=== PATIENT | female | born 1960 | race Caucasian/White ===

== ENCOUNTER 2020-03-18 06:50 | Day surgery (SDC) | payer OTHER, MEDICAID, SELFPAY ==
[2020-03-18] VITALS (30 sets, daily range): BP systolic 101–158; BP diastolic 64–90; PULSE 75–124; RESP 11–22; TEMP 36.1–36.7; O2SAT 91–97
--- NOTE | 2020-03-18 07:00 | DI.CT_ITS ---
EXAM: CT ABDOMEN PELVIS W CLINICAL HISTORY: mid and right lower abdominal pain. TECHNIQUE: Imaging Protocol: Axial computed tomography images with coronal and sagittal reformatted images were created and reviewed CONTRAST MATERIAL: Intravenous: Omnipaque 350 Contrast volume:structured data in ml Oral: yes / no COMPARISON: No exams were available for comparison FINDINGS: ABDOMEN: Lung Bases: Normal where visualized. Liver: Mildly enlarged. Fatty infiltration.. No measurable mass. Gallbladder and biliary tract: No radiodense calculus or dilation. Pancreas: Normal density, no abnormal calcifications or inflammatory process. Spleen: Normal. Kidneys: Normal size, contour and axis. No radiodense stones or obstructive uropathy. No masses seen. Adrenal glands: No masses seen. Abdominal Aorta: Abdominal portion non-dilated. Soft tissues: There is a periumbilical hernia containing a loop small bowel. There is some fluid wit hin the hernia sac. The hernia measures approximately 5.5 cm in diameter. The proximal loops of bow el are mildly dilated consistent with an element of obstruction. There is no pneumatosis. PELVIS: Bladder: Symmetric distention, no gross wall thickening. Bowel: Stomach and colon are unremarkable. The appendix is normal. Peritoneal cavity: No ascites, collection or mesenteric inflammatory response. No free air. Bones: Degenerative changes greatest of the thoracic spine. Reproductive organs: Within normal limits. Lymph nodes: Unremarkable. Impression: Umbilical hernia containing a loop of small bowel causing partial obstruction. RADIATION DOSE DELIVERED: 1,420.95mGy.cm Total DLP DATA REPOSITORY: All CT scans at this facility are submitted to the National Radiology Data Registry (NRDR) Dose Index Registry (DIR) with the [employer] (A[employer]). RADIATION OPTIMIZATION: All CT scans at this facility use at least one of these dose optimization te chniques: automated exposure control; mA and/or kV adjustment per patient size (includes targeted exa ms where dose is matched to clinical indication); or iterative reconstruction.
--- NOTE | 2020-03-18 07:08 | W.ED.GENAD ---
Discharge Plan Disposition Patient Disposition: [facility] INPATIENT Condition: Stable Discharge Details Clinical Impression: Abdominal pain, Incarcerated hernia, Intestinal obstruction Primary Care Provider: Carina,Local ED Provider: Joselo Ortiz Home Meds and New Rx's Prescriptions: No Action metformin 1,000 mg Tablet 1,000 mg PO BID RF: 0 glipizide 10 mg Tablet Extended Release 24hr 10 mg PO DAILY RF: 0 levothyroxine 25 mcg Tablet 25 mcg PO DAILY RF: 0 amlodipine 10 mg Tablet 10 mg PO DAILY RF: 0 irbesartan 75 mg Tablet 75 mg PO DAILY RF: 0 montelukast 10 mg Tablet 10 mg PO QHS RF: 0 hydrochlorothiazide 25 mg Tablet 25 mg PO DAILY RF: 0 rosuvastatin 10 mg Tablet 10 mg PO HS RF: 0 Medical Decision Making <Michael Vargas MD - Last Filed: 03/18/20 07:12> 60 yo female with hx of dm and htn who moved here from [place] in september comes in with chief complaint of abdominal pain since last night. She states she had a ventral abdominal hernia repair done in [place] 2 years ago and started to have umbilical pain radiating to the rlq pain last night as well as intermittent n/v. She denies chest pain, dyspnea, fevers. She arrives hemodynamically stable speaking in full sentences and appears in pain. Has pain in the mid abdomen as well as lower right guarding, no rebound tenderness. She does have what feels to be a hernia in the umbilicus as well. Given her worsening pain and n/v will obtain lab work and ct to evaluate for incarcerated/strangulated hernia, appendicits, and sbo among other pathology Patient to be signed out to oncoming provider pending lab work and imaging results and final dispo Differential Diagnosis Differential Diagnosis: hernia, appendicitis, sbo <Joselo Ortiz DO - Last Filed: 03/18/20 12:29> 60-year-old female was signed out to me by my colleague Dr. Michael Vargas. Please refer to his HPI, physical exam assessment and plan. At time of signout we are pending CT scan. Patient has a history of umbilical hernia, she had umbilical hernia repair with mesh in [place] in the past, for the last week she has had increased bulge in her umbilical region and then last night noted pain. She has had some vomiting but denies any diarrhea. Patient was given Dilaudid pain resolved for the most part. CT scan shows evidence of hernia with obstruction. Reassessment by myself demonstrates a nonreducible hernia on initial assessment. Mild tenderness. We did place the patient in Trendelenburg for half an hour, placed ice on her umbilicus, and on reassessment I was unable to reduce the hernia still. Labs show mild white count, left shift, concern for an incarcerated hernia, lactate normal so will lower likelihood of strangulation at this stage. I did contact the surgeon Dr. Jones and discussed the findings. She will come to evaluate the patient. Currently she is in the OR. 12:28 PM Patient has been seen and assessed by Dr. Jones, she agrees with the assessment and plan. We are still unable to reduce the hernia. She will be brought to the OR for surgical management. I have extensively reviewed the treatment plan with the patient. I have addressed all patient concerns at this time. I have also discussed the plan with the admitting physician and they agree with the current assessment and plan and have agreed to assume responsibility for the patient. All parties demonstrate verbal understanding and agreement with our assessment and plan at this time. HPI <Michael Vargas MD - Last Filed: 03/18/20 07:12> General Mode of arrival: ambulatory. Date/Time Provider Initiated Documentation: 03/18/20 06:52. Limitations to Documentation: no limitations. Information obtained by: patient. History of Present Illness 60 year old F presents to the emergency department with the chief complaint of abdominal pain, described as moderate, Patient started experiencing this day(s) (1) and it has been constant. No relieving factors improve symptom(s), No exacerbating factors reported . Patient notes nausea/vomiting. Patient did receive the following treatments prior to arrival, none Related Data Home Medications Medication Instructions Recorded Confirmed amlodipine 10 mg PO DAILY 03/18/20 03/18/20 glipizide 10 mg PO DAILY 03/18/20 03/18/20 hydrochlorothiazide 25 mg PO DAILY 03/18/20 03/18/20 irbesartan 75 mg PO DAILY 03/18/20 03/18/20 levothyroxine 25 mcg PO DAILY 03/18/20 03/18/20 metformin 1,000 mg PO BID 03/18/20 03/18/20 montelukast 10 mg PO QHS 03/18/20 03/18/20 rosuvastatin 10 mg PO HS 03/18/20 03/18/20 Allergies Allergy/AdvReac Type Severity Reaction Status Date / Time No Known Allergies Allergy Unverified 03/18/20 07:02 General Stated Complaint: Abd Prob CON: 3 Review of Systems <Michael Vargas MD - Last Filed: 03/18/20 07:12> All systems reviewed & are unremarkable except as noted in HPI and below Constitutional Constitutional: Denies chills, Denies fever(s) and Denies weakness Cardiovascular Cardiovascular: Denies chest pain and Denies dyspnea Respiratory Respiratory: Denies cough and Denies dyspnea Genitourinary Genitourinary: Denies dysuria Integumentary/Breasts Skin/Breast: Denies rash Neurologic Neurologic: Denies weakness PFSH <Michael Vargas MD - Last Filed: 03/18/20 07:12> Social History Smoking/Tobacco Use Status: Never Smoking risk assessment performed?: Yes Alcohol Intake: current Alcohol Intake frequency: holidays/special occasions only Drug use: Never Do you feel safe at home: Yes Do you feel safe in your relationship?: Yes Exam <Michael Vargas MD - Last Filed: 03/18/20 07:12> Const General: no acute distress Orientation: alert [facility] Head: normal to inspection Ears: external ears normal General nose exam: external nose normal Mouth: moist mucous membranes Eyes General: appearance normal, both eyes and all related structures Neck Neck: normal visual inspection Resp Effort & Inspection: normal respiratory effort and able to speak in complete sentences Cardio Rate: tachycardic GI Palpation: tender Skin General skin exam: no rashes or lesions noted Neuro General: patient alert and patient oriented x3 Extrem General: normal to inspection Psych Mental Status: mental status grossly normal Course <Michael Vargas MD - Last Filed: 03/18/20 07:12> Vital Signs Vital signs: Vital Signs Temperature 36.5 C 03/18/20 06:56 Pulse 124 H 03/18/20 06:56 Respiratory Rate 18 03/18/20 06:56 Blood Pressure 158/90 H 03/18/20 06:56 Pulse Oximetry 97 03/18/20 06:56 Temperature 36.5 C 03/18/20 06:56 Temperature Source Temporal Artery Scan 03/18/20 06:56 Pulse 124 H 03/18/20 06:56 Respiratory Rate 18 03/18/20 06:56 Respiratory Effort Non-Labored 03/18/20 07:00 Blood Pressure 158/90 H 03/18/20 06:56 Blood Pressure Position Sitting 03/18/20 06:56 Pulse Oximetry 97 03/18/20 06:56 Oxygen Delivery Method Room Air 03/18/20 06:56 Oxygen Flow Rate 0 03/18/20 06:56 Pain Level 8 03/18/20 06:56 Sign Out <Michael Vargas MD - Last Filed: 03/18/20 07:12> Sign Out Data: Sign Out Comment: prior hernia surgery 2 years ago, 1 day of mid/right lower abdomen pain and n/v. Pending labs, imaging and dispo Last updated by Michael Vargas MD at 03/18/20 07:13
[2020-03-18 07:29] LABS: Bilirubin Negative (Negative); Blood Trace-intact (Negative); Clarity Clear (Clear); Glucose Negative (Negative); Ketones Negative (Negative); Leukocyte Esterase Negative (Negative); Nitrite Negative (Negative); Specific Gravity >= 1.030 (1.005-1.025); Urobilinogen 0.2 EU/dL (Up TO 0.2)
[2020-03-18 07:31] LABS: Lactate 1.7 mmol/L (0.6-1.4)
[2020-03-18 07:33] LABS: Abs Immature Grans 0.06 10^3/uL (0.0-0.06); Absolute Basophil Count 0.03 10^3/uL (0.0-0.2); Absolute Neutrophil Count 13.55 10^3/uL (1.2-6.7); Basophils % 0.2; Eosinophils % 0.3; HCT 43.8 % (36.0-46.0); HGB 15.6 g/dL (11.2-15.7); Immature Grans % 0.4; Lymphocytes % 8.8; MCH 34.1 pg (27.0-33.0); MCHC 35.6 % (32.0-36.0); MCV 95.8 fL (80-95); MPV 10.1 fL (8.0-11.0); Monocytes % 2.8; Neutrophils % 87.5; Nucleated RBC 0 %; Platelet Count 298 10^3/uL (130-400); RBC 4.57 10^6/uL (3.93-5.22); RDW 11.7 % (11.7-14.6); RDW-SD 40.7 fL; WBC 15.49 10^3/uL (4.4-10.8)
[2020-03-18 07:34] LABS: Absolute Eosinophil Count 0.05 10^3/uL (0.0-0.7); Absolute Lymphocyte Count 1.36 10^3/uL (1.2-3.4); Absolute Monocyte Count 0.43 10^3/uL (0.1-0.8)
[2020-03-18] MEDS: Ondansetron 4 MG/2 ML VIAL IVP (07:37)
[2020-03-18] MEDS: Normal Saline 1,000 ML 1000 ML IV (07:37)
[2020-03-18] MEDS: HYDROmorphone 2 MG/ML VIAL 1 MG IVP (07:39)
[2020-03-18 07:42] LABS: WBC 0-2 HPF (0-5)
[2020-03-18 07:43] LABS: Bacteria Few HPF (Negative); C & S Indicated? No/Sq. Contamination; Casts Negative LPF (Negative); Crystals Negative HPF (Negative); Epithelial Cells Many HPF (Negative); Mucus Negative (Negative); Other Cells Negative (Negative)
[2020-03-18 07:47] LABS: ALT 40 U/L (14-59); AST 27 U/L (15-37); Alkaline Phosphatase 90 U/L (46-116); Anion Gap 8.5 mmol/L (3-11); BUN 24 mg/dL (7-18); Bilirubin, Direct 0.12 mg/dL (0.00-0.20); Bilirubin, Total 0.6 mg/dL (0.2-1.0); CO2 32.5 mmol/L (21.0-32.0); CREATININE 0.98 mg/dL (0.55-1.02); Calcium 9.8 mg/dL (8.5-10.1); Chloride 96 mmol/L (98-107); Estimated GFR 57.89 (mL/min/1.73m2); Glucose 204 mg/dL (74-106); Lipase 109 U/L (73-393); Magnesium 1.5 mg/dL (1.8-2.4); Potassium 3.6 mmol/L (3.5-5.1); Sodium 137 mmol/L (136-145); Total Protein 8.5 g/dL (6.4-8.2)
[2020-03-18 07:49] LABS: INR 1.1 (0.9-1.1); PTT Activated 27.6 sec (21.0-27.5); Prothrombin Time 10.7 sec (9.3-11.0)
[2020-03-18] MEDS: Omnipaque 350 MG/ML 100 ML BTL IJ (08:25)
[2020-03-18] MEDS: Normal Saline Flush 10 ML SYR IVP (08:42)
[2020-03-18] MEDS: MAGNESIUM SULFATE 2 GM/50 ML BAG IVPB (08:44)
[2020-03-18 10:07] LABS: Source Nasopharynx
--- NOTE | 2020-03-18 10:28 | HPE_ITS ---
Documented by User: JACLYN Watson 03/18/20 10:45 Date of service: 03/18/20 Time of Service: 10:28 Assessment and Plan Assessment and plan (1) Incarcerated ventral hernia: Status: Acute Assessment and plan: Pleasant 60 y/o female with incarcerated ventral hernia. Both the ER physician and this provider attempted to reduce the hernia without success. CT scan showed Umbilical hernia containing a loop of small bowel causing partial obstruction Discussed proceeding with reduction and repair of her recurrent ventral hernia with possible mesh. History of Present Illness History of Present Illness Chief Complaint: Abdominal Pain; Incarcerated Ventral Hernia Narrative: 60 y/o female with a history of GRAHAM, HTN, Type 2 DM, Asthma and hyperlipidemia presented to the ER with 12+ hours of abdominal pain. She reports she noted a firm, lump in her abdomen which was painful to touch. She reports that she has previously experienced this ~2 years ago, at which time she had a ventral hernia repaired and she believes mesh was implanted. She reports her last BM was yesterday. She denies any nausea or vomiting. She recently moved to [place] from [place], she states that during that time she has not located a PCP and her glucometer has been broken so she has not been monitoring her blood sugar. She reports occasional palpitations which she associated with stress and anxiety. She denies any chest pain, dyspnea or dyspnea with exertion. She Denies any history of requiring intubation secondary to her asthma. She denies any history for VT, Stroke, seizures, bleeding or clotting disorders. She denies having any metal implanted in her body. [facility] Social History Smoking/Tobacco Use Status: Never Smoking risk assessment performed?: Yes Alcohol Intake: current Alcohol Intake frequency: holidays/special occasions only Drug use: Never Do you feel safe at home: Yes Do you feel safe in your relationship?: Yes Meds Home Medications and Allergies Home Medications Medication Instructions Recorded Confirmed Type amlodipine 10 mg PO DAILY 03/18/20 03/18/20 History glipizide 10 mg PO DAILY 03/18/20 03/18/20 History hydrochlorothiazide 25 mg PO DAILY 03/18/20 03/18/20 History irbesartan 75 mg PO DAILY 03/18/20 03/18/20 History levothyroxine 25 mcg PO DAILY 03/18/20 03/18/20 History metformin 1,000 mg PO BID 03/18/20 03/18/20 History montelukast 10 mg PO QHS 03/18/20 03/18/20 History rosuvastatin 10 mg PO HS 03/18/20 03/18/20 History Allergies Allergy/AdvReac Type Severity Reaction Status Date / Time No Known Allergies Allergy Unverified 03/18/20 07:02 Exam Const General: comfortable Orientation: alert and oriented x3 Resp Effort & Inspection: normal respiratory effort, no audible wheezes and no cough Auscultation: clear to auscultation bilaterally Cardio Rate: regular rate Rhythm: regular rhythm Heart Sounds: S1 normal, S2 normal, no gallops and no murmurs GI Inspection: visible herniation (ventral near umbilicus) Palpation: soft and tender (Overlying hernia. ) Auscultation: normal bowel sounds Psych Appearance: grossly normal Mental Status: mental status grossly normal Speech and Movement: speech and movement normal Mood: congruent mood Affect: normal affect Attitude: cooperative Results Labs Result diagrams: 03/18/20 07:25 03/18/20 07:25 Labs: Laboratory Results - last 24 hr 03/18/20 03/18/20 03/18/20 07:10 07:25 07:25 WBC RBC Hgb Hct MCV MCH MCHC RDW Plt Count MPV Immature Gran % Neutrophils % Lymphocytes % Monocytes % Eosinophils % Basophils % Nucleated RBC % Absolute Neutrophils Absolute Lymphocytes Absolute Monocytes Absolute Eosinophils Absolute Basophils PT INR APTT VBG Lactate 1.7 H Sodium 137 Potassium 3.6 Chloride 96 L Carbon Dioxide 32.5 H Anion Gap 8.5 BUN 24 H Creatinine 0.98 Estimated GFR/1.73 m2 57.89 Glucose 204 H Calcium 9.8 Magnesium 1.5 L Total Bilirubin 0.6 Conjugated Bilirubin 0.12 AST 27 ALT 40 Alkaline Phosphatase 90 Total Protein 8.5 H Albumin 4.0 Lipase 109 Urine Color Yellow Urine Clarity Clear Urine pH 7.0 Ur Specific [place] >= 1.030 H Urine Protein >=300 H Urine Ketones Negative Urine Blood Trace-intact H Urine Nitrite Negative Urine Bilirubin Negative Urine Urobilinogen 0.2 Ur Leukocyte Esterase Negative Urine RBC 3-5 H Urine WBC 0-2 Ur Epithelial Cells Many Urine Crystals Negative Urine Bacteria Few Urine Casts Negative Urine Mucus Negative Urine Other Negative Ur Culture Indicated? No/sq. contamination Urine Glucose Negative 03/18/20 03/18/20 07:25 07:25 WBC 15.49 H RBC 4.57 Hgb 15.6 Hct 43.8 MCV 95.8 H MCH 34.1 H MCHC 35.6 RDW 11.7 Plt Count 298 MPV 10.1 Immature Gran % 0.4 Neutrophils % 87.5 Lymphocytes % 8.8 Monocytes % 2.8 Eosinophils % 0.3 Basophils % 0.2 Nucleated RBC % 0 Absolute Neutrophils 13.55 H Absolute Lymphocytes 1.36 Absolute Monocytes 0.43 Absolute Eosinophils 0.05 Absolute Basophils 0.03 PT 10.7 INR 1.1 APTT 27.6 H VBG Lactate Sodium Potassium Chloride Carbon Dioxide Anion Gap BUN Creatinine Estimated GFR/1.73 m2 Glucose Calcium Magnesium Total Bilirubin Conjugated Bilirubin AST ALT Alkaline Phosphatase Total Protein Albumin Lipase Urine Color Urine Clarity Urine pH Ur Specific [place] Urine Protein Urine Ketones Urine Blood Urine Nitrite Urine Bilirubin Urine Urobilinogen Ur Leukocyte Esterase Urine RBC Urine WBC Ur Epithelial Cells Urine Crystals Urine Bacteria Urine Casts Urine Mucus Urine Other Ur Culture Indicated? Urine Glucose Last Vital Signs Temp 36.7 C 03/18/20 08:38 Pulse 86 03/18/20 10:16 Resp 19 03/18/20 10:20 BP 145/75 H 03/18/20 10:16 Pulse Ox 95 03/18/20 10:20 Documented by User: Gracia Jones MD 03/18/20 12:17 PFS Social History Smoking/Tobacco Use Status: Never Smoking risk assessment performed?: Yes Alcohol Intake: current Alcohol Intake frequency: holidays/special occasions only Drug use: Never Do you feel safe at home: Yes Do you feel safe in your relationship?: Yes Meds Home Medications and Allergies Home Medications Medication Instructions Recorded Confirmed Type amlodipine 10 mg PO DAILY 03/18/20 03/18/20 History glipizide 10 mg PO DAILY 03/18/20 03/18/20 History hydrochlorothiazide 25 mg PO DAILY 03/18/20 03/18/20 History irbesartan 75 mg PO DAILY 03/18/20 03/18/20 History levothyroxine 25 mcg PO DAILY 03/18/20 03/18/20 History metformin 1,000 mg PO BID 03/18/20 03/18/20 History montelukast 10 mg PO QHS 03/18/20 03/18/20 History rosuvastatin 10 mg PO HS 03/18/20 03/18/20 History Allergies Allergy/AdvReac Type Severity Reaction Status Date / Time No Known Allergies Allergy Unverified 03/18/20 07:02 Results Labs Result diagrams: 03/18/20 07:25 03/18/20 07:25
[2020-03-18 10:47] LABS: COVID-19 PCR Negative (Negative); Influenza A PCR Negative (Negative); Influenza B PCR Negative (Negative); RSV PCR Negative (Negative)
[2020-03-18] MEDS: Lactated Ringers 1,000 ML 80 ML IV (12:30)
[2020-03-18] MEDS: AMPICILLIN/SULBACTAM 3 GM in Normal Saline 100 ML IVPB (12:51)
[2020-03-18] MEDS: Lidocaine 2% Multi-Dose 50 ML VIAL (12:57)
--- NOTE | 2020-03-18 13:41 | ROE_ITS ---
Date of service: 03/18/20 Operative Note Operative Note DATE OF PROCEDURE: 03/18/20 PRE-OP DIAGNOSIS: Incarcerated recurrent umbilical hernia POST-OP DIAGNOSIS: other (Incarcerated umbilical hernia) PROCEDURE: Incarcerated umbilical hernia repair with mesh SURGEON: Gracia Jones [employer] WORKER: Makenna Jacques ANESTHESIA: GETA (ASA 2, Aureliano Patel CRNA) and regional (Bilateral rectus block) ESTIMATED BLOOD LOSS: 25 PATHOLOGY: none sent COMPLICATIONS: None Patient was transported to: PACU Patient's condition: stable Implants: Ventrio ST Hernia Patch (8 x 12 cm oval mesh)- REF: [id number] LOT: [id number] Indications: 60 year old with history of previous umbilical hernia repair with mesh. She came to the ER for abdominal pain. Examination revealed a non- reducible umbilical hernia. CT scan showed a partial obstruction with a loop of small bowel in the hernia sac and fluid around the bowel. ER physician attempted to reduce but was unable to. Plan: Exploration and reduction of incarcerated bowel with possible resection. Possible mesh repair of recurrent umbilical hernia. Risks, benefits and complications reviewed with the patient. Complications include but are not limited to bleeding, infection, wound dehisence, hernia recurrence. anastamostic leak, injury to bowel. Questions were entertained and answered to her satisfaction and she wished to proceed. No guarantees were given or implied. Findings: 2 cm hernia just below her old mesh. Procedure Description: After informed consent was obtained the patient was taken to the operating room and placed in a supine position. Monitors and SCDs were applied and a timeout was done. The patient's name, date of , procedure type, procedure site, allergies to medications, preoperative antibiotic, and DVT prophylaxis were all reviewed. Fire risk was assessed. The abdomen was prepped and draped in a sterile surgical fashion. 2% Lidocaine was injected into the dermis along her old incision and continued around the umbilicus to 1 inch below the umbilicus. An incision was made along her old incision and continued around the umbilicus to 1 inch below the umbilicus. Dissection was done with cautery through the subcutaneous tissues down to the fascia on the distal end of the incarcerated hernia. I was then able to dissect carefully between the umbilical stalk and the hernia sac. At this point I felt the bowel release. The hernia sac was opened. There was some omentum that was scarred to the hernia sac and this was resected. The hernia sac was then resected at the edge of the fascia. The fascia was grasped with c ockers. The peritoneum was swept for adhesions and no adhesions were palpated. The hernia defect measured 2.5 cm. A 8 x 12 cm oval mesh was then placed under the peritoneum and secured along the left and right edge of the mesh with 2-0 Proline. Dissolvable tackers were used to secure the mesh circumferentialy. Once the mesh was secured the tissues were irrigated with some normal saline. No bleeding was identified. The fascia was closed over the mesh with 0 vicryl running suture. 2-0 Vicryl was used to secure the umbilicus down to the fascia. The subcutaneous tissue was re-approximated with 3-0 vicryl. The dermis was re- approximated with a running 4-0 Vicryl subcuticular stitch. The skin was cleaned and dried and skin affix was applied. The patient was woken up and taken back to recovery in stable condition. There were no immediate complications. Sponge, instrument and needle counts were correct at the end of the case x2.
--- NOTE | 2020-03-18 13:42 | PDOC.DSDIS_ITS ---
Discharge Plan Disposition Patient Disposition: HOME Condition: Stable Discharge Details Reason For Visit: HERNIA REPAIR Attending Provider: Gracia Jones Primary Care Provider: No,Local Home Meds and New Rx's Prescriptions: New ibuprofen 600 mg tablet 600 mg PO Q6H PRN (Reason: pain) Qty: 60 RF: 0 acetaminophen 325 mg tablet 650 mg PO Q6H PRN (Reason: pain) Qty: 30 RF: 0 oxycodone 5 mg tablet 5 mg PO Q6H PRN (Reason: pain) Qty: 14 RF: 0 Continued metformin 1,000 mg Tablet 1,000 mg PO BID RF: 0 glipizide 10 mg Tablet Extended Release 24hr 10 mg PO DAILY RF: 0 levothyroxine 25 mcg Tablet 25 mcg PO DAILY RF: 0 amlodipine 10 mg Tablet 10 mg PO DAILY RF: 0 irbesartan 75 mg Tablet 75 mg PO DAILY RF: 0 montelukast 10 mg Tablet 10 mg PO QHS RF: 0 hydrochlorothiazide 25 mg Tablet 25 mg PO DAILY RF: 0 rosuvastatin 10 mg Tablet 10 mg PO HS RF: 0 Discharge Instructions Instructions: Open Herniorrhaphy (DC) Additional Instructions: Activity at Home after surgery: 1. Make sure you walk outside at least 4 times per day 2. You should be able to climb a flight of stairs 3. No driving while in pain or taking pain medications 4. No strenuous activity or heavy lifting for 4 weeks (open surgery) Diet, Nutrition, & wound healin. Avoid alcohol until after you are recovered from your surgery 2. Make sure to eat plenty of lean protein (meat, fish, eggs, cottage cheese, beans) 3. Eat a variety of fruits and vegetables. Eat plenty of high fiber foods to avoid constipation. 4. Drink plenty of liquids to stay hydrated and avoid constipation Pain Medications: 1. Tylenol 650 mg every 6 hours as needed and Ibuprofen 600 mg every 6 hours as needed. may alternate between the 2 medications every 3 hours 2. If a narcotic has been prescribed take as directed only for breakthrough pain For Constipation: 1. Take Milk of Magnesia or MiraLax as needed for constipation Other: 1. You may shower daily. Do not scrub the incisions 2. Do not soak the incisions for 1 week 3. You may alternate ice and heat as needed for pain and swelling Wound Care: 1. Keep the incisions clean and dry Please call our office if you develop: 1. Fevers >101.5 2. Nausea or Vomiting 3. Worsening pain 4. Redness and thick discharge from the wounds If after hours please call the Hospital at and ask to speak to the on-call surgeon Referrals: Gracia Jones MD [ [facility] STAFF PHYSICIAN] - (2 weeks) Activity:: no lifting >20 lb Remove Dressings/Wound Care:: Do Not Remove Shower/Bathe:: 24 hours Diet:: As Tolerated DS: Diagnosis Discharge Diagnosis (1) Incarcerated ventral hernia: Status: Acute
[2020-03-18] MEDS: Bupivacaine 0.25% Pres-Free 10 ML VIAL (13:55)
[2020-03-18] MEDS: Bupivacaine 0.25% Pres-Free 30 ML VIAL (13:55)
== END 2020-03-18 16:55 | disposition home or self-care (01) ==
LOC: ER 12:29 → SUR 12:31
PROVIDERS: Emergency Medicine; Emergency Provider Student in an Organized Health Care Education/Training Program; Visit Provider Surgery
PROC: (CPT 49587; principal; 2020-03-18 12:30)
DX: K42.0 Umbilical hernia with obstruction, without gangrene (principal); G47.33 Obstructive sleep apnea (adult) (pediatric); J45.909 Unspecified asthma, uncomplicated
CPT/HCPCS: 49587; 36415; 76942; 80053; 83690; 96361; 96365; 96375; 99222; 99285; 74177; 81003; 81015; 82248; 83036; 83605; 83735; 85025; 85610; 85730; C1781; J0295; J1100; J2250; J2405; J2704; J3490

== ENCOUNTER 2020-05-28 13:35 | Outpatient (CLI) | payer MEDICAID, SELFPAY ==
--- NOTE | 2020-05-28 13:00 | DI.RAD_ITS ---
EXAM: XR KNEE LT 3V AP,LAT,JASON CLINICAL HISTORY: LEFT KNEE PAIN. TECHNIQUE: 2D digital imaging was performed. COMPARISON: No exams were available for comparison FINDINGS: BONES: No acute fracture is present. No bony destructive lesion is seen. JOINTS: There is moderate to severe narrowing of the medial femoral tibial joint space. There is mil d to moderate periarticular spurring. There is compensatory widening of the lateral femoral tibial j oint space which shows mild spurring. There is moderate spurring at the patellofemoral joint. No monica int effusion is seen. Degenerative changes are also seen at the proximal tibial fibular joint. SOFT TISSUE: Normal. IMPRESSION: Moderate to severe degenerative changes of the medial femoral tibial joint. [id number] degener ative changes of the patellofemoral joint. DATA REPOSITORY: RADIATION DOSE DELIVERED:
--- NOTE | 2020-05-28 13:37 | DI.RAD_ITS ---
EXAM: XR KNEE RT 3V AP,LAT,JASON CLINICAL HISTORY: RIGHT KNEE PAIN. TECHNIQUE: 2D digital imaging was performed. COMPARISON: CR XR KNEE LT 3V AP,LAT,JASON from 05/28/2020 FINDINGS: BONES: No acute fracture is present. No bony destructive lesion is seen. JOINTS: There is severe narrowing of the medial femoral tibial joint causing varus angulation. There is some flattening of the medial femoral condyle. There is periarticular spurring and coronal and s clerosis. There is compensatory widening of the lateral femoral tibial joint space. Spurring is not ed at the tibial spines and femoral intercondylar notch. There is also moderate spurring at the irizarry llofemoral joint. Spurring is also noted at the proximal tibial fibular joint. No joint effusion is seen. SOFT TISSUE: Normal. IMPRESSION: Severe degenerative changes of the medial femoral tibial joint. DATA REPOSITORY: RADIATION DOSE DELIVERED:
== END 2020-05-28 13:36 | disposition home or self-care (01) ==
LOC: DIORS 13:35
PROVIDERS: Visit Provider Student in an Organized Health Care Education/Training Program
DX: M25.561 Pain in right knee (principal); M25.562 Pain in left knee; M17.0 Bilateral primary osteoarthritis of knee
CPT/HCPCS: 73562

== ENCOUNTER 2020-06-10 08:43 | Outpatient (REF) | payer MEDICAID, SELFPAY ==
[2020-06-10 16:25] LABS: Anion Gap 9.9 mmol/L (3-11); BUN 24 mg/dL (7-18); CO2 28.1 mmol/L (21.0-32.0); CREATININE 0.9 mg/dL (0.55-1.02); Calcium 9.3 mg/dL (8.5-10.1); Calculated LDL 37 mg/dL (<100); Chloride 104 mmol/L (98-107); Cholesterol 119 mg/dL (<200); Glucose 100 mg/dL (74-106); HDL Cholesterol 48 mg/dL (40-60); Sodium 142 mmol/L (136-145); TSH (W/Ref FT4) 2.98 uIU/mL (0.36-3.74); Triglyceride 173 mg/dL (<150)
== END 2020-06-10 08:44 | disposition home or self-care (01) ==
LOC: NCHCN 08:43
PROVIDERS: Visit Provider Nurse Practitioner Family
DX: E03.9 Hypothyroidism, unspecified (principal); E78.5 Hyperlipidemia, unspecified; I10 Essential (primary) hypertension
CPT/HCPCS: 80048; 80061; 84443

== ENCOUNTER 2020-06-10 13:26 | Outpatient (CLI) | payer MEDICAID, SELFPAY ==
--- NOTE | 2020-06-10 13:15 | DI.RAD_ITS ---
EXAM: XR KNEE RT 1V CLINICAL HISTORY: PRE OP R TKA. TECHNIQUE: 2D digital imaging was performed. COMPARISON: CR XR KNEE RT 3V AP,LAT,JASON from 05/28/2020 FINDINGS: Single lateral weight-bearing view of the right knee compared to 05/28/2020. Significant osteoarthritic degenerative changes are again noted in both patellofemoral compartment an d medial compartment. Appearance of the lateral view is unchanged from 05/28/2020. There is also so me calcification noted approximately 3 cm above the superior pole the patella which is either in the quadriceps tendon or suprapatellar bursa. There does appear to be a joint effusion. IMPRESSION: DATA REPOSITORY: RADIATION DOSE DELIVERED:
--- NOTE | 2020-06-10 13:15 | DI.RAD_ITS ---
EXAM: XR STANDING ALIGNMENT CLINICAL HISTORY: pre op R TKA. TECHNIQUE: 2D digital imaging was performed. COMPARISON: CR XR KNEE RT 3V AP,LAT,JASON from 05/28/2020 FINDINGS: There is significant degenerative changes in both knees. There is advanced narrowing of the medial c ompartments of both knees, slightly more prominent on the right side and there also marginal osteophy barney of both medial compartments. There is preserved height of both lateral compartments. Both hips appear unremarkable as do the ankles. No osseous lesions. IMPRESSION: Advanced degenerative narrowing of the medial compartments of both hips, slightly more prominent on t he right side. DATA REPOSITORY: RADIATION DOSE DELIVERED:
== END 2020-06-10 13:27 | disposition home or self-care (01) ==
LOC: DIORS 13:26
PROVIDERS: Visit Provider Physician Assistant
DX: M25.561 Pain in right knee (principal); M17.11 Unilateral primary osteoarthritis, right knee; M25.461 Effusion, right knee
CPT/HCPCS: 73560; 77073

== ENCOUNTER 2020-06-15 04:20 | Outpatient (CLI) | payer MEDICAID, SELFPAY ==
[2020-06-15 10:43] LABS: HCT 38.8 % (36.0-46.0); HGB 13.5 g/dL (11.2-15.7); MCH 34.5 pg (27.0-33.0); MCHC 34.8 % (32.0-36.0); MCV 99.2 fL (80-95); MPV 9.5 fL (8.0-11.0); Platelet Count 241 10^3/uL (130-400); RBC 3.91 10^6/uL (3.93-5.22); RDW 12.5 % (11.7-14.6); RDW-SD 45.2 fL; WBC 6.69 10^3/uL (4.4-10.8)
[2020-06-15 11:08] LABS: Hemoglobin A1C 5.7 % (<5.7)
[2020-06-15 11:30] LABS: Anion Gap 9.2 mmol/L (3-11); BUN 26 mg/dL (7-18); CO2 30.8 mmol/L (21.0-32.0); Calcium 9.3 mg/dL (8.5-10.1); Chloride 99 mmol/L (98-107); Estimated GFR 56.56 (mL/min/1.73m2); Glucose 255 mg/dL (74-106); Potassium 3.7 mmol/L (3.5-5.1); Sodium 139 mmol/L (136-145)
[2020-06-15 11:36] LABS: Source Nasal/Nares
[2020-06-15 18:17] LABS: COVID-19 PCR Negative (Negative)
== END 2020-06-15 04:21 | disposition home or self-care (01) ==
LOC: LBO 04:20
PROVIDERS: PCP Nurse Practitioner Family; Visit Provider Student in an Organized Health Care Education/Training Program
DX: M25.561 Pain in right knee (principal); M17.11 Unilateral primary osteoarthritis, right knee; E11.9 Type 2 diabetes mellitus without complications; I10 Essential (primary) hypertension; Z20.822 Contact with and (suspected) exposure to COVID-19; Z01.818 Encounter for other preprocedural examination; Z01.812 Encounter for preprocedural laboratory examination
CPT/HCPCS: 36415; 80048; 85027; 87635; 83036

== ENCOUNTER 2020-06-16 10:08 | Outpatient (REF) | payer MEDICAID, SELFPAY ==
--- NOTE | 2020-06-16 08:15 | PAPFT_PTH ---
PATIENT: Yolis Romero LOC: [facility] U#:[id number] AGE/SX: 60/F ROOM: RE06/16/[address]: Chelsy Aden : 1960 BED: DIS: 06/16/2020 SPEC #: [id number] RECD: 06/16/20 18:04 STATUS: RADHAIsabelle RESharif #: [id number] FRANCOIS: 06/16/20 08:[address]: Chelsy Aden DEPT: [facility] Cytology RECD BY: Khloe Kidd Tissues: 1 - CX/ENDOCX FOR PAP SMEARS Procedures: PAP THIN PREP/UVM Screening HPV DNA PROBE Comments: [id number]
== END 2020-06-16 10:09 | disposition home or self-care (01) ==
LOC: NCHCN 10:08
PROVIDERS: PCP Nurse Practitioner Family; Visit Provider Nurse Practitioner Family
DX: Z12.4 Encounter for screening for malignant neoplasm of cervix (principal); Z11.51 Encounter for screening for human papillomavirus (HPV); Z00.00 Encounter for general adult medical examination without abnormal findings
CPT/HCPCS: 88142; 87624

== ENCOUNTER 2020-06-17 06:02 | Day surgery (SDC) | payer MEDICAID, SELFPAY ==
[2020-06-17] VITALS (9 sets, daily range): BP systolic 81–135; BP diastolic 51–85; PULSE 78–93; RESP 13–19; TEMP 36.5–36.6; O2SAT 92–98; BMI 40.6
--- NOTE | 2020-06-17 06:41 | W.ANESPRE ---
General Info Date of Service Date Performed: 06/17/20 Height: 5 ft 4 in Weight: 107.3 kg Body Mass Index (BMI): 40.6 Surgical Procedure: Operation Date: 06/17/20 07:40 Proposed Procedures Side Surgeon p Knee Total Arthroplasty Right Myke Snow MD s Injection knee Left Myke Snow MD Meds Allergies and Home Medications Allergies Allergy/AdvReac Type Severity Reaction Status Date / Time No Known Allergies Allergy Verified 06/17/20 06:11 Home Medication Medication Instructions Recorded amlodipine 10 mg PO DAILY 03/18/20 glipizide 10 mg PO DAILY 03/18/20 hydrochlorothiazide 25 mg PO DAILY 03/18/20 irbesartan 75 mg PO DAILY 03/18/20 levothyroxine 25 mcg PO DAILY 03/18/20 metformin 1,000 mg PO BID 03/18/20 montelukast 10 mg PO QHS 03/18/20 rosuvastatin 10 mg PO HS 03/18/20 biotin 5 mg capsule 5 mg PO DAILY 06/10/20 cholecalciferol (vitamin D3) 50 50 mcg PO DAILY 06/10/20 mcg (2,000 unit) capsule mecobalamin (vitamin B12) 1,000 1,000 mcg PO DAILY 06/10/20 mcg chewable tablet [id number]-bmliycit-ylzbzpg-folic 1 tab PO DAILY 06/10/20 acid 400 mcg-vit K1 20 mcg tablet omega-3 fatty acids 1,000 mg 1,000 mg PO DAILY 06/10/20 capsule aspirin [Aspir-81] 81 mg PO QHS 06/17/20 Current Visit Medications: Current Medications Generic Name Dose Route Start Last Admin Trade Name Kya PRN Reason Stop Dose Admin Acetaminophen 1,000 mg 06/17/20 06:00 Acetaminophen 500 Mg Tab PO 06/17/20 16:00 PREOP [place] Celecoxib 400 mg 06/17/20 06:00 Celecoxib 200 Mg Cap PO 06/17/20 16:00 PREOP [place] Ephedrine Sulfate 0 mg 06/17/20 06:40 Ephedrine 50 Mg/Ml Vial IVP DIRECTED PRN Fentanyl 0 mcg 06/17/20 06:40 Fentanyl 100 Mcg/2 Ml Vial IVP DIRECTED PRN Gabapentin 300 mg 06/17/20 06:00 Gabapentin 300 Mg Cap PO 06/17/20 16:00 PREOP [place] Tranexamic Acid 1,000 mg/ 60 mls @ 360 mls/hr 06/17/20 06:00 Sodium Chloride IVPB 06/17/20 16:00 PREOP [place] Tranexamic Acid 1,000 mg/ 60 mls @ 360 mls/hr 06/17/20 06:00 Sodium Chloride IVPB 06/17/20 16:00 DIRECTED [place] Ringer's Solution 1,000 mls @ 80 mls/hr 06/17/20 06:00 IV 07/16/20 23:59 INFUSION [place] Cefazolin Sodium/Dextrose 2 gm in 50 mls @ 100 mls/hr 06/17/20 06:00 Ancef Duplex IVPB 07/16/20 23:59 PREOP [place] Promethazine HCl 6.25 mg/ 50.25 mls @ 200 mls/hr 06/17/20 06:40 Sodium Chloride IVPB DIRECTED PRN Nausea IV Miscellaneous Supplies 1 each 06/17/20 06:00 Iv Access IV 07/16/20 23:59 DIRECTED [place] Naloxone HCl 0 mg 06/17/20 06:40 Naloxone 0.4 Mg/Ml Vial IVP PRN PRN Sodium Chloride 0 ml 06/17/20 06:00 Normal Saline Flush 10 Ml Syr IV 07/16/20 23:59 PRN PRN Sodium Chloride 0 ml 06/17/20 06:00 Normal Saline 10 Ml Vial IJ 07/16/20 23:59 DIRECTED PRN Sterile Water 0 ml 06/17/20 06:00 Water,Injection,Sterile 10 Ml Vial IJ 07/16/20 23:59 DIRECTED PRN PFSH Active Problems Active Problems: Problem Status Onset Code Left knee DJD M17.12 Degenerative joint disease of right knee M17.11 Medical History Medical History Asthma Degenerative joint disease of right knee Diabetes Hyperlipidemia Hypertension Hypothyroidism Incarcerated ventral hernia Left knee DJD Sleep apnea uses device. Surgical History Surgical History S/P hernia repair (~03/18/20) incarcerated ventral hernia Tobacco Smoking/Tobacco Use Status: Never Alcohol Alcohol Intake: current Alcohol intake frequency: holidays/special occasions only Substance Use Substance use: Never Substance use type: does not use Vital Signs and Lab Results Vital Signs Most Recent Vital Signs in EMR: Most Recent Vital Signs Temp Pulse Resp BP Pulse Ox 36.5 C 86 16 118/65 95 06/17/20 06:18 06/17/20 06:18 06/17/20 06:18 06/17/20 06:18 06/17/20 06:18 Lab Results Blood Type / Crossmatch: No Data to Display Complete Blood Count: White Blood Count 6.69 10^3/uL (4.4-10.8) 06/15/20 10:35 06/15/20 Red Blood Count 3.91 10^6/uL (3.93-5.22) L 06/15/20 10:35 06/15/20 Hemoglobin 13.5 g/dL (11.2-15.7) 06/15/20 10:35 06/15/20 Hematocrit 38.8 % (36.0-46.0) 06/15/20 10:35 06/15/20 Platelet Count 241 10^3/uL (130-400) 06/15/20 10:35 06/15/20 Complete Metabolic Panel: Sodium Level 139 mmol/L (136-145) 06/15/20 10:35 06/15/20 Potassium Level 3.7 mmol/L (3.5-5.1) 06/15/20 10:35 06/15/20 Chloride Level 99 mmol/L (98-107) 06/15/20 10:35 06/15/20 Carbon Dioxide Level 30.8 mmol/L (21.0-32.0) 06/15/20 10:35 06/15/20 Blood Urea Nitrogen 26 mg/dL (7-18) H 06/15/20 10:35 06/15/20 Creatinine 1.0 mg/dL (0.55-1.02) 06/15/20 10:35 06/15/20 Magnesium Level 1.5 mg/dL (1.8-2.4) L 03/18/20 07:25 03/18/20 Calcium Level 9.3 mg/dL (8.5-10.1) 06/15/20 10:35 06/15/20 Albumin 4.0 g/dL (3.4-5.0) 03/18/20 07:25 03/18/20 Glucose Level 255 mg/dL (74-106) H 06/15/20 10:35 06/15/20 Hemoglobin A1c 5.7 % (<5.7) 06/15/20 10:35 06/15/20 Liver Function Panel: Alanine Aminotransferase (ALT/SGPT) 40 U/L (14-59) 03/18/20 07:25 03/18/20 Aspartate Amino Transf (AST/SGOT) 27 U/L (15-37) 03/18/20 07:25 03/18/20 Coagulation Panel: INR International Normalized Ratio 1.1 (0.9-1.1) 03/18/20 07:25 03/18/20 Prothrombin Time 10.7 sec (9.3-11.0) 03/18/20 07:25 03/18/20 Activated Partial Thromboplast Time 27.6 sec (21.0-27.5) H 03/18/20 07:25 03/18/20 Cardiac Panel: No Data to Display Arterial Blood Gas: No Data to Display Venous Blood Gas: Venous Blood Lactate 1.7 mmol/L (0.6-1.4) H 03/18/20 07:25 03/18/20 Pancreas Panel: Lipase 109 U/L (73-393) 03/18/20 07:25 03/18/20 Thyroid Panel: Thyroid Stimulating Hormone (TSH) 2.98 uIU/mL (0.36-3.74) 06/10/20 07:39 06/10/20 Infectious Disease: Coronavirus (COVID-19)(PCR) Negative (Negative) 06/15/20 10:49 06/15/20 Coronavirus 2019 Source Nasal/nares 06/15/20 10:49 06/15/20 Influenza Virus Type A (PCR) Negative (Negative) 03/18/20 10:04 03/18/20 Influenza Virus Type B (PCR) Negative (Negative) 03/18/20 10:04 03/18/20 Respiratory Syncytial Virus (PCR) Negative (Negative) 03/18/20 10:04 03/18/20 Blood Cultures: No Data to Display Toxicology Panel: No Data to Display Panel: No Data to Display Anesthesia Assessment and Plan Anesthesia History Personal History: No History of Anesthesia Complications Family History: No Family History of Anesthesia Complications Exercise Tolerance Exercise Tolerance: Metabolic Equivalents>4 Pertinent Negatives Pertinent Negatives: No Symptoms of GERD, No Major Cardiovascular Symptoms or Complaints and No Major Pulmonary Symptoms or Complaints Cardiac & Pulmonary Exam Cardiac Exam: Normal S1/S2 Heart Sounds Pulmonary Exam: Clear Bilateral Breath Sounds Airway Exam Known Difficult Airway: No Mallampati Class: 3 Mouth Opening: Narrow (< 3cm) Thyromental Distance: Greater than 3 cm Neck Range of Motion: Full ROM Neck Circumference: Thick Teeth Condition: Normal Dentition Airway Comment:: left lower broken tooth ASA Classification ASA Score: ASA 3 ASA Emergency: No NPO Status NPO Status: NPO Clears >2 hours, Solids >8 hours Anesthesia Plan Anesthesia Technique: Spinal Anesthesia Airway Planned: Natural Airway Pain Management: Surgeon and patient request nerve block Monitors Used: Standard Monitors
--- NOTE | 2020-06-17 07:11 | PDOC.DSDIS_ITS ---
Discharge Plan Disposition Patient Disposition: HOME Condition: Good Discharge Details Reason For Visit: Right Knee Replacement Attending Provider: Myke Snow Primary Care Provider: Chelsy Aden Home Meds and New Rx's Prescriptions: New aspirin 81 mg tablet,delayed release (DR/EC) 81 mg PO BID Qty: 60 RF: 0 acetaminophen 500 mg tablet 1,000 mg PO Q8H PRN (Reason: pain) Qty: 90 RF: 3 pantoprazole 40 mg tablet,delayed release (DR/EC) 40 mg PO DAILY Qty: 30 RF: 0 docusate sodium [Colace] 100 mg capsule 100 mg PO BID PRNQty: 10 RF: 0 gabapentin 300 mg capsule 300 mg PO QHS Qty: 7 RF: 0 oxycodone 5 mg tablet 5 mg PO Q4H Qty: 18 RF: 0 naproxen 500 mg tablet 500 mg PO BID PRNQty: 60 RF: 0 Continued mecobalamin (vitamin B12) 1,000 mcg tablet,chewable 1,000 mcg PO DAILY RF: 0 omega-3 fatty acids 1,000 mg capsule 1,000 mg PO DAILY RF: 0 cholecalciferol (vitamin D3) 50 mcg (2,000 unit) capsule 50 mcg PO DAILY RF: 0 biotin 5 mg capsule 5 mg PO DAILY RF: 0 One-A-Day Women's 50 Plus 400-20 mcg tablet 1 tab PO DAILY RF: 0 metformin 1,000 mg Tablet 1,000 mg PO BID RF: 0 glipizide 10 mg Tablet Extended Release 24hr 10 mg PO DAILY RF: 0 levothyroxine 25 mcg Tablet 25 mcg PO DAILY RF: 0 amlodipine 10 mg Tablet 10 mg PO DAILY RF: 0 irbesartan 75 mg Tablet 75 mg PO DAILY RF: 0 montelukast 10 mg Tablet 10 mg PO QHS RF: 0 hydrochlorothiazide 25 mg Tablet 25 mg PO DAILY RF: 0 rosuvastatin 10 mg Tablet 10 mg PO HS RF: 0 Discontinued aspirin [Aspir-81] 81 mg Tablet,Delayed Release (Dr/Ec) 81 mg PO QHS RF: 0 Discharge Instructions Additional Instructions: Total Knee Discharge Instructions Activity: The most important activity is to walk. You should try to take short walks a few times a day. It is important that when resting you work on keeping the knee straight. Avoid putting a pillow behind the knee as this will encourage flexion. Work on range of motion exercises as provided by [facility]. - Start outpatient physical therapy within 2 weeks. - You should wear the JACKIE hose on both legs for 2 weeks. You may remove these at night. You may also use any compression sock in place of the JACKIE hose. Dressing: You may remove the Jigar wrap on your leg 2 days after your surgery and put on the JACKIE stocking given to you from the hospital. Keep the surgical dr essing (underneath the JIGAR wrap) in place for at least one week. After the first week it may be removed and replaced with light gauze and tape or nothing. The wound and dressing may get wet after 3 days but avoid soaking the dressing or otherwise it will need to be changed. Many people prefer covering the dressing with cling wrap (saran wrap) to minimize it from getting soaked. If it gets wet, just pat dry. If it starts to peel off then it will need to be changed. Medications: - You should take Tylenol and anti-inflammatory, Naproxen, as your primary pain control medications. If the Celebrex is too expensive or not covered, please call the office for another alternative (Advil/Ibuprofen or Naproxen/Aleve) - You have been prescribed a stronger pain medication Oxycodone for breakthrough pain, take as needed as prescribed. - You have also been prescribed a stomach acid reduction agent Pantoprozole to help reduce stomach acid and reflux. - You have been prescribed Gabapentin to take at night for restlessness and nerve pain. - You will be taking Aspirin 81mg twice a day for DVT prevention unless instructed otherwise. - If you have constipation you should take Colace or Miralax (both [id number]). It takes most people 3-4 days to have a bowel movement. Follow-up: 2 weeks If you have any acute concerns or questions, please do not hesitate to contact the office at [phone]. You may contact Dr. Snow with any questions after hours through the hospital at [phone] or on his cell phone at [phone]. Equipment/Supplies: Walker Activity:: Activity as Tolerated Shower/Bathe:: 72 hours Diet:: As Tolerated Discharge Orders Discharge Orders: Discharge Order (Routine); Ordered 06/17/20 Ordered By: Myke Snow DS: Diagnosis Discharge Diagnosis (1) Degenerative joint disease of right knee: Status: Chronic (2) Left knee DJD: Status: Chronic
[2020-06-17] MEDS: Lactated Ringers 1,000 ML 80 ML IV (07:26)
[2020-06-17] MEDS: Acetaminophen 500 MG TAB 1000 MG PO (07:26)
[2020-06-17] MEDS: Gabapentin 300 MG CAP PO (07:27)
[2020-06-17] MEDS: Celecoxib 200 MG CAP 400 MG PO (07:27)
[2020-06-17] MEDS: ceFAZolin 2 GM/50 ML BAG IVPB (07:31)
--- NOTE | 2020-06-17 08:15 | W.ANESNERVE ---
Nerve Block Single Injection Procedure Date and Time Date Performed: 06/17/20 Procedure Start: 07:17 Location Where Procedure Performed Procedure Location: PACU Reason Performed: Postoperative Analgesia Requesting Provider: Myke Snow Timeout Performed Timeout Performed: Yes Monitoring Used ECG, Blood Pressure, SpO2 and See EMR for corresponding vital signs Sterility Sterility: Hand Hygiene, Surgical Cap, Surgical Mask, Sterile Gloves and Chlorhexidine Sedation Given During Procedure Sedation Given (Indicate Dose Given): Versed IV (2 mg) and Precedex IV (8 mcg) Patient Mental Status Patient Mental Status: Sedate with meaningful communication Nerve Block 1st Nerve Block: Laterality: Right Block Type: Adductor Canal Needle / Catheter Used: 120mm SonoPlex II Local Anesthetic Bolus (Indicate Dose Given): Lidocaine used for local infiltration of skin, Injected in 3-5ml increments after negative blood aspiration and Bupivacaine 0.25% (15 ml) Additives (Indicate Dose Given): None Ultrasound: Sterile probe cover and gel used Ultrasound Image Saved?: Yes Nerve Stimulator: Not Used Paresthesia: None Procedure Tolerated: No Complications Procedure Outcome: Successful Performed By: Brittany Osman
[2020-06-17] MEDS: Bupivacaine 0.25% Pres-Free 30 ML VIAL (08:44)
[2020-06-17] MEDS: Normal Saline 20 ML VIAL (08:44)
[2020-06-17] MEDS: Ketorolac 30 MG/ML VIAL (08:44)
[2020-06-17] MEDS: methylPREDNISolone ACETATE 80 MG/ML VIAL (08:46)
[2020-06-17] MEDS: Bupivacaine 0.5% Pres-Free 30 ML VIAL (08:47)
--- NOTE | 2020-06-17 09:28 | ROE_ITS ---
Date of service: 06/17/20 Time of Service: 09:28 Operative Note Operative Note DATE OF PROCEDURE: 06/17/20 PRE-OP DIAGNOSIS: Right and Left Knee Osteoarthritis POST-OP DIAGNOSIS: same PROCEDURE: Right Total Knee Replacement and Left Knee Injection SURGEON: Myke Snow SENIOR INSTRUMENTATION ENGINEER: Rianna Bruce ANESTHESIA TYPE: Spinal Refer to Anesthesia Record ESTIMATED BLOOD LOSS: 200 PATHOLOGY: none sent TOURNIQUET TIME: 0 COMPLICATIONS: None Patient was transported to: PACU Patient's condition: stable Implants: 1. Depuy Attune Cementless Cruciate Retaining Femoral Component, Size 5 2. Depuy Attune Cementless Rotating Platform Tibial Component, Size 3 3. Depuy Attune 5x6mm CR/RP Poly 4. Depuy Attune Patellar Component, Size 35mm Indications: I have seen Yolis in clinic for symptoms of knee arthritis, confirmed with radiographic findings. She has exhausted nonoperative methods and was having significant limitations in daily function and desired better function and less pain. I discussed the technical details of a knee replacement. I explained the risks of the procedure to include, but not limited to, bleeding, infection, pain, stiffness, fracture, damage to nerves and vessels, damage to muscles and tendons, loosening, need for repeat procedure, blood clot and cardiopulmonary demise. Despite these risks, she elected to proceed. Findings: There was significant signs of arthritis throughout the knee. Procedure Description: Yolis was greeted in the preoperative holding area where the correct side was identified and marked. The consent was reviewed with the patient and signed. The history and physical was updated. All questions were answered. Preoperative medications were administered: Acetaminophen 1000mg, Celebrex 400mg, and Gabapentin 300mg. An adductor canal block was then administered by the anesthesia team in the PACU. Yolis was taken back to the operating room. A spinal anesthestic was then administered. The patient was placed into the supine position on the operating room table. A nonsterile tourniquet was placed high onto the leg but only used for cementing. Posts were placed for positioning during the p rocedure. All bony prominences were well padded. Prophylactic antibiotics in the form of Cefazolin were administered. 1g of Tranxemic Acid was given intravenously within 30 minutes of incision. Injection of the left knee was performed first. The superolateral border of the patella was identified and marked. The skin was prepped with alcohol. The knee joint was entered without difficulty and the injection, consisting of 8cc of 0.5% Bupivicaine and 80mg of DepoMedrol, was injected without resistance. A Band-Aid was applied. The right leg was then prepped with Chloraprep and draped in a standard fashion with impervious stockinette. A second prep with Chloraprep was performed prior to application of Iodine impregnated skin protection. A timeout to confirm correct identity, side and site, procedure, allergies, anesthesia, and medical concerns was performed. With the knee in some flexion, a midline incision was made overlying the knee. Full thickness skin flaps were raised once the extensor mechanism was encountered. These were raised medially and laterally. Any bleeding was controlled with electrocautery. Once the extensor mechanism was fully exposed, a medial parapatellar arthrotomy was performed in a flexed position. All bleeding from the arthrotomy and the geniculate arteries was coagulated. A medial subperiosteal peel was performed with electrocautery to the midcoronal plane. Due to the significant varus deformity the entire medial tibial plateau was exposed. The fat pad was removed while keeping the patellar tendon protected. The anterior distal femur synovium was removed for later visualization. The ACL and PCL were resected and the anterior horn of the lateral meniscus was transected. The knee was then flexed with the patella everted. Large osteophytes from the tibia were removed. Large osteophytes from the femur were removed. Using a step drill, and based on preoperative templating, the femoral canal was entered. This was done with a step drill without any difficulty. The intramedullary distal femoral cut guide was inserted, set to a 5 degree valgus cut and 10mm cut thickness. The distal femoral cut guide was then held in po sition and pinned. With the soft tissues protected, the distal cut was performed. This was passed over a few times to ensure a planar cut. I then turned attention to the tibia. The extramedullary guide was placed onto the leg. The distal aspect was slid medial to adjust for position of center of ankle and stay in line with shaft of the tibia. Approximately 3-5 degrees of posterior slope was kept in the proximal cutting guide. The center of the guide was aligned with the PCL. The stylus was used to assess cut thickness. The medial side, most involved side, was set for a 4mm cut which corresponded to a 9mm lateral cut. This was then held in position and pinned into place with 2 additional pins and a cross pin for stability. The medial and lateral collateral ligaments were protected and the cut was performed. With this completed, it was assessed and noted to be of appropriate dimensions. The guide was removed. A spacer block was inserted and the knee was brought into extension. The 6mm spacer block provided full extension, without hyperextension and with stability of both the medial and lateral collateral ligaments was assessed. The pins from the femur and the tibia were then removed. The distal femur was then sized. The anterior stylus was placed onto the lateral ridge of the anterior femur. This indicated a size 5 femur. The external rotation of the guide was adjusted to 3 degrees to match the epicondylar axis, perpendicular to Beverley?s line. The 4-in-1 cutting guide was the placed. The posterior medial femur cut was evaluated and appeared of good thickness. The spacer block was inserted underneath the cutting guide and stability was confirmed in 90 degrees of flexion. An kolby wing was used to confirm appropriate position of the anterior cut to avoid notching. This cutting guide was ensured to be flush on the cut surface and then pinned into place with headed pins. While protecting the soft tissues, quad tendon, and collateral ligaments, the anterior and posterior cuts were performed with a saw. The central two pins were removed and the posterior and anterior chamfers were cut next. The notch-cutting guide was placed. This was pinned to lateralize the femoral component as much as possible while keeping it flush on the cut surface. This was then pinned into position. A reciprocating saw was used to make the notch cut. A rasp smoothed the cut surfaces. The medial and lateral menisci were removed. A trial femoral component was then inserted, impacted down to the cut surfaces, and the lug holes were drilled. A provisional trial tibial component was placed and the knee was brought through range of motion. There was noted to be excellent extension and flexion. There was no significant instability. The polyethylene was trialed until there was good flexion and extension with excellent stability to the medial and lateral collaterals. The patella was tracking without thumbs. A size 6mm polyethylene component provided the best range of motion and stability with less than 2mm gapping with medial and lateral stress and full extension without significant hyperextension. The tibial cut surface was fully exposed. The tibia was then sized as a 3. The tibia had been previously marked during trialing to correspond to the center of the tibial component to help with rotation. The trial was aligned to this rianna, approximately rotated to the medial 1/3rd of the tibial tubercle. The trial was pinned into place. The tibia was prepared with a reamer and a keel punch and lug holes. The knee was then brought into extension and the patella was measured as 24mm. Using the patellar clamp and cut guide, this was resected to a flat surface with at least 13mm of thickness remaining. The size 35 patella fit the best. This was oriented and then clamped into position. The lugs were drilled. The trial components were removed. The final components were opened on the back table. The periosteal and capsular tissues, especially posteriorly, around the knee were then systematically injected with a periarticular cocktail consisting of 50cc 0.25% Marcaine, 30mg Ketorolac, 20cc of Exparal and 50cc of injectable saline. The knee was thoroughly irrigated with a pulse lavage and dried. Irrisept was also used to irrigate the tissues. On the back table, with the implants opened, the cement was mixed. One batch of high viscosity cement was prepared with vacuum assistance. After the cement was ready a small amount was placed on the cut surface of the patella and the patellar button was clamped into position and held. While the cement was hardening, the cementless knee components were placed. Starting with the tibial component, the tibia was subluxed anteriorly and the lug holes of the component were lined up. The tibia was then impacted with an impactor and mallet until the tibial component was in contact with the tibia. The final polyethylene component was inserted. Then, the femoral component was inserted. The lug holes were aligned and the component was impacted into position. The knee was irrigated with Irrisept chlorhexadine solution. This was allowed to sit in the knee for 3 minutes. After the cement had finally cured, approximately 15min, the clamp was removed from the patella and the knee was taken through range of motion. The patella was tracking with a no-thumbs technique. The capsule was then reapproximated with a No. 1 Vicryl at multiple locations. The capsule was finally closed with a No. 2 Stratafix, barbed suture. The second dosing of 1g TXA was started. Deep tissues were then reapproximated with 0 Vicryl and 2-0 Vicryl. The skin was closed with a running 3-0 Monocryl in a subcuticular fashion. This was reinforced with skin glue. A Mepilex silver dressing was applied along with a [id number] AGATHA wrap. A CryoCuff was applied. Yolis was transferred to the hospital bed without difficulty and suffering no apparent complication. Yolis has a good prognosis. Physical therapy will start today and without restrictions, weight-bearing as tolerated. Aspirin 81mg BID will be used for DVT prophylaxis.
[2020-06-17] MEDS: oxyCODONE 5 MG TAB PO (10:27)
--- NOTE | 2020-06-17 11:24 | PT.INIE ---
Date of service: 06/17/20 Time of Service: 11:24 PT Notes Visit Reasons: Right Knee Replacement Physical Therapy Day Surgery Initial Evaluation Date: 06/17/2020 Referring Doctor: Myke Snow MD PT Orders: PT CONSULT: Status post Ortho surgery. Status post R TKA. Precautions: WBAT on right LE with AD. Patient Profile/Admitting Diagnosis: Yolis is a 60-year-old female with degenerative joint disease of bilateral knees and is status post right total knee arthroplasty and left intra-articular glucocorticoid injection on postoperative day 0. PMHX: Medical History (Updated 05/28/20 @ 14:06 by Camelia Doherty) Degenerative joint disease of right knee Diabetes Hyperlipidemia Hypertension Hypothyroidism Incarcerated ventral hernia Left knee DJD Surgical History (Updated 04/03/20 @ 10:06 by Gracia Jones MD) S/P hernia repair (~03/18/20) incarcerated ventral hernia Social History/Home Situation: Lives with [id number] and sister who will provide support for her as she recovers. Independent with prior level of function without an assistive device. Has 3 steps to enter with 1 rail. Equipment Owned/DME: None Subjective: Reports discomfort and tingling on the left palmar aspect of her hand which subsided with pain pill intake. Denies headache, chest pain, and dizziness throughout session. Did report 2-3/10 pain in the right knee and some mild discomfort on the back of the left knee during ambulation activity. Objective: General Observation: AGATHA wraps around right LE. Cryocuff on right knee. Mental Status: Alert and oriented x 4 Pain: 3/10 pain in the right knee at rest 4/10 with weight bearing ROM: Right Lower Extremity: Hip flexion WFL. Hip abduction WFL. Knee flexion 10 degrees to 90 degrees. Knee extension -10 degrees, able to complete straight leg raises x 10 to 70 degrees with -10 extensor lag at 30. Ankle dorsiflexion WFL. Ankle plantarflexion WFL. Left Lower Extremity: Hip flexion WFL. Hip abduction WFL. Knee flexion WFL. Ankle dorsiflexion WFL. Ankle plantarflexion WFL. Strength: Right Lower Extremity: Hip flexors 5/5. Hip abductors 5/5. Knee flexors 3-/5. Knee extensors 3-/5. Ankle dorsiflexors 5/5. Ankle plantarflexors 5/5. Left Lower Extremity:Hip flexors 5/5. Hip abductors 5/5. Knee flexors 5/5. Knee extensors 5/5. Ankle dorsiflexors 5/5. Ankle plantarflexors 5/5. Sensation: Tingling and discomfort reported in the left distal forearm and hand, otherwise intact as to pain and light touch in bilateral lower extremities. Bed Mobility/Transfers: Supine to sit independent Sit to stand standby assist Stand to sit standby assist Bed to chair standby assist Gait: Guided patient through level surface ambulation of 150 feet using the front wheeled walker with step through gait pattern requiring only standby assist. Minimal cueing provided increased knee flexion and the right side and for overall safety. Reported some tightness and minimal discomfort in the left knee after stair negotiation. Stairs: Tolerated up-and-down 3 x 4 inch steps and two 6 inch steps while holding onto 1 rail with step to gait pattern requiring contact-guard assist. Balance: Static Sitting: Normal Dynamic Sitting: Normal Static Standing: Fair Dynamic Standing: Fair Special Tests: Mobility Limitations Standardized Measure [facility] 6 clicks Basic Mobility Inpatient Short Form: Raw Score: 22 CMS Score: 21% deficit Informed Consent/Education: Patient instructed in purpose of PT consult. Packet containing TKA exercise protocol has been given to patient. Education and training on initial set of exercises that can be done at home have been completed with patient. Assessment: Yolis requires the use of a front wheel walker for all mobility ADL performance to maximize independence and reduce fall risk at home. She will have the assistance of her sister and her [id number] as she recovers at home. She will require the use of front wheeled walker for discharge to home. She will benefit from outpatient PT services in order to achieve highest functional independence. Patient presents with clinical signs and symptoms consistent with current/admitting diagnoses that have resulted to mobility limitations, gait instability, generalized weakness, and impairment of motor control as demonstrated by the following impairment level findings: 1. Decreased strength to right knee knee major muscle groups 2. Impaired standing balance 3. Limitation of joint range of motion in left knee Impairments are contributing to the following functional limitations: 1. Inability to safely ambulate without assistive device 2. Increase completion time for mobility ADL performance 3. Increased fall risk Patient is assessed as a 73191 moderate complexity based on the following: History: 60-year-old female with impairment level findings, functional limitations, and past medical history as indicated above Examination: Demonstrable impairment in strength, balance, and mobility level with underlying impairments and functional limitations as documented above Presentation: Evolving Decision Makin moderate complexity Goals: N/A. PT evaluation and 1-2 treatment sessions only for functional mobility training using recommended AD and for HEP instruction. Plan of Care/Treatment Plan: N/A. PT evaluation and 1-2 treatment session only for functional mobility training using recommended AD and for HEP instruction. DISCHARGE RECOMMENDATIONS: Home when medically cleared by orthopedic surgeon. Will benefit from outpatient physical therapy services in order to achieve highest functional independence. Needs front wheeled walker for discharge to home. TREATMENT CODE/TIME: 9716 2 x 20 minutes, 71422 x 40 minutes beginning at 11:24 AM. Thank you for the opportunity to participate in the care of this patient. Maia Lynn PT, DPT, CLT [facility] [place], [place]
--- NOTE | 2020-06-17 13:21 | W.ANESPOSTOP ---
Postoperative Evaluation Date, Time and Location Date Performed: 06/17/20 Time Performed: 13:22 Patient Location: Day Surgery Unit Vital Signs Most Recent Imported Vital Signs: Most Recent Vital Signs Temp Pulse Resp BP Pulse Ox 36.6 C 82 16 113/62 97 06/17/20 10:28 06/17/20 12:00 06/17/20 12:00 06/17/20 12:00 06/17/20 12:00 Pain Score Most Recent Pain Score: Most Recent Pain Score Pain Level [Left Lateral Hand] 2 06/17/20 10:48 Pain Level 8 06/17/20 10:28 Assessment Mental Status: Awake (Alert & Oriented to Patient Baseline) Airway and Respiratory Function: Patent airway with normal (patient baseline) respiratory exam Cardiovascular Function: Hemodynamically Stable Hydration Status: Adequately Hydrated Nausea & Vomiting: No Nausea or Vomiting Pain: Pt. Denies Any Pain Peripheral Nerve Block: Regional nerve block not resolved at time of post operative discharge Teaching Patient Teaching: Discussed Safe Use of Pain Medication Given Recent Anesthesia
== END 2020-06-17 13:38 | disposition home or self-care (01) ==
PROVIDERS: PCP Nurse Practitioner Family; Visit Provider Student in an Organized Health Care Education/Training Program
PROC: (CPT 27447; principal; 2020-06-17 07:30)
PROC: (CPT 27447; 2020-06-17 07:30)
DX: M17.0 Bilateral primary osteoarthritis of knee (principal)
CPT/HCPCS: 27447; 20610; 76942; 97162; 97530; J0690; J1040; J1885; J2001; J2250; J2405

== ENCOUNTER 2020-07-01 15:41 | Outpatient (CLI) | payer MEDICAID, SELFPAY ==
--- NOTE | 2020-07-01 10:30 | DI.RAD_ITS ---
Exam(s) XR STANDING ALIGNMENT EXAM: XR STANDING ALIGNMENT CLINICAL HISTORY: 1ST POST OP R TKA. TECHNIQUE: 2D digital imaging was performed. COMPARISON: CR XR STANDING ALIGNMENT from 06/10/2020 FINDINGS: There has been interval placement of a right knee prosthesis which appears to be in satisfactory posi tion. Moderate-advanced narrowing of the medial compartment of the opposite-left knee is again noted as well as marginal osteophytes off the medial compartment of the left knee. Lateral compartment ex hibits normal height. Hips appear unremarkable as do the ankles. Sacroiliac joints unremarkable. IMPRESSION: DATA REPOSITORY: RADIATION DOSE DELIVERED:
--- NOTE | 2020-07-01 11:07 | DI.RAD_ITS ---
Exam(s) XR KNEE RT 1V EXAM: XR KNEE RT 1V CLINICAL HISTORY: 1ST POST OP R TKA. TECHNIQUE: 2D digital imaging was performed. COMPARISON: CR XR KNEE RT 1V from 06/10/2020 FINDINGS: Satisfactory position components of the prosthesis. No fracture or loosening evident on this single view. IMPRESSION: DATA REPOSITORY: RADIATION DOSE DELIVERED:
== END 2020-07-01 15:42 | disposition home or self-care (01) ==
LOC: DIORS 15:41
PROVIDERS: PCP Nurse Practitioner Family; Visit Provider Physician Assistant Surgical
DX: Z96.651 Presence of right artificial knee joint (principal); Z47.1 Aftercare following joint replacement surgery; M17.12 Unilateral primary osteoarthritis, left knee
CPT/HCPCS: 73560; 77073

== ENCOUNTER 2020-09-03 02:48 | Outpatient (CLI) | payer MEDICAID, SELFPAY ==
--- NOTE | 2020-09-03 | DI.MAMMO_ITS ---
Exam(s) MAMMO SCREENING EXAM: MAMMO SCREENING CLINICAL HISTORY: SCREENING, Z12.39 TECHNIQUE: Bilateral full field digital CC and MLO mammographic images were obtained with 3D tomosyn thesis and utilizing computer aided detection (CAD). COMPARISON: None. FINDINGS: Masses/Architectural Distortion: None seen. Microcalcifications: No suspicious pleomorphic-type are seen. Skin Thickening/Nipple Retraction: None. IMPRESSION: 1. No significant interval change with no specific features of malignancy noted. 2. Unless there is more urgent need, screening mammography is recommended, as per [employer] guidelines. BI-RADS Category 1 - Negative Breast Density - Category B - Scattered areas of fibroglandular density Breast density category C or D implies that the patient has dense breast tissue. Dense breast tissue is very common and is not abnormal but dense breast tissue can make it harder to find cancer on a ma mmogram. Also, dense breast tissue may increase their breast cancer risk. This information about the result of the mammogram report was provided to the patient to raise their awareness. Use this report when you speak with the patient about their risks for breast cancer, which includes their family hist ory. At that time, you may recommend for more screening tests (Ultrasound or MRI) as they might be us eful based on their risk. A negative radiographic report should not delay biopsy if a dominant or clinically suspicious mass is present. Up to ten percent of cancers are not identified on mammography. A negative report may reinforce clinical impression. Adenosis and dense breasts may obscure an underlying neoplasm. False positive reports average 6 to 10%. Patient will receive a letter notifying them of these results.
== END 2020-09-03 03:08 ==
PROVIDERS: PCP Nurse Practitioner Family; Visit Provider Nurse Practitioner Family
DX: Z12.31 Encounter for screening mammogram for malignant neoplasm of breast (principal)
CPT/HCPCS: 77063; 77067

== ENCOUNTER 2020-10-05 02:45 | Outpatient (CLI) | payer MEDICAID, SELFPAY ==
[2020-10-05 13:03] LABS: Source Nasal/Nares
[2020-10-05 18:38] LABS: COVID-19 PCR Negative (Negative)
== END 2020-10-05 02:46 | disposition home or self-care (01) ==
LOC: LBO 02:45
PROVIDERS: PCP Nurse Practitioner Family; Visit Provider Student in an Organized Health Care Education/Training Program
DX: Z20.822 Contact with and (suspected) exposure to COVID-19 (principal); Z01.818 Encounter for other preprocedural examination
CPT/HCPCS: 87635

== ENCOUNTER 2020-10-05 03:04 | Outpatient (CLI) | payer MEDICAID, SELFPAY ==
[2020-10-05 09:31] LABS: HCT 39.4 % (36.0-46.0); HGB 13.5 g/dL (11.2-15.7); MCH 34.1 pg (27.0-33.0); MCHC 34.3 % (32.0-36.0); MCV 99.5 fL (80-95); MPV 10.7 fL (8.0-11.0); Platelet Count 229 10^3/uL (130-400); RBC 3.96 10^6/uL (3.93-5.22); RDW 11.9 % (11.7-14.6); RDW-SD 43.6 fL; WBC 8.89 10^3/uL (4.4-10.8)
[2020-10-05 10:41] LABS: Anion Gap 10.6 mmol/L (3-11); BUN 17 mg/dL (7-18); CO2 30.4 mmol/L (21.0-32.0); CREATININE 0.8 mg/dL (0.55-1.02); Calcium 9.4 mg/dL (8.5-10.1); Chloride 101 mmol/L (98-107); Glucose 108 mg/dL (74-106); Potassium 4.3 mmol/L (3.5-5.1); Sodium 142 mmol/L (136-145)
[2020-10-05 10:43] LABS: Hemoglobin A1C 6.1 % (<5.7)
== END 2020-10-05 03:05 | disposition home or self-care (01) ==
LOC: LBO 03:05
PROVIDERS: Physician Assistant; PCP Nurse Practitioner Family; Visit Provider Student in an Organized Health Care Education/Training Program
DX: M25.562 Pain in left knee (principal); M17.12 Unilateral primary osteoarthritis, left knee; E11.9 Type 2 diabetes mellitus without complications; Z01.818 Encounter for other preprocedural examination; Z01.812 Encounter for preprocedural laboratory examination
CPT/HCPCS: 36415; 80048; 85027; 83036

== ENCOUNTER 2020-10-07 09:29 | Day surgery (SDC) | payer MEDICAID, SELFPAY ==
[2020-10-07] VITALS (7 sets, daily range): BP systolic 106–134; BP diastolic 50–71; PULSE 67–87; RESP 13–20; TEMP 36.1–36.6; O2SAT 95–98; BMI 41.7
--- NOTE | 2020-10-07 10:26 | PDOC.DSDIS_ITS ---
Documented by User: JACLYN Kirkland 10/07/20 10:30 Discharge Plan Disposition Patient Disposition: HOME Condition: Good Discharge Details Reason For Visit: Vielka WHITE Attending Provider: Myke Snow Primary Care Provider: Chelsy Aden Home Meds and New Rx's Prescriptions: New celecoxib 200 mg capsule 200 mg PO BID Qty: 60 RF: 0 aspirin 81 mg tablet,delayed release (DR/EC) 81 mg PO BID Qty: 60 RF: 0 pantoprazole 40 mg tablet,delayed release (DR/EC) 40 mg PO DAILY Qty: 30 RF: 0 acetaminophen 500 mg capsule 1,000 mg PO Q8H PRN PRNQty: 90 RF: 0 oxycodone 5 mg tablet 5 mg PO Q4H PRN MDD 30mg PRN (Reason: pain) Qty: 20 RF: 0 Continued omega-3 fatty acids 1,000 mg capsule 1,000 mg PO DAILY RF: 0 cholecalciferol (vitamin D3) 50 mcg (2,000 unit) capsule 50 mcg PO DAILY RF: 0 gabapentin 300 mg capsule 300 mg PO TID RF: 0 fluticasone propionate [Flonase Allergy Relief] 50 mcg/actuation s pray,suspension 2 spray intranasal DAILY Qty: 16 RF: 12 Flovent Diskus 100 mcg/actuation blister with device 1 inh inhalation BID RF: 0 loratadine [Claritin Liqui-Gel] 10 mg capsule 10 mg PO DAILY RF: 0 fluticasone propionate [Children's Flonase Allergy Rlf] 50 mcg/actuation spray,suspension 1 spray intranasal BID RF: 0 albuterol sulfate 2.5 mg /3 mL (0.083 %) solution for nebulization 2.5 mg inhalation Q4H PRNRF: 0 albuterol sulfate [ProAir HFA] 90 mcg/actuation HFA aerosol inhaler 2 puff inhalation Q6H PRNRF: 0 metformin 1,000 mg Tablet 1,000 mg PO BID RF: 0 glipizide 10 mg Tablet Extended Release 24hr 10 mg PO DAILY RF: 0 levothyroxine 25 mcg Tablet 25 mcg PO DAILY RF: 0 amlodipine 10 mg Tablet 10 mg PO DAILY RF: 0 irbesartan 75 mg Tablet 75 mg PO DAILY RF: 0 montelukast 10 mg Tablet 10 mg PO QHS RF: 0 hydrochlorothiazide 25 mg Tablet 25 mg PO DAILY RF: 0 rosuvastatin 10 mg Tablet 10 mg PO HS RF: 0 Discontinued aspirin 81 mg tablet,delayed release (DR/EC) 81 mg PO DAILY RF: 0 acetaminophen 500 mg tablet 1,000 mg PO Q8H PRN (Reason: pain) Qty: 90 RF: 3 Discharge Instructions Additional Instructions: Total Knee Discharge Instructions Activity: The most important activity is to walk. You should try to take short walks a few times a day. It is important that when resting you work on keeping the knee straight. Avoid putting a pillow behind the knee as this will encourage flexion. Work on range of motion exercises as provided by Physical T herapy. - Start outpatient physical therapy within 2 weeks. - You should wear the JACKIE hose on both legs for 2 weeks. You may remove these at night. You may also use any compression sock in place of the JACKIE hose. Dressing: You may remove the Jigar wrap on your leg 2 days after your surgery and put on the JACKIE stocking given to you from the hospital. Keep the surgical d ressing (underneath the IJGAR wrap) in place for at least one week. After the first week it may be removed and replaced with light gauze and tape or nothing. The wound and dressing may get wet after 3 days but avoid soaking the dressing or otherwise it will need to be changed. Many people prefer covering the dressing with cling wrap (saran wrap) to minimize it from getting soaked. If it gets wet, just pat dry. If it starts to peel off then it will need to be changed. Medications: - You should take Tylenol and anti-inflammatory Celebrex as your primary pain control medications. If the Celebrex is too expensive or not covered, please call the office for another alternative (Advil/Ibuprofen or Naproxen/Aleve) - You have been prescribed a stronger pain medication Oxycodone for breakthrough pain, take as needed as prescribed. - You have also been prescribed a stomach acid reduction agent Pantoprozole to help reduce stomach acid and reflux. - You will be taking Aspirin 81mg twice a day for DVT prevention unless instructed otherwise. - If you have constipation you should take Colace or Miralax (both [id number]). It takes most people 3-4 days to have a bowel movement. Follow-up: 2 weeks If you have any acute concerns or questions, please do not hesitate to contact the office at [phone]. You may contact Dr. Snow with any questions after hours through the hospital at [phone] or on his cell phone at [phone]. Stand Alone Forms: Anesthesia Discharge Inst. Referrals: Myke Snow MD [ [facility] ST[facility]FF PHYSICIAN] - 10/19/20 10:00 am Equipment/Supplies: Walker Activity:: Activity as Tolerated Shower/Bathe:: 72 hours Diet:: As Tolerated Discharge Orders Discharge Orders: Discharge Order (Routine); Ordered 10/07/20 Ordered By: Myke Snow DS: Diagnosis Discharge Diagnosis (1) Left knee DJD: Status: Chronic (2) History of total left knee replacement (TKR): Status: Acute Documented by User: Myke Snow MD 10/07/20 15:28 Discharge Plan Disposition Patient Disposition: HOME Condition: Good Discharge Details Reason For Visit: L TKA Attending Provider: Myke Snow Primary Care Provider: Chelsy Aden Home Meds and New Rx's Prescriptions: New celecoxib 200 mg capsule 200 mg PO BID Qty: 60 RF: 0 aspirin 81 mg tablet,delayed release (DR/EC) 81 mg PO BID Qty: 60 RF: 0 pantoprazole 40 mg tablet,delayed release (DR/EC) 40 mg PO DAILY Qty: 30 RF: 0 acetaminophen 500 mg capsule 1,000 mg PO Q8H PRN PRNQty: 90 RF: 0 oxycodone 5 mg tablet 5 mg PO Q4H PRN MDD 30mg PRN (Reason: pain) Qty: 20 RF: 0 Continued omega-3 fatty acids 1,000 mg capsule 1,000 mg PO DAILY RF: 0 cholecalciferol (vitamin D3) 50 mcg (2,000 unit) capsule 50 mcg PO DAILY RF: 0 gabapentin 300 mg capsule 300 mg PO TID RF: 0 fluticasone propionate [Flonase Allergy Relief] 50 mcg/actuation spray,suspension 2 spray intranasal DAILY Qty: 16 RF: 12 Flovent Diskus 100 mcg/actuation blister with device 1 inh inhalation BID RF: 0 loratadine [Claritin Liqui-Gel] 10 mg capsule 10 mg PO DAILY RF: 0 fluticasone propionate [Children's Flonase Allergy Rlf] 50 mcg/actuation spray,suspension 1 spray intranasal BID RF: 0 albuterol sulfate 2.5 mg /3 mL (0.083 %) solution for nebulization 2.5 mg inhalation Q4H PRNRF: 0 albuterol sulfate [ProAir HFA] 90 mcg/actuation HFA aerosol inhaler 2 puff inhalation Q6H PRNRF: 0 metformin 1,000 mg Tablet 1,000 mg PO BID RF: 0 glipizide 10 mg Tablet Extended Release 24hr 10 mg PO DAILY RF: 0 levothyroxine 25 mcg Tablet 25 mcg PO DAILY RF: 0 amlodipine 10 mg Tablet 10 mg PO DAILY RF: 0 irbesartan 75 mg Tablet 75 mg PO DAILY RF: 0 montelukast 10 mg Tablet 10 mg PO QHS RF: 0 hydrochlorothiazide 25 mg Tablet 25 mg PO DAILY RF: 0 rosuvastatin 10 mg Tablet 10 mg PO HS RF: 0 Discontinued aspirin 81 mg tablet,delayed release (DR/EC) 81 mg PO DAILY RF: 0 acetaminophen 500 mg tablet 1,000 mg PO Q8H PRN (Reason: pain) Qty: 90 RF: 3 Discharge Instructions Additional Instructions: Total Knee Discharge Instructions Activity: The most important activity is to walk. You should try to take short walks a few times a day. It is important that when resting you work on keeping the knee straight. Avoid putting a pillow behind the knee as this will encourage flexion. Work on range of motion exercises as provided by Physical Therapy. - Start outpatient physical therapy within 2 weeks. - You should wear the JACKIE hose on both legs for 2 weeks. You may remove these at night. You may also use any compression sock in place of the JACKIE hose. Dressing: You may remove the Jigar wrap on your leg 2 days after your surgery and put on the JACKIE stocking given to you from the hospital. Keep the surgical dressing (underneath the JIGAR wrap) in place for at least one week. After the first week it may be removed and replaced with light gauze and tape or nothing. The wound and dressing may get wet after 3 days but avoid soaking the dressing or otherwise it will need to be changed. Many people prefer covering the dressing with cling wrap (saran wrap) to minimize it from getting soaked. If it gets wet, just pat dry. If it starts to peel off then it will need to be changed. Medications: - You should take Tylenol and anti-inflammatory Celebrex as your primary pain control medications. If the Celebrex is too expensive or not covered, please call the office for another alternative (Advil/Ibuprofen or Naproxen/Aleve) - You have been prescribed a stronger pain medication Oxycodone for breakthrough pain, take as needed as prescribed. - You have also been prescribed a stomach acid reduction agent Pantoprozole to help reduce stomach acid and reflux. - You will be taking Aspirin 81mg twice a day for DVT prevention unless instructed otherwise. - If you have constipation you should take Colace or Miralax (both [id number]). It takes most people 3-4 days to have a bowel movement. Follow-up: 2 weeks If you have any acute concerns or questions, please do not hesitate to contact the office at [phone]. You may contact Dr. Snow with any questions after hours through the hospital at [phone] or on his cell phone at [phone]. Stand Alone Forms: Anesthesia Discharge Inst. Referrals: Myke Snow MD [ [facility] ST[facility]FF [facility]YSICIAN] - 10/19/20 10:00 am Equipment/Supplies: Walker Activity:: Activity as Tolerated Shower/Bathe:: 72 hours Diet:: As Tolerated Discharge Orders Discharge Orders: Discharge Order (Routine); Ordered 10/07/20 Ordered By: Myke Snow
[2020-10-07] MEDS: Lactated Ringers 1,000 ML 80 ML IV (10:34)
--- NOTE | 2020-10-07 11:10 | W.ANESPRE ---
General Info Date of Service Date Performed: 10/07/20 Height: 5 ft 4 in Weight: 110.223 kg Body Mass Index (BMI): 41.7 Surgical Procedure: Operation Date: 10/07/20 13:10 Proposed Procedures Side Surgeon p Knee Total Arthroplasty Left Myke Snow MD Meds Allergies and Home Medications Allergies Allergy/AdvReac Type Severity Reaction Status Date / Time seasonal allergies Allergy Uncoded 10/07/20 09:57 Home Medication Medication Instructions Recorded amlodipine 10 mg PO DAILY 03/18/20 glipizide 10 mg PO DAILY 03/18/20 hydrochlorothiazide 25 mg PO DAILY 03/18/20 irbesartan 75 mg PO DAILY 03/18/20 levothyroxine 25 mcg PO DAILY 03/18/20 metformin 1,000 mg PO BID 03/18/20 montelukast 10 mg PO QHS 03/18/20 rosuvastatin 10 mg PO HS 03/18/20 cholecalciferol (vitamin D3) 50 50 mcg PO DAILY 06/10/20 mcg (2,000 unit) capsule omega-3 fatty acids 1,000 mg 1,000 mg PO DAILY 06/10/20 capsule albuterol sulfate 2.5 mg INHALATION Q4H PRN 06/19/20 albuterol sulfate 90 mcg/actuation 2 puff INHALATION Q6H PRN 06/19/20 aerosol inhaler fluticasone propionate 100 1 inh INHALATION BID 06/19/20 mcg/actuation blister powder for inhalation fluticasone propionate 50 1 spray INTRANASAL BID 06/19/20 mcg/actuation nasal spray,suspension loratadine 10 mg capsule 10 mg PO DAILY 06/19/20 gabapentin 300 mg capsule 300 mg PO TID 09/17/20 fluticasone propionate 50 2 spray INTRANASAL DAILY #16 g 10/06/20 mcg/actuation nasal spray,suspension acetaminophen 1,000 mg PO Q8H PRN PRN #90 cap 10/07/20 aspirin 81 mg PO BID #60 tab 10/07/20 celecoxib 200 mg PO BID #60 cap 10/07/20 oxycodone 5 mg PO Q4H PRN PRN #20 tab MDD 10/07/20 30mg pantoprazole 40 mg PO DAILY #30 tab 10/07/20 Current Visit Medications: Current Medications Generic Name Dose Route Start Last Admin Trade Name Freq PRN Reason Stop Dose Admin Acetaminophen 1,000 mg 10/07/20 06:00 Acetaminophen 500 Mg Tab PO 10/07/20 16:00 PREOP [place] Acetaminophen 1,000 mg 10/07/20 14:00 Acetaminophen 500 Mg Tab PO TID [place] Aspirin 81 mg 10/07/20 20:00 Aspirin E.C. 81 Mg Tabec PO BID [facility] Celecoxib 400 mg 10/07/20 06:00 Celecoxib 200 Mg Cap PO 10/07/20 16:00 PREOP [facility] Celecoxib 200 mg 10/07/20 20:00 Celecoxib 200 Mg Cap PO BID [facility] Docusate Sodium 100 mg 10/07/20 10:23 Docusate Sodium 100 Mg Cap PO BID PRN PRN Constipation Gabapentin 300 mg 10/07/20 06:00 Gabapentin 300 Mg Cap PO 10/07/20 16:00 PREOP [facility] Gabapentin 300 mg 10/07/20 22:00 Gabapentin 300 Mg Cap PO HS [facility] Tranexamic Acid 1,000 mg/ 60 mls @ 360 mls/hr 10/07/20 06:00 Sodium Chloride IVPB 10/07/20 16:00 PREOP [facility] Tranexamic Acid 1,000 mg/ 60 mls @ 360 mls/hr 10/07/20 06:00 Sodium Chloride IVPB 10/07/20 16:00 DIRECTED [facility] Ringer's Solution 1,000 mls @ 80 mls/hr 10/07/20 06:00 10/07/20 10:34 IV 11/05/20 23:59 80 mls/hr INFUSION [facility] Administration Cefazolin Sodium 2,000 mg/ 100 mls @ 200 mls/hr 10/07/20 06:00 Sodium Chloride IVPB 10/07/20 16:00 PREOP [facility] Cefazolin Sodium/Dextrose 1 gm in 50 mls @ 100 mls/hr 10/07/20 14:00 Ancef Duplex IVPB Q8H [facility] IV Miscellaneous Supplies 1 each 10/07/20 06:00 Iv Access IV 11/05/20 23:59 DIRECTED [facility] Ondansetron HCl 4 mg 10/07/20 10:23 Ondansetron 4 Mg/2 Ml Vial IVP Q6H PRN PRN Nausea Oxycodone HCl 0 mg 10/07/20 10:23 Oxycodone 5 Mg Tab PO Q3H PRN PRN Pain Pantoprazole Sodium 40 mg 10/08/20 08:00 Pantoprazole 40 Mg Tabcr PO DAILY@0730 [place] Polyethylene Glycol 17 gm 10/07/20 10:23 Polyethylene Glycol 3350 17 Gm Packet PO BID PRN PRN Constipation Sodium Chloride 0 ml 10/07/20 06:00 Normal Saline Flush 10 Ml Syr IV 11/05/20 23:59 PRN PRN Sodium Chloride 0 ml 10/07/20 06:00 Normal Saline 10 Ml Vial IJ 11/05/20 23:59 DIRECTED PRN Sterile Water 0 ml 10/07/20 06:00 Water,Injection,Sterile 10 Ml Vial IJ 11/05/20 23:59 DIRECTED PRN PFSH Active Problems Active Problems: Problem Status Onset Code History of total left knee replacement (TKR) 10/07/20 Z96.652 Rhinitis, chronic J31.0 Type 2 diabetes mellitus E11.9 Eye problem H57.9 Knee pain, bilateral M25.561, M25.562 Right carpal tunnel syndrome G56.01 Left carpal tunnel syndrome G56.02 History of total right knee replacement 06/17/20 Z96.651 Anxiety F41.9 Headache R51.9 Umbilical hernia K42.9 Allergic rhinitis J30.9 Peripheral neuropathy G62.9 Screening for colon cancer Z12.11 Left knee DJD M17.12 Medical History Medical History Asthma Degenerative joint disease of right knee Diabetes Eye problem Hyperlipidemia Hypertension Hypothyroidism Incarcerated ventral hernia Knee pain, bilateral Left carpal tunnel syndrome Left knee DJD Right carpal tunnel syndrome Sleep apnea uses device. Type 2 diabetes mellitus Surgical History Surgical History (Updated 10/07/20 @ 10:26 by JACLYN Kirkland) History of total left knee replacement (TKR) (10/07/20) History of total right knee replacement (06/17/20) S/P hernia repair (~03/18/20) incarcerated ventral hernia Tobacco Smoking/Tobacco Use Status: Never Alcohol Alcohol Intake: current Alcohol intake frequency: holidays/special occasions only Substance Use Substance use: Never Substance use type: does not use Vital Signs and Lab Results Vital Signs Most Recent Vital Signs in EMR: Most Recent Vital Signs Temp Pulse Resp BP Pulse Ox 36.6 C 74 16 134/66 97 10/07/20 09:53 10/07/20 09:53 10/07/20 09:53 10/07/20 09:53 10/07/20 09:53 Point of Care Results Point of Care Results: Finger Stick Blood Glucose 124 10/07/20 10:31 Lab Results Blood Type / Crossmatch: No Data to Display Complete Blood Count: White Blood Count 8.89 10^3/uL (4.4-10.8) 10/05/20 09:14 10/05/20 Red Blood Count 3.96 10^6/uL (3.93-5.22) 10/05/20 09:14 10/05/20 Hemoglobin 13.5 g/dL (11.2-15.7) 10/05/20 09:14 10/05/20 Hematocrit 39.4 % (36.0-46.0) 10/05/20 09:14 10/05/20 Platelet Count 229 10^3/uL (130-400) 10/05/20 09:14 10/05/20 Complete Metabolic Panel: Sodium Level 142 mmol/L (136-145) 10/05/20 09:14 10/05/20 Potassium Level 4.3 mmol/L (3.5-5.1) 10/05/20 09:14 10/05/20 Chloride Level 101 mmol/L (98-107) 10/05/20 09:14 10/05/20 Carbon Dioxide Level 30.4 mmol/L (21.0-32.0) 10/05/20 09:14 10/05/20 Blood Urea Nitrogen 17 mg/dL (7-18) 10/05/20 09:14 10/05/20 Creatinine 0.8 mg/dL (0.55-1.02) 10/05/20 09:14 10/05/20 Estimated GFR/1.73 m2 >= 60.00 (mL/min/1.73m2) 10/05/20 09:14 10/05/20 Calcium Level 9.4 mg/dL (8.5-10.1) 10/05/20 09:14 10/05/20 Glucose Level 108 mg/dL (74-106) H 10/05/20 09:14 10/05/20 Hemoglobin A1c 6.1 % (<5.7) H 10/05/20 09:14 10/05/20 Liver Function Panel: No Data to Display Coagulation Panel: No Data to Display Cardiac Panel: No Data to Display Arterial Blood Gas: No Data to Display Venous Blood Gas: No Data to Display Pancreas Panel: No Data to Display Thyroid Panel: No Data to Display Infectious Disease: Coronavirus (COVID-19)(PCR) Negative (Negative) 10/05/20 09:37 10/05/20 Coronavirus 2019 Source Nasal/Nares 10/05/20 09:37 10/05/20 Blood Cultures: No Data to Display Toxicology Panel: No Data to Display Anesthesia Assessment and Plan Anesthesia History Personal History: No History of Anesthesia Complications Family History: No Family History of Anesthesia Complications Exercise Tolerance Exercise Tolerance: Metabolic Equivalents>4 Pertinent Negatives Pertinent Negatives: No Symptoms of GERD and No Major Cardiovascular Symptoms or Complaints Cardiac & Pulmonary Exam Cardiac Exam: Normal S1/S2 Heart Sounds Pulmonary Exam: Clear Bilateral Breath Sounds Airway Exam Known Difficult Airway: No Mallampati Class: 3 Mouth Opening: Narrow (< 3cm) Thyromental Distance: Greater than 3 cm Neck Range of Motion: Full ROM Neck Circumference: Thick Teeth Condition: Normal Dentition ASA Classification ASA Score: ASA 3 Emergency Case?: No NPO Status NPO Status: NPO Clears >2 hours, Solids >8 hours Anesthesia Plan Resuscitation Status: Full Code Anesthesia Technique: Spinal Anesthesia Airway Planned: Natural Airway Pain Management: Surgeon and patient request nerve block Monitors Used: Standard Monitors
[2020-10-07] MEDS: Gabapentin 300 MG CAP PO (11:49)
[2020-10-07] MEDS: Celecoxib 200 MG CAP 400 MG PO (11:49)
[2020-10-07] MEDS: Acetaminophen 500 MG TAB 1000 MG PO (11:52)
--- NOTE | 2020-10-07 12:01 | W.ANESNERVE ---
Nerve Block Single Injection Procedure Date and Time Date Performed: 10/07/20 Procedure Start: 11:40 Location Where Procedure Performed Procedure Location: PACU Reason Performed: Postoperative Analgesia Requesting Provider: Myke Snow Timeout Performed Timeout Performed: Yes Monitoring Used ECG, Blood Pressure and SpO2 Sterility Sterility: Hand Hygiene, Surgical Cap, Surgical Mask, Sterile Gloves and Chlorhexidine Sedation Given During Procedure Sedation Given (Indicate Dose Given): No Sedation given Patient Mental Status Patient Mental Status: Awake Nerve Block 1st Nerve Block: Laterality: Left Block Type: Adductor Canal Needle / Catheter Used: 120mm SonoPlex II Local Anesthetic Bolus (Indicate Dose Given): Lidocaine used for local infiltration of skin, Injected in 3-5ml increments after negative blood aspiration and Bupivacaine 0.25% Dose:: 20ml Additives (Indicate Dose Given): None Ultrasound: Sterile probe cover and gel used Ultrasound Image Saved?: Yes Nerve Stimulator: Not Used Paresthesia: None Procedure Tolerated: No Complications and Patient tolerated well Procedure Outcome: Successful Performed By: Esdras Parks
[2020-10-07] MEDS: ceFAZolin 2,000 MG in Normal Saline 100 ML 200 MG IVPB (12:11)
[2020-10-07] MEDS: Bupivacaine 0.25% Pres-Free 30 ML VIAL (13:25)
[2020-10-07] MEDS: Normal Saline 20 ML VIAL (13:25)
[2020-10-07] MEDS: Ketorolac 30 MG/ML VIAL (13:25)
--- NOTE | 2020-10-07 14:08 | W.PM.OP ---
Date of service: 10/07/20 Time of Service: 14:09 Operative Note Operative Note DATE OF PROCEDURE: 10/07/20 PRE-OP DIAGNOSIS: Left Knee Osteoarthritis POST-OP DIAGNOSIS: same PROCEDURE: Left Total Knee Replacement SURGEON: Myke Snow [employer]LLER PERSON: Makenna Jacques ANESTHESIA TYPE: Spinal Refer to Anesthesia Record ESTIMATED BLOOD LOSS: 200 PATHOLOGY: none sent TOURNIQUET TIME: 0 COMPLICATIONS: None Patient was transported to: PACU Patient's condition: stable Implants: 1. Depuy Attune Cementless Cruciate Retaining Femoral Component, Size 5 2. Depuy Attune Cementless Rotating Platform Tibial Component, Size 4 3. Depuy Attune 5x6mm CR/RP Poly 4. Depuy Attune Patellar Component, Size 35 Indications: I have seen Nancy in clinic for symptoms of knee arthritis, confirmed with radiographic findings. She has exhausted nonoperative methods and was having significant limitations in daily function and desired better function and less pain. I discussed the technical details of a knee replacement. I explained the risks of the procedure to include, but not limited to, bleeding, infection, pain, stiffness, fracture, damage to nerves and vessels, damage to muscles and tendons, loosening, need for repeat procedure, blood clot and cardiopulmonary demise. Despite these risks, Nancy elected to proceed. Findings: There was significant signs of arthritis throughout the knee. Procedure Description: Yolis was greeted in the preoperative holding area where the correct side was identified and marked. The consent was reviewed with the patient and signed. The history and physical was updated. All questions were answered. Preoperative medications were administered: Acetaminophen 1000mg, Celebrex 400mg, and Gabapentin 300mg. An adductor canal block was then administered by the anesthesia team in the PACU. Yolis was taken back to the operating room. A spinal anesthestic was then administered. The patient was placed into the supine position on the operating room table. A nonsterile tourniquet was placed high onto the leg but only used for cementing. Posts were placed for positioning during the procedure. All bony prominences were well padded. Prophylactic antibiotics in the form of Cefazolin were administered. 1g of Tranxemic Acid was given intravenously within 30 minutes of incision. The left leg was then prepped with Chloraprep and draped in a standard fashion with impervious stockinette. A second prep with Chloraprep was performed prior to application of Iodine impregnated skin protection. A timeout to confirm correct identity, side and site, procedure, allergies, anesthesia, and medical concerns was performed. With the knee in some flexion, a midline incision was made overlying the knee. Full thickness skin flaps were raised once the extensor mechanism was encountered. These were raised medially and laterally. Any bleeding was controlled with electrocautery. Once the extensor mechanism was fully exposed, a medial parapatellar arthrotomy was performed in a flexed position. All bleeding from the arthrotomy and the geniculate arteries was coagulated. A medial subperiosteal peel was performed with electrocautery to the midcoronal plane. The fat pad was removed while keeping the patellar tendon protected. The anterior distal femur synovium was removed for later visualization. The ACL and PCL were resected and the anterior horn of the lateral meniscus was transected. The knee was then flexed with the patella everted. Using a step drill, and based on preoperative templating, the femoral canal was entered. This was done with a step drill without any difficulty. The intramedullary distal femoral cut guide was inserted, set to a 5 degree valgus cut and 9mm cut thickness. The distal femoral cut guide was then held in position and pinned. With the soft tissues protected, the distal cut was performed. This was passed over a few times to ensure a planar cut. I then turned attention to the tibia. The extramedullary guide was placed onto the leg. The distal aspect was slid medial to adjust for position of center of ankle and stay in line with shaft of the tibia. Approximately 3-5 degrees of posterior slope was kept in the proximal cutting guide. The center of the guide was aligned with the PCL. The stylus was used to assess cut thickness. The medial side, most involved side, was set for a 3mm cut. This was then held in position and pinned into place with 2 additional pins and a cross pin for stability. The medial and lateral collateral ligaments were protected and the cut was performed. With this completed, it was assessed and noted to be of appropriate dimensions. The guide was removed. A spacer block was inserted and the knee was brought into extension. The 6mm spacer block provided full extension, without hyperextension and with stability of both the medial and lateral collateral ligaments was assessed. The pins from the femur and the tibia were then removed. The distal femur was then sized. The anterior stylus was placed onto the lateral ridge of the anterior femur. This indicated a size 5 femur. The external rotation of the guide was adjusted to 3 degrees to match the epicondylar axis, perpendicular to Beverley?s line. The 4-in-1 cutting guide was the placed. The posterior medial femur cut was evaluated and appeared of good thickness. The spacer block was inserted underneath the cutting guide and stability was confirmed in 90 degrees of flexion. An kolby wing was used to confirm appropriate position of the anterior cut to avoid notching. This cutting guide was ensured to be flush on the cut surface and then pinned into place with headed pins. While protecting the soft tissues, quad tendon, and collateral ligaments, the anterior and posterior cuts were performed with a saw. The central two pins were removed and the posterior and anterior chamfers were cut next. The notch-cutting guide was placed. This was pinned to lateralize the femoral component as much as possible while keeping it flush on the cut surface. This was then pinned into position. A reciprocating saw was used to make the notch cut. A rasp smoothed the cut surfaces. The medial and lateral menisci were removed. A trial femoral component was then inserted, impacted down to the cut surfaces, and the lug holes were drilled. A provisional trial tibial component was placed and the knee was brought through range of motion. There was noted to be excellent extension and flexion. There was no significant instability. The patella was tracking without thumbs. A size 6mm polyethylene component provided the best range of motion and stability with less than 2mm gapping with medial and lateral stress and full extension without significant hyperextension. The tibial cut surface was fully exposed. The tibia was then sized as a 4. The tibia had been previously marked during trialing to correspond to the center of the tibial component to help with rotation. The trial was aligned to this rianna, approximately rotated to the medial 1/3rd of the tibial tubercle. The trial was pinned into place. The tibia was prepared with a reamer and a keel punch and lug holes. The knee was then brought into extension and the patella was measured as 22mm. Using the patellar clamp and cut guide, this was resected to a flat surface with at least 13mm of thickness remaining. The size 35 patella fit the best. This was oriented and then clamped into position. The lugs were drilled. The trial components were removed. The final components were opened on the back table. The periosteal and capsular tissues, especially posteriorly, around the knee were then systematically injected with a periarticular cocktail consisting of 50cc 0.25% Marcaine, 30mg Ketorolac, 20cc of Exparal and 50cc of injectable saline. The knee was thoroughly irrigated with a pulse lavage and dried. Irrisept was also used to irrigate the tissues. On the back table, with the implants opened, the cement was mixed. One batch of high viscosity cement was prepared with vacuum assistance. After the cement was ready a small amount was placed on the cut surface of the patella and the patellar button was clamped into position and held. While the cement was hardening, the cementless knee components were placed. Starting with the tibial component, the tibia was subluxed anteriorly and the lug holes of the component were lined up. The tibia was then impacted with an impactor and mallet until the tibial component was in contact with the tibia. The final polyethylene component was inserted. Then, the femoral component was inserted. The lug holes were aligned and the component was impacted into position. The knee was irrigated with Irrisept chlorhexadine solution. This was allowed to sit in the knee for 3 minutes. After the cement had finally cured, approximately 15min, the clamp was removed from the patella and the knee was taken through range of motion. The patella was tracking with a no-thumbs technique. The capsule was then reapproximated with a No. 1 Vicryl at multiple locations. The capsule was finally closed with a No. 2 Stratafix, barbed suture. The second dosing of 1g TXA was started. Deep tissues were then reapproximated with 0 Vicryl and 2-0 Vicryl. The skin was closed with a running 3-0 Monocryl in a subcuticular fashion. This was reinforced with skin glue. A Mepilex silver dressing was applied along with a [id number] AGATHA wrap. A CryoCuff was applied. Yolis was transferred to the hospital bed without difficulty an suffering no apparent complication. Yolis has a good prognosis. Physical therapy will start today and without restrictions, weight-bearing as tolerated. Aspirin 81mg BID will be used for DVT prophylaxis.
--- NOTE | 2020-10-07 14:46 | W.ANESPOSTOP ---
Postoperative Evaluation Date, Time and Location Date Performed: 10/07/20 Time Performed: 02:30 Patient Location: PACU Vital Signs Most Recent Imported Vital Signs: Most Recent Vital Signs Temp Pulse Resp BP Pulse Ox 36.2 C L 71 20 116/68 95 10/07/20 14:26 10/07/20 14:26 10/07/20 14:26 10/07/20 14:26 10/07/20 14:26 Pain Score Most Recent Pain Score: Most Recent Pain Score Pain Level 0 10/07/20 14:26 Assessment Mental Status: Awake (Alert & Oriented to Patient Baseline) Airway and Respiratory Function: Patent airway with normal (patient baseline) respiratory exam Cardiovascular Function: Hemodynamically Stable Hydration Status: Adequately Hydrated Nausea & Vomiting: No Nausea or Vomiting Pain: Pain is tolerable per patient Peripheral Nerve Block: Regional nerve block not resolved at time of post operative discharge
[2020-10-07] MEDS: oxyCODONE 5 MG TAB PO (14:49)
--- NOTE | 2020-10-07 15:31 | IN_ITS ---
Date of service: 10/07/20 Time of Service: 03:31 PT Notes Visit Reasons: L TKA Physical Therapy Day Surgery Initial Evaluation Date: 10/07/2020 Referring Doctor: JACLYN Kirkland PT Orders: PT CONSULT: S/P Ortho surgery. Precautions: WBAT on L LE with AD. Patient Profile/Admitting Diagnosis: Yolis is a 60-year-old female with degenerative joint disease of the L knee and is status post lefr total knee arthroplasty on postoperative day 0. Also S/P TKA on 06/17/2020. PMHX: Medical History (Updated 09/17/20 @ 09:36 by Camelia Hansen RN) Asthma Degenerative joint disease of right knee Diabetes Eye problem Hyperlipidemia Hypertension Hypothyroidism Incarcerated ventral hernia Knee pain, bilateral Left carpal tunnel syndrome Left knee DJD Right carpal tunnel syndrome Sleep apnea uses device. Type 2 diabetes mellitus Surgical History History of total right knee replacement (06/17/20) S/P hernia repair (~03/18/20) incarcerated ventral hernia Social History/Home Situation: Lives with [id number] and sister who will provide support for her as she recovers. Independent with prior level of function without an assistive device. Has 3 steps to enter with B rails. Equipment Owned/DME: [facility] Subjective: Agreeable to PT consult. No pain with x 10 left SLRs and with ambulation activity. Denies dizziness. States that she has no numbness in B LE but has it on her B hands due to pre-existing CTS. Objective: General Observation: AGATHA wraps around L LE. Cryocuff on L knee. Mental Status: Alert and oriented x 4 Pain: 0/10 pain in the left knee ROM: Left Lower Extremity: Hip flexion WFL. Hip abduction WFL. Knee flexion 10 degrees to 100 degrees. Knee extension -10 degrees. Ankle dorsiflexion WFL. Ankle plantarflexion WFL. Strength: Left Lower Extremity:Hip flexors 4/5. Hip abductors 4/5. Knee flexors 3-/5. Knee extensors 3-/5. Ankle dorsiflexors 5/5. Ankle plantarflexors 5/5. Sensation: Tingling and discomfort reported in the left distal forearm and hand, otherwise intact as to pain and light touch in bilateral lower extremities. Bed Mobility/Transfers: Supine to sit independent Sit to stand standby assist Stand to sit standby assist Bed to chair standby assist Gait: Guided patient through level surface ambulation of 150 feet using the front wheeled walker with step through gait pattern requiring only standby assist. Minimal cueing provided for safe gait pattern. Denies headache, chest pain, and dizziness throughout. Stairs: Tolerated up-and-down 6 x 4-inch steps and 4 x 6 -inch steps while holding onto B rails with step to gait pattern requiring stand by assist. Balance: Static Sitting: Normal Dynamic Sitting: Normal Static Standing: Fair Dynamic Standing: Fair Special Tests: Mobility Limitations Standardized Measure [facility] AM-PAC 6 clicks Basic Mobility Inpatient Short Form: Raw Score: 22 CMS Score: 21% deficit Informed Consent/Education: Patient instructed in purpose of PT consult. Packet containing TKA exercise protocol has been given to patient. Education and training on initial set of exercises that can be done at home have been completed with patient. Assessment: Yolis requires the use of a front wheel walker for all mobility ADL performance to maximize independence and reduce fall risk at home. She will have the assistance of her sister and her [id number] as she recovers at home. She will require the use of front wheeled walker for discharge to home. She will benefit from outpatient PT services in order to achieve highest functional independence. Patient presents with clinical signs and symptoms consistent with current/admitting diagnoses that have resulted to mobility limitations, gait instability, generalized weakness, and impairment of motor control as demonstrated by the following impairment level findings: 1. Decreased strength to left knee knee major muscle groups 2. Impaired standing balance 3. Limitation of joint range of motion in left knee Impairments are contributing to the following functional limitations: 1. Inability to safely ambulate without assistive device 2. Increase completion time for mobility ADL performance 3. Increased fall risk Patient is assessed as a 93568 moderate complexity based on the following: History: 60-year-old female with impairment level findings, functional limitations, and past medical history as indicated above Examination: Demonstrable impairment in strength, balance, and mobility level with underlying impairments and functional limitations as documented above Presentation: Evolving Decision Makin moderate complexity Goals: N/A. PT evaluation and 1-2 treatment sessions only for functional mobility training using recommended AD and for HEP instruction. Plan of Care/Treatment Plan: N/A. PT evaluation and 1-2 treatment session only for functional mobility training using recommended AD and for HEP instruction. DISCHARGE RECOMMENDATIONS: Home when medically cleared by orthopedic surgeon. Will benefit from outpatient physical therapy services in order to achieve highest functional independence. Has front- wheeled walker at home. TREATMENT CODE/TIME: 09618 x 20 minutes, 32544 x 16 minutes beginning at 3:31 PM. Thank you for the opportunity to participate in the care of this patient. Maia Lynn PT, DPT, CLT [facility] [place], [place]
== END 2020-10-07 16:55 | disposition home or self-care (01) ==
PROVIDERS: PCP Nurse Practitioner Family; Visit Provider Student in an Organized Health Care Education/Training Program
PROC: (CPT 27447; principal; 2020-10-07 13:00)
DX: M17.12 Unilateral primary osteoarthritis, left knee (principal); E11.42 Type 2 diabetes mellitus with diabetic polyneuropathy; Z96.652 Presence of left artificial knee joint
CPT/HCPCS: 27447; 97162; 97530; J0690; J1885; J2250; J2405

== ENCOUNTER 2020-10-19 11:07 | Outpatient (CLI) | payer MEDICAID, SELFPAY ==
--- NOTE | 2020-10-19 10:00 | DI.RAD_ITS ---
Exam(s) XR KNEE LT 1V XR STANDING ALIGNMENT EXAM: XR STANDING ALIGNMENT and XR knee LT 1 V CLINICAL HISTORY: 1ST POST OP L TK A. TECHNIQUE: 2D digital imaging was performed. COMPARISON: CR XR STANDING ALIGNMENT from 07/01/2020 CR XR KNEE LT 1V from 10/19/2020 CR XR KNEE LT 1V from 10/19/2020 FINDINGS: The hips are well maintained. The patient has bilateral total knee replacements. The orthopedic [place] appears in good position. The ankles are well maintained. The right lower extremity measures 87 cm. The left lower extremity measures 87.8 cm. The soft tissues are unremarkable. IMPRESSION: Bilateral total knee replacements. DATA REPOSITORY: RADIATION DOSE DELIVERED:
== END 2020-10-19 11:08 | disposition home or self-care (01) ==
LOC: DIORS 11:07
PROVIDERS: PCP Nurse Practitioner Family; Referring Provider Nurse Practitioner Family; Visit Provider Physician Assistant
DX: Z98.890 Other specified postprocedural states (principal)
CPT/HCPCS: 73560; 77073

== ENCOUNTER 2021-01-11 02:59 | Outpatient (CLI) | payer MEDICAID, SELFPAY ==
[2021-01-11 10:36] LABS: Source Nasal/Nares
[2021-01-11 17:39] LABS: COVID-19 PCR Negative (Negative)
== END 2021-01-11 03:00 | disposition home or self-care (01) ==
LOC: LBO 02:59
PROVIDERS: PCP Nurse Practitioner Family; Visit Provider Student in an Organized Health Care Education/Training Program
DX: Z20.822 Contact with and (suspected) exposure to COVID-19 (principal)
CPT/HCPCS: 87635

== ENCOUNTER 2021-01-13 06:04 | Day surgery (SDC) | payer MEDICAID, SELFPAY ==
[2021-01-13 06:27] VITALS: BP 120/80; PULSE 94; RESP 16; TEMP 36.3; O2SAT 98
--- NOTE | 2021-01-13 06:59 | W.ANESPRE ---
General Info Date of Service Date Performed: 01/13/21 Height: 5 ft 4 in Weight: 109.1 kg Body Mass Index (BMI): 41.3 Surgical Procedure: Operation Date: 01/13/21 07:40 Proposed Procedures Side Surgeon p Wrist ECTR Left Myke Snow MD Meds Allergies and Home Medications Allergies Allergy/AdvReac Type Severity Reaction Status Date / Time seasonal allergies Allergy Uncoded 01/13/21 06:35 Home Medication Medication Instructions Recorded amlodipine 10 mg PO DAILY 03/18/20 glipizide 10 mg PO DAILY 03/18/20 hydrochlorothiazide 25 mg PO DAILY 03/18/20 irbesartan 75 mg PO DAILY 03/18/20 levothyroxine 25 mcg PO DAILY 03/18/20 metformin 1,000 mg PO BID 03/18/20 montelukast 10 mg PO QHS 03/18/20 rosuvastatin 10 mg PO HS 03/18/20 cholecalciferol (vitamin D3) 50 50 mcg PO DAILY 06/10/20 mcg (2,000 unit) capsule omega-3 fatty acids 1,000 mg 1,000 mg PO DAILY 06/10/20 capsule albuterol sulfate 2.5 mg INHALATION Q4H PRN 06/19/20 albuterol sulfate 90 mcg/actuation 2 puff INHALATION Q6H PRN 06/19/20 aerosol inhaler fluticasone propionate 100 1 inh INHALATION BID 06/19/20 mcg/actuation blister powder for inhalation fluticasone propionate 50 1 spray INTRANASAL BID 06/19/20 mcg/actuation nasal spray,suspension loratadine 10 mg capsule 10 mg PO DAILY 06/19/20 gabapentin 300 mg capsule 300 mg PO TID 09/17/20 acetaminophen 500 mg capsule 1,000 mg PO Q8H PRN PRN #90 cap 11/12/20 biotin 5,000 mcg PO DAILY 01/12/21 multivitamin 1 tab PO DAILY 01/12/21 aspirin 81 mg PO DAILY 01/13/21 cyanocobalamin (vitamin B-12) 500 mcg PO DAILY 01/13/21 [Vitamin B-12] Current Visit Medications: Current Medications Generic Name Dose Route Start Last Admin Trade Name Freq PRN Reason Stop Dose Admin Ringer's Solution 1,000 mls @ 80 mls/hr 01/13/21 06:00 IV 02/11/21 23:59 INFUSION [place] Cefazolin Sodium/Dextrose 2 gm in 50 mls @ 100 mls/hr 01/13/21 06:00 Ancef Duplex IVPB 02/11/21 23:59 PREOP [place] IV Miscellaneous Supplies 1 each 01/13/21 06:00 Iv Access IV 02/11/21 23:59 DIRECTED [place] Sodium Chloride 0 ml 01/13/21 06:00 Normal Saline Flush 10 Ml Syr IV 02/11/21 23:59 PRN PRN Sodium Chloride 0 ml 01/13/21 06:00 Normal Saline 10 Ml Vial IJ 02/11/21 23:59 DIRECTED PRN Sterile Water 0 ml 01/13/21 06:00 Water,Injection,Sterile 10 Ml Vial IJ 02/11/21 23:59 DIRECTED PRN PFSH Active Problems Active Problems: Problem Status Onset Code History of total left knee replacement (TKR) 10/07/20 Z96.652 Rhinitis, chronic J31.0 Type 2 diabetes mellitus E11.9 Eye problem H57.9 Right carpal tunnel syndrome G56.01 Left carpal tunnel syndrome G56.02 History of total right knee replacement 06/17/20 Z96.651 Anxiety F41.9 Headache R51.9 Umbilical hernia K42.9 Allergic rhinitis J30.9 Peripheral neuropathy G62.9 Screening for colon cancer Z12.11 Medical History Active Problem List History of total left knee replacement (TKR) (Acute 10/07/20) Rhinitis, chronic (Acute) Type 2 diabetes mellitus (Acute) Eye problem (Acute) Right carpal tunnel syndrome (Acute) Left carpal tunnel syndrome (Acute) History of total right knee replacement (Acute 06/17/20) Anxiety (Chronic) Headache (Acute) Umbilical hernia (Acute) Allergic rhinitis (Acute) Peripheral neuropathy (Acute) Screening for colon cancer (Acute) Medical History Asthma Degenerative joint disease of right knee Diabetes Hyperlipidemia Hypertension Hypothyroidism Incarcerated ventral hernia Knee pain, bilateral Left knee DJD Sleep apnea uses device. Surgical History Surgical History S/P hernia repair (~01/27/21) incarcerated ventral hernia Tobacco Smoking/Tobacco Use Status: Never Alcohol Alcohol Intake: current Alcohol intake frequency: holidays/special occasions only Substance Use Substance use: Never Substance use type: does not use Vital Signs and Lab Results Vital Signs Most Recent Vital Signs in EMR: Most Recent Vital Signs Temp Pulse Resp BP Pulse Ox 36.3 C L 94 H 16 120/80 98 01/13/21 06:27 01/13/21 06:27 01/13/21 06:27 01/13/21 06:27 01/13/21 06:27 Point of Care Results Point of Care Results: Finger Stick Blood Glucose 176 01/13/21 06:40 Lab Results Blood Type / Crossmatch: No Data to Display Complete Blood Count: No Data to Display Complete Metabolic Panel: No Data to Display Liver Function Panel: No Data to Display Coagulation Panel: No Data to Display Cardiac Panel: No Data to Display Arterial Blood Gas: No Data to Display Venous Blood Gas: No Data to Display Pancreas Panel: No Data to Display Thyroid Panel: No Data to Display Infectious Disease: Coronavirus (COVID-19)(PCR) Negative (Negative) 01/11/21 08:52 01/11/21 Coronavirus 2019 Source Nasal/Nares 01/11/21 08:52 01/11/21 Blood Cultures: No Data to Display Toxicology Panel: No Data to Display Anesthesia Assessment and Plan Anesthesia History Personal History: No History of Anesthesia Complications Family History: No Family History of Anesthesia Complications Exercise Tolerance Exercise Tolerance: Metabolic Equivalents>4 Pertinent Negatives Pertinent Negatives: No Symptoms of GERD, No Major Cardiovascular Symptoms or Complaints, No Major Pulmonary Symptoms or Complaints and No History of CVA/TIA Cardiac & Pulmonary Exam Cardiac Exam: Normal S1/S2 Heart Sounds Pulmonary Exam: Clear Bilateral Breath Sounds Implantable Cardiac Device Does patient have a Pacemaker or an ICD?: No Airway Exam Known Difficult Airway: No Mallampati Class: 3 Mouth Opening: Narrow (< 3cm) Thyromental Distance: Greater than 3 cm Neck Range of Motion: Full ROM Neck Circumference: Thick Teeth Condition: Normal Dentition ASA Classification ASA Score: ASA 3 Emergency Case?: No NPO Status NPO Status: NPO Clears >2 hours, Solids >8 hours Anesthesia Plan Resuscitation Status: Full Code Anesthesia Technique: General Anesthesia Airway Planned: Natural Airway Monitors Used: Standard Monitors
[2021-01-13 07:05] VITALS: BMI 41.3
--- NOTE | 2021-01-13 07:16 | W.PREOPHP ---
Date of service: 01/13/21 Time of Service: 07:16 Assessment and Plan Assessment and plan (1) Left carpal tunnel syndrome: Status: Acute Assessment and plan: Yolis is a 60-year-old who is status post bilateral knee replacements. She also has carpal tunnel syndrome of both hands, worse on the left. Given the failure of nonoperative treatments I offered endoscopic carpal tunnel release on the left side. I discussed the technical details of carpal tunnel release and that I perform an endoscopic release, but would make a larger, open, incision if necessary for visualization. I discussed the risks of the procedure to include, but not limited to, bleeding, infection, palmar pain, stiffness, damage to nerves, damage to vessels, damage to tendons, weakness, recurrence, and incomplete release. Given these risks, Yolis desires to proceed. History of Present Illness History of Present Illness Chief Complaint: Left Carpal Tunnel Syndrome Narrative: Yolis is a 60-year-old who I know from bilateral knee replacements. Over the last year she is had worsening numbness and tingling of both hands, worse on the left. She has tried to manage this with conservative treatment such as bracing and positional modifications. However, despite this she continues have numbness and tingling about the thumb, index, and middle finger. Please see the previous office note for any additional details. She has elected to proceed with carpal tunnel release on the left side. She has had no sick contacts. She is COVID-19 negative. Review of Systems All systems reviewed & are unremarkable except as noted in HPI and below PFS Active Problem List History of total left knee replacement (TKR) (Acute 10/07/20) Rhinitis, chronic (Acute) Type 2 diabetes mellitus (Acute) Eye problem (Acute) Right carpal tunnel syndrome (Acute) Left carpal tunnel syndrome (Acute) History of total right knee replacement (Acute 06/17/20) Anxiety (Chronic) Headache (Acute) Umbilical hernia (Acute) Allergic rhinitis (Acute) Peripheral neuropathy (Acute) Screening for colon cancer (Acute) Medical History Asthma Degenerative joint disease of right knee Diabetes Hyperlipidemia Hypertension Hypothyroidism Incarcerated ventral hernia Knee pain, bilateral Left knee DJD Sleep apnea uses device. Surgical History S/P hernia repair (~03/18/20) incarcerated ventral hernia Family History Mother Cancer pancreatic Deviated septum Father Stroke Dementia Social History Smoking/Tobacco Use Status: Never Smoking risk assessment performed?: Yes Alcohol Intake: current Alcohol Intake frequency: holidays/special occasions only Drug use: Never Substance use type: does not use Household members: family Pets and animals: Yes Pets and animals: cat(s) Current gender identity: female Do you feel safe at home: Yes Do you feel safe in your relationship?: Yes Meds Allergies and Home Medications Allergies Allergy/AdvReac Type Severity Reaction Status Date / Time seasonal allergies Allergy Uncoded 01/13/21 06:35 Home Medications Medication Instructions Recorded Confirmed Type amlodipine 10 mg PO DAILY 03/18/20 01/13/21 History glipizide 10 mg PO DAILY 03/18/20 01/13/21 History hydrochlorothiazide 25 mg PO DAILY 03/18/20 01/13/21 History irbesartan 75 mg PO DAILY 03/18/20 01/13/21 History levothyroxine 25 mcg PO DAILY 03/18/20 01/13/21 History metformin 1,000 mg PO BID 03/18/20 01/13/21 History montelukast 10 mg PO QHS 03/18/20 01/13/21 History rosuvastatin 10 mg PO HS 03/18/20 01/13/21 History cholecalciferol (vitamin D3) 50 50 mcg PO DAILY 06/10/20 01/13/21 History mcg (2,000 unit) capsule omega-3 fatty acids 1,000 mg 1,000 mg PO DAILY 06/10/20 01/13/21 History capsule albuterol sulfate 2.5 mg INHALATION Q4H PRN 06/19/20 01/13/21 History albuterol sulfate 90 mcg/actuation 2 puff INHALATION Q6H PRN 06/19/20 01/13/21 History aerosol inhaler fluticasone propionate 100 1 inh INHALATION BID 06/19/20 01/13/21 History mcg/actuation blister powder for inhalation fluticasone propionate 50 1 spray INTRANASAL BID 06/19/20 01/13/21 History mcg/actuation nasal spray,suspension loratadine 10 mg capsule 10 mg PO DAILY 06/19/20 01/13/21 History gabapentin 300 mg capsule 300 mg PO TID 09/17/20 01/13/21 History acetaminophen 500 mg capsule 1,000 mg PO Q8H PRN PRN #90 cap 11/12/20 01/13/21 Rx biotin 5,000 mcg PO DAILY 01/12/21 01/13/21 History multivitamin 1 tab PO DAILY 01/12/21 01/13/21 History aspirin 81 mg PO DAILY 01/13/21 01/13/21 History cyanocobalamin (vitamin B-12) 500 mcg PO DAILY 01/13/21 01/13/21 History [Vitamin B-12] Exam Resp Effort & Inspection: normal respiratory effort Auscultation: clear to auscultation bilaterally Cardio Rate: regular rate Rhythm: regular rhythm Results Last Vital Signs Temp 36.3 C L 01/13/21 06:27 Pulse 94 H 01/13/21 06:27 Resp 16 01/13/21 06:27 BP 120/80 01/13/21 06:27 Pulse Ox 98 01/13/21 06:27
[2021-01-13] MEDS: Lactated Ringers 1,000 ML 80 ML IV (07:17)
--- NOTE | 2021-01-13 07:19 | PDOC.DSDIS_ITS ---
Discharge Plan Disposition Patient Disposition: HOME Condition: Good Discharge Details Reason For Visit: Left Carpal Tunnel Syndrome Attending Provider: Myke Snow Primary Care Provider: Chelsy Aden Home Meds and New Rx's Prescriptions: New ibuprofen 600 mg tablet 600 mg PO TID PRN (Reason: pain) Qty: 30 RF: 3 Continued omega-3 fatty acids 1,000 mg capsule 1,000 mg PO DAILY RF: 0 cholecalciferol (vitamin D3) 50 mcg (2,000 unit) capsule 50 mcg PO DAILY RF: 0 gabapentin 300 mg capsule 300 mg PO TID RF: 0 Flovent Diskus 100 mcg/actuation blister with device 1 inh inhalation BID RF: 0 loratadine [Claritin Liqui-Gel] 10 mg capsule 10 mg PO DAILY RF: 0 fluticasone propionate [Children's Flonase Allergy Rlf] 50 mcg/actuation spray,suspension 1 spray intranasal BID RF: 0 albuterol sulfate 2.5 mg /3 mL (0.083 %) solution for nebulization 2.5 mg inhalation Q4H PRNRF: 0 albuterol sulfate [ProAir HFA] 90 mcg/actuation HFA aerosol inhaler 2 puff inhalation Q6H PRNRF: 0 acetaminophen 500 mg capsule 1,000 mg PO Q8H PRN PRN (Reason: pain) Qty: 90 RF: 0 metformin 1,000 mg Tablet 1,000 mg PO BID RF: 0 glipizide 10 mg Tablet Extended Release 24hr 10 mg PO DAILY RF: 0 levothyroxine 25 mcg Tablet 25 mcg PO DAILY RF: 0 amlodipine 10 mg Tablet 10 mg PO DAILY RF: 0 irbesartan 75 mg Tablet 75 mg PO DAILY RF: 0 montelukast 10 mg Tablet 10 mg PO QHS RF: 0 hydrochlorothiazide 25 mg Tablet 25 mg PO DAILY RF: 0 rosuvastatin 10 mg Tablet 10 mg PO HS RF: 0 multivitamin Tablet 1 tab PO DAILY RF: 0 biotin 5,000 mcg Tablet,Disintegrating 5,000 mcg PO DAILY RF: 0 cyanocobalamin (vitamin B-12) [Vitamin B-12] 500 mcg Tablet 500 mcg PO DAILY RF: 0 aspirin 81 mg Tablet 81 mg PO DAILY RF: 0 Discharge Instructions Additional Instructions: Take Acetaminophen 1000mg every 8 hours and Ibuprofen 600mg every 8 hours as needed for baseline pain control. You still have a few Oxycodone remaining from you recent knee surgery you can use if you need anything stronger. You may split those tablets if desired. Stand Alone Forms: Edy Mahmood Tunnel Release Referrals: Myke Snow MD [ [facility] STAFF PHYSICIAN] - Activity:: Elevate Remove Dressings/Wound Care:: 48 hours Shower/Bathe:: 48 hours Diet:: As Tolerated Discharge Orders Discharge Orders: Discharge Order (Routine); Ordered 01/13/21 Ordered By: Myke Snow DS: Diagnosis Discharge Diagnosis (1) Left carpal tunnel syndrome: Status: Acute
[2021-01-13] MEDS: ceFAZolin 2 GM/50 ML BAG IVPB (07:24)
[2021-01-13] MEDS: Sodium Bicarbonate 50 MEQ/50 ML VIAL (07:35)
--- NOTE | 2021-01-13 07:47 | W.PM.OP ---
Date of service: 01/13/21 Time of Service: 07:47 Operative Note Operative Note DATE OF PROCEDURE: 01/13/21 PRE-OP DIAGNOSIS: Left Carpal Tunnel Syndrome POST-OP DIAGNOSIS: same PROCEDURE: Left Endoscopic Carpal Tunnel Release SURGEON: Myke Snow ANESTHESIA TYPE: General:No Airway Refer to Anesthesia Record ESTIMATED BLOOD LOSS: 0 PATHOLOGY: none sent TOURNIQUET TIME: 5 COMPLICATIONS: None Patient was transported to: same day Patient's condition: stable Indications: I have seen Yolis in clinic for symptoms of carpal tunnel syndrome. The numbness, tingling, and pain limited function. Clinical exam findings confirmed the diagnosis of carpal tunnel syndrome. Nonoperative measures such as bracing, time, activity modifications had been tried but disability and pain persisted. I discussed carpal tunnel release with the patient. I reviewed the risks of the procedure to include, but not limited to, bleeding, infection, pain, stiffness, incomplete release, damage to nerves or vessels, persistent numbness, recurrence. Despite these risks, the patient elected to proceed. Findings: There was tightened carpal tunnel. This was dilated and released successfully with the endoscopic with increased space within the tunnel. The antebrachial fascia was released proximally freeing the median nerve at the wrist. Procedure Description: Yolis was greeted in the preoperative holding area where the correct side was identified and marked. The consent was reviewed with the patient and signed. The history and physical was updated. All questions were answered. She was taken back to the operating room. The patient was placed into the supine position on the operating room table with the left arm on an arm board. A nonsterile tourniquet was placed high onto the arm. All bony prominences were well padded. Prophylactic antibiotics in the form of Cefazolin were administered. The left arm was then prepped with Chloraprep and draped in a standard fashion with stockinette and extremity drape. A timeout to confirm correct identity, side and site, procedure, allergies, anesthesia, and medical concerns was performed. The surgical site was marked in the volar wrist creases in line with the radial border of the fourth ray. This area was anesthetized with approximately 6cc of 1% Lidocaine. The limb was then exsanguinated with an Esmarch. The skin was incised with a 15 blade, approximately 1cm. The skin only was cut and the deeper tissue was dissected bluntly with a tenotomy scissor, avoiding passing nerve and venous structures. The fascia was penetrated and opened bluntly. A two-prong skin hook was placed under this proximal fascial edge. A series of hamate finders were used to identify and dilate the carpal tunnel. Synovial elevator was used to free synovial attachments to the underside of the transverse carpal ligament. My thumb was kept in the palm to rianna the distal extent of the carpal tunnel and correctly position the hand. The Microaire endoscope was inserted without difficulty and without resistance. Excellent visualization showed horizontally running fibers of the transverse carpal ligament (TCL). The distal extent of the TCL was visualized and the end of the scope palpated with the thumb. The blade was elevated and withdrawn from distal to proximal. The TCL was split into two flaps. The endoscope was reinserted to confirm complete release and any remnant ligament was incised. The scope was withdrawn and the proximal aspect of the carpal tunnel was grossly inspected and appeared release with the median nerve visible. The antebrachial fascia at the level of the wrist was then freed from the overlying skin and then the underlying median nerve with blunt dissection. This was transected longitudinally for about 3cm proximal to the wrist incision. The wound was then irrigated with easy flow of irrigant distally and proximally. The incision was closed with a single 4-0 Nylon suture. The wound was dressed with Xeroform, Gauze, Kerlix and Jigar. The tourniquet was deflated with the initial dressing and held with some pressure. Blood flow returned easily to all digits with capillary refill less than 2 seconds. The patient tolerated the procedure well and was returned to the Same Day Surgery area in a stable condition suffering no known complication.
[2021-01-13 07:49] VITALS: BP 85/54; PULSE 81; RESP 18; TEMP 36.4; O2SAT 94
[2021-01-13 08:18] VITALS: BP 97/56; PULSE 78; RESP 16; TEMP 36.6; O2SAT 96
--- NOTE | 2021-01-13 08:29 | W.ANESPOSTOP ---
Postoperative Evaluation Date, Time and Location Date Performed: 01/13/21 Time Performed: 08:29 Patient Location: Day Surgery Unit Vital Signs Most Recent Imported Vital Signs: Most Recent Vital Signs Temp Pulse Resp BP Pulse Ox 36.6 C 78 16 97/56 L 96 01/13/21 08:18 01/13/21 08:18 01/13/21 08:18 01/13/21 08:18 01/13/21 08:18 Pain Score Most Recent Pain Score: Most Recent Pain Score Pain Level 0 01/13/21 08:18 Assessment Mental Status: Awake (Alert & Oriented to Patient Baseline) Airway and Respiratory Function: Patent airway with normal (patient baseline) respiratory exam Cardiovascular Function: Hemodynamically Stable Hydration Status: Adequately Hydrated Nausea & Vomiting: No Nausea or Vomiting Pain: Pt. Denies Any Pain Peripheral Nerve Block: Patient did not receive a nerve block
== END 2021-01-13 08:42 | disposition home or self-care (01) ==
PROVIDERS: PCP Nurse Practitioner Family; Visit Provider Student in an Organized Health Care Education/Training Program
PROC: 01N54ZZ Release Median Nerve, Percutaneous Endoscopic Approach (ICD-10-PCS; CPT 29848; principal; 2021-01-13 07:30)
DX: G56.02 Carpal tunnel syndrome, left upper limb (principal); E11.42 Type 2 diabetes mellitus with diabetic polyneuropathy
CPT/HCPCS: 29848; J0690; J2405; J3010

== ENCOUNTER 2021-03-26 17:24 | Outpatient (REF) | payer MEDICAID, SELFPAY ==
--- OUTSIDE RECORDS SUMMARY | 2021-03-26 17:26 | XMS_ITS ---
:1960 Author Care Team Providers Name Role Phone SHERRIE NOVAK APRN Referring Provider [phone] [facility] OTHER [phone] [facility] OTHER [phone] Allergies Code Code System Name Reaction Severity Status Onset Seasonale (91) ? ? Active ? Medications Name Status Start Date Stop Date ? ? albuterol sulfate 2.5 mg/3 mL (0.083 %) solution for nebulizatio n Active ? Not available Inhale 3 mL 3 times a day by nebulization route. amlodipine 10 mg tablet Active ? Not avai lable Take 1 tablet every day by oral route. Aspirin Low Dose 81 mg tablet,delayed release Active ? Not available Take 1 tablet every day by oral route. Claritin 10 mg tablet Active ? Not availa ble Take 1 tablet every day by oral route as directed. Fish Oil Active ? Not available Flonase Allergy Relief 50 mcg/actuation nasal spray,suspension A ctive ? Not available [place] 1 spray every day by intranasal route. Flovent Diskus 100 mcg/actuation powder for inhalation Active ? Not available Inhale 1 puff twice a day by inhalation route. gabapentin 300 mg capsule Active ? Not av ailable Take 1 capsule 3 times a day by oral route. glipizide 10 mg tablet Active ? Not avail able Take 1 tablet every day by oral route. hydrochlorothiazide 25 mg tablet Active ? Not available Take 1 tablet every day by oral route. irbesartan 75 mg tablet Active ? Not avai lable Take 1 tablet every day by oral route. levothyroxine 25 mcg tablet Active ? Not available Take 1 tablet every day by oral route. metformin 1,000 mg tablet Active ? Not av ailable Take 1 tablet twice a day by oral route as directed. montelukast 10 mg tablet Active ? Not geovanny ilable Take 1 tablet every day by oral route. Proair Digihaler 90 mcg/actuation aerosol powder breath act, sen sor Active ? Not available Inhale 2 puffs every 4 hours by inhalation route. Vitamin D Active ? Not available Problems Name Status Onset Date Source ? Hypothyroidism Active 06/29/2020 ? Diabetes Mellitus Active 06/29/2020 ? Hyperlipidemia Active 06/29/2020 ? Anxiety Active 06/29/2020 ? Disorder of Eye Active 06/29/2020 ? Hypertensive Disorder Active 06/29/2020 ? Allergic Rhinitis Active 06/29/2020 ? Asthma Active 06/29/2020 ? Umbilical Hernia Active 06/29/2020 ? Headache Active 06/29/2020 ? Screening Colonoscopy Active 06/29/2020 ? Knee Pain Active 06/29/2020 ? Obstructive Sleep Apnea Syndrome Active ? ? Procedures None recorded. Results Lab Results None recorded. Past Encounters 12/24/2020 Obstructive Sleep Apnea Syndrome Lynn Blake SOFTLINES SUPERVISOR: [address] [place] [phone], Ph. 07/08/2020 Obstructive Sleep Apnea Syndrome Lynn Blake SOFTLINES SUPERVISOR: [address] [place] [phone], Ph. Social History Tobacco Smoking Status Never Smoker Vaccine List None recorded. Plan of Care Reminders Provider Appointments None ? ? recorded. Lab None ? ? recorded. Referral None ? ? recorded. Procedures None ? ? recorded. Surgeries None ? ? recorded. Imaging None ? ? recorded. Vitals 12/24/2020 02:15PM Office 30 Height Weight BMI Blood Pressure 161.29 cm 108.41 kg 41.7 kg/m2 128/80 mm[Hg] 07/08/2020 08:30AM New Patient 45 Height Weight BMI Blood Pressure 161.29 cm 110.22 kg 42.4 kg/m2 126/69 mm[Hg]
--- OUTSIDE RECORDS SUMMARY | 2021-03-26 17:26 | XMS_ITS | Encounter Summary ---
:1960 Author Care Team Providers Name Role Phone Chelsy Aden YIFAN Referring Provider [phone] [facility] Medical Records OTHER [phone] [facility] OTHER [phone] Reason for Visit None recorded. Assessment and Plan 1. Obstructive sleep apnea syndr ome GRAHAM diagnosed at an outside fa cility in 2011 with an AHI of 46.4/hr. She had been using CPAP 16 cm and had good compliance based on her download but her CPAP was so old it did not have AHI hamilton a. Last visit I ordered CPAP 14-18 cm. S he has excellent compliance and reduction in AHI. Her download shows a very high air leak but luckily she is not aware of this most of the time. She is advised to change her cushion monthly as she has n ot been doing this. I am asking for a new mask fit when eligible given it is a very high leak. She tends to sleep much better and continues to feel better rested with CPAP, continued use is recommended. She is encouraged to keep up with the ro utine maintenance of the machine and to clean and replace parts as indicated. I will see her back in one year. She is asked to call the clinic for any sleep related questions or concerns. I provided greater than 30 minutes in e care of this patient, more than half the time was spent in [id number] counseling. ? CPAP supplies Discussion Note: None recorded.Patient educational handouts: No information available. Plan of Care Reminders Provider Appointments Office 30 12/23/2021 Jose Daniel Blake, 8:00AM DENTISTRY PROFESSOR Lab None ? ? recorded. Referral None ? ? recorded. Procedures None ? ? recorded. Surgeries None ? ? recorded. Imaging None ? ? recorded. Medications Name Start Date ? ? albuterol sulfate 2.5 mg/3 mL (0.083 %) solution for n ebulization ? Inhale 3 mL 3 times a day by nebulization route. amlodipine 10 mg tablet ? Take 1 tablet every day by oral route. Aspirin Low Dose 81 mg tablet,delayed release ? Take 1 tablet every day by oral route. Claritin 10 mg tablet ? Take 1 tablet every day by oral route as directed. Fish Oil ? Flonase Allergy Relief 50 mcg/actuation nasal spray,garcia spension ? [place] 1 spray every day by intranasal route. Flovent Diskus 100 mcg/actuation powder for inhalation ? Inhale 1 puff twice a day by inhalation route. gabapentin 300 mg capsule ? Take 1 capsule 3 times a day by oral route. glipizide 10 mg tablet ? Take 1 tablet every day by oral route. hydrochlorothiazide 25 mg tablet ? Take 1 tablet every day by oral route. irbesartan 75 mg tablet ? Take 1 tablet every day by oral route. levothyroxine 25 mcg tablet ? Take 1 tablet every day by oral route. metformin 1,000 mg tablet ? Take 1 tablet twice a day by oral route as directed. montelukast 10 mg tablet ? Take 1 tablet every day by oral route. Proair Digihaler 90 mcg/actuation aerosol powder breat h act, sensor ? Inhale 2 puffs every 4 hours by inhalation route. Vitamin D ? Medications Administered None recorded. Vitals Height Weight BMI Blood Pressure 5 ft 3.5 in 239 lbs 41.7 kg/m2 128/80 mm[Hg] Results Lab Results None recorded. Allergies Code Code System Name Reaction Severity Onset Seasonale (91) ? ? ? Problems Name Status Onset Date Source ? [...] Syndrome Active ? ? Procedures None recorded. Vaccine List None recorded. Social History Tobacco Smoking Status Never Smoker Hard of hearing or deaf in one or N both ears? What is your level of alcohol None consumption? Live alone or with others? with others Are you currently employed? N What is your level of caffeine Occasional Notes: 3c coffee through out consumption? the day Are you blind or do you have Y Notes: w ear glasses difficulty seeing? Functional Status Are you blind or do you Yes have difficulty seeing?? Past Encounters 12/24/2020 Obstructive Sleep Apnea Syndrome Lynn Blake, DENTISTRY PROFESSOR: [address] [place] [phone], Ph. History of Present Illness Note: <p>Yolis Romero has a visit for GRAHAM follow-up.</p><div>
</div><p>Nancy was seen by me on 06/28/20. She has a medical history to include anxiety, allergic rhinitis, asthma, DM, HTN, HLD, hypothyroidism, and GRAHAM. She was diagnosed with GRAHAM at an outside facility and those studies were not available for review. Last visit she was using CPAP at a fixed pressure of 16 cm, The CPAP did not give AHI data. I ordered CPAP 14-18 cm.</p><div>
</ div><div>Nancy tells me she is using her CPAP every night. She says overall things are going pretty good but she has been having some trouble with keeping her mask on and air leaking. She has tried both a small and medium cushion with her new Vitera and is not sure if one is better than the other. The air leaking does wake her at times and she is able to correct it most of the time. </div><div>She gets to bed around 10-11 pm, she falls asleep in about 30 minutes because her brain "doesn't stop", she wakes up about 1/night to urinate and she generally gets back to sleep in 5- 10 minutes. She gets up at 6-8 am to start her day. She is not typically taking naps. The CPAP air pressure feels "ok". She continues to sleep much better when she uses CPAP because on the rare occasions she falls asleep without CPAP she is not feeling as rested. </div><div>
</div><p>ESS today 07/13</p><div>
</div><p>COMPLIANCE DATA REVIEWED WITH PATIENT: </p><div>{{DATES 11/23/20-12/22/20#}}, Used {{25 30 28#}}/30 days, average use {{5 6 7#}} hours {{number 19#}} minutes a night, median pressure {{8 9 14.6#}}cm, 95 th percentile pressure {{9 10 16.3#}}cm, 95 th percentile air leak {{5 10 67.7#}} lpm, AHI {{1 2 1.8#}}/hour.</div>Review of Systems: ROS as noted in the HPI Review of Systems None recorded. Physical Exam ? Notes: <div>General: A&O, well groo med {{over weight obese* morbidly obese normal weight thin}}.

HEAD: normocephalic & atraumatic.

EYES: non icteric.

LUNGS: CTA a ll mckeon. Good air movement.

CARDIO: RRR without murmur, gallop or th rill.

NEURO: A&O. Normal gait.

PSYCH: Normal m ood and affect.

CUTANEOUS: no overt lesions or rashes</div>
[2021-03-26 18:25] LABS: Microalb ug/mg Crea 24.7 ug/mg Cr
== END 2021-03-26 17:25 | disposition home or self-care (01) ==
LOC: NCHCN 17:24
PROVIDERS: PCP Nurse Practitioner Family; Visit Provider Nurse Practitioner Family
DX: E11.9 Type 2 diabetes mellitus without complications (principal)
CPT/HCPCS: 82043; 82570

== ENCOUNTER 2021-04-08 19:35 | Outpatient (REF) | payer MEDICAID, SELFPAY ==
[2021-04-10 13:01] LABS: COVID-19 RT-PCR UVMMC Result Negative (Negative)
== END 2021-04-08 19:36 | disposition home or self-care (01) ==
LOC: LBN 19:35
PROVIDERS: PCP Nurse Practitioner Family; Visit Provider Nurse Practitioner Family
DX: Z20.822 Contact with and (suspected) exposure to COVID-19 (principal); J06.9 Acute upper respiratory infection, unspecified
CPT/HCPCS: U0003

== ENCOUNTER 2021-05-27 09:40 | Outpatient (REF) | payer MEDICAID, SELFPAY ==
[2021-05-27 15:22] LABS: HCT 38.9 % (36.0-46.0); HGB 13.4 g/dL (11.2-15.7); MCH 34.3 pg (27.0-33.0); MCHC 34.4 % (32.0-36.0); MCV 99.5 fL (80-95); MPV 10.6 fL (8.0-11.0); Platelet Count 230 10^3/uL (130-400); RBC 3.91 10^6/uL (3.93-5.22); RDW 12.1 % (11.7-14.6); RDW-SD 44.1 fL; WBC 7.21 10^3/uL (4.4-10.8)
[2021-05-27 15:36] LABS: Iron 110 ug/dL (50-170); Total Iron Binding Capacity 226 ug/dL (250-450); Transferrin Sat 49 % (15-50)
[2021-05-27 15:45] LABS: Ferritin 76 ng/mL (8-252); TSH (W/Ref FT4) 2.61 uIU/mL (0.36-3.74)
== END 2021-05-27 09:41 | disposition home or self-care (01) ==
LOC: NCHCN 09:40
PROVIDERS: PCP Nurse Practitioner Family; Visit Provider Nurse Practitioner Family
DX: E03.9 Hypothyroidism, unspecified (principal); E11.42 Type 2 diabetes mellitus with diabetic polyneuropathy; G47.30 Sleep apnea, unspecified; R51.9 Headache, unspecified; R53.83 Other fatigue; R53.81 Other malaise
CPT/HCPCS: 85027; 82728; 83540; 83550; 84443

== ENCOUNTER 2021-06-14 08:08 | Day surgery (SDC) | payer MEDICAID, SELFPAY ==
--- NOTE | 2021-06-14 06:30 | W.COLOREPORT ---
Colonoscopy Report Date of procedure: 06/14/21 Pre-op diagnosis general: Colon Cancer Screening Post-op diagnosis procedure note: other (polyp and diverticulosis) Procedure: Colonoscopy with polypectomy Surgeon: Gracia Jones Anesthesia Type: General:No Airway Estimated blood loss (mL): 3 Pathology: other (descending colon polyp) Complications: None Disposition: same day Indications: The patient is here for Colonoscopy pre-op.?Her last screening is reported to have been 11+ years ago in the [facility]. Results unknown.?She has no family history of colon cancer. She has not had any bowel habit changes. -Discussed colonoscopy bowel prep as well as the procedure. Discussed possible complications of the procedure to include bleeding, pain, perforation, missed small lesion/polyp, sore throat, aspiration and adverse reaction to the medications. Questions were answered to patient?s satisfaction. No guarantees were implied or given. Prep: Miralax/Dulcolax Procedure Start Time: 09:05 Procedure End Time: 09:23 Retraction Time: 11 minutes Findings: One small polyp in the descending colon mild sigmoid diverticulosis Procedure Description: After informed consent was obtained the patient was taken to the procedure room and placed in a left decubitous position. Monitors were applied and a time out was done. The patients name, date of , procedure, allergies to medications and metal in their body was reviewed. The patient was then sedated. Once sedated and comfortable a rectal exam was done. External exam was normal. Internal exam revealed a normal sphincter tone and no palpable masses. The scope was then introduced and retro-flexed. no internal hemorrhoids, polyps or masses were identified on retro-flexion. The scope was then advanced to the cecum without difficulty. The ileocecal vlave and appendiceal orifice were identified. The prep was adequate. The scope was then slowly retracted over 11 minutes back into the rectum. Polyps were removed with cold forceps in the descending colon. There was mild sigmoid diverticulosis noted. The scope was removed and the patient was woken up and taken back to Same day surgery in stable condition. The patient tolerated the procedure well and there were no immediate complications. Follow up: The patient should follow up in 5 years unless they develop changes in bowel habits or other new gastrointestinal complaints.
--- NOTE | 2021-06-14 06:31 | PDOC.DSDIS_ITS ---
Discharge Plan Disposition Patient Disposition: HOME Condition: Good Discharge Details Reason For Visit: Colonoscopy Attending Provider: Gracia Jones Primary Care Provider: Chelsy Aden Home Meds and New Rx's Prescriptions: Continued omega-3 fatty acids 1,000 mg capsule 1,000 mg PO DAILY 0RF cholecalciferol (vitamin D3) 50 mcg (2,000 unit) capsule 50 mcg PO DAILY 0RF vmfvlxa-okwp-tcefa-oreg-capryl 100 mg-150 mg- 50 mg-150 mg capsule PO 0RF gabapentin 300 mg capsule 300 mg PO BID 0RF Flovent Diskus 100 mcg/actuation blister with device 1 inh inhalation BID 0RF loratadine [Claritin Liqui-Gel] 10 mg capsule 10 mg PO DAILY 0RF fluticasone propionate [Children's Flonase Allergy Rlf] 50 mcg/actuation spray,suspension 1 spray intranasal BID 0RF Rx Instructions: administer into each nostril albuterol sulfate 2.5 mg /3 mL (0.083 %) solution for nebulization 2.5 mg inhalation Q4H PRN0RF albuterol sulfate [ProAir HFA] 90 mcg/actuation HFA aerosol inhaler 2 puff inhalation Q6H PRN0RF acetaminophen 500 mg capsule 1,000 mg PO Q8H PRN PRN (Reason: pain) Qty: 90 0RF metformin 1,000 mg Tablet 1,000 mg PO BID 0RF levothyroxine 25 mcg Tablet 25 mcg PO DAILY 0RF amlodipine 10 mg Tablet 10 mg PO DAILY 0RF irbesartan 75 mg Tablet 75 mg PO DAILY 0RF montelukast 10 mg Tablet 10 mg PO QHS 0RF hydrochlorothiazide 25 mg Tablet 25 mg PO DAILY 0RF rosuvastatin 10 mg Tablet 10 mg PO HS 0RF multivitamin Tablet 1 tab PO DAILY 0RF biotin 5,000 mcg Tablet,Disintegrating 5,000 mcg PO DAILY 0RF cyanocobalamin (vitamin B-12) [Vitamin B-12] 500 mcg Tablet 500 mcg PO DAILY 0RF aspirin 81 mg Tablet 81 mg PO DAILY 0RF ibuprofen 600 mg tablet 600 mg PO TID PRN (Reason: pain) Qty: 30 3RF Discontinued bisacodyl [Dulcolax (bisacodyl)] 5 mg tablet,delayed release (DR/EC) 5 mg PO ONCE Qty: 4 0RF Rx Instructions: Take according to provider's instructions for colonoscopy prep. polyethylene glycol 3350 17 gram/dose powder 17 g PO ONCE Qty: 238 0RF Rx Instructions: To be taken as directed by prescriber's office for colonoscopy prep. Discharge Instructions Instructions: Colorectal Polyps (DC), Diverticulosis (DC) Additional Instructions: Findings: one polyp mild diverticulosis Follow up: 5 years Please call if you develop: fevers >101.5 Nausea or Vomiting Abdominal pain that is not transient Rectal bleeding that is more then a tbsp A hard abdomen and inability to pass gas DAY SURGERY UNIT POST ENDOSCOPY INSTRUCTIONS Instructions for everyone who is given Anesthesia: For your safety, please do the following for the next 24 Hours: a. Do not drive or operate dangerous equipment b. Do not drink alcohol beverages or use any recreational drugs for the first 24 hours or while taking pain medications. The medications in your body may have a reaction that can be dangerous. c. Do not make any important decisions or sign any important papers 1. Generally there are no restrictions on your activity after a day or so has gone by, but you may feel a bit fatigued for a few days. 2. After you arrive home you may have a light meal and return to a normal diet as you can tolerate it without feeling sick to your stomach. 3. After surgery, you may feel pain or discomfort. This should be only t ransient, but if it persists please contact your doctor. 4. If there are any questions regarding the findings of your procedure, please feel free to contact your doctor. 6. If you are unable to contact your doctor with a problem, contact the hospital at [phone]. 7. Continue all your regular medications unless directed otherwise. I understand the above instructions and have no questions. Signature of Patient or Responsible Adult Escort Date/Time Name of Responsible Adult Escort Signature of Nurse Date/Time Activity:: Activity as Tolerated Diet:: high fiber diet Discharge Orders Discharge Orders: Discharge Order (Routine); Ordered 06/14/21 Ordered By: Gracia Jones
[2021-06-14 08:20] VITALS: BP 110/66; PULSE 75; RESP 17; TEMP 36; O2SAT 97
--- NOTE | 2021-06-14 08:42 | ANES.PREOP_ITS ---
General Info Date of Service Date Performed: 06/14/21 Height: 5 ft 4.17 in Weight: 108.8 kg Body Mass Index (BMI): 40.9 Surgical Procedure: Operation Date: 06/14/21 09:05 Proposed Procedure Side Surgeon alayna Jones MD Meds Allergies and Home Medications Allergies Allergy/AdvReac Type Severity Reaction Status Date / Time seasonal allergies Allergy Uncoded 06/14/21 08:31 Home Medication Medication Instructions Recorded amlodipine 10 mg tablet 10 mg PO DAILY 03/18/20 hydrochlorothiazide 25 mg tablet 25 mg PO DAILY 03/18/20 irbesartan 75 mg tablet 75 mg PO DAILY 03/18/20 levothyroxine 25 mcg tablet 25 mcg PO DAILY 03/18/20 metformin 1,000 mg tablet 1,000 mg PO BID 03/18/20 montelukast 10 mg tablet 10 mg PO QHS 03/18/20 rosuvastatin 10 mg tablet 10 mg PO HS 03/18/20 cholecalciferol (vitamin D3) 50 50 mcg PO DAILY 06/10/20 mcg (2,000 unit) capsule omega-3 fatty acids 1,000 mg 1,000 mg PO DAILY 06/10/20 capsule albuterol sulfate 2.5 mg INHALATION Q4H PRN 06/19/20 albuterol sulfate 90 mcg/actuation 2 puff INHALATION Q6H PRN 06/19/20 aerosol inhaler (ProAir HFA) fluticasone propionate 100 1 inh INHALATION BID 06/19/20 mcg/actuation blister powder for inhalation (Flovent Diskus) fluticasone propionate 50 1 spray INTRANASAL BID 06/19/20 mcg/actuation nasal spray,suspension (Children's Flonase Allergy Relief) loratadine 10 mg capsule (Claritin 10 mg PO DAILY 06/19/20 Liqui-Gel) acetaminophen 500 mg capsule 1,000 mg PO Q8H PRN PRN #90 cap 11/12/20 biotin 5,000 mcg disintegrating 5,000 mcg PO DAILY 01/12/21 tablet multivitamin 1 tab PO DAILY 01/12/21 aspirin 81 mg tablet 81 mg PO DAILY 01/13/21 cyanocobalamin (vitamin B-12) 500 500 mcg PO DAILY 01/13/21 mcg tablet (Vitamin B-12) ibuprofen 600 mg tablet 600 mg PO TID PRN #30 tab 01/13/21 bisacodyl 5 mg tablet,delayed 5 mg PO ONCE #4 tab 05/27/21 release (Dulcolax (bisacodyl)) gabapentin 300 mg capsule 300 mg PO BID cap 05/27/21 polyethylene glycol 3350 17 17 g PO ONCE #238 g 05/27/21 gram/dose oral powder tumeric 100 mg-mehdi 150 mg-olive cap PO 05/27/21 50 mg-oreg 150 mg-caprylate capsule Current Visit Medications: Current Medications Generic Name Dose Route Start Last Admin Trade Name Freq PRN Reason Stop Dose Admin Hyoscyamine Sulfate 0.125 mg 06/14/21 06:32 Hyoscyamine 0.125 Mg Sl/Oral/Chew SL DIRECTED PRN Ringer's Solution 1,000 mls @ 80 mls/hr 06/14/21 06:00 IV 07/11/21 23:59 [facility] IV Miscellaneous Supplies 1 each 06/14/21 06:00 Iv Access IV 07/11/21 23:59 [facility] Ondansetron HCl 4 mg 06/14/21 06:32 Ondansetron 4 Mg/2 Ml Vial IVP Q4H PRN PRN Nausea / Vomiting Sodium Chloride 0 ml 06/14/21 06:00 Normal Saline Flush 10 Ml Syr IV 07/11/21 23:59 PRN PRN Sodium Chloride 0 ml 06/14/21 06:00 Normal Saline 10 Ml Vial IJ 07/11/21 23:59 DIRECTED PRN Sterile Water 0 ml 06/14/21 06:00 Water,Injection,Sterile 10 Ml Vial IJ 07/11/21 23:59 DIRECTED PRN PFSH Active Problems Active Problems: Problem Status Onset Code Screening for colon cancer Z12.11 Eczematoid otitis externa of both ears H60.543 Imbalance R26.89 Medical History Medical History Allergic rhinitis Anxiety Asthma Conductive hearing loss, external ear Degenerative joint disease of right knee Diabetes Eye problem Headache Hyperlipidemia Hypertension Hypothyroidism Impacted cerumen, left ear Incarcerated ventral hernia Knee pain, bilateral Left knee DJD Peripheral neuropathy Rhinitis, chronic Right carpal tunnel syndrome Sleep apnea uses device. Type 2 diabetes mellitus Umbilical hernia Surgical History Surgical History History of colonoscopy History of knee replacement procedure of left knee History of total left knee replacement (TKR) (10/07/20) History of total right knee replacement (06/17/20) Left carpal tunnel syndrome s/p ECTR DOS: 01/13/2021 S/P hernia repair (~03/18/20) incarcerated ventral hernia Tobacco Smoking/Tobacco Use Status: Never Alcohol Alcohol Intake: current Alcohol intake frequency: holidays/special occasions only Substance Use Substance use: Never Substance use type: does not use Vital Signs and Lab Results Vital Signs Most Recent Vital Signs in EMR: Most Recent Vital Signs Temp Pulse Resp BP Pulse Ox 36.0 C L 75 17 110/66 97 06/14/21 08:20 06/14/21 08:20 06/14/21 08:20 06/14/21 08:20 06/14/21 08:20 Point of Care Results Point of Care Results: Finger Stick Blood Glucose 165 06/14/21 08:24 Lab Results Blood Type / Crossmatch: No Data to Display Complete Blood Count: White Blood Count 7.21 10^3/uL (4.4-10.8) 05/27/21 09:06 05/27/21 Red Blood Count 3.91 10^6/uL (3.93-5.22) L 05/27/21 09:06 05/27/21 Hemoglobin 13.4 g/dL (11.2-15.7) 05/27/21 09:06 05/27/21 Hematocrit 38.9 % (36.0-46.0) 05/27/21 09:06 05/27/21 Platelet Count 230 10^3/uL (130-400) 05/27/21 09:06 05/27/21 Complete Metabolic Panel: No Data to Display Liver Function Panel: No Data to Display Coagulation Panel: No Data to Display Cardiac Panel: No Data to Display Arterial Blood Gas: No Data to Display Venous Blood Gas: No Data to Display Pancreas Panel: No Data to Display Thyroid Panel: Thyroid Stimulating Hormone (TSH) 2.61 uIU/mL (0.36-3.74) 05/27/21 09:06 05/27/21 Infectious Disease: No Data to Display Blood Cultures: No Data to Display Toxicology Panel: No Data to Display Anesthesia Assessment and Plan Anesthesia History Personal History: No History of Anesthesia Complications Family History: No Family History of Anesthesia Complications Exercise Tolerance Exercise Tolerance: Metabolic Equivalents>4 Cardiac & Pulmonary Exam Cardiac Exam: Normal S1/S2 Heart Sounds Pulmonary Exam: Clear Bilateral Breath Sounds Implantable Cardiac Device Does patient have a Pacemaker or an ICD?: No Airway Exam Known Difficult Airway: No Mallampati Class: 3 Mouth Opening: Narrow (< 3cm) Thyromental Distance: Greater than 3 cm Neck Range of Motion: Full ROM Neck Circumference: Thick Teeth Condition: Normal Dentition ASA Classification ASA Score: ASA 3 Emergency Case?: No NPO Status NPO Status: NPO Clears >2 hours, Solids >8 hours Anesthesia Plan Resuscitation Status: Full Code Anesthesia Technique: General Anesthesia Airway Planned: Natural Airway Monitors Used: Standard Monitors
[2021-06-14 08:44] VITALS: BMI 40.9
[2021-06-14] MEDS: Lactated Ringers 1,000 ML 80 ML IV (08:50)
--- NOTE | 2021-06-14 09:18 | BOWEL_PTH ---
PATIENT: Yolis Romero LOC: [facility] U#:[id number] AGE/SX: 61/F ROOM: RE06/14/[address]: Gracia Jones MD : 1960 BED: DIS: 06/14/2021 SPEC #: [id number] RECD: 06/14/21 12:55 STATUS: JANETT REQ #: [id number] FRANCOIS: 06/14/21 09:[address]: Gracia Jones DEPT: Surgical Specimen RECD BY: Khloe Kidd ENTERED: 06/14/21 12:56 SP TYPE: Bowel OTHR DR: Chelsy Aden Tissues: 1 - BIOPSY BOWEL Procedures: GROSS AND MICRO LEVEL 4 Comments: [id number]
[2021-06-14 09:23] VITALS: BP 111/62; PULSE 71; RESP 16; TEMP 36; O2SAT 95
[2021-06-14 09:32] VITALS: BP 111/62; PULSE 71; RESP 16; TEMP 36; O2SAT 95
[2021-06-14 09:46] VITALS: BP 118/64; PULSE 76; RESP 18; TEMP 36.2; O2SAT 97
--- NOTE | 2021-06-14 09:54 | W.ANESPOSTOP ---
Postoperative Evaluation Date, Time and Location Date Performed: 06/14/21 Time Performed: 09:54 Patient Location: Day Surgery Unit Vital Signs Most Recent Imported Vital Signs: Most Recent Vital Signs Temp Pulse Resp BP Pulse Ox 36.2 C L 76 18 118/64 97 06/14/21 09:46 06/14/21 09:46 06/14/21 09:46 06/14/21 09:46 06/14/21 09:46 Pain Score Most Recent Pain Score: Most Recent Pain Score Pain Level 0 06/14/21 09:46 Assessment Mental Status: Awake (Alert & Oriented to Patient Baseline) Airway and Respiratory Function: Patent airway with normal (patient baseline) respiratory exam Cardiovascular Function: Hemodynamically Stable Hydration Status: Adequately Hydrated Nausea & Vomiting: No Nausea or Vomiting Pain: Pt. Denies Any Pain Peripheral Nerve Block: Patient did not receive a nerve block
== END 2021-06-14 10:35 | disposition home or self-care (01) ==
LOC: SUR 08:08
PROVIDERS: PCP Nurse Practitioner Family; Visit Provider Surgery
PROC: 0DJD8ZZ Inspection of Lower Intestinal Tract, Via Natural or Artificial Opening Endoscopic (ICD-10-PCS; CPT 45378; principal; 2021-06-14 09:00)
DX: Z12.11 Encounter for screening for malignant neoplasm of colon (principal); K63.5 Polyp of colon; K57.30 Diverticulosis of large intestine without perforation or abscess without bleeding
CPT/HCPCS: 45380; 88305; J2001

== ENCOUNTER 2021-08-24 14:13 | Outpatient (REF) | payer MEDICAID, SELFPAY ==
--- OUTSIDE RECORDS SUMMARY | 2021-08-24 14:16 | XMS_ITS | Encounter Summary ---
:1960 Author Organization [facility] Address [address] [place] [address] Care Team Providers Name Role Phone Chelsy Aden BIBLICAL STUDIES PROFESSOR Primary Care Provider Encounter Details Date Type Department Care Team Description 06/18/2020 Lab Requisition [facility] Chelsy Aden Enc ounter for general adult medical examination without abnormal findings; Pathology & BIBLICAL STUDIES PROFESSOR Encounter for screening for malignant ne oplasm of cervix; Laboratory Medicine [address] Encounter for screening for human papill omavirus (HPV) - [place], [place] [address] [facility] [address] [place], [place] [phone] (Work) [phone] Social History Tobacco Use Types Packs/Day Years Used Date Never Assessed Sex Assigned at Date Recorded Not on file documented as of this encounter Plan of Treatment Not on filedocumented as of this encounter Procedures Procedure Name Priority Date/Time Associated Diagnosis Comme nts PAP TEST Today 06/16/2020 8:15 Encounter for general Res ults for this EDT adult medical procedure are in examination without the resu lts abnormal finding s section. Encounter for screening for malignant neoplasm of cervix Encounter for screening for human papillomavirus (HPV) HUMAN PAPILLOMAVIRUS Today 06/16/2020 8:15 Encounter for gen eral Results for this (HPV) DETECTION-HIGH EDT adult medical proced ure are in RISK TYPES examination without the resu lts abnormal finding s section. Encounter for screening for malignant neoplasm of cervix Encounter for screening for human papillomavirus (HPV) documented in this encounter Results HUMAN PAPILLOMAVIRUS (HPV) DETECTION-HIGH RISK TYPES (06/16/2020 8:15 EDT) Human Papillomavirus NegativeComment: No Negative [facility] (HPV) Detection-High E6 or E7 mRNA is CENTER LABORATOR Y Types detected from HPV SERVICES types 16,18,31,33,35,39,45 ,51,52,56,58,59,66, and 68 by ball truing machine operator mediated amplification. Specimen Pap Test - Cervix and/or Endocervix Performing Organization Address City/State/ZIP Code Phon e Number [facility] [address] [place] [address] SERVICES PAP TEST (06/16/2020 8:15 EDT) Specimens A. Cervix and/or [facility] Endocervix , ThinPrep CENTER Imaging System with LABORATORY Manual Evaluation SERVICES Specimen Adequacy Satisfactory for [facility] Evaluation - CENTER transformation zone LABORATORY component present SERVICES General Negative for [facility] intraepithelial BEULAH lesion or malignancy LABORATORY SERVICES Attestation . [facility] signed by CATHY Pichardo CT(ASCP ) on SERVICES 06/26/2020 at 150 1 Clinical History See below [facility] SERVICES HPV The result for the Human Pap illomavirus (HPV) Detection-High Risk Types is Negative. No E6 or E7 mRNA is detected from HPV types 16,18,31,33,35,39,45,51,52,56,58,59,66, and 68 by ball truing machine operator mediated [facility] amplification.Testing was pe rformed on specimen [id number] and was resulted on 06/26/2020 1457 EDT by [facility], LAB INSTRUMENT RESULTS IN [facility] SERVICES Performing Lab [facility] SERVICES Scanned Images [facility] SERVICES Specimen Pap Test - Cervix and/or Endocervix Performing Organization Address City/State/ZIP Code Phon e Number [facility] [address] [place] [address] SERVICES documented in this encounter Visit Diagnoses Diagnosis Encounter for general adult medical exam ination without abnormal findings Unspecified general medical examination Encounter for screening for malignant ne oplasm of cervix Screening for malignant neoplasm of the cervix Encounter for screening for human papill omavirus (HPV) Special screening examination for human papillomavirus (HPV) documented in this encounter Care Teams Winder Tender Relationship Specialty Start Date End Date Chelsy Aden FNP PCP - General 05/21/21 [facility] [place] [address] documented as of this encounter
--- OUTSIDE RECORDS SUMMARY | 2021-08-24 14:16 | XMS_ITS | Clinical Summary ---
:1960 Author Organization [facility] Address [address] [place] [address] Care Team Providers Name Role Phone Chelsy Aden VRT MECHANIC Primary Care Provider Encounters Date Type Specialty Care Team Description 06/14/2021 Lab Requisition Clinical Laboratory Lolita Joneser for MD Christian screening f or malignant neopl asm of colon from Last 3 Months Social History Tobacco Use Types Packs/Day Years Used Date Never Assessed Sex Assigned at Date Recorded Not on file Plan of Treatment Health Maintenance Due Date Last Done Comments Hepatitis C Screen 1960 COVID-19 Vaccine (1) 1965 Procedures Procedure Name Priority Date/Time Associated Diagnosis Comme nts SURGICAL PATHOLOGY Today 06/14/2021 9:18 EDT Encounter for R esults for this screening for procedure are in malignant neoplasm the resul ts of colon section. from Last 3 Months Results SURGICAL PATHOLOGY (06/14/2021 9:18 EDT) Note to Patient The following [facility] pathology results CENTER have been interpreted LABORATORY by your pathologist SERVICES and may be available to you before your health provider has had the opportunity to review them. Please allow time for your provider to receive these results and explore management options, if applicable. Final Diagnosis A. COLON, DESCENDING, POLYP, BIOPSY: [facility] - Tubular adenoma. CENTER LABORATORY SERVICES Attestation By the signature [facility] Electronica lly below, the attending CENTER signed by Barrie Moralez, physician certifies LABORATORY Lyndsay Santos MD on that they have 1) SERVICES 06/15/2021 at 1354 personally conducted a gross and/or microscopic examination of the described specimen(s), and/or personally interpreted the results of laboratory testing of the described specimen(s), and 2) personally rendered or confirmed the above diagnosis. Clinical History Color cancer screening; clinical diagnosis code : Z12.11 [facility] SERVICES Gross Description A. [facility] Received in formalin lilian d with proper patient identification (initials R, V) and descending colon polyp is a wright tissue, 0.3 x 0.2 x 0.2 cm. Entirely submitted in A1. CENTER LABORATORY JACLYN EDWARDS(ASCP) 06/15/2021 7:34 SER VICES Performing Lab [facility] SERVICES Scanned Images [facility] SERVICES Specimen Tissue - Descending colon structure (bod y structure) Performing Organization Address City/State/ZIP Code Phon e Number [facility] [address] [place] [address] SERVICES from Last 3 Months Insurance Payer Benefit Plan Subscriber ID Effective Phone Address Typ e / Group Dates MEDICAID ACO MEDICAID ACO [id number] 2021-Pre [phone] [address] Medicaid ACO [place] sent [address] [place] [address] Yolis Romero Personal/Family Self 1960 [address] [place] [address] (Home) [place] [address] Yolis Romero Personal/Family Self 1960 [address] [place] [address] (Home) [place] [address] Care Teams Repair Department Manager Relationship Specialty Start Date End Date Chelsy Aden FNP PCP - General 05/21/21 [address] [facility] [place] [id number]
--- OUTSIDE RECORDS SUMMARY | 2021-08-24 14:16 | XMS_ITS | Clinical Summary ---
:1960 Author Organization [place] [address] Care Team Providers Name Role Phone Unavailable Primary Care Provider Unavailable Encounters Date Type Specialty Care Team Description 06/10/2021 Hospital Encounter Lab from Last 3 Months Social History Tobacco Use Types Packs/Day Years Used Date Never Assessed Sex Assigned at Date Recorded Not on file Plan of Treatment Health Maintenance Due Date Last Done Comments Covid-19 Vaccine (#1) 1965 HIV screen 1978 Hepatitis C Screening 1978 Tdap adult 1979 Tetanus vaccine 1979 HPV test 1990 PAP Smear 1990 Breast Cancer Share Decision Needed 2000 Colonoscopy 2005 Breast Cancer screening 2010 Zoster vaccine (1 of 2) 2010 Advance Directive 2015 Influenza (Flu) vaccine (1 of 1 - Influenza standard 10/21/2020 series) Procedures Procedure Name Priority Date/Time Associated Diagnosis Comme [facility] SURGICAL PATHOLOGY Routine 06/10/2021 9:10 AM Res ults for this REPORT EDT procedure are i n the results section. from Last 3 Months Results Surgical Pathology Report (06/10/2021 9:10 AM EDT) Component Value Ref Test Analysis Performed At [facility] Method Time Signature Surgical [id number] ? Location: [facility] Pathology [place] Report The signing pathologist has (i) examined the relevant preparation(s) for the [facility] specimen(s) and (ii) rendered or confirmed the diagnosis(es) . HOSPITAL LABORATORY . ?Surgic al Pathology DIAGNOSIS Great toe, nail other: - PAS staining negative for fungal elements - Rare coccoid forms present predominantly on nail plate surface, favor bacteria Electronically signed by: ?Silvana MALIN, Scottie Kim Verified: ??06/14/2021 15:10 ??Dermatopathologist Performed at: ??-[facility], [place], [place] SPECIMEN(S) SUBMITTED A - great toe nails Referring Identifier: ??[id number] CLINICAL INFORMATION Thick dystrophic toenails SPECIMEN PROCESSING A - Labeled/Fixative: Patient demographics, fresh. Quantity/Size: Two, 0.6 x 0.4 x 0.2 cm in aggregate. Tissue Description: Thickening, ross to yellow-wright unguis fr agments. Sections/Processing: Submitted en toto ??in 1 cassette labeled A1. ??shb Specimen (Source) Anatomical Collection Method Collection Time Re ceived Time Location / / Volume Laterality 06/10/2021 9:10 AM EDT Resulting Agency Comment Spec In Lab / WKS Xiomy Peralta SLATE SPLITTING SUPERVISOR PATHOLOGY/CYTOLOGY ORDERABLE S Performing Organization Address City/State/ZIP Code Ph[place] [address] from Last 3 Months Insurance Payer Benefit Plan / Subscriber ID Effective Dates Phone Addre ss Type Group [place] [id number] 2021-Prese [phone] [address] [facility] [address] [place], [place] PL[place] [id number]
--- OUTSIDE RECORDS SUMMARY | 2021-08-24 14:16 | XMS_ITS | Encounter Summary ---
:1960 Author Organization [facility] Address [address] [place] [address] Care Team Providers Name Role Phone Chelsy Aden INK PRINTER Primary Care Provider Encounter Details Date Type Department Care Team Description 04/09/2021 Lab Requisition [facility] Outr Resulting Lab, Pathology & Laboratory Provider [facility] [address] [id number] Social History Tobacco Use Types Packs/Day Years Used Date Never Assessed Sex Assigned at Date Recorded Not on file documented as of this encounter Plan of Treatment Not on filedocumented as of this encounter Procedures Procedure Name Priority Date/Time Associated Diagnosis Comme nts COVID-19 TEST [facility] Today 04/08/2021 9:20 EST LAB PCR COVID-19 TESTING Routine 04/08/2021 9:20 EST Resu lts for this procedure are i n the results section. documented in this encounter Results COVID-19 TEST [facility] LAB PCR (04/08/2021 9:20 EST) Specimen Swab Performing Organization Address City/State/ZIP Code Phon e Number [facility] [address] [place] [address] SERVICES COVID-19 TESTING (04/08/2021 9:20 EST) COVID-19 rt-PCR Negative Negative [facility] Result Comment: CENTER LABORATORY This test has not been FDA c leared or approved. This test has been authorized by FDA under an EUA for use by authorized laboratories. This test has been authorized only for detection of nucleic acid fro SERVICES m 2019-nCoV, not for any oth er viruses or pathogens. This test is only authorized for the duration of the declaration that circumstances exist justifying the authorization of emergency use of in vitro d iagnostic tests for detectio n and/or diagnosis of 2019-nCoV under section 564(b)(1) of Act, 21 U.S.C ?? 360bbb-3(b) (1), unless the authorization is terminated or revoked sooner. Negative results do not prec lude 2019-nCoV infection and should not be used as the sole basis for treatment or other patient management decisions. Negative results must be combined with clinical observa tions, patient history, and epidemiological informatio n. Testing was performed using the ulysses SARS-CoV-2 assay ([employer] on the Ulysses 6800 System Performing Lab Ulysses 68[address] [facility] Lab [facility] SERVICES Specimen Swab Performing Organization Address City/State/ZIP Code Phon e Number [facility] [address] [place] [address] SERVICES documented in this encounter Visit Diagnoses Not on filedocumented in this encounter Care Teams Flooring Machine Operator Relationship Specialty Start Date End Date Chelsy Aden FNP PCP - General 05/21/[address] [place], [place] [id number] documented as of this encounter
--- OUTSIDE RECORDS SUMMARY | 2021-08-24 14:16 | XMS_ITS | Encounter Summary ---
:1960 Author Organization [facility] Address [address] [place] [address] Care Team Providers Name Role Phone Chelsy Aden MARBLE POLISHER HAND Primary Care Provider Encounter Details Date Type Department Care Team Description 06/14/2021 Lab Requisition [facility] Brianne Jones for Pathology & MD Christian screening for Laboratory Medicine [address] malignant neoplasm - [place], [place] of colon [address] [facility] [address] [place], [place] [id number] Social History Tobacco Use Types Packs/Day Years [...] neoplasm the resul ts of colon section. documented in this encounter Results SURGICAL PATHOLOGY (06/14/2021 9:18 EDT) Note to Patient The following [facility] pathology results CENTER have been interpreted LABORATORY by your pathologist SERVICES and may be available to you before your health provider has had the opportunity to review them. Please allow time for your provider to receive these results and explore management options, if applicable. Final Diagnosis A. COLON, DESCENDING, POLYP, BIOPSY: [facility] - Tubular adenoma. CENTER LABORATORY SERVICES Attestation By the signature [facility] Electronica lly below, the attending CENTER [...] cancer screening; clinical diagnosis code : Z12.11 [facility] SERVICES Gross Description A. [facility] Received in formalin lilian d with proper patient identification (initials R, V) and descending colon polyp is a wright tissue, 0.3 x 0.2 x 0.2 cm. Entirely submitted in A1. [facility]ENTER LAB[facility]ORY JACLYN EDWARDS(ASCP) 06/15/2021 7:34 SER VICES Performing Lab [facility] LAB [facility] SERVICES Scanned Images [facility] SERVICES Specimen Tissue - Descending colon structure (bod y structure) Performing Organization Address City/State/ZIP Code Phon e Number [facility] [address] [place] [address] SERVICES documented in this encounter Visit Diagnoses Diagnosis Encounter for screening for malignant ne oplasm of colon Special screening for malignant neoplasm s, colon documented in this encounter Care Teams Wash And Greaser Relationship Specialty Start Date End Date Chelsy Aden FNP PCP - General 05/21/[address] [place], [place] [address] documented as of this encounter
--- OUTSIDE RECORDS SUMMARY | 2021-08-24 14:16 | XMS_ITS | Encounter Summary ---
:1960 Author Organization [facility] [place] [address] Care Team Providers Name Role Phone Unavailable Primary Care Provider Unavailable Encounter Details Date Type Department Care Team Description 06/10/2021 Hospital [place] [phone] Social History Tobacco Use Types Packs/Day Years Used Date Never Assessed Sex Assigned at Date Recorded Not on file documented as of this encounter Plan of Treatment Not on filedocumented as of this encounter Procedures Procedure Name Priority Date/Time Associated Diagnosis Comme [facility] SURGICAL PATHOLOGY Routine 06/10/2021 9:10 AM Res ults for this REPORT EDT procedure are i n the results section. documented in this encounter Results Surgical Pathology Report (06/10/2021 9:10 AM EDT) Component Value Ref Test Analysis Performed At [facility] Method Time [facility] Surgical [id number] ? Location: [facility] Pathology [place] Report The signing pathologist has (i) examined [...] Kim Verified: ??06/14/2021 15:10 ??Dermatopathologist Performed at: ??-[facility] Dept. of Pathology, [place], [place] SPECIMEN(S) SUBMITTED A - great toe nails Referring Identifier: ??[id number] CLINICAL INFORMATION Thick dystrophic toenails SPECIMEN PROCESSING [...] Spec In Lab / WKS Xiomy Peralta APRN PATHOLOGY/CYTOLOGY ORDERABLE S Performing Organization Address City/State/[place] [address] documented in this encounter Visit Diagnoses Not on filedocumented in this encounter
[2021-08-24 19:42] LABS: Anion Gap 10.9 mmol/L (3-11); BUN 18 mg/dL (7-18); CO2 27.1 mmol/L (21.0-32.0); CREATININE 0.9 mg/dL (0.55-1.02); Calcium 9.2 mg/dL (8.5-10.1); Chloride 97 mmol/L (98-107); Glucose 184 mg/dL (74-106); Potassium 3.6 mmol/L (3.5-5.1); Sodium 135 mmol/L (136-145)
== END 2021-08-24 14:14 | disposition home or self-care (01) ==
LOC: NCHCN 14:13
PROVIDERS: PCP Nurse Practitioner Family; Visit Provider Nurse Practitioner Family
DX: E11.9 Type 2 diabetes mellitus without complications (principal); I10 Essential (primary) hypertension
CPT/HCPCS: 80048

== ENCOUNTER 2021-08-30 15:33 | Outpatient (CLI) | payer MEDICAID, SELFPAY ==
--- NOTE | 2021-08-30 14:30 | DI.RAD_ITS ---
Exam(s) XR KNEE RT 2V AP,LAT EXAM: XR KNEE RT 2V AP,LAT CLINICAL HISTORY: ANNUAL F/U R TKA. TECHNIQUE: 2D digital imaging was performed. Two images were obtained. AP and lateral views were ob tained. COMPARISON: CR XR KNEE RT 3V AP,LAT,JASON from 05/28/2020 CR XR KNEE RT 1V from 07/01/2020 FINDINGS: BONES: There are stable post operative changes present. No fracture or dislocation. JOINTS: The orthopedic hardware is in good position. SOFT TISSUE: Normal. IMPRESSION: Stable postoperative changes. DATA REPOSITORY: RADIATION DOSE DELIVERED:
--- NOTE | 2021-08-30 14:45 | DI.RAD_ITS ---
Exam(s) XR KNEE LT 2V AP,LAT EXAM: XR KNEE LT 2V AP,LAT CLINICAL HISTORY: annual f/u L TKA. TECHNIQUE: 2D digital imaging was performed. COMPARISON: CR XR KNEE RT 2V AP,LAT from 08/30/2021 FINDINGS: Two views Stable appearance of components of the prosthesis. No fracture or loosening evident IMPRESSION: DATA REPOSITORY: RADIATION DOSE DELIVERED:
== END 2021-08-30 15:34 | disposition home or self-care (01) ==
LOC: DIORS 15:33
PROVIDERS: PCP Nurse Practitioner Family; Referring Provider Nurse Practitioner Family; Visit Provider Student in an Organized Health Care Education/Training Program
DX: Z96.653 Presence of artificial knee joint, bilateral (principal)
CPT/HCPCS: 73560

== ENCOUNTER 2022-05-10 13:49 | Outpatient (REF) | payer MEDICAID, SELFPAY ==
[2022-05-10 17:46] LABS: Anion Gap 8.4 mmol/L (3-11); BUN 21 mg/dL (7-18); CO2 28.6 mmol/L (21.0-32.0); CREATININE 0.9 mg/dL (0.55-1.02); Calcium 9.7 mg/dL (8.5-10.1); Chloride 103 mmol/L (98-107); Estimated GFR 72.28 (mL/min/1.73m2); Glucose 141 mg/dL (74-106); Potassium 3.9 mmol/L (3.5-5.1); Sodium 140 mmol/L (136-145); TSH (W/Ref FT4) 2.73 uIU/mL (0.36-3.74)
== END 2022-05-10 13:50 | disposition home or self-care (01) ==
LOC: NCHCN 13:49
PROVIDERS: PCP Nurse Practitioner Family; Visit Provider Nurse Practitioner Family
DX: I10 Essential (primary) hypertension (principal); E03.9 Hypothyroidism, unspecified
CPT/HCPCS: 80048; 84443

== ENCOUNTER 2022-07-13 02:45 | Outpatient (CLI) | payer MEDICAID, SELFPAY ==
--- NOTE | 2022-07-13 | DI.MAMMO_ITS ---
Exam(s) MAMMO SCREENING EXAM: MAMMO SCREENING CLINICAL HISTORY: SCREENING, Z12.39. TECHNIQUE: Bilateral full field digital CC and MLO mammographic images were obtained with 3D tomosyn thesis and utilizing computer aided detection (CAD). COMPARISON: Prior mammograms were reviewed. FINDINGS: There has been no significant change in the appearance and distribution of the fibroglandular tissue. There are no new spiculated masses nor malignant appearing microcalcification groups. There is no significant architectural distortion nor skin thickening-retraction. IMPRESSION: No radiographic evidence of malignancy. BI-RADS Category 1 - Negative Breast Density - Category B - Scattered areas of fibroglandular density Breast density Category C or D implies that the patient has dense breast tissue. Dense breast tissue can make it harder to find cancer on a mammogram. Dense breast tissue is also associated with an incr eased risk of breast cancer. This information about the result of the mammogram report was provided to the patient to raise their awareness. Use this report when you speak with the patient about their risks for breast cancer, which includes their family history. At that time, you may recommend additional screening tests (Ultrasoun d or MRI) as these tests may add significant information. A negative radiographic report should not delay biopsy if a dominant or clinically suspicious mass is present. Up to ten percent of cancers are not identified on mammography. A negative report may reinforce clinical impression. Adenosis and dense breasts may obscure an underlying neoplasm. False positive reports average 6 to 10%. Patient will receive a letter notifying them of these results.
--- NOTE | 2022-07-13 | DI.US_ITS ---
Exam(s) US PELVIS TRANSVAGINAL EXAM: US PELVIS TRANSVAGINAL CLINICAL HISTORY: POSTMENOPAUSAL VAGINAL BLEEDING, N95.0 TECHNIQUE: Ultrasound of the pelvis was performed both transabdominal and transvaginal. COMPARISON: US US OR ANESTHESIA from 10/07/2020 FINDINGS: UTERUS: Anteverted and nongravid Measures 8 cm length x 4.5 cm AP x 4.3 cm wide. There are no uterine fibroids. Endometrial thickness measures 11 mm. There is no fluid in the endometrial canal. CERVIX: There are multiple small nabothian cysts noted in cervix. RIGHT OVARY: Right ovary is not identified on this study. LEFT OVARY: Measures 1.6 x 1.6 x 1.8 cm No significant cysts nor masses evident in the left ovary. CUL-DE-SAC: No free fluid evident. IMPRESSION: 1. The endometrium is 11 mm thickness; requires appropriate follow-up 2. Left ovary appears unremarkable. Left ovary not visualized 3. No free fluid evident in the adnexal regions and cul-de-sac. DATA REPOSITORY:
== END 2022-07-13 03:05 ==
LOC: DI 02:46
PROVIDERS: PCP Nurse Practitioner Family; Visit Provider Family Medicine
DX: N95.0 Postmenopausal bleeding (principal)
CPT/HCPCS: 77063; 77067; 76830; 76856

== ENCOUNTER 2022-07-25 17:43 | Outpatient (REF) | payer OTHER, SELFPAY ==
--- NOTE | 2022-07-25 13:30 | ENDOMET_PTH ---
PATIENT: Yolis Romero LOC: [facility] U#:[id number] AGE/SX: 62/F ROOM: RE07/25/[address]: Halima Jim MD : 1960 BED: DIS: 07/25/2022 SPEC #: [id number] RECD: 07/25/22 17:46 STATUS: JANETT RESharif #: [id number] FRANCOIS: 07/25/22 13:[address]: Halima Jim DEPT: Surgical Specimen RECD BY: Khloe Kidd ENTERED: 07/25/22 17:46 SP TYPE: Endomet OTHR DR: Chelsy Aden Tissues: 1 - ENDOMETRIUM BX/CHATO Procedures: GROSS AND MICRO LEVEL 4 IMMUNOPEROXIDASE STAIN Comments: [id number]
== END 2022-07-25 17:44 | disposition home or self-care (01) ==
LOC: LBN 17:43
PROVIDERS: PCP Nurse Practitioner Family; Visit Provider Obstetrics & Gynecology
DX: N95.0 Postmenopausal bleeding (principal); C54.1 Malignant neoplasm of endometrium
CPT/HCPCS: 88305; 87624; 88361

== ENCOUNTER 2022-09-07 11:13 | Outpatient (REF) | payer OTHER, SELFPAY ==
[2022-09-07 19:11] LABS: COMMENT (LAB VIEW ONLY) 51.31 mg/dL; Microalb ug/mg Crea 18.5 ug/mg Cr
== END 2022-09-07 11:14 | disposition home or self-care (01) ==
LOC: NCHCN 11:13
PROVIDERS: PCP Family Medicine; Visit Provider Family Medicine
DX: E11.9 Type 2 diabetes mellitus without complications (principal)
CPT/HCPCS: 82043; 82570

== ENCOUNTER 2023-04-26 14:48 | Outpatient (REF) | payer OTHER, SELFPAY ==
[2023-04-26 15:57] LABS: Anion Gap 10.7 mmol/L (3-11); BUN 16 mg/dL (7-18); CO2 27.3 mmol/L (21.0-32.0); Chloride 105 mmol/L (98-107); Glucose 119 mg/dL (74-106); Potassium 4.2 mmol/L (3.5-5.1); Sodium 143 mmol/L (136-145)
[2023-04-26 16:41] LABS: Hemoglobin A1C 5.5 % (<5.7)
[2023-04-27 10:16] LABS: Hepatitis C Ab w Rflx HCV PCR Negative (Negative)
[2023-04-27 10:21] LABS: HIV-1/2 Ag & Ab Screen Negative (Negative)
== END 2023-04-26 14:49 | disposition home or self-care (01) ==
LOC: NCHCN 14:48
PROVIDERS: PCP Family Medicine; Referring Provider Family Medicine; Visit Provider Family Medicine
DX: Z00.00 Encounter for general adult medical examination without abnormal findings (principal); E11.9 Type 2 diabetes mellitus without complications; I10 Essential (primary) hypertension; Z11.4 Encounter for screening for human immunodeficiency virus [HIV]; Z11.59 Encounter for screening for other viral diseases
CPT/HCPCS: 80048; 86803; 87389; 83036

== ENCOUNTER 2023-05-01 13:20 | Outpatient (CLI) | payer OTHER, SELFPAY ==
--- NOTE | 2023-05-01 08:30 | DI.RAD_ITS ---
Exam(s) XR KNEE RT 3V AP,LAT,JASON EXAM: XR KNEE RT 3V AP,LAT,JASON CLINICAL HISTORY: HISTORY OF R TKA. TECHNIQUE: 2D digital imaging was performed. Three images were obtained. Merchant's, AP and lateral views were obtained. COMPARISON: CR XR KNEE RT 3V AP,LAT,JASON from 05/28/2020 CR XR KNEE LT 2V AP,LAT from 08/30/2021 CR XR KNEE RT 2V AP,LAT from 08/30/2021 FINDINGS: BONES: There are stable post operative changes of a right total knee replacement present. No fractur e or dislocation. There is an enthesophyte at the superior patella. JOINTS: The orthopedic hardware is in good position. No evidence of hardware loosening. Stable dens ities within and around the knee. Some of these may be within the joint space. There are unchanged. There is mild medial tilt of the patella on the merchant's view. The soft tissues are grossly unre markable. SOFT TISSUE: Normal. IMPRESSION: 1. Right total knee replacement. No lucencies are seen in or about the orthopedic hardware at this t denice. 2. Mild medial tilt of the patella. No soft tissue swelling is seen. DATA REPOSITORY: RADIATION DOSE DELIVERED:
== END 2023-05-01 13:21 | disposition home or self-care (01) ==
LOC: DIORS 13:21
PROVIDERS: PCP Family Medicine; Visit Provider Student in an Organized Health Care Education/Training Program
DX: Z96.651 Presence of right artificial knee joint (principal); Z47.1 Aftercare following joint replacement surgery
CPT/HCPCS: 73562

== ENCOUNTER 2023-05-05 12:53 | Outpatient (REF) | payer OTHER, SELFPAY ==
[2023-05-05 19:29] LABS: TSH (W/Ref FT4) 2.19 uIU/mL (0.36-3.74)
== END 2023-05-05 12:54 | disposition home or self-care (01) ==
LOC: NCHCN 12:53
PROVIDERS: PCP Family Medicine; Referring Provider Family Medicine; Visit Provider Family Medicine
DX: E03.9 Hypothyroidism, unspecified (principal)
CPT/HCPCS: 84443

== ENCOUNTER 2024-01-09 03:57 | Outpatient (CLI) | payer OTHER, SELFPAY ==
--- NOTE | 2024-01-09 11:44 | TELEFU_ITS ---
Date of service: 01/09/24 Time of Service: 09:00 Nutrition Note NOTE: Yolis referred for nutrition visit for weight mgt. She states weight loss is her main goal but wants to manage diabetes as well. Last A1c was 5.4% - takes 500mg Metformin BID and Victosa (started on Ozempic which worked better but had to go to Victosa due to cost). Takes MVI at home as well as Rosuvastatin. At her appt in August with provider was 96.6kg at 63.7 resulting in BMI of 36.9 States her highest weight was prior to COVID pandemic at 253lbs. Current weight has hung around 209-214lbs and doesn't seem to move much from this lately. Goal weight of <200lbs. Lives with brother and sister in law who do most of the cooking. Works at [employer] 1-9pm and states doesn't get much time to eat between customers coming in. Stays on feet at work and moves a lot there. Drinks black coffee, tea, ~1500mL water per day. Juice is seldom and occasionally milk . She admits she can have sweet tooth and has a hard time when items are in the house. Has high stress currently. Doesn't exercise currently due to hip pain. Reviewed her goals requiring her to be proactive as much as possible and plan ahead for meals with goal of higher protein and fiber intake with total carbs limited to 160g per day. She can also refine her total carb intake to include at least 30g fiber most days and less than 30g added sugar. Reviewed recommendation of 120g protein daily with bulk of it coming earlier in the day. She is on thyroid meds but related she didn't know she is supposed to take on empty stomach and wait about an hour before eating - she will alter how she takes in accordance. Because she might not get a chance to eat lunch or dinner at work she sometimes will eat at 9pm - relates having chop suey last night after 9pm. We discussed trying to eat lunch around noon so she is still at home and can make it a bigger meal to focus on eating so she only has to worry about dinner at work and we trouble-shooted ideas for this meal. Gave her some reasources to try for menu planning and highlighted crafting menus and following them and being less reactive. Highlighted added sugar limit is very important to avoid excess calories and excess carbs. Gave her my contact information should she desire follow up, more resources or has any questions needing answered over phone/email. Time Spent in Nutritional Counseling and Treatment: 60 min
== END 2024-01-09 03:58 | disposition home or self-care (01) ==
LOC: DS 03:57
PROVIDERS: PCP Family Medicine; Visit Provider Dietitian, Registered
DX: E11.9 Type 2 diabetes mellitus without complications (principal)
CPT/HCPCS: 00123; 97802

== ENCOUNTER 2024-01-10 12:00 | Outpatient (REF) | payer OTHER, SELFPAY ==
--- OUTSIDE RECORDS SUMMARY | 2024-01-10 12:02 | XMS_ITS | Clinical Summary ---
Author Organization [facility] Address [address] [place] [address] Care Team Providers Care Scientific Affairs Manager Name Role Phone Chelsy Aden TORI Primary Care Provider [phone] Social History Tobacco Use Types Packs/Day Years Used Date Smoking Tobacco: Never Assessed Interpersonal Safety Answer Date Record ed Physically Hurt Never 06/18/2020 Verbally Threaten Not on file 06/18/2020 Comments Unknown Sex and Gender Information Value Date Recorded Sex Assigned at Not on file Legal Sex Female 12:17 EDT Gender Identity Not on file Sexual Orientation Not on file Plan of Treatment Health Maintenance Due Date Last Done Comments COVID-19 Vaccine (2023- season) 2023 RSV Immunization ( o r 60+ Years) (1 - 1-dose 75+ series) 2035 Hepatitis C Screen Completed 04/26/2023 Procedures Procedure Name Priority Date/Time Associated Diagnosis Comments HEPATITIS C AB W REFLEX TO HCV RNA BY PCR Routine 04/26/2023 9:30 EST from Last 3 Months or Most Recently Relevant to Health Maintenance Results * HEPATITIS C AB W REFLEX TO HCV RNA BY PCR (04/26/2023 9:30 EST) Hep C Antibody Negative Negative 04/27/2023 10:11 EST [facility] Blood VENOUS BLOOD / Unknown 04/26/2023 9:30 EST 04/26/2023 21:20 EST us Provider Outr Resulting Lab CHEMISTRY & BLOOD GA S ORDERABLES Final Result [facility] [address] [place] [id number] from Last 3 Months or Most Recently Relevant to Health Maintenance Care Teams Scientific Affairs Manager Relationship Specialty Start Date End Date Chelsy Aden FNP [address] [place] [address] PCP - General 05/21/21
--- OUTSIDE RECORDS SUMMARY | 2024-01-10 12:02 | XMS_ITS | Encounter Summary ---
Author Organization [facility] Address [address] [place] [address] Care Team Providers Care Slab Miller Operator Name Role Phone Chelsy Aden TORI Primary Care Provider [phone] Encounter Details Date Type Department Care Team (Late st Contact Info) Description 07/26/2022 Lab Requisition [facility] Pathology & Laboratory Medicine - [facility] [address] [place] [address] Halima Jim MD [address] [place] [phone] Encounter for other general examination Social History Tobacco Use Types Packs/Day Years Used Date Smoking Tobacco: Never Assessed Interpersonal Safety Answer Date Record ed Physically Hurt Never 06/18/2020 Verbally Threaten Not on file 06/18/2020 Comments Unknown Sex and Gender Information Value Date Recorded Sex Assigned at Not on file Legal Sex Female 12:17 EDT Gender Identity Not on file Sexual Orientation Not on file documented as of this encounter Plan of Treatment Not on file documented as of this encounter Procedures Procedure Name Priority Date/Time Associated Diagnosis Comments SURGICAL PATHOLOGY Today 07/25/2022 13 :30 EDT Encounter for other general examination documented in this encounter Results * SURGICAL PATHOLOGY (07/25/2022 13:30 EDT) Ancillary Studies Addendum RESULTS OF IMMUNOHISTOCHEMICAL STAINING: Retained expression of MLH1, PMS2, MSH2 and MSH6 TISSUE SUBMITTED: Formalin fixed paraffin embedded tissue block labelled ([id number]), block (A1) TUMOR TYPE: Endometrial adenocarcinoma, endometrioid-type, FIGO grade 1. INTERPRETATION: These results are indicative of normal DNA mismatch repair function within the tumor. This patient most likely does not have Ewing syndrome. However, it is important to note that 3-10% of Ewing syndrome patients may reveal retained expression of mismatch repair proteins due to mutation in other genes. Hence these findings should be interpreted in the context of family and clinical history. If results do not match clinicopathologic findings, molecular testing (specifically microsatellite instability by PCR) can be ordered upon obtaining preauthorization or an advanced beneficiary notice. ANTIBODY (CLONE) (BLOCK): RESULT MLH1 (M1, Labelle) (block A1): Retained expression in tumor PMS2 (A16-4, Labelle) (block A1): Retained expression in tumor MSH2 ([id number], Labelle) (block A1): Retained expression in tumor MSH6 (SP93, Labelle) (block A1A1v): Retained expression in tumor Internal controls: Adequate NOTE: One or more of the reagents used in immunohistochemical testing in this case may not have been cleared or approved by the U.S. Food and Drug Administration (FDA). The FDA has determined that such clearance or approval is not necessary. These tests are used for clinical purposes. They should not be regarded as investigational or for research. These reagents' performance characteristics have been determined by [facility] and/or by the referring laboratory. The positive and negative controls worked appropriately. This laboratory is certified under the Clinical Laboratory Improvement Amendments of 1988 (CLIA-88) as qualified to perform high complexity clinical laboratory testing. 07/28/2022 10:15 [facility] Addendum electronically signed by Sahara Colon MD on 07/28/2022 at 1015 Note to Patient The following pathology results have been interpreted by your pathologist and may be available to you before your health provider has had the opportunity to review them. Please allow time for your provider to receive these results and explore management options, if applicable. 07/28/2022 10:15 [facility] Final Diagnosis A. ENDOMETRIUM, BIOPSY: -Endometrial adenocarcinoma, endometrioid type, FIGO grade 1. See comment. 07/28/2022 10:15 [facility] Diagnosis Comment Solutions Development Analyst slides of this case were reviewed at the intradepartmental consultation conference. Immunohistochemical staining for mismatch repair (MMR) proteins for [place] Ewing Screening has been ordered on block A1. The results of this test will be issued as an addendum to this report. 07/28/2022 10:15 [facility] Attestation By the signature below, the attending physician certifies that they have 1) personally conducted a gross and/or microscopic examination of the described specimen(s), and/or personally interpreted the results of laboratory testing of the described specimen(s), and 2) personally rendered or confirmed the above diagnosis. 07/28/2022 10:15 [facility] at 1446 Clinical History PMB 07/28/2022 10:15 [facility] Gross Description A. Received in formalin labelled with proper patient identification (initials R, V) and endometrium is an aggregate of a moderate amount of wright-brown soft tissues, a minimal amount of admixed blood clot, and a scant amount of admixed translucent mucus (2.5 x 2.7 x 0.2 cm). Entirely submitted in A1-A2. Brittany Lakhani 07/26/2022 14:54 07/28/2022 10:15 [facility] Performing Lab [facility] 07/28/2022 10:15 [facility] Scanned Images 07/28/2022 10:15 [facility] Tissue ENTIRE ENDOMETRIUM / Unknown 07/25/2022 13:30 EDT 07/26/2022 8:52 EDT us Halima Jim MD PATHOLOGY ORDERABLES Edited Result - Final [facility] [address] [place] [address] documented in this encounter Visit Diagnoses Diagnosis Encounter for other general examination documented in this encounter Care Teams Slab Miller Operator Relationship Specialty Start Date End Date Chelsy [place] [address] PCP - General 05/21/21 documented as of this encounter
--- OUTSIDE RECORDS SUMMARY | 2024-01-10 12:02 | XMS_ITS | Encounter Summary ---
Author Organization [facility] Address [address] [place] [address] Care Team Providers Care Welfare Adviser Name Role Phone Chelsy Aden TORI Primary Care Provider [phone] Encounter Details Date Type Department Care Team (Late st Contact Info) Description 06/14/2021 Lab Requisition [facility] Pathology & Laboratory Medicine - [facility] [address] [place] [address] Christian Jones MD [address] [place] [phone] Encounter for screening for malignant neoplasm of colon Social History Tobacco Use Types Packs/Day Years [...] Date/Time Associated Diagnosis Comments SURGICAL PATHOLOGY Today 06/14/2021 9:18 EDT Encounter for screening for malignant neoplasm of colon documented in this encounter Results * SURGICAL PATHOLOGY (06/14/2021 9:18 EDT) Note to Patient The following pathology results have been interpreted by your pathologist and may be available to you before your health provider has had the opportunity to review them. Please allow time for your provider to receive these results and explore management options, if applicable. 06/15/2021 13:54 [facility] Final Diagnosis A. COLON, DESCENDING, POLYP, BIOPSY: - Tubular adenoma. 06/15/2021 13:54 [facility] Attestation By the signature below, the attending physician certifies that they have 1) personally conducted a gross and/or microscopic examination of the described specimen(s), and/or personally interpreted the results of laboratory testing of the described specimen(s), and 2) personally rendered or confirmed the above diagnosis. 06/15/2021 13:54 [facility] at 1354 Clinical History Color cancer screening; clinical diagnosis code: Z12.11 06/15/2021 13:54 [facility] Gross Description A. Received in formalin labelled with proper patient identification (initials R, V) and descending colon polyp is a wright tissue, 0.3 x 0.2 x 0.2 cm. Entirely submitted in A1. JACLYN EDWARDS(ASCP) 06/15/2021 7:34 06/15/2021 13:54 [facility] Performing Lab [facility] 06/15/2021 13:54 [facility] Scanned Images 06/15/2021 13:54 [facility] Tissue DESCENDING COLON STRUCTURE / Unknown 06/14/2021 9:18 EDT 06/14/2021 16:48 EDT us Christian Jones MD PATHOLOGY ORDERABLES Fin al Result [facility] [address] [place] [address] documented in this encounter Visit Diagnoses Diagnosis Encounter for screening for malignant neoplasm of colon Special screening for malignant neoplasms, colon documented in this encounter Care Teams Welfare Adviser Relationship Specialty Start Date End Date Chelsy Aden [place] [address] PCP - General 05/21/21 documented as of this encounter
--- OUTSIDE RECORDS SUMMARY | 2024-01-10 12:02 | XMS_ITS | Encounter Summary ---
Author Organization [facility] Address [address] [place] [address] Care Team Providers Care Filler Feeder Name Role Phone Chelsy Aden TORI Primary Care Provider [phone] Encounter Details Date Type Department Care Team (Late st Contact Info) Description 04/09/2021 Lab Requisition [facility] Pathology & Laboratory Medicine - [facility] [address] [place], [place] [id number] Outr Resulting Lab, Provider Social History Tobacco Use Types Packs/Day Years [...] Procedure Name Priority Date/Time Associated Diagnosis Comments ZZCOVID-19 TEST [facility] PCR Today 04/08/2021 9:20 EST COVID-19 TESTING Routine 04/08/2021 9:20 EST documented in this encounter Results * COVID-19 TEST [facility] PCR (04/08/2021 9:20 EST) Swab 04/08/2021 9:20 EST 04/09/2021 17:13 EST us Provider Outr Resulting Lab MICROBIOLOGY - GENER AL ORDERABLES Final Result [facility] [address] [place] [address] * COVID-19 TESTING (04/08/2021 9:20 EST) COVID-19 rt-PCR Result Negative Negative 04/10/2021 12:56 EST [facility] Comment: This test has not been FDA cleared or approved. This test has been authorized by FDA under an EUA for use by authorized laboratories. This test has been authorized only for detection of nucleic acid from 2019-nCoV, not for any other viruses or pathogens. This test is only authorized for the duration of the declaration that circumstances exist justifying the authorization of emergency use of in vitro diagnostic tests for detection and/or diagnosis of 2019-nCoV under section 564(b)(1) of Act, 21 U.S.C ?? 360bbb-3(b) (1), unless the authorization is terminated or revoked sooner. Negative results do not preclude 2019-nCoV infection and should not be used as the sole basis for treatment or other patient management decisions. Negative results must be combined with clinical observations, patient history, and epidemiological information. Testing was performed using the kleber SARS-CoV-2 assay ([employer] on the Kleber 6800 System Performing Lab Kleber [address] [facility] 04/10/2021 12:56 EST [facility] Swab 04/08/2021 9:20 EST 04/09/2021 17:13 EST us Provider Outr Resulting Lab MICROBIOLOGY - GENER AL ORDERABLES Final Result [facility] [address] [place] [address] documented in this encounter Visit Diagnoses Not on filedocumented in this encounter Care Teams Filler Feeder Relationship Specialty Start Date End Date Chelsy [place] [address] PCP - General 05/21/21 documented as of this encounter
--- OUTSIDE RECORDS SUMMARY | 2024-01-10 12:02 | XMS_ITS | Referral Summary ---
Author Organization [facility] Address [address] [place] [address] Care Team Providers Care Data Management Engineer Name Role Phone Chelsy Aden Primary Care Provider [phone] Social History Tobacco Use Types Packs/Day Years Used Date Smoking Tobacco: Never Assessed Interpersonal Safety Answer Date Record ed Physically Hurt Never 06/18/2020 Verbally Threaten Not on file 06/18/2020 Comments Unknown Sex and Gender Information Value Date Recorded Sex Assigned at Not on file Legal Sex Female 12:17 EDT Gender Identity Not on file Sexual Orientation Not on file Plan of Treatment Not on file Procedures Procedure Name Priority Date/Time Associated Diagnosis Comments HEPATITIS C AB W REFLEX TO HCV RNA BY PCR Routine 04/26/2023 9:30 EST from Last 3 Months or Most Recently Relevant to Health Maintenance Results * HEPATITIS C AB W REFLEX TO HCV RNA BY PCR (04/26/2023 9:30 EST) Hep C Antibody Negative Negative 04/27/2023 10:11 EST [facility] Blood VENOUS BLOOD / Unknown 04/26/2023 9:30 EST 04/26/2023 21:20 EST us Provider Outr Resulting Lab CHEMISTRY & BLOOD GA S ORDERABLES Final Result [facility] [address] [place], [place] [id number] from Last 3 Months or Most Recently Relevant to Health Maintenance Care Teams Data Management Engineer Relationship Specialty Start Date End Date Chelsy Aden FNP Jac[address] [facility] [place] [address] PCP - General 05/21/21
--- OUTSIDE RECORDS SUMMARY | 2024-01-10 12:02 | XMS_ITS | Encounter Summary ---
Author Organization [facility] Address [address] [place] [address] Care Team Providers Care Network Intern Name Role Phone Chelsy Aden TORI Primary Care Provider [phone] Encounter Details Date Type Department Care Team (Late st Contact Info) Description 04/26/2023 Lab Requisition [facility] Pathology & Laboratory Medicine - [facility] [address] [place], [place] [phone] Outr Resulting Lab, Provider Social History Tobacco [...] RNA BY PCR Routine 04/26/2023 9:30 EST documented in this encounter Results * HEPATITIS C AB W REFLEX TO HCV RNA BY PCR (04/26/2023 9:30 EST) Hep C Antibody Negative Negative 04/27/2023 10:11 EST [facility] Blood VENOUS BLOOD / Unknown 04/26/2023 9:30 EST 04/26/2023 21:20 EST us Provider Outr Resulting Lab CHEMISTRY & BLOOD GA S ORDERABLES Final Result [facility] [address] [place] [address] documented in this encounter Visit Diagnoses Not on filedocumented in this encounter Care Teams Network Intern Relationship Specialty Start Date End Date Chelsy [place] [address] PCP - General 05/21/21 documented as of this encounter
--- OUTSIDE RECORDS SUMMARY | 2024-01-10 12:02 | XMS_ITS | Encounter Summary ---
Author Organization [facility] Address [address] [place] [address] Care Team Providers Care Supportability Engineer Name Role Phone Chelsy Aden TORI Primary Care Provider [phone] Encounter Details Date Type Department Care Team (Late st Contact Info) Description 04/26/2023 Lab Requisition [facility] Pathology & Laboratory Medicine - [facility] [address] [place], [place] [phone] Outr Resulting Lab, Provider Social History Tobacco [...] Procedure Name Priority Date/Time Associated Diagnosis Comments HIV 1/2 ANTIGEN AND ANTIBODY, 4TH GENERATION Routine 04/26/2023 9:30 EST documented in this encounter Results * HIV 1/2 ANTIGEN AND ANTIBODY, 4TH GENERATION (04/26/2023 9:30 EST) HIV 1 and 2 Antibody/p24 Antigen, 4th Generation Negative Negative 04/27/2023 10:16 EST [facility] Comment:If acute HIV-1 infec tion is suspected in a high risk patient, submit plasma specimen for HIV-1 RNA quantitation test. Blood VENOUS BLOOD / Unknown 04/26/2023 9:30 EST 04/26/2023 21:20 EST Narrative [facility] - 04/27/2023 10:16 EST Fourth Generation assay performed on the Siemens Centaur XPT. us Provider Outr Resulting Lab IMMUNOLOGY AND SEROL OGY ORDERABLES Final Result [facility] [address] [place] [address] documented in this encounter Visit Diagnoses Not on filedocumented in this encounter Care Teams Supportability Engineer Relationship Specialty Start Date End Date Chelsy Ad[place] [address] PCP - General 05/21/21 documented as of this encounter
--- OUTSIDE RECORDS SUMMARY | 2024-01-10 12:03 | XMS_ITS | Encounter Summary ---
Author Organization [facility] Address [facility] [place] [address] Care Team Providers Care Sld Teacher Name Role Phone Margaret Rondon MD Primary Care Provider [phone] Encounter Details Date Type Department Care Team (Latest Contact Info) Description 10/05/2022 Travel Social History Tobacco Use Types Packs/Day Years Used Date Smoking Tobacco: Never Smokeless Tobacco: Never Alcohol Use Standard Drinks/Week Comments Not Currently 0 (1 standard drink = 0.6 oz pur e alcohol) IPV Inpatient Questions Answer Date Recorded Does Anyone Try to Keep You From Having Contact with Others or Doing Things Outside Your Home? unable to answer (comment required) 09/15/2022 Feels Threatened by Someone unable to an swer (comment required) 09/15/2022 Feels Unsafe at Home or Work/School unab le to answer (comment required) 09/15/2022 Physical Signs of Abuse Present no 09/15/2022 Sex and Gender Information Value Date Recorded Sex Assigned at Female 08/04/2022 10:49 PM EDT Gender Identity Female 08/04/2022 10:49 PM EDT Sexual Orientation Straight 08/04/2022 10 :49 PM EDT documented as of this encounter Plan of Treatment Not on file documented as of this encounter Visit Diagnoses Not on filedocumented in this encounter Care Teams Sld Teacher Relationship Specialty Start Date End Date Margaret Rondon MD [address] [place], [place] [id number] PCP - General Family Medicine 09/13/22 documented as of this encounter
--- OUTSIDE RECORDS SUMMARY | 2024-01-10 12:03 | XMS_ITS | Encounter Summary ---
Author Organization [facility] Address [facility] [place] [address] Care Team Providers Care Anesthesiology Crna Name Role Phone Chelsy Aden YIFAN Primary Care Provider [phone] Reason for Visit * Reason Comments Establish Care Malignant of endomet rium * Consultation (Urgent) - Closed Specialty Diagnoses / Procedures Referred By Manda ashton Referred To Contact Gynecology Oncology Diagnoses Malignant neoplasm of endometrium Macie Guido DO [address] [place] [address] [facility] [employer] [address] [place] [address] Referral ID Status Reason Start Date Expiration Date V isits Requested Visits Authorized [id number] Closed Consult, Test & Treat PCP Updated and/or Approved 07/29/2022 07/29/2023 6 6 Encounter Details Date Type Department Care Team (Late st Contact Info) Description 08/11/2022 9:00 AM EDT Office Visit [place] [phone] Aravind Jackson MD [facility] [place] [address] Type 2 diabetes mellitus without complication, without long-term current use of insulin; Endometrial cancer determined by uterine biopsy; Primary hypertension; Hyperthyroidism Social History Tobacco Use Types Packs/Day Years Used Date Smoking Tobacco: Never Smokeless Tobacco: Never Tobacco Cessation:Counseling Given: Not Answered Alcohol Use Standard Drinks/Week Comments Not Currently 0 (1 standard drink = 0.6 oz pur e alcohol) Sex and Gender Information Value Date Recorded Sex Assigned at Female 08/04/2022 10:49 PM EDT Gender Identity Female 08/04/2022 10:49 PM EDT Sexual Orientation Straight 08/04/2022 10 :49 PM EDT documented as of this encounter Last Filed Vital Signs Vital Sign Reading Time Taken Comments Blood Pressure 135/65 08/11/2022 8:54 AM EDT Pulse 70 08/11/2022 8:54 AM EDT Temperature 36 ??C (96.8 ??F) 08/11/2022 8:54 AM EDT Respiratory Rate 20 08/11/2022 8:54 AM EDT Oxygen Saturation 98% 08/11/2022 8:54 AM EDT Inhaled Oxygen Concentration - - Weight 103.7 kg (228 lb 9.6 oz) 08/11/2022 8:54 AM EDT Height 164.5 cm (5' 4.76) 08/11/2022 8:54 AM ED T Body Mass Index 38.32 08/11/2022 8:54 AM EDT documented in this encounter Progress Notes * Brayden Thomas LNA - 08/11/2022 9:00 AM EDT Examination chaperoned by LNA. Tanisha On 08/11/22 In COKE WORKER/ONC 3k * Aravind Jackson MD - 08/11/2022 9:00 AM EDT Division [place] [address] Gynecologic Oncology Clinic New Patient Visit Reason for visit: New uterine endometrial cancer, referred by: Macie Guido DO [address] [place] [address] [place] [address] Problem List Patient Active Problem List Diagnosis Code Endometrial cancer determined by uterine biopsy C54.1 History of present illness: Yolis Dumont) is a very nice 62 y.o. white female, 2,para 2. She's been menopausal since about age 50. She developed postmenopausal bleeding in May 2022. She immediately sought evaluation. She had an exam, had a pelvic ultrasound (I do not have the reports or images from the ultrasound, but do not need to move forward), then [facility], where an endometrial biopsy was performed. 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 Currently she reports that she has no bleeding. She reports that her appetite is preserved, denies early satiety, nausea, or vomiting. She has no changes in her bowel habits, denies hematochezia or melena. She has mild stress urinary continence symptoms which are stable/chronic, without hematuria or dysuria. She has no abdominal or pelvic pain currently. She has chronic leg edema but this is unchanged. She wears compression stockings because she standson her feet at work all day. Gynecologic history: Menarche was approximately age 12, menopause approximately age 50. Number of pregnancies: 2, Spontaneous vaginal deliveries: 2 c-sections: 0. Oral contraceptive/ control pill use: 2 years. Menopausal hormone therapy use: None. Other contraceptive history: Condoms Her Paps have been regularly obtained. Last Pap was normal by her report. Dysplasia history: None. Denies history of other gynecologic morbidities such as PID, ovarian cyst, endometriosis, dyspareunia, etc. Cancer screening 1. Mammography: 2022. 2. Colonoscopy: 2 years ago, was given a 5-year interval due to polyps. Family history: 1. Her mother had pancreatic cancer, diagnosed in her 60s. There are no other family members with a history of breast, ovarian, uterine/endometrial, colon, thyroid, pancreatic, gastric, renal/ureteral cancers, or melanoma. Past medical history 1. Seasonal allergies, several antihistamine therapies. 2. Peripheral neuropathy in her feet, uses gabapentin with good relief. 3. Chronic hypertension, on therapy for greater than 5 years. 4. Hypothyroidism, on replacement therapy for about 2 years.. 5. Type 2 diabetes, on therapy for 8 years. Reports good control. 6. Hypertriglyceridemia, on statin for 8 years. 7. Obesity, BMI of 38. 8. Obstructive sleep apnea, on CPAP for 4 years. 9. History of depression, in remission. 10. Mild asthma, Flovent, rare use of albuterol rescue inhaler. Past surgical history 1. Right TKA, 2020. 2. Left TKA 2020. 3. Umbilical herniorrhaphies x2, 2019, 2020. Social history: Currently lives in a house with her brother and [id number]. 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 She has no partner significant other. She considers her primary next of kin to be her [id number] Rizwana. She completed an associates degree in history. Tobacco history: Never smoker.. Alcohol history: Rarely drinks alcohol, denies misuse history. Complementary alternative therapies/other drugs: Has a list of various supplements, none of which need to be discontinued prior to surgery. Performance status: Karnofsky Scale -100; ECOG= 0, says she walks about 2 to 3 miles daily. Medications Prior to Admission medications Medication Sig Start Date End Date Taking? Authorizing Provider amLODIPine (Norvasc) 10 mg tablet Take 10 mg by mouth daily. 07/08/22 Yes PROVIDER, HISTORICAL gabapentin (Neurontin) 300 mg capsule Take 300 mg by mouth 2 times daily. 06/15/22 Yes PROVIDER, HISTORICAL hydroCHLOROthiazide (Hydrodiuril) 25 mg tablet Take 25 mg by mouth daily. 07/15/22 Yes PROVIDER, HISTORICAL irbesartan (Avapro) 75 mg tablet Take 75 mg by mouth daily. 07/15/22 Yes PROVIDER, HISTORICAL levothyroxine (Synthroid) 25 mcg tablet Take 25 mcg by mouth daily. 07/08/22 Yes PROVIDER, HISTORICAL metFORMIN (Glucophage) 1,000 mg tablet TAKE 1 TABLET BY MOUTH IN THE MORNING AND IN THE EVENING 07/08/22 Yes PROVIDER, HISTORICAL montelukast (Singulair) 10 mg tablet Take 10 mg by mouth daily. 07/08/22 Yes PROVIDER, HISTORICAL rosuvastatin (Crestor) 10 mg tablet Take 10 mg by mouth nightly. 07/12/22 Yes PROVIDER, HISTORICAL fluticasone propionate (Flonase) 50 mcg/actuation [place], Suspension 1 spray daily. Yes PROVIDER, HISTORICAL loratadine (Claritin) 10 mg Tablet Take 10 mg by mouth daily. Yes PROVIDER, HISTORICAL multivitamin Capsule Take 1 capsule by mouth daily. Yes PROVIDER, HISTORICAL cyanocobalamin, Vitamin B-12, (Vitamin B-12) 1,000 mcg tablet Take 2,500 mcg by mouth daily. Yes PROVIDER, HISTORICAL biotin 300 mcg tablet Take 1,000 mcg by mouth. Yes PROVIDER, HISTORICAL cholecalciferol, Vitamin D3, (Vitamin D3) 50 mcg (2,000 unit) tablet Take by mouth. Yes PROVIDER, HISTORICAL fish oil-omega-3 fatty acids (Fish Oil) 500 mg capsule Take 1,400 mg by mouth. Yes PROVIDER, HISTORICAL turmeric root extract 500 mg capsule Take 1,000 mg by mouth. Yes PROVIDER, HISTORICAL Allergies No Known Allergies Vital signs: BP 135/65 (Patient Position: Sitting) Pulse 70 Temp 36 ??C (96.8 ??F) (Temporal) Resp 20 Ht164.5 cm (5' 4.76) Wt 103.7 kg (228 lb 9.6 oz) SpO2 98% BMI 38.32 kg/m?? Physical examination General: She is alert and oriented, well-groomed and dressed, no obvious distress. She ambulates easily to the examination table. HEENT: Head exam was generally normal. There was no scleral icterus or corneal arcus. Mucus membranes were moist. Neck was supple and without jugular venous distension, thyromegaly, or carotid bruits. Carotids were easily palpable bilaterally. There was no adenopathy. Lungs: Clear to auscultation bilaterally, without adventitious sounds. Heart: Regular rate, normal rhythm, no obvious murmurs detected.. Abdomen: Moderately obese, with a moderate panniculus abdominis, but no intertrigo. The abdomen is soft and nontender. There is no obvious organomegaly, mass, or palpable inguinal lymphadenopathy.. Pelvic examination: Normal external genitalia, no lesions the vulva, perineal body, or perianal area. Speculum exam demonstrates a well supported slightly atrophic vagina, moderate physiologic discharge. The cervix is parous, without obvious lesion. There is some blood-tinged mucus at the os. On bimanual exam, the uterus is top normal size but smooth and freely mobile. Rectovaginal exam: Deferredto surgery. Extremities: No edema. Laboratory/pathology/imaging studies: As discussed above, in the history of present illness. Impression/plan: Yolis Dumont) is a 62 y.o. woman with a biopsy revealing endometrial adenocarcinoma, FIGO grade 1. The pathology was [place] [facility] [place] Based on these findings, a decision was made to proceed with surgery for definitive treatment, specifically: Laparoscopic/robotic hy sterectomy, bilateral salpingo-oophorectomy, with laparoscopic sentinel lymph node mapping, sentinel lymph node biopsy and possible laparoscopic pelvic/para- aortic lymphadenectomy, as indicated, based upon intraoperative findings. Her performance status is adequate for surgery. I reviewed the natural course of endometrial cancer with the patient and the role that surgery plays in determining the stage/grade of the cancer and it's subsequent treatment after surgery, if indicated by the stage/grade and other prognostic factors. I informed her that in many endometrial cancercases, they are diagnosed early and that the intent of therapy is curative. I reviewed the surgical approach, need for general anesthesia, and the expected postoperative recovery. The patient was informed that patient's undergoing this procedure typically are safe to go homeeither the same day, or the day after surgery. Additionally, I discussed the risks of the procedureincluding, but not limited to: infection, bleeding, chronic leg swelling (lymphedema), DVT/PE, , damage to pelvic or abdominal structures such as the bowel, bladder, ureters, blood vessels, nerves, and the possibility of needing to convert to an open surgery. All of her questions were answeredto her satisfaction and she verbalized understanding of the plan of care. Surgical consent was obtained, bowel preparation reviewed and surgery will be scheduled in the near future. She did desire a copy of the consent form. Additional studies/tests/consults ordered before surgery: Labs: Recent Results (from the past 24 hour(s)) Cancer Antigen 125 Result Value Ref Range CA 125 18.9 <=38.1 unit/mL Comprehensive metabolic panel (non-fasting) Result Value Ref Range Glucose Lvl 130 65 - 199 mg/dL BUN 23 (H) 8 - 18 mg/dL Creatinine 0.86 0.70 - 1.20 mg/dL Sodium 137 135 - 145 mmol/L Potassium 4.0 3.5 - 5.0 mmol/L Chloride 98 98 - 107 mmol/L CO2 29 22 - 31 mmol/L Anion Gap 10 5 - 15 mmol/L Calcium 9.8 8.5 - 10.5 mg/dL Total Protein 7.8 6.1 - 8.0 g/dL Albumin 4.4 3.2 - 5.2 g/dL AST 25 0 - 30 unit/L ALT 27 0 - 30 unit/L Alk Phos 97 35 - 105 unit/L Total Bilirubin 0.7 0.2 - 1.3 mg/dL Estimated GFR 76 >=60 mL/min/1.73 m?? Hemogram Result Value Ref Range WBC 7.4 4.0 - 9.5 x10(3)/mcL RBC 4.05 4.00 - 5.21 x10(6)/mcL Hemoglobin 14.2 11.7 - 15.5 g/dL Hematocrit 39.5 35.7 - 45.8 % MCV 97.5 (H) 82.6 - 94.4 fL MCH 35.1 (H) 27.1 - 32.0 pg MCHC 35.9 (H) 31.7 - 35.0 g/dL Platelets 237 145 - 357 x10(3)/mcL RDWSD 43.6 37.0 - 46.0 fL RDWCV 12.1 11.5 - 14.1 % MPV 10.2 7.6 - 12.9 fL nRBC % Auto 0.0 % nRBC Abs Auto 0.000 0.000 - 0.000 x10(3)/mcL Differential, Automated Result Value Ref Range Neutrophils % 62.4 % Neutr Abs (ANC) 4.59 1.70 - 6.10 x10(3)/mcL Lymphocytes % 28.2 % Lymphocytes Abs 2.1 0.9 - 3.2 x10(3)/mcL Monocytes % 6.0 % Monocyte Abs 0.4 0.3 - 0.9 x10(3)/mcL Eosinophils % 2.9 % Eosinophils Abs 0.2 0.0 - 0.4 x10(3)/mcL Basophils % 0.4 % Basophils Abs 0.0 0.0 - 0.1 x10(3)/mcL Immature Gran % 0.10 % Eloisa Gran Abs 0.01 0.00 - 0.04 x10(3)/mcL Imaging: None Other: CHG soap and cleansing instructions provided. Patient given diet instructions and ClearFast drink. Surgery date: 09/15/2022 Incision planned/discussed: Laparoscopic/robotic Expected discharge disposition: Same-day discharge Appropriate for consideration of epidural neuraxial analgesia?: No Karen-op Prophylaxis: Cefazolin, 2 gm; metronidazole 500 mg; SCD's/heparin 5000 U SQ Rx's given today: None Thank you for sending Elen to see me today. I will keep you informed of our progress in her care. documented in this encounter Plan of Treatment Not on file documented as of this encounter Visit Diagnoses Diagnosis Type 2 diabetes mellitus without complication, without long-term current use of insulin Endometrial cancer determined by uterine biopsy Primary hypertension Unspecified essential hypertension Hyperthyroidism Thyrotoxicosis without mention of goiter or other cause, without mention of thyrotoxic crisis or storm documented in this encounter Care Teams Anesthesiology Crna Relationship Specialty Start Date End Date Chelsy Aden, M[employer]IP[employer] W[employer]ER [address] [facility] [place] [address] PCP - General Family Medicine 07/29/22 09/12/22 documented as of this encounter
--- OUTSIDE RECORDS SUMMARY | 2024-01-10 12:03 | XMS_ITS | Clinical Summary ---
Author Organization [facility] Address [facility] [place] [address] Care Team Providers Care Vice President Of Instruction Name Role Phone Margaret Rondon MD Primary Care Provider [phone] Allergies Active Allergy Reactions Criticality Noted Date Comments Pollen Extracts 07/25/2022 Medications Medication Sig Dispensed Refills Start Date End Date Status hydroCHLOROthiazide (Hydrodiuril) 25 mg tablet Take 25 mg by mouth daily. 07/15/2022 Active irbesartan (Avapro) 75 mg tablet Take 75 mg by mouth daily. 07/15/2022 Active levothyroxine (Synthroid) 25 mcg tablet Take 25 mcg by mouth daily. 07/08/2022 Active montelukast (Singulair) 10 mg tablet Take 10 mg by mouth daily. 07/08/2022 Active rosuvastatin (Crestor) 10 mg tablet Take 10 mg by mouth nightly. 07/12/2022 Active fluticasone propionate (Flonase) 50 mcg/actuation [place], Suspension 1 spray daily. Act bea loratadine (Claritin) 10 mg Tablet Take 10 mg by mouth daily. Active multivitamin Capsule Take 1 capsule by mouth daily. Active cyanocobalamin, Vitamin B-12, (Vitamin B-12) 1,000 mcg tablet Take 2,500 mcg by mouth daily. Active biotin 300 mcg tablet Take 1,000 mcg by mouth. Active cholecalciferol, Vitamin D3, (Vitamin D3) 50 mcg (2,000 unit) tablet Take by mouth. A ctive ibuprofen (Advil) 600 mg tablet Take 1 tablet by mouth every 6 hours as needed for Pain. 30 tablet 12 09/15/2022 Active Additional Information Patient not taking.Reported on 10/05/2022 Victoza 3-Jose 0.6 mg/0.1 mL (18 mg/3 mL) Pen Injector ADMINISTER 1.8 MG UNDER THE SKIN EVERY DAY 08/11/2023 Active amLODIPine (Norvasc) 5 mg tablet Take 5 mg by mouth daily. 06/30/2023 Active metFORMIN (Glucophage) 500 mg tablet Take 500 mg by mouth 2 times daily. 06/30/2023 Active Active Problems Problem Noted Date Diagnosed Date Endometrial cancer determined by uterine biopsy 08/11/2022 Type 2 diabetes mellitus wit hout complication, without long-term current use of insulin 08/11/2022 High blood pressure 08/11/2022 Hyperthyroidism 08/11/2022 Overview (08/11/2022): Not sure but take something thyroid CPAP (continuous positive airway pressure) depen dence 08/11/2022 Obstructive sleep apnea 08/11/2022 Peripheral polyneuropathy 08/11/2022 Elevated cholesterol with elevated triglycerides 08/11/2022 Family History Medical History Relation Comments Substance Use Disorder Mother When she was in twenties Relation Status Comments Mother Social History Tobacco Use Types Packs/Day Years Used Date Smoking Tobacco: Never Smokeless Tobacco: Never Alcohol Use Standard Drinks/Week Comments Not Currently 0 (1 standard drink = 0.6 oz pur e alcohol) DH IPV Inpatient Questions Answer Date Recorded Does [...] Orientation Straight 08/04/2022 10 :49 PM EDT Last Filed Vital Signs Vital Sign Reading Time Taken Comments Blood Pressure 125/63 09/25/2023 8:41 AM EDT Pulse 63 09/25/2023 8:41 AM EDT Temperature 36.2 ??C (97.1 ??F) 09/25/2023 8:41 AM ED T Respiratory Rate 12 09/25/2023 8:41 AM EDT Oxygen Saturation 100% 09/25/2023 8:41 AM EDT Inhaled Oxygen Concentration - - Weight 96.2 kg (212 lb) 09/25/2023 8:41 AM EDT Height 163.8 cm (5' 4.49) 09/25/2023 8:41 AM ED T Body Mass Index 35.84 09/25/2023 8:41 AM EDT Plan of Treatment Health Maintenance Due Date Last Done Comments CT Colonography 1960 Colonoscopy 1960 Colorectal Cancer Screening 1960 FIT DNA 1960 FIT 1960 Sigmoidoscopy (10 year) with FIT yearly 1960 Sigmoidoscopy 1960 Pneumococcal Vaccine: At-Risk 5-64yrs (1 of 2 - PCV) 0 1966 DM Hemoglobin A1c 1970 DM Opthalmology Exam 1970 DM Urine Microalbumin yearly 1970 HIV screen 1978 Hepatitis C Screening 1978 Tetanus/Diphtheria/Pertussis Vaccines (1 - Tdap) 03/07 HPV test 1990 PAP Smear 1990 Breast Cancer Share Decision Needed 2000 Breast Cancer screening 2000 Zoster vaccine (1 of 2) 2010 DM Creatinine yearly 08/12/2023 08/11/2022 Covid-19 Vaccine ( - season) 2023 Influenza (Flu) vaccine (1 o f 1 - Influenza standard series) 10/22/2023 Procedures Procedure Name Priority Date/Time Associated Diagnosis Comments COMPREHENSIVE METABOLIC PANEL Routine 08/11/2022 10:50 AM EDT Endometrial cancer determined by uterine biopsy Type 2 diabetes mellitus without complication, without long-term current use of insulin from Last 3 Months or Most Recently Relevant to Health Maintenance Results * (ABNORMAL) Comprehensive metabolic panel (non-fasting) (08/11/2022 10:50 AM EDT) Glucose 130 65 - 199 mg/dL [facility] Comment:Diabetes: >=200 mg/d L plus symptoms Blood Urea Nitrogen 23(H) 8 - 18 mg/dL [facility] Creatinine 0.86 0.70 - 1.20 mg/dL [facility] Sodium 137 135 - 145 mmol/L [facility] Potassium 4.0 3.5 - 5.0 mmol/L [facility] Comment: Please note: ??Patients with WBC >100,000 may have falsely elevated Potassium levels. ??For accurate Potassium quantification in these patients send serum separator tube (gold top) for subsequent determinations. ??Contact the Clinical Chemistry Laboratory if there are any questions. Chloride 98 98 - 107 mmol/L [facility] Carbon Dioxide 29 22 - 31 mmol/L [facility] Anion Gap 10 5 - 15 mmol/L [facility] Calcium 9.8 8.5 - 10.5 mg/dL [facility] Protein, Total 7.8 6.1 - 8.0 g/dL [facility] Albumin 4.4 3.2 - 5.2 g/dL [facility] Aspartate Aminotransferase 25 0 - 30 unit/L [facility] Alanine Aminotransferase 27 0 - 30 unit/L [facility] Alkaline Phosphatase 97 35 - 105 unit/L [facility] Bilirubin, Total 0.7 0.2 - 1.3 mg/dL [facility] Est Glomerular Filtration Rate 76 >=60 mL/min/1. 73 m?? [facility] Comment: This patient's estimated GFR was calculated using the 2020 CKD-EPI equation. The estimated GFR can vary from the measured GFR by up to 30% in the absence of rapidly changing kidney function. Assessment of the estimated GFR is not appropriate when creatinine concentrations are rapidly changing. For clinical situations in which a more precise estimate of GFR is necessary, consider alternative methods of GFR estimation such as a 24-hour urine creatinine clearance. Assignment of CKD stage 1-5 for patients with an eGFR near the transition point between stages may be based on clinical assessment of muscle mass and symptoms in addition to eGFR. Blood 08/11/2022 10:5 0 AM EDT 08/11/2022 11:12 AM EDT Narrative Resulting Agency Comment Spec In Lab Aravind Jackson MD CHEMISTRY ORDERABLES [facility] [place] [address] from Last 3 Months or Most Recently Relevant to Health Maintenance Advance Directives Documents on File Type Date Recorded Patient Electronic Equipment Set Up Operator Expl anation Advance Directives and Livin g Will 09/15/2022 1:15 PM Care Teams Vice President Of Instruction Relationship Specialty Start Date End Date Margaret Rondon MD [facility] [address] [place], [place] [id number] PCP - General Family Medicine 09/13/22
--- OUTSIDE RECORDS SUMMARY | 2024-01-10 12:03 | XMS_ITS | Encounter Summary ---
Author Organization [facility] Address [facility] [place] [address] Care Team Providers Care Manager Park Name Role Phone Margaret Rondon MD Primary Care Provider [phone] Encounter Details Date Type Department Care Team (Late st Contact Info) Description 11/03/2022 Telephone Gynecology Oncology at [facility] [place] [id number] Jocelyn Zuñiga RN Social History Tobacco Use Types Packs/Day Years Used Date Smoking Tobacco: Never Smokeless Tobacco: Never Alcohol Use Standard Drinks/Week Comments Not Currently 0 (1 standard drink = 0.6 oz pur e alcohol) [facility] Inpatient Questions Answer Date Recorded Does Anyone [...] PM EDT documented as of this encounter Miscellaneous Notes * Telephone Encounter - Jocelyn Zuñiga RN - 11/03/2022 9:37 AM EDT Called and spoke with patient. She is s/p laparoscopic hysterectomy with BSO, injection of sentinellymph nodes on 09/15/22. Pathology showed FIGO stage Ia, grade 1 endometrioid adenocarcinoma of endometrium. No adjuvant therapy is needed. Starting 5 days ago, she has noticed a tingling sensation that starts in her outer left thigh that starts to feel warm inside the leg (She does not feel warmth when she touches it with her hand) that then moves toward the center of her thigh and feels tingly. She states it has been happening daily around mid- afternoon and lasting about 20 minutes no matter what activity she's doing. She denies swelling, redness, warmth of the skin, SOB, chest pain, or dizziness. Discussed with patient that nerve damage or irritation from surgery typically would present right away after surgery. Another concern post-op would be the potential for a blood clot. Informed her that we would be concerned with this if she had any swelling, redness, warmth of skin, pain, SOB, or chest pain. Patient is aware she would need to go to the ED with these symptoms. Advised patient to continue monitoring her symptoms and reach out to her PCP if they persist. She verbalized understanding and denies any further questions at this time. documented in this encounter Plan of Treatment Not on file documented as of this encounter Visit Diagnoses Not on filedocumented in this encounter Care Teams Manager Park Relationship Specialty Start Date End Date Margaret Rondon MD [address] [place] [address] PCP - General Family Medicine 09/13/22 documented as of this encounter
--- OUTSIDE RECORDS SUMMARY | 2024-01-10 12:03 | XMS_ITS | Encounter Summary ---
Author Organization [facility] Address [address] [place] [address] Care Team Providers Care Agribusiness Professor Name Role Phone Chelsy Aden Primary Care Provider [phone] Encounter Details Date Type Department Care Team (Latest Contact Info) Description 06/18/2020 Lab Requisition [facility] Pathology & Laboratory Medicine - [facility] [address] [place] [address] Chelsy Aden FNP [address] [place], [place] [id number] Encounter for general adult medical examination without abnormal findings; Encounter for screening for malignant neoplasm of cervix; Encounter for screening for human papillomavirus (HPV) Social History Tobacco Use Types Packs/Day Years [...] Procedure Name Priority Date/Time Associated Diagnosis Comments PAP TEST Today 06/16/2020 8:15 EDT Encounter for general adult medical examination without abnormal findings Encounter for screening for malignant neoplasm of cervix Encounter for screening for human papillomavirus (HPV) HPV DNA DETECTION WITH GENOTYPING, PCR Today 06/16/2020 8:15 EDT Encounter for general adult medical examination without abnormal findings Encounter for screening for malignant neoplasm of cervix Encounter for screening for human papillomavirus (HPV) documented in this encounter Results * HUMAN PAPILLOMAVIRUS (HPV) DETECTION-HIGH RISK TYPES (06/16/2020 8:15 EDT) HPV other High Risk types, PCR Negative Negative 06/26/2020 15:01 EDT [facility] Comment:No E6 or E7 mRNA is detected from HPV types 16,18,31,33,35,39,45,51,52,56,58,59,66, and 68 by director of pupil personnel program mediated amplification. Papanicolaou smear specimen (specimen) CERVIX UTERI STRUCTURE / Unknown 06/16/2020 8:15 EDT 06/23/2020 11:42 EDT Chelsy Aden RESEARCH CHEMICAL ENGINEER MICROBIOLOGY - GENERAL ORDERAB LES Final Result [facility] [address] [place] [address] * PAP TEST (06/16/2020 8:15 EDT) Specimens A. Cervix and/or Endocervix , ThinPrep Imaging System with Manual Evaluation 06/26/2020 15:01 T [facility] Specimen Adequacy Satisfactory for Evaluation - transformation zone component present 06/26/2020 15:01 EDT [facility] General Categorization Negative for intraepithelial lesion or malignancy 06/26/2020 15:01 T [facility] Attestation . 06/26/2020 15:01 [facility] at 1501 Clinical History See below 06/27/19 21 15:01 T [facility] HPV The result for the Human Papillomavirus (HPV) Detection-High Risk Types is Negative. No E6 or E7 mRNA is detected from HPV types 16,18,31,33,35,39 ,45,51,52,56,58,5 9,66, and 68 by director of pupil personnel program mediated amplification.Daisy ting was performed on specimen [id number] and was resulted on 06/26/2020 1457 EDT by DEEDEE, LAB INSTRUMENT RESULTS IN 06/26/2020 15:01 EDT [facility] Performing Lab [facility] 06/26/2020 15:01 EDT [facility] Scanned Images 06/26/2020 15:01 EDT [facility] Papanicolaou smear specimen (specimen) CERVIX UTERI STRUCTURE / Unknown 06/16/2020 8:15 EDT 06/18/2020 12:18 EDT Chelsy VALLE PATHOLOGY ORDERABLES Final Res ult [facility] [address] [place] [address] documented in this encounter Visit Diagnoses Diagnosis Encounter for general adult medical examination without abnormal findings Unspecified general medical examination Encounter for screening for malignant neoplasm of cervix Screening for malignant neoplasm of the cervix Encounter for screening for human papillomavirus (HPV) Special screening examination for human papillomavirus (HPV) documented in this encounter Care Teams Agribusiness Professor Relationship Specialty Start Date End Date Chelsy Ad[place] [address] [place] [address] PCP - General 05/21/21 documented as of this encounter
--- OUTSIDE RECORDS SUMMARY | 2024-01-10 12:03 | XMS_ITS | Encounter Summary ---
[place] [address] Care Team Providers Care Line Haul Owner Operator Name Role Phone ArturoChelsy menon YIFAN Primary Care Provider [phone] Reason for Referral * Consultation (Urgent) - Closed Specialty Diagnoses / Procedures Referred By Manda t Referred To Contact Gynecology Oncology Diagnoses Malignant neoplasm of endometrium aMcie Guido DO [address] [place] [address] [place] [address] [facility] Upholstery Trimmer [address] [place] [id number] Referral ID Status Reason Start Date Expiration Date V isits Requested Visits Authorized [id number] Closed Consult, Test & Treat PCP Updated and/or Approved 07/29/2022 07/29/2023 6 6 Encounter Details Date Type Department Care Team (Late st Contact Info) Description 07/29/2022 Transcribe Orders eDH Incoming Referrals [phone] Macie Guido DO [address] [place] [address] [place] [address] Malignant neoplasm of endometrium Social History Tobacco Use Types Packs/Day Years Used Date Smoking Tobacco: Never Assessed Sex and Gender Information Value Date Recorded Sex Assigned at Female 08/04/2022 10:49 PM EDT Gender Identity Female 08/04/2022 10:49 PM EDT Sexual Orientation Straight 08/04/2022 10 :49 PM EDT documented as of this encounter Plan of Treatment Scheduled Referrals Name Type Priority Associated Diagnoses Orde r Schedule Referral to Gynecologic Oncology Outpatient Referral Urgent Malignant neoplasm of endometrium Ordered: 07/29/2022 documented as of this encounter Visit Diagnoses Diagnosis Malignant neoplasm of endometrium Malignant neoplasm of corpus uteri, except isthmus documented in this encounter Care Teams Line Haul Owner Operator Relationship Specialty Start Date End Date Chelsy Aden, TRAFFIC RECORDER [address] [place] [address] PCP - General Family Medicine 07/29/22 09/12/22 documented as of this encounter
--- OUTSIDE RECORDS SUMMARY | 2024-01-10 12:03 | XMS_ITS | Encounter Summary ---
Author Organization [facility] [place] [address] Care Team Providers Care Peoplesoft Financials Consultant Name Role Phone Chelsy dAen APRN Primary Care Provider [phone] Encounter Details Date Type Department Care Team (Late st Contact Info) Description 08/03/2022 External [place] [address] Provider, Scanning Social History Tobacco Use Types Packs/Day Years [...] Priority Date/Time Associated Diagnosis Comments SURGICAL PATHOLOGY SCAN Routine 08/03/2022 documented in this encounter Results * Scan Doc: Surgical Pathology (08/03/2022) Historical Provider MD NGUYEN MGR SCAN EX T ORDR/RSLT documented in this encounter Visit Diagnoses Not on filedocumented in this encounter Care Teams [employer] Financials Consultant Relationship Specialty Start Date End Date Chelsy Aden APRN [address] [place], [place] [id number] PCP - General Family Medicine 07/29/22 09/12/22 documented as of this encounter
--- OUTSIDE RECORDS SUMMARY | 2024-01-10 12:03 | XMS_ITS | Encounter Summary ---
Author Organization [facility] Address [facility] [place] [address] Care Team Providers Care Php Mysql Developer Name Role Phone Margaret Rondon MD Primary Care Provider [phone] Reason for Visit * Reason Comments Follow-up Encounter Details Date Type Department Care Team (Late st Contact Info) Description 04/17/2023 12:00 PM EST Office Visit [place] [phone] Gunjan Joiner MD [facility] [place] [address] Endometrial cancer determined by uterine biopsy Social History Tobacco Use Types Packs/Day Years [...] Sign Reading Time Taken Comments Blood Pressure 120/72 04/17/2023 12:02 PM EST Pulse 71 04/17/2023 12:02 PM EST Temperature 36.6 ??C (97.8 ??F) 04/17/2023 12:[address] Respiratory Rate 18 04/17/2023 12:02 PM EST Oxygen Saturation 99% 04/17/2023 12:02 PM EST Inhaled Oxygen Concentration - - Weight 95.8 kg (211 lb 4.8 oz) 04/17/2023 12:02 PM EST Height 163.8 cm (5' 4.5) 04/17/2023 12:02 PM ES T Body Mass Index 35.71 04/17/2023 12:02 PM EST documented in this encounter Progress Notes * Gunjan Joiner MD - 04/17/2023 12:00 PM EST Division [place] [address] Gynecologic Oncology-Clinic Note Reason for visit: Surveillance. Patient Active Problem List Diagnosis Code Endometrial cancer determined by uterine biopsy C54.1 Type 2 diabetes mellitus without complication, without long-term current use of insulin E11.9 High blood pressure I10 Hyperthyroidism E05.90 CPAP (continuous positive airway pressure) dependence Z99.89 Obstructive sleep apnea G47.33 Peripheral polyneuropathy G62.9 Elevated cholesterol with elevated triglycerides E78.2 Prior to Admission medications Medication Sig Start Date End Date Taking? Authorizing Provider acetaminophen (Tylenol) 325 mg tablet Take 2 tablets by mouth every 4 hours as needed for Pain. 09/15/22 Yes Earline Curtis MD amLODIPine (Norvasc) 10 mg tablet Take 10 mg by mouth daily. 07/08/22 Yes PROVIDER, HISTORICAL gabapentin (Neurontin) 300 mg capsule Take 300 mg by mouth every evening. 06/15/22 Yes PROVIDER, HISTORICAL hydroCHLOROthiazide (Hydrodiuril) 25 [...] by mouth nightly. 07/12/22 Yes PROVIDER, HISTORICAL loratadine (Claritin) 10 mg Tablet Take 10 mg by mouth daily. Yes PROVIDER, HISTORICAL multivitamin Capsule Take 1 capsule by mouth daily. Yes PROVIDER, HISTORICAL oxyCODONE (Roxicodone) 5 mg tablet Take 1 tablet by mouth every 4 hours as needed for Pain. Patient not taking: Reported on 10/05/2022 09/15/22 Earline Curtis MD senna-docusate (Pericolace) 8.6-50 mg Tablet Take 1 tablet by mouth daily. Patient not taking: Reported on 10/05/2022 09/15/22 Earline Curtis MD ibuprofen (Advil) 600 mg tablet Take 1 tablet by mouth every 6 hours as needed for Pain. Patient not taking: Reported on 10/05/2022 09/15/22 Earline Curtis MD fluticasone propionate (Flonase) 50 mcg/actuation [place], Suspension 1 spray daily. PROVIDER, HISTORICAL cyanocobalamin, Vitamin B-12, (Vitamin B-12) 1,000 mcg tablet Take 2,500 mcg by mouth daily. PROVIDER, HISTORICAL biotin 300 mcg tablet Take 1,000 mcg by mouth. PROVIDER, HISTORICAL cholecalciferol, Vitamin D3, (Vitamin D3) 50 mcg (2,000 unit) tablet Take by mouth. PROVIDER, HISTORICAL fish oil-omega-3 fatty acids (Fish Oil) 500 mg capsule Take 1,400 mg by mouth. PROVIDER, HISTORICAL turmeric root extract 500 mg capsule Take 1,000 mg by mouth. PROVIDER, HISTORICAL History of present illness: Elen is a very nice 62-year-old woman who is referred for evaluation management of grade 1 endometrial cancer. On 09/15/2022, she underwent a total laparoscopic/robotic hysterectomy, BSO, sentinel lymph node mapping and biopsy. Pathology showed a Gr 1 stage 1A endometrioid endometrial cancer. Today, she reports that she generally feels well. She has been losing weight! No issues with nauseaor emesis. No issues with her bladder or bowels aside from intermittent constipation. No vaginal bleeding. No new medical or sugical issues since her last visit. Review of systems: ROS otherwise negative. Vital signs: BP 120/72 Pulse 71 Temp 36.6 ??C (97.8 ??F) (Temporal) Resp 18 Ht 163.8 cm (5'4.5) Wt 95.8 kg (211 lb 4.8 oz) SpO2 99% BMI 35.71 kg/m?? Physical examination: Gen: NAD Abd: Soft, NT, ND Pelvic exam: Normal external genitalia (labia majora and minora, vaginal introitus, urethral meatus). Atrophic vaginal mucosa. Vaginal cuff is well healed. No visible lesions or nodularity. On bimanual exam no palpable nodules or pelvic masses. On rectovaginal exam no palpable masses or nodularity.No thickening of the rectovaginal septum. Extr: No edema Impression/plan: 63 yo with hx of Gr 1 stage 1A endometrial ca. KATHERINE on exam today. We reviewed s/sxfor which to call. Yolis will RTC 6 mos and then annually and will see our ANSLEY. documented in this encounter Plan of Treatment Not on file documented as of this encounter Visit Diagnoses Diagnosis Endometrial cancer determined by uterine biopsy documented in this encounter Care Teams Php Mysql Developer Relationship Specialty Start Date End Date Margaret Rondon MD [address] [place] [address] PCP - General Family Medicine 09/13/22 documented as of this encounter
--- OUTSIDE RECORDS SUMMARY | 2024-01-10 12:03 | XMS_ITS | Encounter Summary ---
Author Organization [facility] Address [facility] [place] [address] Care Team Providers Care Image Consultant Name Role Phone Unavailable Primary Care Provider Unavailabl e Encounter Details Date Type Department Care Team (Latest Contact Info) Description 06/10/2021 10:19 PM EDT - 06/10/2021 11:59 PM EDT Hospital Encounter Laboratory [facility] [place] [phone] Discharge Disposition: Home Social History Tobacco Use Types Packs/Day Years [...] Priority Date/Time Associated Diagnosis Comments SURGICAL PATHOLOGY REPORT Routine 06/10/2021 9:10 AM EDT documented in this encounter Results * Surgical Pathology Report (06/10/2021 9:10 AM EDT) Final Diagnosis [id number] ? Location: [facility] The signing pathologist has (i) examined the relevant preparation(s) for the specimen(s) and (ii) rendered or confirmed the diagnosis(es). . ?Surgical Pathology DIAGNOSIS Great toe, nail other: - PAS staining negative for fungal elements - Rare coccoid forms present predominantly on nail plate surface, favor bacteria Electronically signed by: ?Silvana MALIN, Scottie Kim Verified: ??06/14/2021 15:10 ??Dermatopatholog ist Performed at: ??-[facility] Dept. of Pathology, [place], [place] SPECIMEN(S) SUBMITTED A - great toe nails Referring Identifier: ??[id number] CLINICAL INFORMATION Thick dystrophic toenails SPECIMEN PROCESSING A - Labeled/Fixative: Patient demographics, fresh. Quantity/Size: Two, 0.6 x 0.4 x 0.2 cm in aggregate. Tissue Description: Thickening, ross to yellow-wright unguis fragments. Sections/Processi ng: Submitted en toto ??in 1 cassette labeled A1. ??shb 06/14/2021 3:10 PM EDT [facility] NAIL SPECIMEN / Unknown 06/10/2021 9:10 AM EDT 06/10/2021 9:10 AM EDT Narrative Resulting Agency Comment Spec In Lab / WKS Xiomy Peralta CAR SALESMAN PATHOLOGY/CYTOLOGY ORDERABLES [facility] [place] [address] documented in this encounter Visit Diagnoses Not on filedocumented in this encounter
--- OUTSIDE RECORDS SUMMARY | 2024-01-10 12:03 | XMS_ITS | Encounter Summary ---
Author Organization [facility] [place] [address] Care Team Providers Care Paint Prepper Name Role Phone Margaret Rondon MD Primary Care Provider [phone] Reason for Visit * Auth/Cert (Routine) Specialty Diagnoses / Procedures Referred By Manda t Referred To Contact Diagnoses ENDOMETRIAL CANCER Procedures PRO LAPAROSCOPY W TOT HYSTERECTUTERUS <=250 GRAM W TUBE/OVARY PRO LAP, PELVIC LYMPHADENECTOMY/BX PRO INTRAOP SENTINEL LYMPH ID W/DYE INJECTION LAPAROSCOPY,TOTAL HYST, UTERUS<250GM, REM TUBE &/OR OVARY, ROBOTIC ASSIST (WRVU 15) LAPAROSCOPY,W\BILATERAL TOTAL PELVIC LYMPHADENECTOMY, PERIAORTIC LYMPH NODE SAMPLING, ROBOTIC (WRVU 15.6) INTRAOPERATIVE ID (MAPPING) SENTINEL LYMPH NODE,INCLUDES INJECTION (WRVU 2.5) MODIFIER ROBOT,Aravind Guthrie MD [facility] [place] [address] [facility] Referral ID Status Reason Start Date Expiration Date Visits Re quested Visits Authorized [id number] 1 1 Encounter Details Date Type Department Care Team (Latest Contact Info) Description 09/15/2022 5:49 AM EDT - 09/15/2022 2:01 PM EDT Hospital Encounter [place] [id number] Aravind Velazco MD [facility] [place] [address] Endometrial cancer determined by uterine biopsy Discharge Disposition: Home Social History Tobacco Use [...] Sign Reading Time Taken Comments Blood Pressure 117/72 09/15/2022 12:20 PM EDT Pulse 76 09/15/2022 12:15 PM EDT Temperature 36.3 ??C (97.3 ??F) 09/15/2022 10:23 AM E DT Respiratory Rate 14 09/15/2022 12:15 PM EDT Oxygen Saturation 90% 09/15/2022 12:20 PM EDT Inhaled Oxygen Concentration - - Weight 107 kg (235 lb 14.4 oz) 09/15/2022 6:13 A M EDT Height 163.8 cm (5' 4.5) 09/15/2022 6:13 AM EDT Body Mass Index 39.87 09/15/2022 6:13 AM EDT documented in this encounter Discharge Instructions * Patient Instructions* Earline Curtis MD - 09/15/2022 8:06 AM EDT PATIENT DISCHARGE INSTRUCTIONS Gynecologic Oncology phone number: [phone] (Nurse ext [phone] then 4; appointment ext 1 then 4). After hours and on weekends please call hospital ammonia nitrate operator at [phone] and ask for Gynecologic Oncologist mobile application development lead. Call your doctor if you develop: --A fever over 101 degrees --Severe pain --Increasing pain, redness, or discharge at any of your incisions --Heavy vaginal bleeding-soaking through a pad an hour --It is normal to have continuous or intermittent light spotting from the vagina for up to 6 weeks following hysterectomy -Follow-up with Dr. Velazco on 10/05/22 at 1:20PM Activity level: Let your body guide you- try to avoid grunting/groaning/straining for about 2 weeks. If you feel you did too much please listen to your body and back off. No sexual intercourse, no tampons, nothing in the vagina for 8 weeks. Diet: You may resume your regular diet. Be sure you drink plenty of fluids. Bowel Regimen: Please use freddy-colace (senna-S or docusate-senna) 1-2 tablets twice daily for the entire time that you are taking narcotic pain medication to keep your bowel movements soft and regular. You may consider using this post- operatively even if you are not using narcotic pain medication. You can increase this to up to 8 tablets a day (and may take 6-12 hours for effect). If you are constipated or have not had a bowel movement in 2 days, you may add in polyethylene glycol (Miralax) 17g(one capful) 1-2 times daily (may take 1-2 days for effect). If this is ineffective you may add Milk of Magnesia 30mL (2 Tablespoons) daily (may take 30minutes - 6 hours to work). The next step is to use Magnesium Citrate 1 bottle (295mL)- this usually produces a bowel movement in 30 minutes-3 hours. Please call if you have not had a bowel movement in 3-4 days. Driving: Do not drive until you are off of all narcotic medications and you are not feeling pain; usually between a couple of days to 2 weeks. Shower/Bath: Showering is fine. Short baths are okay but you should avoid having any abdominal incision submerged for more than 10-15 minutes for the next 2 weeks. Wound Care: Your incisions are closed with dissolvable stitches and surgical glue. The glue will dissolve on its own over time - do not pick at or rub the glue. The stitches do not need to be removed- they will dissolve on their own. Pain Control: For your post-operative pain please use ibuprofen, acetaminophen, heating pad, and narcotic pain medication (oxycodone) for your pain management. Your goal is to be able to take severalshort walks every day (increase the duration each day) and to be able to sleep at night. If you areunable to do these things using the ibuprofen and acetaminophen and heating pad then you will need to use the narcotic pain medication (oxycodone) for breakthrough pain. You should be able to use less oxycodone every couple days and require no breakthrough narcotic pain medication in about 1-4 days. Please use ibuprofen (Advil/Motrin) 600mg every 6 hours around the clock (with food) for the next 5-7 days. After that, use as needed. Please use acetaminophen (Tylenol) 650mg every 6 hours as needed (or 1000mg every 8 hours as needed). Do not exceed 3000mg of acetaminophen from any source in 24 hours. Please use oxycodone every 4-6 hours as needed for pain that ???breaks through?? the ibuprofen andacetaminophen. -Some of our patients have found this non medical website helpful after hysterectomy: [email or web address] Please take your medication exactly as prescribed. Read all instructions that come with your medication. Using narcotic pain medication (such as oxycodone, hydrocodone, hydromorphone [Dilaudid], morphine,fentanyl, or tramadol [Ultram]) may cause addiction. While addiction is more common in people with a personal or family history of addiction, it can occur in anyone. Taking more than the prescribed amount of medication or using with alcohol or other drugs can causeyou to stop breathing resulting in coma, brain damage, or . Opioids (oxycodone, hydrocodone, hydromorphone [Dilaudid], morphine, fentanyl, tramadol [Ultram]) can slow reaction time, cause drowsiness, or cloud judgement. It is unsafe for you to drive or operate heavy machinery while taking this medication. Opioids (oxycodone, hydrocodone, hydromorphone [Dilaudid], morphine, fentanyl, tramadol [Ultram]) are at risk of being diverted by anyone with access to your home. Opioids should be stored in a safe and secure place, such as a locked cabinet or safe. Unused opioids (oxycodone, hydrocodone, hydromorphone [Dilaudid], morphine, fentanyl, tramadol [Ultram]) should be disposed of according to the label or patient information. If there are no specific instructions, medications may be returned to a take-back location or mixed with a small amount of water and an undesirable waste substance such as coffee grounds or cat litter. documented in this encounter Medications at Time of Discharge Medication Sig Dispensed Refills Start Date End Date hydroCHLOROthiazide (Hydrodiuril) 25 mg tablet Take 25 mg by mouth daily. 07/15/2022 irbesartan (Avapro) 75 mg tablet Take 75 mg by mouth daily. 07/15/2022 levothyroxine (Synthroid) 25 mcg tablet Take 25 mcg by mouth daily. 07/08/2022 montelukast (Singulair) 10 mg tablet Take 10 mg by mouth daily. 07/08/2022 rosuvastatin (Crestor) 10 mg tablet Take 10 mg by mouth nightly. 07/12/2022 fluticasone propionate (Flonase) 50 mcg/actuation [place], Suspension 1 spray daily. loratadine (Claritin) 10 mg Tablet Take 10 mg by mouth daily. multivitamin Capsule Take 1 capsule by mouth daily. cyanocobalamin, Vitamin B-12, (Vitamin B-12) 1,000 mcg tablet Take 2,500 mcg by mouth daily. biotin 300 mcg tablet Take 1,000 mcg by mouth. cholecalciferol, Vitamin D3, (Vitamin D3) 50 mcg (2,000 unit) tablet Take by mouth. ibuprofen (Advil) 600 mg tablet Take 1 tablet by mouth every 6 hours as needed for Pain. 30 tablet 12 09/15/2022 amLODIPine (Norvasc) 10 mg tablet Take 5 mg by mouth daily. 07/08/2022 09/25/2023 oxyCODONE (Roxicodone) 5 mg tablet Take 1 tablet by mouth every 4 hours as needed for Pain. 7 tablet 09/15/2022 09/25/2023 senna-docusate (Pericolace) 8.6-50 mg Tablet Take 1 tablet by mouth daily. 60 tablet 11 09/15/2022 09/25/2023 acetaminophen (Tylenol) 325 mg tablet Take 2 tablets by mouth every 4 hours as needed for Pain. 30 tablet 1 09/15/2022 09/25/2023 gabapentin (Neurontin) 300 mg capsule Take 300 mg by mouth every evening. 06/15/2022 09/25/2023 metFORMIN (Glucophage) 1,000 mg tablet TAKE 1 TABLET BY MOUTH IN THE MORNING AND IN THE EVENING 07/08/2022 09/25/2023 fish oil-omega-3 fatty acids (Fish Oil) 500 mg capsule Take 1,400 mg by mouth. 09/25/2023 turmeric root extract 500 mg capsule Take 1,000 mg by mouth. 09/25/2023 documented as of this encounter Progress Notes * Amy Foreman RN - 09/15/2022 12:57 PM EDT Able to void 350mls clear yellow urine, ambulatory,IV removed, site benign. My assessment remains unchanged from my previous assessment. No complaints of chest pain or SOB. Discussed pain management.Patient has all belongings and has received discharge summary. Summary reviewed with pt and [id number], all questions answered. Patient encouraged to call with any further questions or concerns. Patient discharged to home with [id number]. Pt demonstrated ability to ambulate to bathroom prior to d/c. VSS. Tolerated PO intake. * Amy Foreman RN - 09/15/2022 11:29 AM EDT Seen by Dr Velazco at bedside, questions answered. BS= 221, informed anesthesia, no further instructions documented in this encounter H&P Notes * Aravind Velazco MD - 09/15/2022 6:53 AM EDT Planned Surgery Date: 09/15/22 Planned Procedure: RATLH, BSO, SLND Indications/Pre-op Diagnosis: FIGO grade 1 endometrioid adenocarcinoma HISTORY OF PRESENT ILLNESS: Ms. Romero is a 62 y.o. para 2 woman who presents for above procedure. She denies any CP, SOB, nausea, vomiting, fevers, or chills. She also denies any recent changes in hermedical or surgical history. Please see prior encounter notes for more detail. She brought her CPAPmachine with her in case of overnight stay, but is anticipating same day discharge. REVIEW OF SYMPTOMS/FUNCTIONAL STATUS: Negative unless indicated above in HPI Gynecologic history: Menarche was approximately age 12, menopause approximately age 50. Number of pregnancies: 2, Spontaneous vaginal deliveries: 2 c-sections: 0. Family history: 1. Her mother had pancreatic cancer, diagnosed in her 60s. There are no other family members with a history of breast, ovarian, uterine/endometrial, colon, thyroid, pancreatic, gastric, renal/ureteral cancers, or melanoma. Past medical history 1. Seasonal allergies, several antihistamine therapies. 2. Peripheral neuropathy in her feet, uses gabapentin with good relief. Now only using 1 pill per night. 3. Chronic hypertension 4. Hypothyroidism 5. Type 2 diabetes 6. Hypertriglyceridemia, on statin for 8 years. 7. Obesity, BMI of 38. 8. Obstructive sleep apnea, on CPAP for 4 years. 9. History of depression, in remission. 10. Mild asthma, Flovent, rare use of albuterol rescue inhaler. Past surgical history 1. Right TKA, 2020. 2. Left TKA 2020. 3. Umbilical herniorrhaphies x2, 2019, 2020. Social history: Accompanied by her [id number] Rizwana She completed an associates degree in history. Tobacco history: Never smoker.. Alcohol history: Rarely drinks alcohol, denies misuse history. Complementary alternative therapies/other drugs: Has a list of various supplements, none of which need to be discontinued prior to surgery. No Known Allergies Current Outpatient Medications Medication Instructions amLODIPine (NORVASC) 10 mg, Oral, DAILY biotin 1,000 mcg, Oral cholecalciferol, Vitamin D3, (Vitamin D3) 50 mcg (2,000 unit) tablet Oral cyanocobalamin (Vitamin B-12) (VITAMIN B-12) 2,500 mcg, Oral, DAILY fish oil-omega-3 fatty acids (FISH OIL) 1,400 mg, Oral fluticasone propionate (Flonase) 50 mcg/actuation [place], Suspension 1 spray, DAILY gabapentin (NEURONTIN) 300 mg, Oral, EVERY EVENING hydroCHLOROthiazide (HYDRODIURIL) 25 mg, Oral, DAILY irbesartan (AVAPRO) 75 mg, Oral, DAILY levothyroxine (SYNTHROID) 25 mcg, Oral, DAILY loratadine (CLARITIN) 10 mg, Oral, DAILY metFORMIN (Glucophage) 1,000 mg tablet TAKE 1 TABLET BY MOUTH IN THE MORNING AND IN THE EVENING montelukast (SINGULAIR) 10 mg, Oral, DAILY multivitamin Capsule 1 capsule, Oral, DAILY rosuvastatin (CRESTOR) 10 mg, Oral, NIGHTLY turmeric root extract 1,000 mg, Oral Blood pressure 121/67, pulse 79, temperature 36.6 ??C (97.9 ??F), temperature source Temporal, resp. rate 20, height 163.8 cm (5' 4.5), weight 107 kg (235 lb 14.4 oz), SpO2 96 %. O: BP 121/67 Pulse 79 Temp 36.6 ??C (97.9 ??F) (Temporal) Resp 20 Ht 163.8 cm (5' 4.5) Wt 107 kg (235 lb 14.4 oz) SpO2 96% BMI 39.87 kg/m?? Gen: Sitting in bed, appears comfortable CV: Normal rate, regular rhythm, no murmurs appreciated Resp: Clear to auscultation bilaterally, no wheezes / crackles Abd: Soft, nontender, nondistended Ext: Warm, well perfused, non-tender *remainder of exam deferred to the OR A/P: 62 y.o. female presents for planned RATLH, BSO, SLND for FIGO grade 1 endometrioid adenocarcinoma. No interval changes in history or physical exam. Patient brought CPAP in case of overnight stay. -- Surgical consent reviewed with patient and placed in the chart; previously signed 08/11/22. -- Antibiotics: Ancef/Flagyl -- VTE prophylaxis: SCDs, heparin 5000 units -- Proceed to OR for planned procedure. -- Pharmacy: [facility] in [place], [place] Opioid risk counseling and consent I counseled the patient about risks of opioids including addiction, overdose, diversion. I reviewedproper disposal of unused medications. She signed the consent form for treatment of acute pain withopioid medications. Opioid Risk Tool Female Male 1. Family history of Substance Abuse Alcohol [] 1 [] 3 Illegal Drugs [] 2 [] 3 Prescription Drugs [] 4 [] 4 2. Personal History of Substance Abuse Alcohol [] 3 [] 3 Illegal Drugs [] 4 [] 4 Prescription Drugs [] 5 [] 5 3. Age (rianna box if 16-45) [] 1 [] 1 4. History of Preadolescent Sexual Abuse [] 3 [] 0 5. Psychological Disease Attention Deficit Disorder, Obsessive Compulsive D/o, Bipolar, Schizophrenia [] 2 [] 2 Depression [x] 1 [] 1 TOTAL: 1 Comments about ORT in relation to this patient: Opioid Risk Category: low risk 0-3 Earline Curtis MD, PGY4 09/15/2022 I saw and evaluated the patient with Dr. Curtis, and I confirmed the history and physical findings as outlined, participated in the critical aspects of the patient's care, formulated the treatment plan, and I agree with the note as written. documented in this encounter Miscellaneous Notes * Op Note - Aravind Velazco MD - 09/15/2022 8:21 AM EDT [facility] [place] Patient Name: Yolis Romero : [id number] MR#: [id number] Case Date: 09/15/2022 Surgeon: Surgeon(s) and Role: * Aravind Velazco MD - Primary * Earline Curtis MD Registered Nurse Tassel Making Machine Operator: Kaity Pierce RN Anesthesia: General endotracheal/local infiltration analgesia. Preoperative Diagnosis: Grade 1 endometrial adenocarcinoma. Postoperative Diagnosis: Grade 1 endometrial adenocarcinoma, final pathology pending. Procedures 1. Total laparoscopic/robotic hysterectomy with bilateral salpingo-oophorectomy, uterine weight < 250 grams. 2. Intraoperative injection/identification of sentinel lymph nodes with injection of indocyanine green. 3. Laparoscopic retroperitoneal lymph node sampling, bilateral. Specimens removed during surgery: 1. Uterus, cervix, fallopian tubes, and ovaries. 2. Bilateral pelvic sentinel lymph node(s). 3. Enlarged left external iliac lymph nodes. Drains: Way catheter. Estimated Blood Loss: 10 mL. IV Fluid: 1300 mL of crystalloid. Urine Output: 400 mL. Indication for surgery: This is a 62 y.o. woman who was referred by: Unknown None for a new diagnosis of grade 1 endometrial cancer. She was counseled on the diagnosis, surgical plan and goals, alternatives and risks. She wished to proceed with surgery, and written consent was obtained. Findings 1. Exam under anesthesia: Normal sized uterus, cervix, and ovaries with no evidence of vaginal or cervical metastasis. 2. Laparoscopy: Normal upper abdomen. No evidence of extrauterine disease, carcinomatosis, or ascites. The ovaries were grossly normal. After the hysterectomy, the uterus was opened off the field andwas found to contain a 4 x 4 cm tumor involving the endometrial cavity including the lower uterine segment. 3. [place] lymph node mapping: A left and right sentinel lymph node was identified and excised, and sent for SLN protocol. 4. Frozen section: none 5. Residual disease: No gross residual disease. Procedure in Detail: The patient was identified and consent was reaffirmed. She was taken to the operating room and placed in low lithotomy position with stirrups after induction of anesthesia. An exam was conducted and the findings are discussed above. An antiseptic preparation of the abdomen, perineum, and vagina was performed and the patient was sterilely draped. A Way catheter was inserted into the bladder. A surgical pause was performed, correctly identifying the intended procedures, antibiotic & DVT prophylaxis, etc. for this patient. 25mg of indocyanine green powder was diluted in 20 mL of aqueous sterile water for injection. A speculum was placed in the vagina, and the cervix was grasped with a tenaculum. Four ml of the ICG solution was injected into the cervix at the 3- and 9-o'clock positions, with 1 ml 1-2 cm deep into the stroma and 1 cc submucosally. After sounding of the uterus and dilation of the cervix, a Material Control Specialist device was inserted into the uterus for manipulation. An 8-mm transverse incision was made 5 cm above the umbilicus, through which a 8-mm da Michael trocarwas then inserted under direct visualization, verifying atraumatic entry. Additional 8-mm robotic trocars and a 12-mm right upper quadrant virtual assistant port were placed in the usual locations without difficulty, under direct visualization. The patient was placed in steep Trendelenburg position. Pelvicwashings were not obtained. Using sharp and electrosurgical dissection, the retroperitoneal spaces including the para-rectal and paravaginal spaces were opened to identify the ureters and expose the lymphatic basins. Using near-infrared illumination, sentinel lymph nodes were identified on the left and right sides. These wereexcised, labeled and sent separately for sentinel lymph node pathology protocol. Some enlarged leftexternal iliac nodes were seen and also excised. The adnexa were skeletonized and the ovarian vessels were desiccated and divided bilaterally after.The adnexa were then skeletonized around the cornua. The round ligaments were desiccated and divided bilaterally. A bladder flap was developed to a point over the upper vagina with sharp and electrosurgical dissection. The uterine vessels were then skeletonized, desiccated and divided bilaterally, as were the uterosacral ligaments. The hysterectomy was completed by making a circumferential colpotomy incision over the vaginal cup with monopolar scissor energy, and then the specimen was withdrawnthrough the vagina and then opened off the field. The specimen findings are discussed above. A complete pelvic and para-aortic lymphadenectomy was not performed because the sentinel lymph nodeprotocol was successful, as described above. After the specimens were removed and irrigation performed, the vaginal cuff was closed in the usualfashion with 0-Vicryl sutures secured at each angle, and a 2- 0 Stratafix suture used to run the center of the cuff. The robot was undocked. The port sites were closed with 4-0 Vicryl sutures. Dermaflex sealant was applied to each site. The patient was returned to a supine position as anesthesia was discontinued. She was then extubated and taken to the PACU in stable condition, and accompanied by the anesthesiologist and surgeons. Dr. Aravind Velazco, the attending physician, was present for the entire procedure. Counts: Sharp and sponge counts were correct x two. Complications: none. Antibiotics: 2 gm (s) cefazolin; 500 mg metronidazole at induction of anesthesia. DVT Prophylaxis: Heparin, 5000 U SQ; ICD's continuously applied to the lower extremities. Surgical Closure: Primary Closure - skin incision is completely closed without any wires, diaz, drains or other devices Infection Bundle used? Yes Infection present at time of surgery?: No Chlorhexidine wipes in Same Day prior to surgery: Yes Expected bowel surgery? No. Fingerstick glucose checked in Same Day: Yes Chlorhexidine-alcohol skin prep: Yes Pre-op IV antibiotics: Cefazolin + Metronidazole Vaginal prep: Yes. Chlorhexidine Open case? No. Attestation: Case Date: 09/15/2022 I was present and I participated during the entire procedure (does not need to include opening and closing). ARAVIND VELAZCO MD 09/15/2022 documented in this encounter Plan of Treatment Not on file documented as of this encounter Procedures Procedure Name Priority Date/Time Associated Diagnosis Comments POCT GLUCOSE Routine 09/15/2022 10:29 AM EDT SPECIMEN TO PATHOLOGY Routine 09/15/2022 9:38 AM EDT SPECIMEN TO PATHOLOGY Routine 09/15/2022 9:05 AM EDT POCT GLUCOSE Routine 09/15/2022 8:58 AM EDT SPECIMEN TO PATHOLOGY Routine 09/15/2022 8:56 AM EDT SURGICAL PATHOLOGY REPORT Routine 09/15/2022 8:55 AM EDT SPECIMEN TO PATHOLOGY Routine 09/15/2022 8:55 AM EDT MODIFIER ROBOT,DAVINCI XI 09/15/2022 7:32 AM EDT ENDOMETRIAL CANCER Intraop [place] Lymph Id W/Dye Injection ([id number]) 09/15/2022 7:32 AM EDT ENDOMETRIAL CANCER Lap, Pelvic Lymphadenectomy/Bx ([id number]) 09/15/2022 7:32 AM EDT ENDOMETRIAL CANCER Laparoscopy W Tot Hysterectuterus <=250 Gram W Tube/Ovary ([id number]) 09/15/2022 7:32 AM EDT ENDOMETRIAL CANCER POCT GLUCOSE Routine 09/15/2022 6:22 AM EDT documented in this encounter Results * (ABNORMAL) POCT Glucose (09/15/2022 10:29 AM EDT) Glucose, POC 221(H) 65 - 199 mg/dL [facility] Comment: Supplemental ranges: <140 mg/dL before meals <180 mg/dL all other times of the day Blood 09/15/2022 10:2 9 AM EDT 09/15/2022 10:29 AM EDT Aravind Velazco MD POINT OF CARE TEST O RDERABLES Performing Organization Address [facility] Co de Phone Number [facility] [place] [address] * Specimen to Pathology (09/15/2022 9:38 AM EDT) AP Specimen 09/15/2022 9:38 AM EDT 09/15/2022 9:38 AM EDT Narrative [facility] - 09/15/2022 9:38 AM EDT Specimen requisition ordered. ??Separate Pathology report to follow Aravind Velazco MD PATHOLOGY/CYTOLOGY O RDERAMODE Performing Organization Address [facility] de Phone Number [facility] [place] [address] * Specimen to Pathology (09/15/2022 9:05 AM EDT) AP Specimen 09/15/2022 9:05 AM EDT 09/15/2022 9:05 AM EDT Narrative [facility] - 09/15/2022 9:05 AM EDT Specimen requisition ordered. ??Separate Pathology report to follow Aravind Velazco MD PATHOLOGY/CYTOLOGY O RDERAMODE Performing Organization Address [facility] de Phone Number [facility] [place] [address] * POCT Glucose (09/15/2022 8:58 AM EDT) Glucose, POC 184 65 - 199 mg/dL [facility] Comment: Supplemental ranges: <140 mg/dL before meals <180 mg/dL all other times of the day Blood 09/15/2022 8:58 AM EDT 09/15/2022 8:58 AM EDT Aravind Velazco MD POINT OF CARE TEST O RDERABLES Performing Organization Address [facility]/ZIP Co de Phone Number [facility] [place] [address] * Specimen to Pathology (09/15/2022 8:56 AM EDT) AP Specimen 09/15/2022 8:56 AM EDT 09/15/2022 8:56 AM EDT Narrative [facility] - 09/15/2022 8:56 AM EDT Specimen requisition ordered. ??Separate Pathology report to follow Aravind Velazco MD PATHOLOGY/CYTOLOGY O RDERABLES Performing Organization Address [facility] Co de Phone Number [facility] [address] * Surgical Pathology Report (09/15/2022 8:55 AM EDT) Final Diagnosis [id number] ? Location: [facility]; [facility]; The signing pathologist has (i) examined the relevant preparation(s) for the specimen(s) and (ii) rendered or confirmed the diagnosis(es). . ?Surgical Pathology DIAGNOSIS A - ??Uterus, cervix, bilateral fallopian tubes, total hysterectomy and bilateral salpingectomy: - Endometrioid adenocarcinoma, FIGO grade 1, with mucinous differentiation, 5.5 cm (see synoptic report below) - Ovaries and fallopian tubes are negative for malignancy B - Left pelvic sentinel lymph node, excision: One lymph node, negative for malignancy (0/1) C - Enlarged left external iliac lymph node, excision: One lymph node, negative for malignancy (0/1) D - Right pelvic sentinel lymph node, excision: Three lymph nodes, negative for malignancy (0/1) Electronically signed by: ?Camelia Morelos MD Verified: ??10/05/2022 14:22 ??Pathologist Performed at: ??-[facility] [place] Dept. of Pathology, [place] [address] [place]: David Horne MD, AP, ??CLIA Certificate: [id number] SYNOPTIC Specimen ? Procedure: ??Total hysterectomy and bilateral salpingo-oophorectomy ? Specimen Integrity: ??Intact Tumor ? Tumor Site: ??Endometrium ? Tumor Size: ??5.5 Centimeters (cm) ? Histologic Type: ??Endometrioid carcinoma, NOS ? Histologic Grade: ??FIGO grade 1 ? Two-Tier Grading System: ??Low grade (encompassing FIGO 1 and 2) ? Myometrial Invasion: ??Present ?Depth of Myometrial Invasion: ??4 mm ?Myometrial Thickness: ??22 mm ?Percentage of Myometrial Invasion: ??18% ? Adenomyosis: ??Present, involved by carcinoma ? Uterine Serosa Involvement: ??Not identified ? Lower Uterine Segment Involvement: ??Present, superficial (non-myoinvasive) ? Cervical Stromal Involvement: ??Not identified ? Other Tissue / Organ Involvement: ??Not identified ? Peritoneal / Ascitic Fluid: ??Not submitted / unknown ? Lymphatic and / or Vascular Invasion: ??Not identified Regional Lymph Nodes ? Regional Lymph Node Status: ??All regional lymph nodes negative for tumor ?cells ? Lymph Nodes Examined ?Total Number of Pelvic Nodes Examined: ??5 ?Number of Pelvic [place] Nodes Examined: ??4 ?Total Number of Para-aortic Nodes Examined: ??0 pTNM Classification (AJCC 8th Edition) ? pT Category: ??pT1a ? pN Category: ??pN0 FIGO Stage ? FIGO Stage: ??IA . SYNOPTIC Additional Findings ? Additional Findings: ??None identified Best Tumor Blocks for Future Studies ? Tumor Block(s): ??A20-21 ? Normal Block(s): ??A2 ? CAP eCC 2022 Q4 Release ADDITIONAL STUDIES Block ? Antibody ? Result (Positive/Negative) A21 ?MLH1 ?Positive, intact nuclear staining ? MSH2 ?Positive, intact nuclear staining ? MSH6 ?Positive, intact nuclear staining ? PMS2 ?Positive, intact nuclear staining ? ER ?Positive ? MT ?Positive Interpretation: Immunostains for MLH1, MSH2, MSH6 and PMS2 reveal intact nuclear staining in tumor cells. ??In a very small percentage of tumors, there may still be an underlying hereditary defect in these DNA mismatch repair genes despite intact nuclear expression of the protein in tumor cells ?? . Genetic counseling and/or additional workup is indicated in patients with a family history that meets current criteria for HNPCC screening. ?? Further testing for microsatellite instability in available in the [facility] ([facility]) if the clinical suspicion for Ewing syndrome remains high despite the intact mismatch repair protein expression. IHC [place] Lymph Node Protocol For Endometrial Carcinoma: Formalin-fixed, paraffin-embedded tissue sections are studied using the B-SA system technique with appropriate positive and negative controls. Blocks ? Antibody ?Result (Degree of immunoreactivity) B1-2 Level 1 ?CKAE1/3 ?Negative B1-2 Level 2 ?CKAE1/3 ?Negative D1-8 Level 1 ?CKAE1/3 ?Negative D1-8 Level 2 ?CKAE1/3 ?Negative IHC studies provide the pathologist with adjunctive diagnostic information. Antibody specificity has been verified by testing antibodies on a series of in-house tissues with known immunohistochemical performance characteristics. The clinical interpretation of any antibody positive staining or its absence is evaluated within the context of clinical presentation, morphology, histopathological criteria and other diagnostic tests. SPECIMEN(S) SUBMITTED A - uterus, cervix, bilateral tubes and bilateral ovaries, excision (1) B - left pelvic sentinel lymph node, excision (1) C - enlarged left external iliac lymph node, excision (1) D - right pelvic sentinel lymph node, excision (1) CLINICAL INFORMATION Endometrial cancer SPECIMEN PROCESSING A - Labeled/Fixative: Uterus, cervix, bilateral tubes and bilateral ovaries, fresh. . SPECIMEN PROCESSING Quantity: Single Size: Cornu to cornu: 4.3 cm Anterior to posterior: 3.5 cm Dome to Cervix: 9.3 cm Weight (overall): 130 g Tissue Description: Intact, total hysterectomy. ENDOMETRIAL TUMOR Horizontal measurement: 4.6 cm Vertical measurement: 5.5 cm Qualitative Description: Endophytic Location: Nearly circumferential Lower Uterine Segment Involvement: Involved Myometrial Invasion: Inner half Cervical Lymphatic or Vascular invasion: Not present UTERUS Endometrium: 3.0 x 2.8 x 0.1 cm, minimal red-wright mucosa. Serosa: Glistening and pink-wright. CERVIX Diameter: 3.0 cm Os: 0.4 cm, circular RIGHT OVARY ?? Size: 1.3 x 1.3 x 0.9 cm. ?? Outer Surface: Wright-ross, intact, smooth. ?? Cut Surface: unremarkable. Right Fallopian Tube: 4.1 x 0.9 cm, fimbriated, 0.8 x 0.8 cm cyst attached to fallopian tube. LEFT OVARY ?? Size: 2.9 x 1.7 x 0.9 cm. ?? Outer Surface: Wright-ross, intact, smooth. ?? Cut Surface: unremarkable. Left Fallopian Tube: 2.1 x 0.5 cm, fimbriated. Sections/Processing: Senior Enlisted Advisor sections in 39 cassettes as follows: ?A1: ??Anterior cervix ?A2: ??Posterior cervix ?A3-A9: ??Anterior full-thickness lower uterine segment, entirely submitted and ? inked yellow at the uterine corpus ?A10-A16: ??Posterior full-thickness lower uterine segment, entirely submitted and ? inked yellow at the uterine corpus ?A17-A18: ??Anterior full-thickness endometrial cavity including lesion; area of ? deepest invasion ?A19: ??Anterior full-thickness endometrial cavity including lesion and possible ? normal endometrium ?A20-A21: ??Posterior full-thickness endometrial cavity including lesion ?A22: ??Fimbria of left fallopian tube ?A23-A29: ??Left fallopian tube, submitted entirely ?A30: ??Senior Enlisted Advisor section of left ovary ?A31: ??Fimbria of right fallopian tube ?A32-A37: ??Right fallopian tube, submitted entirely ?A38: ??Cyst attached to right fallopian tube, submitted entirely ?A39: ??Senior Enlisted Advisor section of right ovary B - Labeled/Fixative: Left pelvic sentinel lymph node, fresh. Quantity/Size: Single, 2.3 x 1.4 x 0.9 cm. Tissue Description: Singular wright-pink node with attached wright-yellow adipose tissue Sections/Processing: Serially sectioned and submitted in toto in 2 cassettes labeled B1-B2. C - Labeled/Fixative: Enlarged left external iliac, fresh. Quantity/Size: Two, 3.1 x 2.1 x 0.7 cm. Tissue Description: Singular wright-pink node with attached wright-yellow adipose tissue . SPECIMEN PROCESSING Sections/Processing: Serially sectioned and submitted in toto in 3 cassettes labeled C1-C3. D - Labeled/Fixative: Right pelvic sentinel lymph node, fresh. Quantity/Size: Two, 4.8 x 3.0 x 1.6 cm and 2.9 x 1.4 x 0.8 cm. Tissue Description: Adipose tissue with three, up to 3.5 x 2.9 x 1.4 cm. Wright-pink, rubbery lymph nodes Sections/Processing: All nodes entirely submitted in 8 cassettes as follows: ?D1-D2: ??Singular node, serially sectioned ?D3-D6: ??Singular node, serially sectioned ?D7-D8: ??Singular node, serially sectioned ??BGQUAN Walton 10/05/2022 2:22 PM EDT [facility] SENTINEL LYMPH NODE / Unknown 09/15/2022 8:55 AM EDT 09/15/2022 8:55 AM EDT SENTINEL LYMPH NODE / Unknown 09/15/2022 8:55 AM EDT 09/15/2022 8:55 AM EDT LYMPH NODE SPECIMEN / Unknown 09/15/2022 8:55 AM EDT 09/15/2022 8:55 AM EDT SENTINEL LYMPH NODE / Unknown 09/15/2022 8:55 AM EDT 09/15/2022 8:55 AM EDT Aravind Velazco MD PATHOLOGY/CYTOLOGY O BERTRAM [facility] [place], [place] [id number] [place] [address] [place] [address] * Specimen to Pathology (09/15/2022 8:55 AM EDT) AP Specimen 09/15/2022 8:55 AM EDT 09/15/2022 8:55 AM EDT Narrative [facility] - 09/15/2022 8:55 AM EDT Specimen requisition ordered. ??Separate Pathology report to follow Aravind Velazco MD PATHOLOGY/CYTOLOGY O BERTRAM [facility] [address] * (ABNORMAL) POCT Glucose (09/15/2022 6:22 AM EDT) Glucose, POC 216(H) 65 - 199 mg/dL [facility] Comment: Supplemental ranges: <140 mg/dL before meals <180 mg/dL all other times of the day Blood 09/15/2022 6:22 AM EDT 09/15/2022 6:22 AM EDT Aravind Velazco MD POINT OF CARE TEST O RDERABLES [facility] [address] documented in this encounter Visit Diagnoses Diagnosis Endometrial cancer determined by uterine biopsy documented in this encounter Administered Medications Inactive Administered Medications - up to 3 most recent administrations Medication Order MAR Action Action Date Dose Rate Site acetaminophen (Tylenol) tablet 1,000 mg 1,000 mg, Oral, ONCE, 1 dose, On Christal 09/15/22 at 0645, Administer with SIP of H2O only. Maximum dose of acetaminophen is 4,000 mg from all sources in 24 hours., Day of Surgery (Day of Procedure), Routine Given 09/15/2022 6:58 AM EDT 1,000 mg heparin (porcine) (5,000 units/1 mL) subcutaneous injection 5,000 Units 5,000 Units, Subcutaneous, ONCE, 1 dose, On Christal 09/15/22 at 0645, Day of Surgery (Day of Procedure), Routine Given 09/15/2022 7:01 AM EDT 5,000 Units HYDROmorphone (Dilaudid) (0.2 mg/1 mL) injection syringe 0.4 mg 0.4 mg, Intravenous, EVERY 10 MIN PRN, Starting on Christal 09/15/22 at 1025, Until Christal 09/15/22 at 1252, Pain, For Moderate to Severe Pain (6-10 out of 10), Hold for respiratory rate less than 10 per minute. Maximum dose 3 mg over one hour including administrations in the OR. If multiple pain medications are ordered, start with HYDROmorphone or morphine and use fentaNYL for breakthrough pain., PACU Recovery, Routine Given 09/15/2022 11:17 AM EDT 0.4 mg ketorolac (Toradol) (30 mg/mL) injection 15 mg 15 mg, Intravenous, EVERY 8 HOURS SCHEDULED, 3 doses, First dose on Christal 09/15/22 at 1030, Last dose on Mon09/16/22 at 0600, Routine Given 09/15/2022 11:18 AM EDT 15 mg lactated ringers infusion 1,000 mL, at 100 mL/hr, Intravenous, CONTINUOUS, Starting on Christal 09/15/22 at 0645, Until Christal 09/15/22 at 1252, Day of Surgery (Day of Procedure) Restarted 09/15/2022 7:34 AM EDT New Bag 09/15/2022 7:26 AM EDT 1,000 mLs 100 mL/hr documented in this encounter Active and Recently Administered Medications Times are shown in EDT. Scheduled Medication Order 09/13/2022 09/14/2022 09/15/2022 acetaminophen (Tylenol) tablet 1,000 mg (COMPLETED) 1,000 mg, Oral, ONCE, 1 dose, On Christal 09/15/22 at 0645, Administer with SIP of H2O only. Maximum dose of acetaminophen is 4,000 mg from all sources in 24 hours., Day of Surgery (Day of Procedure), Routine 0658 (Given - Provid er: Pj Echols RN) ceFAZolin (Ancef) 2 g vial attach to sodium chloride 0.9% 100 mL Mini-Bag Plus (COMPLETED)(Linked Group 1) 2 g, Intravenous, ONCE, 1 dose, On Christal 09/15/22 at 0645, Administer over 30 Minutes, [employer] Manager to OR Infuse over 30 minutes., Day of Surgery (Day of Procedure), Indication for (Active or Suspected): Prophylaxis 0752 (New Bag - Prov ider: Aureliano Zhong MD) heparin (porcine) (5,000 units/1 mL) subcutaneous injection 5,000 Units (COMPLETED) 5,000 Units, Subcutaneous, ONCE, 1 dose, On Christal 09/15/22 at 0645, Day of Surgery (Day of Procedure), Routine 0701 (Given - Provid er: Pj Echols RN) ketorolac (Toradol) (30 mg/mL) injection 15 mg 15 mg, Intravenous, EVERY 8 HOURS SCHEDULED, 3 doses, First dose on Christal 09/15/22 at 1030, Last dose on Mon09/16/22 at 0600, Routine 1118 (Given - Provid er: Amy Foreman RN) metroNIDAZOLE (Flagyl) 500 mg in sodium chloride 0.9% 100 mL infusion (COMPLETED)(Linked Group 1) 500 mg, Intravenous, ONCE, 1 dose, On Christal 09/15/22 at 0645, Administer over 30 Minutes, [employer] Manager to OR Infuse over 30 minutes., Day of Surgery (Day of Procedure), Indication for (Active or Suspected): Prophylaxis 0754 (Given - Provid er: Aureliano Zhong MD) Continuous Medication Order 09/13/2022 09/14/2022 09/15/2022 lactated ringers infusion (CANCELED) 1,000 mL, at 100 mL/hr, Intravenous, CONTINUOUS, Starting on Christal 09/15/22 at 0645, Until Christal 09/15/22 at 1252, Day of Surgery (Day of Procedure) 0726 (New Bag - Prov ider: Mynor Flores RN)0733 (Paused - Provider: Aureliano Zhong MD - Comment: Switch to gravity)0734 (Restarted - Provider: Aureliano Zhong MD)0807 (Anesthesia Volume Adjustment - Provider: Aureliano Zhong MD)1019 (Stopped - Provider: Aureliano Zhong MD) lactated ringers infusion 1,000 mL, at 100 mL/hr, Intravenous, CONTINUOUS, Starting on Christal 09/15/22 at 1030, Until Christal 09/15/22 at 1606 1030 (Due) PRN Medication Order 09/13/2022 09/14/2022 09/15/2022 acetaminophen (Tylenol) tablet 650 mg 650 mg, Oral, EVERY 6 HOURS PRN, Starting on Christal 09/15/22 at 1008, Until Christal 09/15/22 at 1606, Pain, If multiple pain medications ordered, use acetaminophen first. Maximum dose of acetaminophen is 4000 mg from all sources in 24 hours. When ordered for pain, acetaminophen should be given even when other ordered pain medications are indicated., Routine HYDROmorphone (Dilaudid) (0.2 mg/1 mL) injection syringe 0.4 mg (CANCELED)(Linked Group 2) 0.4 mg, Intravenous, EVERY 10 MIN PRN, Starting on Christal 09/15/22 at 1025, Until Christal 09/15/22 at 1252, Pain, For Moderate to Severe Pain (6-10 out of 10), Hold for respiratory rate less than 10 per minute. Maximum dose 3 mg over one hour including administrations in the OR. If multiple pain medications are ordered, start with HYDROmorphone or morphine and use fentaNYL for breakthrough pain., PACU Recovery, Routine 1117 (Given - Provid er: Amy Foreman RN) HYDROmorphone (Dilaudid) (2 mg/mL) injection solution 0.2 mg 0.2 mg, Intravenous, ONCE PRN, 1 dose, Starting on Christal 09/15/22 at 1008, Until Christal 09/15/22 at 1606, Pain, Severe pain (7-10), - If not controled by oral pain medication., Routine lidocaine-EPINEPHrine (1% - 1:100,000) injection (CANCELED) PRN, Starting on Christal 09/15/22 at 0832, Until Christal 09/15/22 at 1606, Intra-Operative (Intra-Procedure), Routine 0832 (Given - Provid er: Aravind Velazco MD) oxyCODONE (Roxicodone) tablet 5-10 mg 5-10 mg, Oral, EVERY 3 HOURS PRN, Starting on Christal 09/15/22 at 1008, Until Christal 7 at 1606, Pain, - If multiple pain medications ordered, use acetaminophen first. - If pain not relieved by acetaminophen first, administer oxycodone. - Initial dose 5 mg. - If pain control not adequate in 60 minutes, give additional 5 mg., Routine Linked Groups Order Group 1: ceFAZolin (Ancef) 2 g vial attach to sodium chloride 0.9% 100 mL Mini-Bag Plus (COMPLETED)Jump to med 2 g, Intravenous, ONCE, 1 dose, On Christal 09/15/22 at 0645, Administer over 30 Minutes, [employer] Manager to OR Infuse over 30 minutes., Day of Surgery (Day of Procedure), Indication for (Active or Suspected): Prophylaxis And metroNIDAZOLE (Flagyl) 500 mg in sodium chloride 0.9% 100 mL infusion (COMPLETED)Jump to med 500 mg, Intravenous, ONCE, 1 dose, On Christal 09/15/22 at 0645, Administer over 30 Minutes, [employer] Sales Manager to OR Infuse over 30 minutes., Day of Surgery (Day of Procedure), Indication for (Active or Suspected): Prophylaxis Group 2: HYDROmorphone (Dilaudid) (0.2 mg/1 mL) injection syringe 0.2 mg (CANCELED) 0.2 mg, Intravenous, EVERY 10 MIN PRN, Starting on Christal 09/15/22 at 1025, Until Christal 09/15/22 at 1252, Pain, For Mild to Moderate Pain (1-5 out of 10), Hold for respiratory rate less than 10 per minute. Maximum dose 3 mg over one hour including administrations in the OR. If multiple pain medications are ordered, start with HYDROmorphone or morphine and use fentaNYL for breakthrough pain., PACU Recovery, Routine Or HYDROmorphone (Dilaudid) (0.2 mg/1 mL) injection syringe 0.4 mg (CANCELED)Jump to med 0.4 mg, Intravenous, EVERY 10 MIN PRN, Starting on Christal 09/15/22 at 1025, Until Christal 09/15/22 at 1252, Pain, For Moderate to Severe Pain (6-10 out of 10), Hold for respiratory rate less than 10 per minute. Maximum dose 3 mg over one hour including administrations in the OR. If multiple pain medications are ordered, start with HYDROmorphone or morphine and use fentaNYL for breakthrough pain., PACU Recovery, Routine documented in this encounter Care Teams Paint Prepper Relationship Specialty Start Date End Date Margaret Rondon MD Jaci [address] DR [facility] [address] [place] [address] PCP - General Family Medicine 09/13/22 documented as of this encounter
--- OUTSIDE RECORDS SUMMARY | 2024-01-10 12:03 | XMS_ITS | Encounter Summary ---
Author Organization [facility] Address [facility] [place] [address] Care Team Providers Care Customer Service Attendant Name Role Phone Margaret Rondon MD Primary Care Provider [phone] Reason for Visit * Reason Comments Post Op Encounter Details Date Type Department Care Team (Late st Contact Info) Description 10/05/2022 1:20 PM EDT Office Visit [place] [phone] Aravind Jackson MD [facility] [place] [address] Endometrial cancer determined by uterine biopsy Social [...] Sign Reading Time Taken Comments Blood Pressure 143/82 10/05/2022 12:54 PM EDT Pulse 77 10/05/2022 12:54 PM EDT Temperature 36.6 ??C (97.9 ??F) 10/05/2022 1 2:54 PM EDT Respiratory Rate 16 10/05/2022 12:5 4 PM EDT Oxygen Saturation 98% 10/05/2022 12: 54 PM EDT Inhaled Oxygen Concentration - - Weight 106.7 kg (235 lb 4.8 oz) 023 12:54 PM EDT Height 163.8 cm (5' 4.49) 10/05/2022 1 2:54 PM EDT Body Mass Index 39.78 10/05/2022 12:54 PM EDT documented in this encounter Progress Notes * Aravind Jackson MD - 10/05/2022 1:20 PM EDT Division [place] [address] Gynecologic Oncology-Clinic Note Reason for visit: Postop check. Patient Active Problem List Diagnosis Code Endometrial [...] Curtis MD fluticasone propionate (Flonase) 50 mcg/actuation [place], Suspension 1 spray daily. PROVIDER, HISTORICAL cyanocobalamin, [...] evaluation management of grade 1 endometrial cancer. We recommended surgery. Therefore, on 09/15/2022, she underwent a total laparoscopic/robotic hysterectomy, BSO, sentinel lymph node mapping and biopsy. EBL at surgery was 10 mL. She was discharged the same day. Intraoperative findings were as follows: Findings 1. Exam under anesthesia: Normal sized [...] cavity including the lower uterine segment. 3. [place] lymph node mapping: A left and right sentinel lymph node was identified and excised, and sent for SLN protocol. 4. Frozen section: none 5. Residual disease: No gross residual disease. Today, she reports that she generally feels well. She is no longer using any oral analgesic therapy. She reports good appetite, normal bowel and bladder function. She denies any sensory deficits on her thighs or groins, related to the lymph node procedures performed. She had no illnesses or concerns after discharge from the hospital. Review of systems: 5 systems in total reviewed, otherwise negative. Vital signs: BP 143/82 Pulse 77 Temp 36.6 ??C (97.9 ??F) Resp 16 Ht 163.8 cm (5' 4.49) Wt 106.7 kg (235 lb 4.8 oz) SpO2 98% BMI 39.78 kg/m?? Physical examination: General: She is well-groomed, well-dressed, no obvious distress. Abdomen: The laparoscopic port sites, 5 in total, are well approximated, without separation, drainage, erythema, or obvious incisional hernia. The abdomen is soft and nontender. Pathology: The final pathology results are pending at the time of this visit. Impression/plan: Satisfactory postoperative check for Elen. She underwent a TLH/BSO with mapping, was found to have a 4 cm tumor within the endometrial cavity. Her postoperative course has been excellent. There were no obvious perioperative complications based upon the lack of any concerning symptoms or findings today. Her pathology is not available to review today. Thus, I cannot disposition her further. I will contact her by telephone once I have the pathology results back, to determine if she would benefit from additional adjuvant therapy, versus enter surveillance. She voiced understanding. She was given a copy of the operative report to take home with her today. documented in this encounter Plan of Treatment Not on file documented as of this encounter Visit Diagnoses Diagnosis Endometrial cancer determined by uterine biopsy documented in this encounter Care Teams Customer Service Attendant Relationship Specialty Start Date End Date Margaret Rondon MD Jaci HOFFMAN DR [facility] [address] [place] [address] PCP - General Family Medicine 09/13/22 documented as of this encounter
--- OUTSIDE RECORDS SUMMARY | 2024-01-10 12:03 | XMS_ITS | Encounter Summary ---
Author Organization [facility] Address [facility] [place] [address] Care Team Providers Care Vehicle Leasing And Rental Manager Name Role Phone Chelsy Aden YIFAN Primary Care Provider [phone] Encounter Details Date Type Department Care Team (Latest Contact Info) Description 08/03/2022 3:45 PM EDT - 08/03/2022 11:59 PM EDT Hospital [place] [phone] Discharge Disposition: Home Social History Tobacco Use Types Packs/Day Years Used Date Smoking Tobacco: Never Assessed Sex and Gender Information Value Date Recorded Sex Assigned at Female 08/04/2022 10:49 PM EDT Gender Identity Female 08/04/2022 10:49 PM EDT Sexual Orientation Straight 08/04/2022 10 :49 PM EDT documented as of this encounter Medications at Time of Discharge [...] Take 10 mg by mouth nightly. 07/12/2022 amLODIPine (Norvasc) 10 mg tablet Take 5 mg by mouth daily. 07/08/2022 09/25/2023 gabapentin (Neurontin) 300 mg capsule Take 300 mg by mouth every evening. 06/15/2022 09/25/2023 metFORMIN (Glucophage) 1,000 mg tablet TAKE 1 TABLET BY MOUTH IN THE MORNING AND IN THE EVENING 07/08/2022 09/25/2023 documented as of this encounter Plan of Treatment Not on file documented as of this encounter Procedures Procedure Name Priority Date/Time Associated Diagnosis Comments SURGICAL PATHOLOGY REPORT Routine 08/03/2022 3:46 PM EDT documented in this encounter Results * Surgical Pathology Report (08/03/2022 3:46 PM EDT) Final Diagnosis [id number] ? Location: [facility] The signing pathologist has (i) examined the relevant preparation(s) for the specimen(s) and (ii) rendered or confirmed the diagnosis(es). . ?Surgical Pathology DIAGNOSIS A - 2 slide(s) labeled [id number], collection date 07/25/2022: Endometrium, biopsy: - Endometrioid carcinoma, preliminary FIGO grade 1 Electronically signed by: ?Marie Linda DO Verified: ??08/04/2022 14:47 ??Pathologist Performed at: ??-[facility] [place], [place] [address] Bulk System Operator: David Horne MD, FCAP, ??CLIA Certificate: [id number] DISCUSSION Per report, ??outside immunostains for MLH1, MSH2, MSH6, and PMS2 reveal intact nuclear staining in tumor cells (not provided for reviewed). SPECIMEN(S) SUBMITTED CONSULTATION CASE A - 2 slide(s) labeled [id number], collection date 07/25/2022. [id number] CARBON COPY: [facility] Surgical Pathology Department [facility], [address]nd Floor [address] [place] [address] ??[id number] CLINICAL INFORMATION Not provided SPECIMEN PROCESSING [facility] ([facility]) pathology slide(s) are reviewed. Refer to Diagnosis and Specimen Submitted for specific case information. For the full text of the [facility] report(s) please refer to the Chart Review Media tab in the electronic health record (eDH). 08/04/2022 2:47 PM EDT [facility] Consult Case 08/03/2022 3:46 PM EDT 08/03/2022 3:46 PM EDT Aravind Jackson MD PATHOLOGY/CYTOLOGY O RDERABLES [facility] [place] [address] [place] [address] documented in this encounter Visit Diagnoses Not on filedocumented in this encounter Care Teams Vehicle Leasing And Rental Manager Relationship Specialty Start Date End Date Chelsy Aden, YIFAN [address] [place] [address] PCP - General Family Medicine 07/29/22 09/12/22 documented as of this encounter
--- OUTSIDE RECORDS SUMMARY | 2024-01-10 12:03 | XMS_ITS | Encounter Summary ---
Author Organization [facility] [place] [address] Care Team Providers Care Hand Cooper Helper Name Role Phone Margaret Rondon MD Primary Care Provider [phone] Reason for Visit * Auth/Cert (Routine) Specialty [...] SENTINEL LYMPH NODE,INCLUDES INJECTION (WRVU 2.5) MODIFIER MARLEY,Aravind Guthrie MD [facility] [place] [address] [facility] Referral ID Status Reason Start Date Expiration Date Visits Re quested Visits Authorized [id number] 1 1 Encounter Details Date Type Department Care Team (Late st Contact Info) Description 09/15/2022 7:30 AM EDT - 09/15/2022 10:56 AM EDT [place] [phone] Aravind Velazco MD [facility] [place] [address] ROBOTIC LAPAROSCOPY,TOTAL HYST, UTERUS<250GM, REM TUBE &/OR OVARY (WRVU 15) Social History Tobacco Use Types Packs/Day Years [...] Sign Reading Time Taken Comments Blood Pressure 103/55 09/15/2022 10:45 AM EDT Pulse 68 09/15/2022 10:45 AM EDT Temperature 36.3 ??C (97.3 ??F) 09/15/2022 10:23 AM E DT Respiratory Rate 15 09/15/2022 10:45 AM EDT Oxygen Saturation 99% 09/15/2022 10:45 AM EDT Inhaled Oxygen Concentration - - Weight 107 kg (235 lb 14.4 oz) 09/15/2022 6:13 A M EDT Height 163.8 cm (5' 4.5) 09/15/2022 6:13 AM EDT Body Mass Index 39.87 09/15/2022 6:13 AM EDT documented in this encounter Discharge Instructions * Patient Instructions* Earline Curtis MD - 09/15/2022 8:06 AM EDT PATIENT DISCHARGE INSTRUCTIONS Gynecologic Oncology phone number: [phone] (Nurse ext [phone] then 4; appointment ext [phone] then 4). After hours and on weekends please call hospital enrobing machine operator at [phone] and ask for Gynecologic Oncologist director summer sessions. Call your doctor if you develop: --A [...] nightly. 07/12/2022 fluticasone propionate (Flonase) 50 mcg/actuation Endeavor, Suspension 1 spray daily. loratadine (Claritin) 10 [...] discharge summary. Summary reviewed with pt and [id number], all questions answered. Patient encouraged to call with any further questions or concerns. Patient discharged to home with [id number]. Pt demonstrated ability to ambulate to bathroom [...] 2019, 2020. Social history: Accompanied by her [id number] Rizwana She completed an associates degree in [...] mg, Oral fluticasone propionate (Flonase) 50 mcg/actuation Endeavor, Suspension 1 spray, DAILY gabapentin (NEURONTIN) 300 [...] for planned procedure. -- Pharmacy: [facility] in [place], [place] Opioid risk counseling and consent I [...] Velazco MD - 09/15/2022 8:21 AM EDT [facility] [place] Patient Name: Yolis Romero : [id number] MR#: [id number] Case Date: 09/15/2022 Surgeon: Surgeon(s) and Role: * Aravind Velazco MD - Primary * Earline Curtis MD Registered Nurse State Federal Relations Deputy Director: Kaity Pierce RN Anesthesia: General endotracheal/local infiltration [...] 62 y.o. woman who was referred by: Noe Dickson for a new diagnosis of grade 1 [...] cavity including the lower uterine segment. 3. Wilcox lymph node mapping: A left and right [...] uterus and dilation of the cervix, a Pararescue Craftsman device was inserted into the uterus for manipulation. An 8-mm transverse incision was made 5 cm above the umbilicus, through which a 8-mm da Michael trocarwas then inserted under direct visualization, verifying atraumatic entry. Additional 8-mm robotic trocars and a 12-mm right upper quadrant environmental services assistant port were placed in the usual [...] 09/15/2022 7:32 AM EDT ENDOMETRIAL CANCER Intraop Wilcox Lymph Id W/Dye Injection ([id number]) 09/15/2022 7:32 AM EDT ENDOMETRIAL CANCER Lap, Pelvic Lymphadenectomy/Bx ([id number]) 09/15/2022 7:32 AM EDT ENDOMETRIAL CANCER Laparoscopy W Tot Hysterectuterus <=250 Gram W Tube/Ovary ([id number]) 09/15/2022 7:32 AM EDT ENDOMETRIAL CANCER POCT GLUCOSE Routine 09/15/2022 6:22 AM EDT documented in this encounter Results * (ABNORMAL) POCT Glucose (09/15/2022 10:29 AM EDT) Glucose, POC 221(H) 65 - 199 mg/dL [facility] Comment: Supplemental ranges: <140 mg/dL before meals <180 mg/dL all other times of the day Blood 09/15/2022 10:2 9 AM EDT 09/15/2022 10:29 AM EDT Aravind Velazco MD POINT OF CARE TEST O BERTRAM Performing Organization Address [facility] Co de Phone Number [facility] [place] [address] * Specimen to Pathology (09/15/2022 9:38 AM EDT) AP Specimen 09/15/2022 9:38 AM EDT 09/15/2022 9:38 AM EDT Narrative [facility] - 09/15/2022 9:38 AM EDT Specimen requisition ordered. ??Separate Pathology report to follow Aravind Velazco MD PATHOLOGY/CYTOLOGY O BERTRAM Performing Organization Address [facility] Co de Phone Number [facility] [place] [address] * Specimen to Pathology (09/15/2022 9:05 AM EDT) AP Specimen 09/15/2022 9:05 AM EDT 09/15/2022 9:05 AM EDT Narrative [facility] - 09/15/2022 9:05 AM EDT Specimen requisition ordered. ??Separate Pathology report to follow Aravind Velazco MD PATHOLOGY/CYTOLOGY O BERTRAM Performing Organization Address [facility] de Phone Number [facility] [place] [address] * POCT Glucose (09/15/2022 8:58 AM EDT) Glucose, POC 184 65 - 199 mg/dL [facility] Comment: Supplemental ranges: <140 mg/dL before meals <180 mg/dL all other times of the day Blood 09/15/2022 8:58 AM EDT 09/15/2022 8:58 AM EDT Aravind Velazco MD POINT OF CARE TEST O RDERABLES Performing Organization Address City/[facility]/ZIP Co de Phone Number [facility] [place] [address] * Specimen to Pathology (09/15/2022 8:56 AM EDT) AP Specimen 09/15/2022 8:56 AM EDT 09/15/2022 8:56 AM EDT Narrative [facility] - 09/15/2022 8:56 AM EDT Specimen requisition ordered. ??Separate Pathology report to follow Aravind Velazco MD PATHOLOGY/CYTOLOGY O RDARIAN Performing Organization Address City/[facility] Co de Phone Number [facility] [place] [address] * Surgical Pathology Report (09/15/2022 8:55 AM EDT) Final Diagnosis [id number] ? Location: [facility]; The signing pathologist has (i) examined [...] MD Verified: ??10/05/2022 14:22 ??Pathologist Performed at: ??-[facility] [place], [place] [address] Gear Finisher: David Horne MD, AP, ??IA Certificate: [id number] SYNOPTIC Specimen ? Procedure: ??Total hysterectomy and [...] Pelvic Nodes Examined: ??5 ?Number of Pelvic Wilcox Nodes Examined: ??4 ?Total Number of Para-aortic [...] intact nuclear staining ? ER ?Positive ? LA ?Positive Interpretation: Immunostains for MLH1, MSH2, MSH6 [...] Technologies (CGAT) if the clinical suspicion for Ewign syndrome remains high despite the intact mismatch repair protein expression. IHC Wilcox Lymph Node Protocol For Endometrial Carcinoma: Formalin-fixed, [...] Tube: 2.1 x 0.5 cm, fimbriated. Sections/Processing: Residential Real Estate Assistant sections in 39 cassettes as follows: ?A1: [...] ?A23-A29: ??Left fallopian tube, submitted entirely ?A30: ??Residential Real Estate Assistant section of left ovary ?A31: ??Fimbria of right fallopian tube ?A32-A37: ??Right fallopian tube, submitted entirely ?A38: ??Cyst attached to right fallopian tube, submitted entirely ?A39: ??Residential Real Estate Assistant section of right ovary B - Labeled/Fixative: [...] serially sectioned ?D7-D8: ??Singular node, serially sectioned ??BGT, JNR 10/05/2022 2:[address] [facility] SENTINEL LYMPH NODE / Unknown 09/15/2022 8:55 AM EDT 09/15/2022 8:55 AM EDT SENTINEL LYMPH NODE / Unknown 09/15/2022 8:55 AM EDT 09/15/2022 8:55 AM EDT LYMPH NODE SPECIMEN / Unknown 09/15/2022 8:55 AM EDT 09/15/2022 8:55 AM EDT SENTINEL LYMPH NODE / Unknown 09/15/2022 8:55 AM EDT 09/15/2022 8:55 AM EDT Aravind Velazco MD PATHOLOGY/CYTOLOGY O RDERAMODE [facility] [place] [address] [facility] [place] [address] * Specimen to Pathology (09/15/2022 8:55 AM EDT) AP Specimen 09/15/2022 8:55 AM EDT 09/15/2022 8:55 AM EDT Narrative [facility] - 09/15/2022 8:55 AM EDT Specimen requisition ordered. ??Separate Pathology report to follow Aravind Velazco MD PATHOLOGY/CYTOLOGY O RDERABLES Performing Organization Address City/[facility] Co de Phone Number [facility] [place] [address] * (ABNORMAL) POCT Glucose (09/15/2022 6:22 AM EDT) Glucose, POC 216(H) 65 - 199 mg/dL [facility] Comment: Supplemental ranges: <140 mg/dL before meals <180 mg/dL all other times of the day Blood 09/15/2022 6:22 AM EDT 09/15/2022 6:22 AM EDT Aravind Velazco MD POINT OF CARE TEST O RDERABLES [facility] [place] [address] documented in this encounter Visit Diagnoses Not on filedocumented in this encounter Administered Medications Inactive Administered [...] 7:26 AM EDT 1,000 mLs 100 mL/hr lidocaine-EPINEPHrine (1% - 1:100,000) injection PRN, Starting on Christal 09/15/22 at 0832, Until Christal 09/15/22 at 1606, Intra-Operative (Intra-Procedure), Routine Given 09/15/2022 8:32 AM EDT 25 mLs 19- Surgical Site documented in this encounter Active and Recently [...] 09/15/22 at 0645, Administer over 30 Minutes, State Historical Society Director to OR Infuse over 30 minutes., Day [...] 09/15/22 at 0645, Administer over 30 Minutes, State Historical Society Director to OR Infuse over 30 minutes., Day [...] on Christal 09/15/22 at 0832, Until Christal 7 at 1606, Intra-Operative (Intra-Procedure), Routine 0832 (Given [...] 09/15/22 at 0645, Administer over 30 Minutes, State Historical Society Director to OR Infuse over 30 minutes., Day of Surgery (Day of Procedure), Indication for (Active or Suspected): Prophylaxis And metroNIDAZOLE (Flagyl) 500 mg in sodium chloride 0.9% 100 mL infusion (COMPLETED)Jump to med 500 mg, Intravenous, ONCE, 1 dose, On Christal 09/15/22 at 0645, Administer over 30 Minutes, State Historical Society Director to OR Infuse over 30 minutes., Day [...] Routine documented in this encounter Care Teams Hand Cooper Helper Relationship Specialty Start Date End Date Margaret Rondon MD [address] [place] [address] PCP - General Family Medicine 09/13/22 documented as of this encounter
--- OUTSIDE RECORDS SUMMARY | 2024-01-10 12:03 | XMS_ITS | Encounter Summary ---
Author Organization [facility] Address [facility] [place] [address] Care Team Providers Care Chocolate Production Machine Operator Name Role Phone Margaret Rondon MD Primary Care Provider [phone] Encounter Details Date Type Department Care Team (Late st Contact Info) Description 09/25/2023 8:40 AM EDT Office Visit [place] [phone] Alicia Tavera APRN [facility] [place] [address] Endometrial cancer determined by uterine biopsy Social [...] Mass Index 35.84 09/25/2023 8:41 AM EDT documented in this encounter Progress Notes * Alicia Tavera APRN - 09/25/2023 8:40 AM EDT Division [place] [address] Gynecologic Oncology-Clinic Note Reason for visit: Surveillance. Patient Active Problem List Diagnosis Code Endometrial cancer determined by uterine biopsy C54.1 Type 2 diabetes mellitus without complication, without long-term current use of insulin E11.9 High blood pressure I10 Hyperthyroidism E05.90 CPAP (continuous positive airway pressure) dependence Z99.89 Obstructive sleep apnea G47.33 Peripheral polyneuropathy G62.9 Elevated cholesterol with elevated triglycerides E78.2 History of present illness: Elen is a 63-year-old woman who returns today for surveillance. She has a history of Stage 1A Grade 1 endometrioid endometrial cancer. On 09/15/2022, she underwent a totallaparoscopic/robotic hysterectomy, BSO, sentinel lymph node mapping and biopsy. She has been doing well since her last visit. She is having regular bowel movements and is eating well. Her appetite and energy level is good. She denies fevers, chills, dysuria, unexpected weight loss, abdominal/pelvic pain, vaginal bleeding, blood in her stool, blood in her urine, nausea, vomiting, diarrhea or changes to her bowel or bladder function. Review of her PMH/PSH reveals no changes. Review of systems: ROS otherwise negative. Vital signs: BP 125/63 (Patient Position: Sitting) Pulse 63 Temp 36.2 ??C (97.1 ??F) (Temporal) Resp 12 Ht 163.8 cm (5' 4.49) Wt 96.2 kg (212 lb) SpO2 100% BMI 35.84 kg/m?? Physical examination: Gen: NAD Abd: Soft, NT, ND Pelvic exam: Normal external genitalia (labia majora and minora, vaginal introitus, urethral meatus). Mildly atrophic vaginal mucosa. Vaginal cuff is intact without visible lesions or nodularity. On bimanual exam, no palpable nodules or pelvic masses. On rectovaginal exam, no palpable masses or nodu larity. No thickening of the rectovaginal septum. Extr: No edema Impression/plan: 63 yo with history of Stage 1A Grade 1 endometrial ca. KATHERINE on exam today. We reviewed s/sx for which to call and surveillance guidelines. Will RTC in 12 mos or sooner as needed. Alicia Tavera APRN 09/25/23 * May Middleton LNA - 09/25/2023 8:40 AM EDT Examination chaperoned by DEL JOAQUIN. 09/25/23 In the TOP PRECIPITATOR OPERATOR/ONC 3K clinic. @ Vitals Flowsheet Row Office Visit from 09/25/2023 in Gynecology Oncology at [facility] [place] Weight 96.2 kg (212 lb) Height 163.8 cm (5' 4.49) BSA (Calculated - sq m) 2.09 sq meters BMI (Calculated) 35.84 Temp 36.2 ??C (97.1 ??F) Temp src Temporal Heart Rate 63 Heart Rate Source SaO2, Left Resp 12 BP 125/63 BP Location Right arm Patient Position Sitting SpO2 100 % documented in this encounter Plan of Treatment Not on file documented as of this encounter Visit Diagnoses Diagnosis Endometrial cancer determined by uterine biopsy documented in this encounter Care Teams Chocolate Production Machine Operator Relationship Specialty Start Date End Date Margaret Rondon MD [address] [place] [address] PCP - General Family Medicine 09/13/22 documented as of this encounter
--- OUTSIDE RECORDS SUMMARY | 2024-01-10 12:03 | XMS_ITS | Encounter Summary ---
[place] [address] Care Team Providers Care Direct Mail Manager Name Role Phone Chelsy Aden APRN Primary Care Provider [phone] Encounter Details Date Type Department Care Team (Latest Contact Info) Description 08/04/2022 Travel Social History Tobacco Use Types Packs/Day [...] on filedocumented in this encounter Care Teams Direct Mail Manager Relationship Specialty Start Date End Date Chelsy Aden APRN [address] [facility] [place] [address] PCP - General Family Medicine 07/29/22 09/12/22 documented as of this encounter
--- OUTSIDE RECORDS SUMMARY | 2024-01-10 12:03 | XMS_ITS | Encounter Summary ---
Author Organization [facility] Address [facility] [place] [address] Care Team Providers Care Brokerage Purchase And Sale Clerk Name Role Phone Margaret Rondon MD Primary Care Provider [phone] Encounter Details Date Type Department Care Team (Late st Contact Info) Description 10/06/2022 Telephone [place] [phone] Aravind Jackson MD [facility] [place] [address] Social History Tobacco Use Types Packs/Day Years Used Date Smoking Tobacco: Never Smokeless Tobacco: Never Alcohol Use Standard Drinks/Week Comments Not Currently 0 (1 standard drink = 0.6 oz pur e alcohol) [facility] Inpatient Questions Answer Date Recorded Does Anyone [...] encounter Miscellaneous Notes * Telephone Encounter - Aravind Jackson MD - 10/06/2022 6:24 PM EDT I called and spoke with Elen. At her postoperative visit earlier this week, her pathology results were not available. I reviewed that her final pathology shows a FIGO stage Ia, grade 1 endometrioid adenocarcinoma, a low risk endometrial cancer, and that no adjuvant therapy is needed. I reviewed that she should follow-up with us in accordance with current O surveillance guidelines, and her first visit for surveillance will be due in 6 months. We will contact her and send her a reminder. documented in this encounter Plan of Treatment Not on file documented as of this encounter Visit Diagnoses Not on filedocumented in this encounter Care Teams Brokerage Purchase And Sale Clerk Relationship Specialty Start Date End Date Margaret Rondon MD [address] [facility] [place] [address] [place] [address] PCP - General Family Medicine 09/13/22 documented as of this encounter
--- OUTSIDE RECORDS SUMMARY | 2024-01-10 12:03 | XMS_ITS | Encounter Summary ---
[place] [address] Care Team Providers Care Creative Guru Name Role Phone Margaret Rondon MD Primary Care Provider [phone] Reason for Visit * Auth/Cert (Routine) Specialty Diagnoses / Procedures Referred By Manda ashton Referred To Contact Diagnoses ENDOMETRIAL CANCER Procedures PRO LAPAROSCOPY W TOT HYSTERECTUTERUS <=250 GRAM W TUBE/OVARY PRO LAP, PELVIC LYMPHADENECTOMY/BX PRO INTRAOP SENTINEL LYMPH ID W/DYE INJECTION LAPAROSCOPY,TOTAL HYST, UTERUS<250GM, REM TUBE &/OR OVARY, ROBOTIC ASSIST (WRVU 15) LAPAROSCOPY,W\BILATERAL TOTAL PELVIC LYMPHADENECTOMY, PERIAORTIC LYMPH NODE SAMPLING, ROBOTIC (WRVU 15.6) INTRAOPERATIVE ID (MAPPING) SENTINEL LYMPH NODE,INCLUDES INJECTION (WRVU 2.5) MODIFIER ROBOT,Aravind Guthrie MD [facility] [place] [address] [facility] Referral ID Status Reason Start Date Expiration Date Visits Re quested Visits Authorized [id number] 1 1 Encounter Details Date Type Department Care Team (Late st Contact Info) Description 09/15/2022 7:34 AM EDT Anesthesia Event [place] [id number] Yazan Schmitt MD [facility] [place] [address] Aureliano Zhong MD [facility] [address] [place] [address] Anesthesia Record Procedure Summary Procedure Name Responsible Anesthesiologist Anesthesia Start Time Anesthesia Stop Time ROBOTIC LAPAROSCOPY,TOTAL HYST, UTERUS<250GM, REM TUBE &/OR OVARY (WRVU 15) (Uterus) Yazan Schmitt MD 09/15/22 0734 09/15/22 1027 Events Date Time Event Comment 09/15/2022 0714 0734 AN Verify 0734 Start 0734 An Start Data 0737 An Induction 0743 An Intubation 0750 Anesthesia Ready 0828 Break/Relief In I assumed ca re for Break Relief before which we: 1. Identified the patient 2. Identified the responsible provider(s) 3. Reviewed the pertinent medical history 4. Discussed the surgical plan and course 5. Reviewed intra-op anesthesia management and issues during anesthesia 6. Set expectations for the relief (and/or post-procedure) period 7. Allowed opportunity for questions and acknowledgement of understanding YAZAN SCHMITT MD 0846 Break/Relief Out 0934 Quick Note Sed line readin g in high 80s, 90s. No changes in anesthetic, pt at MAC ~0.8 and propofol gtt at 50mcg/kg/min. Turned up gas, bolused some propofol. Tried replacing leads but reading unchanged. Gave some dilaudid, reading still unchanged. Turned sed line machine off and on. Pt vitals stable and BP starting to trend down with propofol bolus. No reason to believe pt is awake or aware of surroundings. 1018 Extubation/LMA Out 1019 an stop data 1027 Recovery or ICU Handoff Katie ent care was transferred to the destination unit staff after review of the patient's medical history, current anesthetic/surgical status and plan, according to the Provider Handoff Checklist. 1027 Stop Meds Name Total Midazolam 2 mg fentaNYL 100 mcg IV Lidocaine 50 mg Propofol 380 mg Rocuronium 100 mg Ondansetron 8 mg Dexamethasone 8 mg ceFAZolin (Ancef) 2 g vial a ttach to sodium chloride 0.9% 100 mL Mini-Bag Plus 2 g metroNIDAZOLE (Flagyl) 500 mg in sodium chloride 0.9% 100 mL infusion 500 mg Propofol INF 655.91 mg HYDROmorphone 2 mg/mL 0.6 mg Sugammadex 200 mg ketorolac (Toradol) (30 mg/mL) injection 15 mg lactated ringers infusion 800 mL Lactated Ringers 700 mL * Agents Name O2 * Blood No blood administrations on file. Lines, Drains, and Airways Type Details Placement Removal Incision 0822; midline; abdom en; laparoscopic punctures (specify) 09/15/22 0954 by Incision 09/15/22 09/15/22 0000 by Jose R Still, JUAN CARLOS (RETIRED) Peripheral IV Line - Single Lumen 09/15/22; 0725; median cubital vein (antecubital fossa), right; [id number] catheter system; Anatomical Landmarks; 20 gauge; Mynor RN; distraction, tolerated well, appears comfortable; 09/15/22; 1301 09/15/22 0725 by Mynor Flores RN 09/15/22 1301 by Amy Foreman RN ETT Mask Ventilation: Ea sy (1); ETT Type: Cuffed, Nasal; ETT Size: 7 mm; Mac Blade: 4; Notes: Asleep, Pre-O2, Stylette; Attempts: 1; Laryngoscopy Grade: 1; ETT Placement Verified By: Capnometry, Visual, Auscultation; Secured at Teeth: 21 cm; Inserted by: Aureliano Zhong MD; Removal Date: 09/15/22; Removal Time: 1018 09/15/22 0743 by Aureliano Zhong MD 09/15/22 1018 by Aureliano Zhong MD (RETIRED) Peripheral IV Line - Single Lumen 09/15/22; 0758; metacarpal vein (top of hand), left; bats-rxo-mlspes catheter system; Anatomical Landmarks; 20 gauge; Aureliano Zhong; 0; 09/15/22; 1251 09/15/22 0758 by Aureliano Zhong MD 09/15/22 1251 by Amy Foreman RN Urethral Catheter 09/15/22; 0831; Surg trinh longer than 2 hours, Physician order; Immobility without alternative; latex; 14; inserted at this facility; 1; 09/15/22; 1301 09/15/22 0831 by Jose R Still RN 09/15/22 1301 by Amy Foreman RN documented in this encounter Social History Tobacco Use Types Packs/Day Years [...] PM EDT documented as of this encounter OR Notes * Anesthesia Postprocedure Evaluation - Aureliano Zhong MD - 09/15/2022 10:31 AM EDT Department of Anesthesiology Post-procedure Note Patient: Yolis Romero Procedure Summary Date: 09/15/22 Room / Location: [facility] OR [facility] MAIN OR Anesthesia Start: 733 Anesthesia Stop: 1026 Procedures: LAPAROSCOPY,TOTAL HYST, UTERUS<250GM, REM TUBE &/OR OVARY, ROBOTIC ASSIST (WRVU 15) (Uterus) LAPAROSCOPY,W\BILATERAL TOTAL PELVIC LYMPHADENECTOMY, PERIAORTIC LYMPH NODE SAMPLING, ROBOTIC (WRVU15.6) (Uterus) INTRAOPERATIVE ID (MAPPING) SENTINEL LYMPH NODE,INCLUDES INJECTION (WRVU 2.5) MODIFIER ROBOT,DAVINCI XI Diagnosis: (ENDOMETRIAL CANCER) Surgeons: Aravind Jackson MD Responsible Provider: Yazan Schmitt MD Anesthesia Type: general ASA Status: 3 All Anesthesia Providers: Anesthesiologist: Yazan Schmitt MD [place] Laboratory Assistant: Aureliano Zhong MD Vitals Value Taken Time BP 100/59 09/15/22 1030 Temp 36.3 ??C (97.3 ??F) 09/15/22 1023 Pulse 72 09/15/22 1030 Resp 18 09/15/22 1030 SpO2 96 % 09/15/22 1030 Pain Level Vitals shown include unvalidated device data. Patient Location: PACU/SDP Level of Consciousness: Conscious but Sleepy Pain Management: Satisfactory Analgesia PONV: None Cardiovascular Status: At Baseline and Hemodynamically Stable Respiratory Status: Stable Respiratory Status and Supplemental O2 (NC or FM) Postoperative Fluid Status: Intravascular EUvolemia Possible Anesthetic Complications: NONE apparent at time of evaluation Final Primary Anesthesia Type: General (The anesthetic type performed was the same as planned.) Comments: Tolerated procedure well. Sed line did not appear to be working, see intra-op note. Easy urbano, grade 1 view with Mac 4, laryngeal manipulation. Aureliano Zhong MD * Anesthesia Preprocedure Evaluation - Yazan Schmitt MD - 09/14/2022 2:27 PM EDT Pre-Anesthesia Evaluation for: Yolis Romero a 62 y.o. female. Procedure(s): LAPAROSCOPY,TOTAL HYST, UTERUS<250GM, REM TUBE &/OR OVARY, ROBOTIC ASSIST (WRVU 15) LAPAROSCOPY,W\BILATERAL TOTAL PELVIC LYMPHADENECTOMY, PERIAORTIC LYMPH NODE SAMPLING, ROBOTIC (WRVU15.6) INTRAOPERATIVE ID (MAPPING) SENTINEL LYMPH NODE,INCLUDES INJECTION (WRVU 2.5) MODIFIER ROBOT,ALE XI Patient Active Problem List Diagnosis Date Noted Endometrial cancer determined by uterine biopsy 08/11/2022 Type 2 diabetes mellitus without complication, without long-term current use of insulin 08/11/2022 High blood pressure 08/11/2022 Hyperthyroidism 08/11/2022 CPAP (continuous positive airway pressure) dependence 08/11/2022 Obstructive sleep apnea 08/11/2022 Peripheral polyneuropathy 08/11/2022 Elevated cholesterol with elevated triglycerides 08/11/2022 Past Medical History: Diagnosis Date Asthma Awareness under anesthesia CPAP (continuous positive airway pressure) dependence Diabetes Elevated cholesterol with elevated triglycerides 08/11/2022 High blood pressure Hyperthyroidism Not sure but take something thyroid Hypothyroid Not sure but take something for thyroid Obstructive sleep apnea Past Surgical History: Procedure Laterality Date JOINT REPLACEMENT Both knees at [facility] Social History Tobacco Use Smoking status: Never Smokeless tobacco: Never Substance Use Topics Alcohol use: Not Currently Social History Substance and Sexual Activity Drug Use Never No Known Allergies Medications: MAR and/or home medications have been reviewed. Physical Exam: Preprocedure Vitals Current as of 09/14/22 1427 No BP, pulse, respiration, SpO2, or temperature recorded. Height: Weight: BMI: IBW: Airway Assessment: Mallampati: II TM distance: >3 FB Neck ROM: full Cardiovascular Assessment: Rhythm: regular Rate: normal Pulmonary Assessment: unlabored breathing Dental Assessment: - normal exam Misc Assessment: Patient is wearing No contact(s). None Anesthesia Plan: ASA 3 general, with a(n) intravenous induction Yolis Romero is a 62 y.o. female (BMI 40) presenting for total laparoscopic hysterectomy for endometrial cancer with Dr. Aravind Jackson. PMHx significant for T2DM (not on insulin), HTN/HLD, GRAHAM on CPAP, hypothyroidism, morbid obesity, and asthma (uses albuterol inhaler once per month. . No prior anesthetic records. Meds & allergies reviewed. METS: > 4 NPO status appropriate Lab Results Component Value Date HGB 14.2 08/11/2022 PLATELET 237 08/11/2022 NA 137 08/11/2022 K 4.0 08/11/2022 CREATININE 0.86 08/11/2022 No results for input(s): ABORH in the last 7068 hours. Plan is for GA with ETT, 2nd IV, recheck blood glucose Region - Other Informed Consent: Anesthetic plan and risks discussed with patient. Anesthesia Screening documented in this encounter Plan of Treatment Not on file documented as of this encounter Visit Diagnoses Not on filedocumented in this encounter Administered Medications Inactive Administered Medications - up to 3 most recent administrations Medication Order MAR Action Action Date Dose Rate Site ceFAZolin (Ancef) 2 g vial attach to sodium chloride 0.9% 100 mL Mini-Bag Plus 2 g, Intravenous, ONCE, 1 dose, On Christal 09/15/22 at 0645, Administer over 30 Minutes, Machine Welder to OR Infuse over 30 minutes., Day of Surgery (Day of Procedure), Indication for (Active or Suspected): Prophylaxis New Bag 09/15/2022 7:52 AM EDT 2 g dexAMETHasone (Decadron) injection Intravenous, PRN, Starting on Christal 09/15/22 at 0802, Until Christal 09/15/22 at 1029, Anesthesia Intra-op, Routine Given 09/15/2022 8:02 AM EDT 8 mg fentaNYL (pf) (50 mcg/mL) multi-dose injection Intravenous, PRN, Starting on Christal 09/15/22 at 0737, Until Christal 09/15/22 at 1029, Anesthesia Intra-op, Routine Given 09/15/2022 8:23 AM EDT 50 mcg Given 09/15/2022 7:37 AM EDT 50 mcg HYDROmorphone (Dilaudid) (2 mg/mL) multi-dose injection solution Intravenous, PRN, Starting on Christal 09/15/22 at 0932, Until Christal 09/15/22 at 1029, Anesthesia Intra-op, Routine Given 09/15/2022 9:32 AM EDT 0.6 mg ketorolac (Toradol) (30 mg/mL) injection Intravenous, PRN, Starting on Christal 09/15/22 at 1002, Until Christal 09/15/22 at 1029, Anesthesia Intra-op, Routine Given 09/15/2022 10:02 AM EDT 15 mg lactated ringers infusion 1,000 mL, at 100 mL/hr, Intravenous, CONTINUOUS, Starting on Christal 09/15/22 at 0645, Until Christal 09/15/22 at 1252, Day of Surgery (Day of Procedure) Restarted 09/15/2022 7:34 AM EDT New Bag 09/15/2022 7:26 AM EDT 1,000 mLs 100 mL/hr lactated ringers infusion Intravenous, CONTINUOUS PRN, Starting on Christal 09/15/22 at 0749, Until Christal 09/15/22 at 1029, Anesthesia Intra-op New Bag 09/15/2022 7:49 AM EDT lidocaine (pf) (Xylocaine) (20 mg/mL) 2% injection syringe Intravenous, PRN, Starting on Christal 09/15/22 at 0737, Until Christal 09/15/22 at 1029, Anesthesia Intra-op, Routine Given 09/15/2022 7:37 AM EDT 50 mg metroNIDAZOLE (Flagyl) 500 mg in sodium chloride 0.9% 100 mL infusion 500 mg, Intravenous, ONCE, 1 dose, On Christal 09/15/22 at 0645, Administer over 30 Minutes, Machine Welder to OR Infuse over 30 minutes., Day of Surgery (Day of Procedure), Indication for (Active or Suspected): Prophylaxis Given 09/15/2022 7:54 AM EDT 500 mg midazolam (pf) (Versed) (1 mg/mL) multi-dose injection Intravenous, PRN, Starting on Christal 09/15/22 at 0734, Until Christal 09/15/22 at 1029, Anesthesia Intra-op, Routine Given 09/15/2022 7:34 AM EDT 2 mg ondansetron (pf) (Zofran) (2 mg/mL) injection Intravenous, PRN, Starting on Christal 09/15/22 at 0954, Until Christal 09/15/22 at 1029, Anesthesia Intra-op, Routine Given 09/15/2022 9:54 AM EDT 8 mg propofoL (Diprivan) (10 mg/mL) infusion Intravenous, CONTINUOUS PRN, Starting on Christal 09/15/22 at 0740, Until Christal 09/15/22 at 1029, Anesthesia Intra-op, Routine Rate/Dose Change 09/15/2022 8:31 AM EDT 50 mcg/kg/min 32.1 mL/hr New Bag 09/15/2022 7:40 AM EDT 30 mcg/kg/min 19.26 mL/h r propofoL (Diprivan) 10 mg/mL bolus injection (Anesthesia) Intravenous, PRN, Starting on Christal 09/15/22 at 0737, Until Christal 09/15/22 at 1029, Anesthesia Intra-op Given 09/15/2022 9:28 AM EDT 50 mg Given 09/15/2022 9:23 AM EDT 50 mg Given 09/15/2022 9:03 AM EDT 40 mg rocuronium (Zemuron) (10 mg/mL) multi-dose injection Intravenous, PRN, Starting on Christal 09/15/22 at 0741, Until Christal 09/15/22 at 1029, Anesthesia Intra-op, Routine Given 09/15/2022 9:08 AM EDT 20 mg Given 09/15/2022 8:16 AM EDT 30 mg Given 09/15/2022 7:41 AM EDT 50 mg sugammadex (Bridion) 100 mg/mL injection Intravenous, PRN, Starting on Christal 09/15/22 at 0953, Until Christal 09/15/22 at 1029, Anesthesia Intra-op, Routine Given 09/15/2022 9:53 AM EDT 200 mg documented in this encounter Care Teams Creative Guru Relationship Specialty Start Date End Date Margaret Rondon MD [address] [place] [address] PCP - General Family Medicine 09/13/22 documented as of this encounter
--- OUTSIDE RECORDS SUMMARY | 2024-01-10 12:03 | XMS_ITS | Encounter Summary ---
Author Organization [facility] Address [facility] [place] [address] Care Team Providers Care Community Mental Health Worker Name Role Phone Margaret Rondon MD Primary Care Provider [phone] Encounter Details Date Type Department Care Team (Latest Contact Info) Description 09/25/2023 Travel Social History Tobacco Use Types Packs/Day [...] on filedocumented in this encounter Care Teams Community Mental Health Worker Relationship Specialty Start Date End Date Margaret Rondon MD [address] [place], [place] [id number] PCP - General Family Medicine 09/13/22 documented as of this encounter
--- OUTSIDE RECORDS SUMMARY | 2024-01-10 12:03 | XMS_ITS | Encounter Summary ---
Author Organization [facility] Address [facility] [place] [address] Care Team Providers Care Ranch Rider Name Role Phone Chelsy Aden APRN Primary Care Provider [phone] Encounter Details Date Type Department Care Team (Latest Contact Info) Description 08/11/2022 10:30 AM EDT Clinical Support Same Day at [facility] [place] [id number] Endometrial cancer determined by uterine biopsy; Type 2 diabetes mellitus without complication, without long-term current use of insulin Social History Tobacco Use Types Packs/Day Years [...] PM EDT documented as of this encounter Progress Notes * Meghna Presley RN - 08/11/2022 10:30 AM EDT Anesthesia questionnaire reviewed with patient and TORITO Jain while in [facility]. Pt has had anesthesia in the past. She reports awareness during knee surgery done at [facility] in September of 2020. Pre-operative instruction booklet reviewed. Patient verbalizes a good understanding of all in formation reviewed. PLAN: Testing: labs Special medication instructions: hold Metformin, Hydrochlorothiazide, Irbesartan, vitamins, supplements, and herbals on day of surgery. Hold fish oil and turmeric x 1 week Procedure date: 09-15-22 Dr Jackson Pre Surgery Covid screening: Were you diagnosed with COVID 19 or had symptoms consistent with COVID19 within the last month. No Pt will bring CPAP on day of surgery and keep in car Will have Ron Kemp request anesthesia records from [facility] for anesthesia to review. documented in this encounter Plan of Treatment Not on file documented as of this encounter Procedures Procedure Name Priority Date/Time Associated Diagnosis Comments HEMOGRAM Routine 08/11/2022 10:50 AM EDT Endometrial cancer determined by uterine biopsy Type 2 diabetes mellitus without complication, without long-term current use of insulin DIFFERENTIAL, AUTOMATED Routine 08/11/2022 10:50 AM EDT Endometrial cancer determined by uterine biopsy Type 2 diabetes mellitus without complication, without long-term current use of insulin CBC (WITH DIFF) Routine 08/11/2022 10:50 AM EDT Endometrial cancer determined by uterine biopsy Type 2 diabetes mellitus without complication, without long-term current use of insulin CANCER ANTIGEN 125 Routine 08/11/2022 10 :50 AM EDT Endometrial cancer determined by uterine biopsy Type 2 diabetes mellitus without complication, without long-term current use of insulin COMPREHENSIVE METABOLIC PANEL Routine 08/11/2022 10:50 AM EDT Endometrial cancer determined by uterine biopsy Type 2 diabetes mellitus without complication, without long-term current use of insulin documented in this encounter Results * Differential, Automated (08/11/2022 10:50 AM EDT) Neutrophil % 62.4 % [facility] Neutrophil Absolute 4.59 1.70 - 6.10 x10(3)/[facility] Lymph % 28.2 % [facility] Lymphocytes Abs 2.1 0.9 - 3.2 x10(3)/[facility] Monocyte % 6.0 % [facility] Monocyte Abs 0.4 0.3 - 0.9 x10(3)/[facility] Eos % 2.9 % [facility] Eosinophils Abs 0.2 0.0 - 0.4 x10(3)/[facility] Basophil % 0.4 % [facility] Baso Absolute 0.0 0.0 - 0.1 x10(3)/[facility] Immature Gran % 0.10 % [facility] Comment: Immature granulocytes(IG's)percentage and absolute count will include metamyelocytes, myelocytes, and promyelocytes. Blood smears from CBCs yielding IG's will be scanned manually for concordance. If this scan disagrees with the automated IG or if promyelocytes are noted, a manual differential will be performed. Immature Gran Absolute 0.01 0.00 - 0.04 x10(3)/[facility] Blood 08/11/2022 10:5 0 AM EDT 08/11/2022 11:12 AM EDT Narrative Resulting Agency Comment Spec In Lab Aravind Jackson MD HEMATOLOGY ORDERABLE S [facility] [place] [address] * (ABNORMAL) Hemogram (08/11/2022 10:50 AM EDT) White Blood Cell 7.4 4.0 - 9.5 x10(3)/mc L [facility] Red Blood Cell 4.05 4.00 - 5.21 x10(6)/mc L [facility] Hemoglobin 14.2 11.7 - 15.5 g/dL [facility] Hematocrit 39.5 35.7 - 45.8 % [facility] Mean Cell Volume 97.5(H) 82.6 - 94.4 fL [facility] Mean Cell Hemoglobin 35.1(H) 27.1 - 32.0 pg [facility] Mean Cell Hemoglobin Concentration 35.9(H) 31.7 - 35.0 g/dL [facility] Platelet 237 145 - 357 x10(3)/mc L [facility] RDW Standard Deviation 43.6 37.0 - 46.0 fL [facility] RDW coefficient of variation 12.1 11.5 - 14.1 % [facility] Mean Platelet Volume 10.2 7.6 - 12.9 fL [facility] NRBC% auto 0.0 % [facility] NRBC Absolute 0.000 0.000 - 0.000 x10(3)/mc L [facility] Blood 08/11/2022 10:5 0 AM EDT 08/11/2022 11:12 AM EDT Narrative Resulting Agency Comment Spec In Lab Aravind Jackson MD HEMATOLOGY ORDERABLE S Performing Organization Address [facility] de Phone Number [facility] [place] [address] * Cancer Antigen 125 (08/11/2022 10:50 AM EDT) CA 125 18.9 <=38.1 unit/mL [facility] Comment: CA 125 Reference Interval ??Postmenopausal: 6.2 to 31.5 U/mL. ??Premenopausal: 6.9 to 45.9 U/mL. ??Pre and Postmenopausal subjects combined: 6.4 to 38.1 U/mL. This result was generated using a Kumar Kleber immunoassay. ??Results obtained from other methods or manufacturers cannot be used interchangeably with this method. Blood 08/11/2022 10:5 0 AM EDT 08/11/2022 11:12 AM EDT Narrative Resulting Agency Comment Spec In Lab Aravind Jackson MD CHEMISTRY ORDERABLES Performing Organization Address [facility] [employer] de Phone Number [facility] [place] [address] * (ABNORMAL) Comprehensive metabolic panel (non-fasting) (08/11/2022 10:50 AM EDT) Glucose 130 65 - 199 mg/dL [facility] Comment:Diabetes: >=200 mg/d L plus symptoms Blood Urea Nitrogen 23(H) 8 - 18 mg/dL [facility] Creatinine 0.86 0.70 - 1.20 mg/dL [facility] Sodium 137 135 - 145 mmol/L [facility] Potassium 4.0 3.5 - 5.0 mmol/L [facility] Comment: Please note: ??Patients with WBC >100,000 may have falsely elevated Potassium levels. ??For accurate Potassium quantification in these patients send serum separator tube (gold top) for subsequent determinations. ??Contact the Clinical Chemistry Laboratory if there are any questions. Chloride 98 98 - 107 mmol/L [facility] Carbon Dioxide 29 22 - 31 mmol/L [facility] Anion Gap 10 5 - 15 mmol/L [facility] Calcium 9.8 8.5 - 10.5 mg/dL [facility] Protein, Total 7.8 6.1 - 8.0 g/dL [facility] Albumin 4.4 3.2 - 5.2 g/dL [facility] Aspartate Aminotransferase 25 0 - 30 unit/L [facility] Alanine Aminotransferase 27 0 - 30 unit/L [facility] Alkaline Phosphatase 97 35 - 105 unit/L [facility] Bilirubin, Total 0.7 0.2 - 1.3 mg/dL [facility] Est Glomerular Filtration Rate 76 >=60 mL/min/1. 73 m?? [facility] Comment: This patient's estimated GFR was [...] In Lab Aravind Jackson MD CHEMISTRY ORDERABLES [facility] [place] [address] documented in this encounter Visit Diagnoses Diagnosis Endometrial cancer determined by uterine biopsy Type 2 diabetes mellitus without complication, without long-term current use of insulin documented in this encounter Care Teams Ranch Rider Relationship Specialty Start Date End Date Chelsy Aden APRN [address] [place] [address] PCP - General Family Medicine 07/29/22 09/12/22 documented as of this encounter
--- OUTSIDE RECORDS SUMMARY | 2024-01-10 12:03 | XMS_ITS | Encounter Summary ---
Author Organization [facility] Address [facility] [place] [address] Care Team Providers Care Customer Accounts Advisor Name Role Phone Margaret Rondon MD Primary Care Provider [phone] Encounter Details Date Type Department Care Team (Latest Contact Info) Description 09/28/2022 Travel Social History Tobacco Use Types Packs/Day [...] on filedocumented in this encounter Care Teams Customer Accounts Advisor Relationship Specialty Start Date End Date Margaret Rondon MD [address] [place], [place] [id number] PCP - General Family Medicine 09/13/22 documented as of this encounter
--- OUTSIDE RECORDS SUMMARY | 2024-01-10 12:03 | XMS_ITS | Encounter Summary ---
Author Organization [facility] [place] [address] Care Team Providers Care Automotive Fleet Supervisor Name Role Phone Chelsy Aden APRN Primary Care Provider [phone] Encounter Details Date Type Department Care Team (Latest Contact Info) Description 08/11/2022 Travel Social History Tobacco Use Types Packs/Day [...] on filedocumented in this encounter Care Teams Automotive Fleet Supervisor Relationship Specialty Start Date End Date Chelsy Aden APRN [address] [facility] [place] [address] PCP - General Family Medicine 07/29/22 09/12/22 documented as of this encounter
--- OUTSIDE RECORDS SUMMARY | 2024-01-10 12:03 | XMS_ITS | Encounter Summary ---
Author Organization [facility] Address [facility] [place] [address] Care Team Providers Care Boat Outboard Engine Mechanic Name Role Phone Margaret Rondon MD Primary Care Provider [phone] Encounter Details Date Type Department Care Team (Latest Contact Info) Description 04/16/2023 Travel Social History Tobacco Use Types Packs/Day [...] on filedocumented in this encounter Care Teams Boat Outboard Engine Mechanic Relationship Specialty Start Date End Date Margaret Rondon MD [address] [place], [place] [id number] PCP - General Family Medicine 09/13/22 documented as of this encounter
[2024-01-10 16:20] LABS: COMMENT (LAB VIEW ONLY) 46.15 mg/dL; Microalb ug/mg Crea 9.5 ug/mg Cr
== END 2024-01-10 12:01 | disposition home or self-care (01) ==
LOC: NCHCN 12:00
PROVIDERS: PCP Family Medicine; Visit Provider Family Medicine
DX: E11.9 Type 2 diabetes mellitus without complications (principal)
CPT/HCPCS: 82043; 82570

== ENCOUNTER 2024-04-01 17:26 | Outpatient (REF) | payer OTHER, SELFPAY ==
--- OUTSIDE RECORDS SUMMARY | 2024-04-01 17:31 | XMS_ITS | Encounter Summary ---
Author Organization [facility]ly [facility] Address [facility] [place] [address] Care Team Providers Care Center Mgr Name Role Phone Margaret Rondon MD Primary Care Provider [phone] Encounter Details Date Type Department Care Team (Late st Contact Info) Description 10/06/2022 Telephone Gynecology Oncology at [facility] [place] [id number] Aravind Jackson MD Social History Tobacco Use Types Packs/Day Years Used Date Smoking Tobacco: Never Smokeless Tobacco: Never Alcohol Use Standard Drinks/Week Comments Not Currently 0 (1 standard drink = 0.6 oz pur e alcohol) [facility] Inpatient Questions Answer Date Recorded Does [...] on filedocumented in this encounter Care Teams Center Mgr Relationship Specialty Start Date End Date Margaret Rondon MD [address] [place] [address] PCP - General Family Medicine 09/13/22 documented as of this encounter
--- OUTSIDE RECORDS SUMMARY | 2024-04-01 17:31 | XMS_ITS | Encounter Summary ---
[facility] [place] [address] Care Team Providers Care Director Of Occupational Therapy Name Role Phone Chelsy Aden APRN Primary Care Provider [phone] Encounter Details Date Type Department Care Team (Late st Contact Info) Description 08/03/2022 External Results [place] [address] Provider, Scanning Social History Tobacco Use Types [...] on filedocumented in this encounter Care Teams Director Of Occupational Therapy Relationship Specialty Start Date End Date Chelsy Aden APRN [address] [place] [address] PCP - General Family Medicine 07/29/22 09/12/22 documented as of this encounter
--- OUTSIDE RECORDS SUMMARY | 2024-04-01 17:31 | XMS_ITS | Referral Summary ---
Author Organization [facility] Address [address] [place] [address] Care Team Providers Care Channel Opener Outsoles Name Role Phone Chelsy Aden Primary Care Provider [phone] Social History Tobacco Use Types Packs/Day Years [...] C Antibody Negative Negative 04/27/2023 10:11 EST [facility] Blood VENOUS BLOOD / Unknown 04/26/2023 9:30 EST 04/26/2023 21:20 EST us Provider Outr Resulting Lab CHEMISTRY & BLOOD GA S ORDERABLES Final Result [facility] [address] [place], [place] [id number] from Last 3 Months or Most Recently Relevant to Health Maintenance Care Teams Channel Opener Outsoles Relationship Specialty Start Date End Date Chelsy Aden FNP [address] [facility] [place] [address] PCP - General 05/21/21
--- OUTSIDE RECORDS SUMMARY | 2024-04-01 17:31 | XMS_ITS | Clinical Summary ---
Author Organization [facility] Address [facility] [place] [address] Care Team Providers Care Ibm Websphere Commerce Developer Name Role Phone Margaret Rondon MD Primary Care Provider [phone] Allergies Active Allergy Reactions Criticality Noted Date [...] 07/12/2022 Active fluticasone propionate (Flonase) 50 mcg/actuation [place], Suspension 1 spray daily. Act bea loratadine [...] year) with FIT yearly 1960 Sigmoidoscopy 1960 DM Hemoglobin A1c 1970 DM Opthalmology Exam 1970 DM Urine Microalbumin yearly 1970 HIV screen 1978 Hepatitis C Screening 1978 Pneumoccocal Vaccine: 50+ (1 of 2 - PCV) 1979 Tetanus/Diphtheria/Pertussis Vaccines (1 - Tdap) 03/07 HPV test 1990 PAP Smear 1990 Breast Cancer Share Decision Needed 2000 Breast Cancer screening 2000 Zoster vaccine (1 of 2) 2010 DM Creatinine yearly 08/12/2023 08/11/2022 Covid-19 Vaccine (1 - season) 2023 Influenza (Flu) vaccine (1 [...] EDT) Glucose 130 65 - 199 mg/dL [facility] Comment:Diabetes: >=200 mg/d L plus symptoms Blood Urea Nitrogen 23(H) 8 - 18 mg/dL [facility] Creatinine 0.86 0.70 - 1.20 mg/dL [facility] Sodium 137 135 - 145 mmol/L [facility] Potassium 4.0 3.5 - 5.0 mmol/L [facility] Comment: Please note: ??Patients with WBC >100,000 may have falsely elevated Potassium levels. ??For accurate Potassium quantification in these patients send serum separator tube (gold top) for subsequent determinations. ??Contact the Clinical Chemistry Laboratory if there are any questions. Chloride 98 98 - 107 mmol/L [facility] Carbon Dioxide 29 22 - 31 mmol/L [facility] Anion Gap 10 5 - 15 mmol/L [facility] Calcium 9.8 8.5 - 10.5 mg/dL [facility] Protein, Total 7.8 6.1 - 8.0 g/dL [facility] Albumin 4.4 3.2 - 5.2 g/dL [facility] Aspartate Aminotransferase 25 0 - 30 unit/L [facility] Alanine Aminotransferase 27 0 - 30 unit/L [facility] Alkaline Phosphatase 97 35 - 105 unit/L [facility] Bilirubin, Total 0.7 0.2 - 1.3 mg/dL [facility] Est Glomerular Filtration Rate 76 >=60 mL/min/1. 73 m?? 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
--- OUTSIDE RECORDS SUMMARY | 2024-04-01 17:31 | XMS_ITS | Encounter Summary ---
Author [place] [address] Care Team Providers Care Employment Consultant Name Role Phone Chelsy Aden APRN Primary Care Provider [phone] Encounter Details Date Type Department Care Team [...] on filedocumented in this encounter Care Teams Employment Consultant Relationship Specialty Start Date End Date Chelsy Aden APR[place] [address] PCP - General Family Medicine 07/29/22 09/12/22 documented as of this encounter
--- OUTSIDE RECORDS SUMMARY | 2024-04-01 17:31 | XMS_ITS | Encounter Summary ---
Author Organization [facility] Address [address] [place] [address] Care Team Providers Care Retail Warehouse Supervisor Name Role Phone Chelsy Aden TORI Primary Care Provider [phone] Encounter Details Date Type Department Care Team (Late st Contact Info) Description 07/26/2022 Lab Requisition [facility] Pathology & Laboratory Medicine - [facility] [address] [place] [address] Halima Jim MD [address] [place] [phone] Encounter for other general examination Social [...] Formalin fixed paraffin embedded tissue block labelled ([id number]), block (A1) TUMOR TYPE: Endometrial adenocarcinoma, endometrioid-type, [...] notice. ANTIBODY (CLONE) (BLOCK): RESULT MLH1 (M1, [place]) (block A1): Retained expression in tumor PMS2 (A16-4, [place]) (block A1): Retained expression in tumor MSH2 ([id number], [place]) (block A1): Retained expression in tumor MSH6 (SP93, [place]) (block A1A1v): Retained expression in tumor Internal [...] performance characteristics have been determined by [facility] and/or by the referring laboratory. The positive and negative controls worked appropriately. This laboratory is certified under the Clinical Laboratory Improvement Amendments of 1988 (CLIA-88) as qualified to perform high complexity clinical laboratory testing. 07/28/2022 10:15 [facility] Addendum electronically signed by Sahara Colon MD on 07/28/2022 at 1015 Note to Patient The following pathology results have been interpreted by your pathologist and may be available to you before your health provider has had the opportunity to review them. Please allow time for your provider to receive these results and explore management options, if applicable. 07/28/2022 10:15 [facility] Final Diagnosis A. ENDOMETRIUM, BIOPSY: -Endometrial adenocarcinoma, endometrioid type, FIGO grade 1. See comment. 07/28/2022 10:15 [facility] Diagnosis Comment Photo Lab Manager slides of this case were reviewed at the intradepartmental consultation conference. Immunohistochemical staining for mismatch repair (MMR) proteins for [place] Screening has been ordered on block A1. The results of this test will be issued as an addendum to this report. 07/28/2022 10:15 [facility] Attestation By the signature below, the attending physician certifies that they have 1) personally conducted a gross and/or microscopic examination of the described specimen(s), and/or personally interpreted the results of laboratory testing of the described specimen(s), and 2) personally rendered or confirmed the above diagnosis. 07/28/2022 10:15 [facility] at 1446 Clinical History PMB 07/28/2022 10:15 [facility] Gross Description A. Received in formalin labelled with proper patient identification (initials R, V) and endometrium is an aggregate of a moderate amount of wright-brown soft tissues, a minimal amount of admixed blood clot, and a scant amount of admixed translucent mucus (2.5 x 2.7 x 0.2 cm). Entirely submitted in A1-A2. Brittany Lakhani 07/26/2022 14:54 07/28/2022 10:15 [facility] Performing Lab [facility] 07/28/2022 10:15 [facility] Scanned Images 07/28/2022 10:15 [facility] Tissue ENTIRE ENDOMETRIUM / Unknown 07/25/2022 13:30 EDT 07/26/2022 8:52 EDT us Halima Jim MD PATHOLOGY ORDERABLES Edited Result - Final [facility] [address] [place] [address] documented in this encounter Visit Diagnoses Diagnosis Encounter for other general examination documented in this encounter Care Teams Retail Warehouse Supervisor Relationship Specialty Start Date End Date Chelsy Aden F[place] [address] PCP - General 05/21/21 documented as of this encounter
--- OUTSIDE RECORDS SUMMARY | 2024-04-01 17:31 | XMS_ITS | Encounter Summary ---
Author Organization [facility] Address [facility] [place] [address] Care Team Providers Care Client Services Representative Name Role Phone Chelsy Aden YIFAN Primary Care Provider [phone] Encounter Details Date Type Department Care Team (Latest Contact Info) Description 08/03/2022 3:45 PM EDT - 08/03/2022 11:59 PM EDT Hospital [place] [phone] Discharge Disposition: Home Social History Tobacco Use [...] Report (08/03/2022 3:46 PM EDT) Final Diagnosis [id number] ? Location: OPW The signing pathologist has (i) examined the relevant preparation(s) for the specimen(s) and (ii) rendered or confirmed the diagnosis(es). . ?Surgical Pathology DIAGNOSIS A - 2 slide(s) labeled [id number], collection date 07/25/2022: Endometrium, biopsy: - Endometrioid carcinoma, preliminary FIGO grade 1 Electronically signed by: ?Marie Linda DO Verified: ??08/04/2022 14:47 ??Pathologist Performed at: ??-[facility] Dept. of Pathology, [place] [address] Clinical Research Scientist: David Horne MD, FCAP, ??CLIA Certificate: [id number] DISCUSSION Per report, ??outside immunostains for MLH1, MSH2, MSH6, and PMS2 reveal intact nuclear staining in tumor cells (not provided for reviewed). SPECIMEN(S) SUBMITTED CONSULTATION CASE A - 2 slide(s) labeled [id number], collection date 07/25/2022. [id number] [place]ON COPY: Surgical Pathology Department [facility], [facility], [address]nd Floor [address] [place] [address] ??[id number] CLINICAL INFORMATION Not provided SPECIMEN PROCESSING ([facility]) pathology slide(s) are reviewed. Refer to Diagnosis and Specimen Submitted for specific case information. For the full text of the [facility] report(s) please refer to the Chart Review Media tab in the electronic health record (eDH). 08/04/2022 2:47 PM EDT [facility] Consult Case 08/03/2022 3:46 PM EDT 08/03/2022 3:46 PM EDT Aravind Jackson MD PATHOLOGY/CYTOLOGY O RDERABLES [facility] [place] [address] [place] [address] documented in this encounter Visit Diagnoses Not on filedocumented in this encounter Care Teams Client Services Representative Relationship Specialty Start Date End Date Chelsy [place] [address] PCP - General Family Medicine 07/29/22 09/12/22 documented as of this encounter
--- OUTSIDE RECORDS SUMMARY | 2024-04-01 17:31 | XMS_ITS | Encounter Summary ---
Author Organization [facility] Address [address] [place] [address] Care Team Providers Care Technical Writing Lead/Mgr Name Role Phone Chelsy Aden TORI Primary Care Provider [phone] Encounter Details Date Type Department Care Team (Late st Contact Info) Description 04/26/2023 Lab Requisition [facility] Pathology & Laboratory Medicine - [facility] [address] [place], [place] [id number] Outr Resulting Lab, Provider Social History Tobacco [...] C Antibody Negative Negative 04/27/2023 10:11 EST [facility] Blood VENOUS BLOOD / Unknown 04/26/2023 9:30 EST 04/26/2023 21:20 EST us Provider Outr Resulting Lab CHEMISTRY & BLOOD GA S ORDERABLES Final Result [facility] [address] [place] [address] documented in this encounter Visit Diagnoses Not on filedocumented in this encounter Care Teams Technical Writing Lead/Mgr Relationship Specialty Start Date End Date Chelsy [place] [address] PCP - General 05/21/21 documented as of this encounter
--- OUTSIDE RECORDS SUMMARY | 2024-04-01 17:31 | XMS_ITS | Encounter Summary ---
Author Organization [facility] Address [address] [place] [address] Care Team Providers Care Vibration Technician Name Role Phone Chelsy Aden TORI Primary Care Provider Encounter Details Date Type Department Care Team (Late st Contact Info) Description 06/14/2021 Lab Requisition [facility] Pathology & Laboratory Medicine - [facility] [address] [place] [address] Christian Jones MD [address] [place] [phone] Encounter for screening for malignant neoplasm of [...] explore management options, if applicable. 06/15/2021 13:54 [facility] Final Diagnosis A. COLON, DESCENDING, POLYP, BIOPSY: - Tubular adenoma. 06/15/2021 13:54 [facility] Attestation By the signature below, the attending physician certifies that they have 1) personally conducted a gross and/or microscopic examination of the described specimen(s), and/or personally interpreted the results of laboratory testing of the described specimen(s), and 2) personally rendered or confirmed the above diagnosis. 06/15/2021 13:54 [facility] at 1354 Clinical History Color cancer screening; clinical diagnosis code: Z12.11 06/15/2021 13:54 [facility] Gross Description A. Received in formalin labelled with proper patient identification (initials R, V) and descending colon polyp is a wright tissue, 0.3 x 0.2 x 0.2 cm. Entirely submitted in A1. JACLYN EDWARDS(ASCP) 06/15/2021 7:34 06/15/2021 13:54 [facility] Performing Lab [facility] 06/15/2021 13:54 [facility] Scanned Images 06/15/2021 13:54 [facility] Tissue DESCENDING COLON STRUCTURE / Unknown 06/14/2021 9:18 EDT 06/14/2021 16:48 EDT us Christian Jones MD PATHOLOGY ORDERABLES Fin al Result [facility] [address] [place] [address] documented in this encounter Visit Diagnoses Diagnosis Encounter for screening for malignant neoplasm of colon Special screening for malignant neoplasms, colon documented in this encounter Care Teams Vibration Technician Relationship Specialty Start Date End Date Chelsy Aden [place] [address] PCP - General 05/21/21 documented as of this encounter
--- OUTSIDE RECORDS SUMMARY | 2024-04-01 17:31 | XMS_ITS | Encounter Summary ---
Author Organization [facility] Address [facility] [place] [address] Care Team Providers Care Photo Editor Name Role Phone Margaret Rondon MD Primary Care Provider [phone] Encounter Details Date Type Department Care Team [...] on filedocumented in this encounter Care Teams Photo Editor Relationship Specialty Start Date End Date Margaret Rondon MD [address] [place], [place] [id number] PCP - General Family Medicine 09/13/22 documented as of this encounter
--- OUTSIDE RECORDS SUMMARY | 2024-04-01 17:31 | XMS_ITS | Encounter Summary ---
Author Organization [facility] Address [facility] [place] [address] Care Team Providers Care Air Operations Manager Name Role Phone Margaret Rondon MD Primary Care Provider [phone] Reason for Visit * Reason Comments Follow-up Encounter Details Date Type Department Care Team (Late st Contact Info) Description 04/17/2023 12:00 PM EST Office Visit [place] [phone] Gunjan Joiner MD [facility] [place] [address] Endometrial cancer determined by uterine biopsy Social [...] 12:00 PM EST Division [place] [address] Gynecologic Oncology-Clinic Note Reason for visit: Surveillance. [...] Curtis MD fluticasone propionate (Flonase) 50 mcg/actuation [place], Suspension 1 spray daily. PROVIDER, HISTORICAL cyanocobalamin, [...] biopsy documented in this encounter Care Teams Air Operations Manager Relationship Specialty Start Date End Date Margaret Rondon MD [address] [place] [address] PCP - General Family Medicine 09/13/22 documented as of this encounter
--- OUTSIDE RECORDS SUMMARY | 2024-04-01 17:31 | XMS_ITS | Encounter Summary ---
Author Organization [facility] Address [facility] [place] [address] Care Team Providers Care Metal Rivet Machine Operator Name Role Phone Margaret Rondon MD Primary Care Provider [phone] Reason for Visit * Reason Comments Post Op Encounter Details Date Type Department Care Team (Late st Contact Info) Description 10/05/2022 1:20 PM EDT Office Visit [place] [phone] Aravind Jackson MD Endometrial cancer determined by uterine biopsy Social History Tobacco Use Types Packs/Day Years Used Date Smoking Tobacco: Never Smokeless Tobacco: Never Alcohol Use Standard Drinks/Week Comments Not Currently 0 (1 standard drink = 0.6 oz pur e alcohol) [facility] Inpatient Questions Answer Date Recorded Does Anyone [...] 1:20 PM EDT Division [place] [address] Gynecologic Oncology-Clinic Note Reason for visit: Postop [...] Curtis MD fluticasone propionate (Flonase) 50 mcg/actuation [place], Suspension 1 spray daily. PROVIDER, HISTORICAL cyanocobalamin, [...] cavity including the lower uterine segment. 3. [place]ock lymph node mapping: A left and right [...] biopsy documented in this encounter Care Teams Metal Rivet Machine Operator Relationship Specialty Start Date End Date Margaret Rondon MD [address] [place] [address] PCP - General Family Medicine 09/13/22 documented as of this encounter
--- OUTSIDE RECORDS SUMMARY | 2024-04-01 17:31 | XMS_ITS | Clinical Summary ---
Author Organization [facility] Address [address] [place] [address] Care Team Providers Care Band Nailer Name Role Phone Chelsy Aden TORI Primary Care Provider [phone] Social History Tobacco Use Types Packs/Day Years [...] C Antibody Negative Negative 04/27/2023 10:11 EST [facility] Blood VENOUS BLOOD / Unknown 04/26/2023 9:30 EST 04/26/2023 21:20 EST us Provider Outr Resulting Lab CHEMISTRY & BLOOD GA S ORDERABLES Final Result [facility] [address] [place] [phone] from Last 3 Months or Most Recently Relevant to Health Maintenance Care Teams Band Nailer Relationship Specialty Start Date End Date Chelsy Aden FNP [address] [place] [address] PCP - General 05/21/21
--- OUTSIDE RECORDS SUMMARY | 2024-04-01 17:31 | XMS_ITS | Encounter Summary ---
Author Organization [facility] [address] Care Team Providers Care Process Eng Name Role Phone Chelsy Aden APRN Primary Care Provider [phone] Encounter Details Date Type Department Care Team [...] on filedocumented in this encounter Care Teams Process Eng Relationship Specialty Start Date End Date Chelsy [place]en [place] [place] [address] PCP - General Family Medicine 07/29/22 09/12/22 documented as of this encounter
--- OUTSIDE RECORDS SUMMARY | 2024-04-01 17:31 | XMS_ITS | Encounter Summary ---
Author Organization [facility] Address [facility] [place] [address] Care Team Providers Care Electronics Manufacturer Name Role Phone Chelsy Aden APRN Primary Care Provider [phone] Encounter Details Date Type Department Care Team (Latest Contact Info) Description 08/11/2022 10:30 AM EDT Clinical Support Same Day at [facility] [place] [phone] Endometrial cancer determined by uterine biopsy; Type [...] reports awareness during knee surgery done at [facility] in September of 2020. Pre-operative instruction booklet [...] have Ron Kemp request anesthesia records from [facility] for anesthesia to review. documented in this [...] 10:50 AM EDT) Neutrophil % 62.4 % [facility] Neutrophil Absolute 4.59 1.70 - 6.10 x10(3)/[facility] Lymph % 28.2 % [facility] Lymphocytes Abs 2.1 0.9 - 3.2 x10(3)/[facility] Monocyte % 6.0 % [facility] Monocyte Abs 0.4 0.3 - 0.9 x10(3)/[facility] Eos % 2.9 % [facility] Eosinophils Abs 0.2 0.0 - 0.4 x10(3)/[facility] Basophil % 0.4 % [facility] Baso Absolute 0.0 0.0 - 0.1 x10(3)/[facility] Immature Gran % 0.10 % [facility] Comment: Immature granulocytes(IG's)percentage and absolute count will include metamyelocytes, myelocytes, and promyelocytes. Blood smears from CBCs yielding IG's will be scanned manually for concordance. If this scan disagrees with the automated IG or if promyelocytes are noted, a manual differential will be performed. Immature Gran Absolute 0.01 0.00 - 0.04 x10(3)/[facility] Blood 08/11/2022 10:5 0 AM EDT 08/11/2022 11:12 AM EDT Narrative Resulting Agency Comment Spec In Lab Aravind Jackson MD HEMATOLOGY ORDERABLE S [facility] [address] * (ABNORMAL) Hemogram (08/11/2022 10:50 AM EDT) White Blood Cell 7.4 4.0 - 9.5 x10(3)/mc L [facility] Red Blood Cell 4.05 4.00 - 5.21 x10(6)/mc L [facility] Hemoglobin 14.2 11.7 - 15.5 g/dL [facility] Hematocrit 39.5 35.7 - 45.8 % [facility] Mean Cell Volume 97.5(H) 82.6 - 94.4 fL [facility] Mean Cell Hemoglobin 35.1(H) 27.1 - 32.0 pg [facility] Mean Cell Hemoglobin Concentration 35.9(H) 31.7 - 35.0 g/dL [facility] Platelet 237 145 - 357 x10(3)/mc L [facility] RDW Standard Deviation 43.6 37.0 - 46.0 fL [facility] RDW coefficient of variation 12.1 11.5 - 14.1 % [facility] Mean Platelet Volume 10.2 7.6 - 12.9 fL [facility] NRBC% auto 0.0 % [facility] NRBC Absolute 0.000 0.000 - 0.000 x10(3)/mc L [facility] Blood 08/11/2022 10:5 0 AM EDT 08/11/2022 11:12 AM EDT Narrative Resulting Agency Comment Spec In Lab Aravind Jackson MD HEMATOLOGY ORDERABLE S Performing Organization Address [facility] de Phone Number [facility] [address] * Cancer Antigen 125 (08/11/2022 10:50 AM EDT) CA 125 18.9 <=38.1 unit/mL [facility] Comment: CA 125 Reference Interval ??Postmenopausal: [...] Jackson MD CHEMISTRY ORDERABLES Performing Organization Address [facility] Co de Phone Number [facility] [address] * (ABNORMAL) Comprehensive metabolic panel (non-fasting) (08/11/2022 10:50 AM EDT) Glucose 130 65 - 199 mg/dL [facility] Comment:Diabetes: >=200 mg/d L plus symptoms Blood Urea Nitrogen 23(H) 8 - 18 mg/dL [facility] Creatinine 0.86 0.70 - 1.20 mg/dL [facility] Sodium 137 135 - 145 mmol/L [facility] Potassium 4.0 3.5 - 5.0 mmol/L [facility] Comment: Please note: ??Patients with WBC >100,000 may have falsely elevated Potassium levels. ??For accurate Potassium quantification in these patients send serum separator tube (gold top) for subsequent determinations. ??Contact the Clinical Chemistry Laboratory if there are any questions. Chloride 98 98 - 107 mmol/L [facility] Carbon Dioxide 29 22 - 31 mmol/L [facility] Anion Gap 10 5 - 15 mmol/L [facility] Calcium 9.8 8.5 - 10.5 mg/dL [facility] Protein, Total 7.8 6.1 - 8.0 g/dL [facility] Albumin 4.4 3.2 - 5.2 g/dL [facility] Aspartate Aminotransferase 25 0 - 30 unit/L [facility] Alanine Aminotransferase 27 0 - 30 unit/L [facility] Alkaline Phosphatase 97 35 - 105 unit/L [facility] Bilirubin, Total 0.7 0.2 - 1.3 mg/dL [facility] Est Glomerular Filtration Rate 76 >=60 mL/min/1. 73 m?? [facility] Comment: This patient's estimated GFR was [...] In Lab Aravind Jackson MD CHEMISTRY ORDERABLES [facility] [place] [address] documented in this encounter Visit Diagnoses Diagnosis Endometrial cancer determined by uterine biopsy Type 2 diabetes mellitus without complication, without long-term current use of insulin documented in this encounter Care Teams Electronics Manufacturer Relationship Specialty Start Date End Date Chel[place] [address] PCP - General Family Medicine 07/29/22 09/12/22 documented as of this encounter
--- OUTSIDE RECORDS SUMMARY | 2024-04-01 17:31 | XMS_ITS | Encounter Summary ---
[place] [address] Care Team Providers Care Torch Straightener And Heater Name Role Phone ArturoChelsy menon YIFAN Primary Care Provider [phone] Reason for Referral * Consultation (Urgent) - Closed Specialty Diagnoses / Procedures Referred By Manda t Referred To Contact Gynecology Oncology Diagnoses Malignant neoplasm of endometrium Macie Guido DO [address] [place] [address] [place] [address] [facility] [address] [place] [id number] Referral ID Status Reason Start Date Expiration Date V isits Requested Visits Authorized [id number] Closed Consult, Test & Treat PCP Updated and/or Approved 07/29/2022 07/29/2023 6 6 Encounter Details Date Type Department Care Team (Late st Contact Info) Description 07/29/2022 Transcribe Orders eDH Incoming Referrals [phone] Macie Guido DO [address] [place] [address] [place] [address] Malignant neoplasm of endometrium Social History Tobacco [...] isthmus documented in this encounter Care Teams Torch Straightener And Heater Relationship Specialty Start Date End Date ArturoChelsy menonYIF[place] [address] PCP - General Family Medicine 07/29/22 09/12/22 documented as of this encounter
--- OUTSIDE RECORDS SUMMARY | 2024-04-01 17:31 | XMS_ITS | Encounter Summary ---
[place] [address] Care Team Providers Care Service Supervisor Name Role Phone Margaret Rondon MD Primary Care Provider [phone] Reason for Visit * Auth/Cert (Routine) Specialty [...] INJECTION (WRVU 2.5) MODIFIER MARLEY,Aravind Guthrie MD [facility] Referral ID Status Reason Start Date Expiration Date Visits Re quested Visits Authorized [id number] 1 1 Encounter Details Date Type Department Care Team (Latest Contact Info) Description 09/15/2022 5:49 AM EDT - 09/15/2022 2:01 PM EDT Hospital Encounter [place] [phone] Aravind Velazco MD Endometrial cancer determined by uterine biopsy Discharge Disposition: Home Social History Tobacco Use Types Packs/Day Years Used Date Smoking Tobacco: Never Smokeless Tobacco: Never Alcohol Use Standard Drinks/Week Comments Not Currently 0 (1 standard drink = 0.6 oz pur e alcohol) [facility] Inpatient Questions Answer Date Recorded Does [...] PATIENT DISCHARGE INSTRUCTIONS Gynecologic Oncology phone number: [phone] (Nurse ext 4 then 4; appointment ext 1 then 4). After hours and on weekends please call hospital mobile health vehicle operator at [phone] and ask for Gynecologic Oncologist foundation engineer. Call your doctor if you develop: --A [...] nightly. 07/12/2022 fluticasone propionate (Flonase) 50 mcg/actuation [place], Suspension 1 spray daily. loratadine (Claritin) 10 [...] discharge summary. Summary reviewed with pt and [id number], all questions answered. Patient encouraged to call with any further questions or concerns. Patient discharged to home with [id number]. Pt demonstrated ability to ambulate to bathroom [...] 2019, 2020. Social history: Accompanied by her [id number] Rizwana She completed an associates degree in [...] mg, Oral fluticasone propionate (Flonase) 50 mcg/actuation [place], Suspension 1 spray, DAILY gabapentin (NEURONTIN) 300 [...] for planned procedure. -- Pharmacy: [facility] in [place], [place] Opioid risk counseling and consent I [...] Opioid Risk Category: low risk 0-3 Earline Curtsi MD, PGY4 09/15/2022 I saw and evaluated the patient with Dr. Curtis, and I confirmed the history and physical findings as outlined, participated in the critical aspects of the patient's care, formulated the treatment plan, and I agree with the note as written. documented in this encounter Miscellaneous Notes * Op Note - Araivnd Velazco MD - 09/15/2022 8:[address] [facility] Operative Note Patient Name: Yolis Romero : [id number] MR#: [id number] Case Date: 09/15/2022 Surgeon: Surgeon(s) and Role: * Aravind Velazco MD - Primary * Earline Curtis MD Registered Nurse Ruby On Rails Developer: Kaity Pierce RN Anesthesia: General endotracheal/local infiltration [...] cavity including the lower uterine segment. 3. [place] lymph node mapping: A left and right [...] uterus and dilation of the cervix, a Hydroelectric Plant Maintainer device was inserted into the uterus for manipulation. An 8-mm transverse incision was made 5 cm above the umbilicus, through which a 8-mm da Michael trocarwas then inserted under direct visualization, verifying atraumatic entry. Additional 8-mm robotic trocars and a 12-mm right upper quadrant educational/development assistant port were placed in the usual [...] 09/15/2022 7:32 AM EDT ENDOMETRIAL CANCER Intraop [place] Lymph Id W/Dye Injection (17067) 09/15/2022 7:32 AM EDT ENDOMETRIAL CANCER Lap, Pelvic Lymphadenectomy/Bx (01052) 09/15/2022 7:32 AM EDT ENDOMETRIAL CANCER Laparoscopy W Tot Hysterectuterus <=250 Gram W Tube/Ovary (11276) 09/15/2022 7:32 AM EDT ENDOMETRIAL CANCER POCT GLUCOSE Routine 09/15/2022 6:22 AM EDT documented in this encounter Results * (ABNORMAL) POCT Glucose (09/15/2022 10:29 AM EDT) Glucose, POC 221(H) 65 - 199 mg/dL [facility] Comment: Supplemental ranges: <140 mg/dL before meals <180 mg/dL all other times of the day Blood 09/15/2022 10:2 9 AM EDT 09/15/2022 10:29 AM EDT Aravind Velazco MD POINT OF CARE TEST O RDERABLES [facility] [place] [address] * Specimen to Pathology (09/15/2022 9:38 AM EDT) AP Specimen 09/15/2022 9:38 AM EDT 09/15/2022 9:38 AM EDT Narrative [facility] - 09/15/2022 9:38 AM EDT Specimen requisition ordered. ??Separate Pathology report to follow Aravind Velazco MD PATHOLOGY/CYTOLOGY O RDERABLES Performing Organization Address City/[facility]/ZIP Co de Phone Number [facility] [place] [address] * Specimen to Pathology (09/15/2022 9:05 AM EDT) AP Specimen 09/15/2022 9:05 AM EDT 09/15/2022 9:05 AM EDT Narrative [facility] - 09/15/2022 9:05 AM EDT Specimen requisition ordered. ??Separate Pathology report to follow Aravind Velazco MD PATHOLOGY/CYTOLOGY O RDERABLES Performing Organization Address [facility] Co de Phone Number [facility] [place] [address] * POCT Glucose (09/15/2022 8:58 AM EDT) Glucose, POC 184 65 - 199 mg/dL [facility] Comment: Supplemental ranges: <140 mg/dL before meals <180 mg/dL all other times of the day Blood 09/15/2022 8:58 AM EDT 09/15/2022 8:58 AM EDT Aravind Velazco MD POINT OF CARE TEST O RDERABLES Performing Organization Address City/[facility]/ZIP Co de Phone Number [facility] [place] [address] * Specimen to Pathology (09/15/2022 8:56 AM EDT) AP Specimen 09/15/2022 8:56 AM EDT 09/15/2022 8:56 AM EDT Narrative [facility] - 09/15/2022 8:56 AM EDT Specimen requisition ordered. ??Separate Pathology report to follow Aravind Velazco MD PATHOLOGY/CYTOLOGY O BERTRAM [facility] [place] [id number] * Surgical Pathology Report (09/15/2022 8:55 AM EDT) Final Diagnosis [id number] ? Location: [facility]; [facility]; A The signing pathologist has (i) examined the [...] MD Verified: ??10/05/2022 14:22 ??Pathologist Performed at: ??-[facility] Dept. of Pathology, [place] [address] Spray Painting Machine Operator: David Horne MD, FCAP, ??CLIA Certificate: [id number] SYNOPTIC Specimen ? Procedure: ??Total hysterectomy and [...] Pelvic Nodes Examined: ??5 ?Number of Pelvic [place] Nodes Examined: ??4 ?Total Number of Para-aortic [...] intact nuclear staining ? ER ?Positive ? ID ?Positive Interpretation: Immunostains for MLH1, MSH2, MSH6 [...] the intact mismatch repair protein expression. IHC [place] Lymph Node Protocol For Endometrial Carcinoma: Formalin-fixed, [...] Tube: 2.1 x 0.5 cm, fimbriated. Sections/Processing: Retail Associate Manager Bilingual sections in 39 cassettes as follows: ?A1: [...] ?A23-A29: ??Left fallopian tube, submitted entirely ?A30: ??Retail Associate Manager Bilingual section of left ovary ?A31: ??Fimbria of right fallopian tube ?A32-A37: ??Right fallopian tube, submitted entirely ?A38: ??Cyst attached to right fallopian tube, submitted entirely ?A39: ??Retail Associate Manager Bilingual section of right ovary B - Labeled/Fixative: [...] sectioned ??BGT, JNR 10/05/2022 2:22 PM EDT [facility] SENTINEL LYMPH NODE / Unknown 09/15/2022 8:55 AM EDT 09/15/2022 8:55 AM EDT SENTINEL LYMPH NODE / Unknown 09/15/2022 8:55 AM EDT 09/15/2022 8:55 AM EDT LYMPH NODE SPECIMEN / Unknown 09/15/2022 8:55 AM EDT 09/15/2022 8:55 AM EDT SENTINEL LYMPH NODE / Unknown 09/15/2022 8:55 AM EDT 09/15/2022 8:55 AM EDT Aravind Velazco MD PATHOLOGY/CYTOLOGY O BERTRAM Performing Organization Address City/[facility] Co de Phone Number [facility] [place] [id number] [place] [address] [place] [address] * Specimen to Pathology (09/15/2022 8:55 AM EDT) AP Specimen 09/15/2022 8:55 AM EDT 09/15/2022 8:55 AM EDT Narrative [facility] - 09/15/2022 8:55 AM EDT Specimen requisition ordered. ??Separate Pathology report to follow Aravind Velazco MD PATHOLOGY/CYTOLOGY O BERTRAM Performing Organization Address [facility] Co de Phone Number [facility] [place] [address] * (ABNORMAL) POCT Glucose (09/15/2022 6:22 AM EDT) Glucose, POC 216(H) 65 - 199 mg/dL [facility] Comment: Supplemental ranges: <140 mg/dL before meals <180 mg/dL all other times of the day Blood 09/15/2022 6:22 AM EDT 09/15/2022 6:22 AM EDT Aravind Velazco MD POINT [place] [address] documented in this encounter Visit Diagnoses Diagnosis [...] Routine 0658 (Given - Provid er: Pj Echols, JUAN CARLOS) ceFAZolin (Ancef) 2 g vial attach to sodium chloride 0.9% 100 mL Mini-Bag Plus (COMPLETED)(Linked Group 1) 2 g, Intravenous, ONCE, 1 dose, On Christal 09/15/22 at 0645, Administer over 30 Minutes, Circuit Tester to OR Infuse over 30 minutes., Day [...] 09/15/22 at 0645, Administer over 30 Minutes, Circuit Tester to OR Infuse over 30 minutes., Day [...] 1008, Until Christal 09/15/22 at 1606, Pain, - If multiple pain [...] 09/15/22 at 0645, Administer over 30 Minutes, Circuit Tester to OR Infuse over 30 minutes., Day of Surgery (Day of Procedure), Indication for (Active or Suspected): Prophylaxis And metroNIDAZOLE (Flagyl) 500 mg in sodium chloride 0.9% 100 mL infusion (COMPLETED)Jump to med 500 mg, Intravenous, ONCE, 1 dose, On Chrisatl 09/15/22 at 0645, Administer over 30 Minutes, Circuit Tester to OR Infuse over 30 minutes., Day [...] Routine documented in this encounter Care Teams Service Supervisor Relationship Specialty Start Date End Date Margaret Rondon MD [address] [place] [address] PCP - General Family Medicine 09/13/22 documented as of this encounter
--- OUTSIDE RECORDS SUMMARY | 2024-04-01 17:31 | XMS_ITS | Encounter Summary ---
Author Organization [facility] [place] [address] Care Team Providers Care Electrician Powerhouse Name Role Phone Margaret Rondon MD Primary Care Provider [phone] Reason for Visit * Auth/Cert (Routine) Specialty [...] INJECTION (WRVU 2.5) MODIFIER MARLEY,Aravind Guthrie MD [facility] Referral ID Status Reason Start Date Expiration Date Visits Re quested Visits Authorized [id number] 1 1 Encounter Details Date Type Department Care Team (Late st Contact Info) Description 09/15/2022 7:34 AM EDT Anesthesia Event [place] [address] Yazan Schmitt MD [facility] [place] [address] Aureliano Zhong MD [facility] [place] [address] Anesthesia Record Procedure Summary Procedure Name Responsible [...] and Airways Type Details Placement Removal Incision 08; midline; abdom en; laparoscopic punctures (specify) 09/15/22 0954 by Incision 09/15/22 09/15/22 0000 by Jose R Still RN (RETIRED) Peripheral IV Line - Single Lumen 09/15/22; 0725; median cubital vein (antecubital fossa), right; ytno-aah-psyjew catheter system; Anatomical Landmarks; 20 gauge; Mynor RN; distraction, tolerated well, appears comfortable; 09/15/22; 1301 09/15/22 0725 by Mynor Flores RN 09/15/22 1301 by Amy Foreman RN ETT Mask Ventilation: Ea beulah (1); ETT Type: Cuffed, Nasal; ETT Size: [...] 0758; metacarpal vein (top of hand), left; dbxk-jma-yucciv catheter system; Anatomical Landmarks; 20 gauge; Aureliano [...] Procedure Summary Date: 09/15/22 Room / Location: [facility] OR Anesthesia Start: 733 Anesthesia Stop: 1026 Procedures: LAPAROSCOPY,TOTAL HYST, UTERUS<250GM, REM TUBE &/OR OVARY, ROBOTIC ASSIST (WRVU 15) (Uterus) LAPAROSCOPY,W\BILATERAL TOTAL PELVIC LYMPHADENECTOMY, PERIAORTIC LYMPH NODE SAMPLING, ROBOTIC (WRVU15.6) (Uterus) INTRAOPERATIVE ID (MAPPING) SENTINEL LYMPH NODE,INCLUDES INJECTION (WRVU 2.5) MODIFIER ROBOT,DAVINCI XI Diagnosis: (ENDOMETRIAL CANCER) Surgeons: Arvaind aJckson MD Responsible Provider: Yazan Schmitt MD Anesthesia Type: general ASA Status: 3 All Anesthesia Providers: Anesthesiologist: Yazan Schmitt MD Labor Law Professor: Aureliano Zhong MD Vitals Value Taken Time BP 100/59 09/15/22 1030 Temp 36.3 ??C (97.3 ??F) 09/15/22 1023 Pulse 72 09/15/22 1030 Resp 18 09/15/22 1030 SpO2 96 % 09/15/22 1030 Pain Level Vitals shown include unvalidated device data. Patient Location: PACU/[facility] Level of Consciousness: Conscious but Sleepy Pain [...] NODE,INCLUDES INJECTION (WRVU 2.5) MODIFIER ROBOT,DAVINCI XI Patient Active Problem List Diagnosis Date [...] Laterality Date JOINT REPLACEMENT Both knees at [facility] Social History Tobacco Use Smoking status: Never [...] 09/15/22 at 0645, Administer over 30 Minutes, Propellant Charge Loader to OR Infuse over 30 minutes., Day [...] 09/15/22 at 0645, Administer over 30 Minutes, Propellant Charge Loader to OR Infuse over 30 minutes., Day [...] mg documented in this encounter Care Teams Electrician Powerhouse Relationship Specialty Start Date End Date Margaret Rondon MD [facility] [address] [place] [address] PCP - General Family Medicine 09/13/22 documented as of this encounter
--- OUTSIDE RECORDS SUMMARY | 2024-04-01 17:31 | XMS_ITS | Encounter Summary ---
Author Organization [facility] Address [address] [place] [address] Care Team Providers Care General Surgeon Name Role Phone Chelsy Aden TORI Primary Care Provider [phone] Encounter Details Date Type Department Care Team (Late st Contact Info) Description 04/26/2023 Lab Requisition [facility] Pathology & Laboratory Medicine - [facility] [address], [place] [id number] Outr Resulting Lab, Provider Social History Tobacco [...] 4th Generation Negative Negative 04/27/2023 10:16 EST [facility] Comment:If acute HIV-1 infec tion is suspected in a high risk patient, submit plasma specimen for HIV-1 RNA quantitation test. Blood VENOUS BLOOD / Unknown 04/26/2023 9:30 EST 04/26/2023 21:20 EST Narrative [facility] - 04/27/2023 10:16 EST Fourth Generation assay performed on the Siemens Centaur XPT. us Provider Outr Resulting Lab IMMUNOLOGY AND SEROL OGY ORDERABLES Final Result [facility] [address] [place] [address] documented in this encounter Visit Diagnoses Not on filedocumented in this encounter Care Teams General Surgeon Relationship Specialty Start Date End Date Chelsy [place] [address] PCP - General 05/21/21 documented as of this encounter
--- OUTSIDE RECORDS SUMMARY | 2024-04-01 17:31 | XMS_ITS | Encounter Summary ---
Author Organization [facility] Address [facility] [place] [address] Care Team Providers Care Die Maker Bench Stamping Name Role Phone Margaret Rondon MD Primary Care Provider [phone] Encounter Details Date Type Department Care Team (Late st Contact Info) Description 11/03/2022 Telephone Gynecology Oncology at [facility] [place] [phone] Jocelyn Zuñiga RN Social History Tobacco Use Types Packs/Day Years Used Date Smoking Tobacco: Never Smokeless Tobacco: Never Alcohol Use Standard Drinks/Week Comments Not Currently 0 (1 standard drink = 0.6 oz pur e alcohol) [facility] Inpatient Questions Answer Date Recorded Does Anyone [...] on filedocumented in this encounter Care Teams Die Maker Bench Stamping Relationship Specialty Start Date End Date Margaret Rondon MD [address] [place] [address] PCP - General Family Medicine 09/13/22 documented as of this encounter
--- OUTSIDE RECORDS SUMMARY | 2024-04-01 17:31 | XMS_ITS | Encounter Summary ---
Author Organization [facility] Address [facility] [place] [address] Care Team Providers Care Motor Inspection Mechanic Name Role Phone Margaret Rondon MD Primary Care Provider [phone] Encounter Details Date Type Department Care Team [...] on filedocumented in this encounter Care Teams Motor Inspection Mechanic Relationship Specialty Start Date End Date Margaret Rondon MD [address] [place], [place] [id number] PCP - General Family Medicine 09/13/22 documented as of this encounter
--- OUTSIDE RECORDS SUMMARY | 2024-04-01 17:31 | XMS_ITS | Encounter Summary ---
Author Organization [facility] Address [address] [place] [address] Care Team Providers Care Associate Pastor Name Role Phone Chelsy Aden Primary Care Provider [phone] Encounter Details Date Type Department Care Team (Latest Contact Info) Description 06/18/2020 Lab Requisition [facility] Pathology & Laboratory Medicine - [facility] [address] [place] [address] Chelsy Aden FNP [address] [place], [place] [id number] Encounter for general adult medical examination without [...] from HPV types 16,18,31,33,35,39,45,51,52,56,58,59,66, and 68 by glass rolling machine operator mediated amplification. Papanicolaou smear specimen (specimen) CERVIX UTERI STRUCTURE / Unknown 06/16/2020 8:15 EDT 06/23/2020 11:42 EDT Chelsy Aden MEDICAL RECORDS TECHNICIAN MICROBIOLOGY - GENERAL ORDERAB LES Final Result [facility] [address] [place] [address] * PAP TEST (06/16/2020 8:15 EDT) Specimens [...] [facility] Attestation . 06/26/2020 15:01 [facility] at 1501 Clinical History See below 06/27/19 21 15:01 T [facility] HPV The result for the Human Papillomavirus (HPV) Detection-High Risk Types is Negative. No E6 or E7 mRNA is detected from HPV types 16,18,31,33,35,39 ,45,51,52,56,58,5 9,66, and 68 by glass rolling machine operator mediated amplification.Daisy ting was performed on specimen [id number] and was resulted on 06/26/2020 1457 EDT by DEEDEE, LAB INSTRUMENT RESULTS IN 06/26/2020 15:01 EDT [facility] Performing Lab [facility] 06/26/2020 15:01 EDT [facility] Scanned Images 06/26/2020 15:01 EDT [facility] Papanicolaou smear specimen (specimen) CERVIX UTERI STRUCTURE / Unknown 06/16/2020 8:15 EDT 06/18/2020 12:18 EDT Chelsy VALLE PATHOLOGY ORDERABLES Final Res ult [facility] [address] [place] [address] documented in this encounter Visit Diagnoses Diagnosis Encounter for general adult medical examination without abnormal findings Unspecified general medical examination Encounter for screening for malignant neoplasm of cervix Screening for malignant neoplasm of the cervix Encounter for screening for human papillomavirus (HPV) Special screening examination for human papillomavirus (HPV) documented in this encounter Care Teams Associate Pastor Relationship Specialty Start Date End Date Chelsy [place] [address] [place] [address] PCP - General 05/21/21 documented as of this encounter
--- OUTSIDE RECORDS SUMMARY | 2024-04-01 17:31 | XMS_ITS | Encounter Summary ---
Author Organization [facility] Address [facility] [place] [address] Care Team Providers Care Marketing Reps Sports And Entertainment Name Role Phone Margaret Rondon MD Primary Care Provider [phone] Encounter Details Date Type Department Care Team [...] on filedocumented in this encounter Care Teams Marketing [employer] Relationship Specialty Start Date End Date Margaret Rondon MD [address] [place], [place] [id number] PCP - General Family Medicine 09/13/22 documented as of this encounter
--- OUTSIDE RECORDS SUMMARY | 2024-04-01 17:31 | XMS_ITS | Encounter Summary ---
Author Organization [facility] Address [facility] [place] [address] Care Team Providers Care Transport Nurse Name Role Phone Margaret Rondon MD Primary Care Provider [phone] Encounter Details Date Type Department Care Team [...] on filedocumented in this encounter Care Teams Transport Nurse Relationship Specialty Start Date End Date Margaret Rondon MD [address] [place], [place] [id number] PCP - General Family Medicine 09/13/22 documented as of this encounter
--- OUTSIDE RECORDS SUMMARY | 2024-04-01 17:31 | XMS_ITS | Encounter Summary ---
Author Organization [facility] Address [facility] [place] [address] Care Team Providers Care Enforcement Officer Name Role Phone Unavailable Primary Care Provider Unavailabl e Encounter Details Date Type Department Care Team (Latest Contact Info) Description 06/10/2021 10:19 PM EDT - 06/10/2021 11:59 PM EDT Hospital Encounter Laboratory [facility] [phone] Discharge Disposition: Home Social History Tobacco Use [...] Report (06/10/2021 9:10 AM EDT) Final Diagnosis [id number] ? Location: [facility] The signing pathologist has (i) examined the relevant preparation(s) for the specimen(s) and (ii) rendered or confirmed the diagnosis(es). . ?Surgical Pathology DIAGNOSIS Great toe, nail other: - PAS staining negative for fungal elements - Rare coccoid forms present predominantly on nail plate surface, favor bacteria Electronically signed by: ?Silvana MALIN, Scottie Kim Verified: ??06/14/2021 15:10 ??Dermatopatholog ist Performed at: ??-[facility] Dept. of Pathology, [place], [place] SPECIMEN(S) SUBMITTED A - great toe nails Referring Identifier: ??[id number] CLINICAL INFORMATION Thick dystrophic toenails SPECIMEN PROCESSING A - Labeled/Fixative: Patient demographics, fresh. Quantity/Size: Two, 0.6 x 0.4 x 0.2 cm in aggregate. Tissue Description: Thickening, ross to yellow-wright unguis fragments. Sections/Processi ng: Submitted en toto ??in 1 cassette labeled A1. ??shb 06/14/2021 3:10 PM EDT [facility] NAIL SPECIMEN / Unknown 06/10/2021 9:10 AM EDT 06/10/2021 9:10 AM EDT Narrative Resulting Agency Comment Spec In Lab / WKS Xiomy Peralta FUSE CUP EXPANDER PATHOLOGY/CYTOLOGY ORDERABLES [facility] [place] [address] documented in this encounter Visit Diagnoses Not on filedocumented in this encounter
--- OUTSIDE RECORDS SUMMARY | 2024-04-01 17:31 | XMS_ITS | Encounter Summary ---
Author Organization [facility] Address [facility] [place] [address] Care Team Providers Care Skiver Blockers Name Role Phone Margaret Rondon MD Primary Care Provider [phone] Encounter Details Date Type Department Care Team (Late st Contact Info) Description 09/25/2023 8:40 AM EDT Office Visit [place] [phone] Alicia Tavera APRN [facility] [place] [address] Endometrial cancer determined by uterine biopsy Social [...] 8:40 AM EDT Division [place] [address] Gynecologic Oncology-Clinic Note Reason for visit: Surveillance. [...] chaperoned by DEL JOAQUIN. 09/25/23 In the CUTTER OPERATOR TILE/ONC 3K clinic. @ Vitals Flowsheet Row Office Visit from 09/25/2023 in Gynecology Oncology at [facility] Weight 96.2 kg (212 lb) Height 163.8 [...] biopsy documented in this encounter Care Teams Skiver Blockers Relationship Specialty Start Date End Date Margaret Rondon MD [address] [place] [address] PCP - General Family Medicine 09/13/22 documented as of this encounter
--- OUTSIDE RECORDS SUMMARY | 2024-04-01 17:31 | XMS_ITS | Encounter Summary ---
Author Organization [facility] Address [facility] [place] [address] Care Team Providers Care Sweat Band Separator Name Role Phone Chelsy Aden YIFAN Primary Care Provider [phone] Reason for Visit * Reason Comments Establish Care Malignant of endomet rium * Consultation (Urgent) - Closed Specialty Diagnoses / Procedures Referred By Manda ashton Referred To Contact Gynecology Oncology Diagnoses Malignant neoplasm of endometrium Macie Guido DO [address] [place] [address] [facility] [employer] And Tacking Machine [address] [place] [address] Referral ID Status Reason Start Date Expiration Date V isits Requested Visits Authorized [id number] Closed Consult, Test & Treat PCP Updated and/or Approved 07/29/2022 07/29/2023 6 6 Encounter Details Date Type Department Care Team (Late st Contact Info) Description 08/11/2022 9:00 AM EDT Office Visit [place] [address] Aravind [place] MD Type 2 diabetes mellitus without complication, without [...] chaperoned by LNA. Tanisha On 08/11/22 In RANCH MANAGER/ONC 3k * Aravind [place] MD - 08/11/2022 9:00 AM EDT Division of [place]nec[place] [address] Gynecologic Oncology Clinic New Patient Visit Reason for visit: New uterine endometrial cancer, referred by: Macie Guido DO [address] [place] [address] [place] [address] Problem List Patient Active Problem List Diagnosis Code Endometrial cancer determined by uterine biopsy C54.1 History of present illness: Yolis BuschElen) is a very nice 62 y.o. white [...] Left TKA 2020. 3. Umbilical herniorrhaphies x2, 2018, 2020. Social history: Currently lives in a house with her brother and ybmjqz-sj-ssp. 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 She has no partner significant other. She considers her primary next of kin to be her [id number]-pt-qiu Rizwana. She completed an associates degree in [...] PROVIDER, HISTORICAL fluticasone propionate (Flonase) 50 mcg/actuation [place], Suspension 1 spray daily. Yes PROVIDER, HISTORICAL [...] pathology was not yet reviewed here at [facility]. Based on these findings, a decision was [...] storm documented in this encounter Care Teams Sweat Band Separator Relationship Specialty Start Date End Date Keiko YIFAN Valentino [address] [place] [address] PCP - General Family Medicine 07/29/22 09/12/22 documented as of this encounter
--- OUTSIDE RECORDS SUMMARY | 2024-04-01 17:31 | XMS_ITS | Encounter Summary ---
[place] [address] Care Team Providers Care Distributor Sales Manager Name Role Phone Margaret Rondon MD Primary Care Provider Reason for Visit * Auth/Cert (Routine) Specialty [...] INJECTION (WRVU 2.5) MODIFIER MARLEY,Aravind Guthrie MD [facility] Referral ID Status Reason Start Date Expiration Date Visits Re quested Visits Authorized [id number] 1 1 Encounter Details Date Type Department Care Team (Late st Contact Info) Description 09/15/2022 7:30 AM EDT - 09/15/2022 10:56 AM EDT Surgery [place] [phone] Aravind Velazco MD ROBOTIC LAPAROSCOPY,TOTAL HYST, UTERUS<250GM, REM TUBE &/OR OVARY (WRVU 15) Social History Tobacco Use Types Packs/Day Years Used Date Smoking Tobacco: Never Smokeless Tobacco: Never Alcohol Use Standard Drinks/Week Comments Not Currently 0 (1 standard drink = 0.6 oz pur e alcohol) [facility] Inpatient Questions Answer Date Recorded Does Anyone [...] PATIENT DISCHARGE INSTRUCTIONS Gynecologic Oncology phone number: [phone] (Nurse ext 4 then 4; appointment ext 1 then 4). After hours and on weekends please call hospital garnett machine operator at [phone] and ask for Gynecologic Oncologist ammunition components inspector. Call your doctor if you develop: --A [...] nightly. 07/12/2022 fluticasone propionate (Flonase) 50 mcg/actuation [place], Suspension 1 spray daily. loratadine (Claritin) 10 [...] discharge summary. Summary reviewed with pt and ilupfw-m-lju, all questions answered. Patient encouraged to call with any further questions or concerns. Patient discharged to home with widxyp-oy-blw. Pt demonstrated ability to ambulate to bathroom [...] 2019, 2020. Social history: Accompanied by her [id number]-cv-rdf Rizwana She completed an associates degree in [...] mg, Oral fluticasone propionate (Flonase) 50 mcg/actuation [place], Suspension 1 spray, DAILY gabapentin (NEURONTIN) 300 [...] for planned procedure. -- Pharmacy: [facility] in [place], [place] Opioid risk counseling and consent I [...] Velazco MD - 09/15/2022 8:21 AM EDT [facility] Operative Note Patient Name: Yolis Romero : [id number] MR#: [id number] Case Date: 09/15/2022 Surgeon: Surgeon(s) and Role: * Aravind Velazco MD - Primary * Earline Curtis MD Registered Nurse Ride Operator: Kaity Pierce RN Anesthesia: General endotracheal/local [...] cavity including the lower uterine segment. 3. Erie lymph node mapping: A left and right [...] uterus and dilation of the cervix, a Nuclear Medicine Officer device was inserted into the uterus for manipulation. An 8-mm transverse incision was made 5 cm above the umbilicus, through which a 8-mm da Michael trocarwas then inserted under direct visualization, verifying atraumatic entry. Additional 8-mm robotic trocars and a 12-mm right upper quadrant nurses medical assistants phlebotomists port were placed in the usual locations [...] 09/15/2022 7:32 AM EDT ENDOMETRIAL CANCER Intraop Erie Lymph Id W/Dye Injection ([id number]) 09/15/2022 7:32 AM EDT ENDOMETRIAL CANCER Lap, Pelvic Lymphadenectomy/Bx ([id number]) 09/15/2022 7:32 AM EDT ENDOMETRIAL CANCER Laparoscopy W Tot Hysterectuterus <=250 Gram W Tube/Ovary ([id number]) 09/15/2022 7:32 AM EDT ENDOMETRIAL CANCER POCT GLUCOSE Routine 09/15/2022 6:22 AM EDT documented in this encounter Results * (ABNORMAL) POCT Glucose (09/15/2022 10:29 AM EDT) Glucose, POC 221(H) 65 - 199 mg/dL [facility] Comment: Supplemental ranges: <140 mg/dL before meals <180 mg/dL all other times of the day Blood 09/15/2022 10:2 9 AM EDT 09/15/2022 10:29 AM EDT Aravind Velazco MD POINT OF CARE TEST O RDERABLES Performing Organization Address City/[facility]/ZIP Co de Phone Number [facility] [place] [address] * Specimen to Pathology (09/15/2022 9:38 AM EDT) AP Specimen 09/15/2022 9:38 AM EDT 09/15/2022 9:38 AM EDT Narrative [facility] - 09/15/2022 9:38 AM EDT Specimen requisition ordered. ??Separate Pathology report to follow Aravind Velazco MD PATHOLOGY/CYTOLOGY O RDERABLES Performing Organization Address [facility]/ZIP Co de Phone Number [facility] [place] [address] * Specimen to Pathology (09/15/2022 9:05 AM EDT) AP Specimen 09/15/2022 9:05 AM EDT 09/15/2022 9:05 AM EDT Narrative [facility] - 09/15/2022 9:05 AM EDT Specimen requisition ordered. ??Separate Pathology report to follow Aravind Velazco MD PATHOLOGY/CYTOLOGY O RDERAMODE Performing Organization Address [facility] Co de Phone Number [facility] [place] [address] * POCT Glucose (09/15/2022 8:58 AM EDT) Glucose, POC 184 65 - 199 mg/dL [facility] Comment: Supplemental ranges: <140 mg/dL before meals <180 mg/dL all other times of the day Blood 09/15/2022 8:58 AM EDT 09/15/2022 8:58 AM EDT Aravind Velazco MD POINT OF CARE TEST O RDERAMODE Performing Organization Address City/[facility]/ZIP Co de Phone Number [facility] [place] [address] * Specimen to Pathology (09/15/2022 8:56 AM EDT) AP Specimen 09/15/2022 8:56 AM EDT 09/15/2022 8:56 AM EDT Narrative [facility] - 09/15/2022 8:56 AM EDT Specimen requisition ordered. ??Separate Pathology report to follow Aravind Velazco MD PATHOLOGY/CYTOLOGY O RDERAMODE [facility] [place] [address] * Surgical Pathology Report (09/15/2022 8:55 AM EDT) Final Diagnosis [id number] ? Location: [facility]; A The signing pathologist has (i) examined [...] negative for malignancy (0/1) Electronically signed by: ?Jethro MALIN, Camelia Cook Verified: ??10/05/2022 14:22 ??Pathologist Performed at: ??-[facility] Dept. of Pathology, [place] [address] Nitrate Operator: David Horne MD, FCAP, ??CLIA Certificate: [id number] SYNOPTIC Specimen ? Procedure: ??Total hysterectomy and [...] Pelvic Nodes Examined: ??5 ?Number of Pelvic Erie Nodes Examined: ??4 ?Total Number of Para-aortic [...] intact nuclear staining ? ER ?Positive ? ND ?Positive Interpretation: Immunostains for MLH1, MSH2, MSH6 [...] the intact mismatch repair protein expression. IHC Erie Lymph Node Protocol For Endometrial Carcinoma: Formalin-fixed, [...] Tube: 2.1 x 0.5 cm, fimbriated. Sections/Processing: Vehicle Leasing And Rental Manager sections in 39 cassettes as follows: ?A1: [...] ?A23-A29: ??Left fallopian tube, submitted entirely ?A30: ??Vehicle Leasing And Rental Manager section of left ovary ?A31: ??Fimbria of right fallopian tube ?A32-A37: ??Right fallopian tube, submitted entirely ?A38: ??Cyst attached to right fallopian tube, submitted entirely ?A39: ??Vehicle Leasing And Rental Manager section of right ovary B - Labeled/Fixative: [...] sectioned ??BGT, JNR 10/05/2022 2:22 PM EDT [facility] SENTINEL LYMPH NODE / Unknown 09/15/2022 8:55 AM EDT 09/15/2022 8:55 AM EDT SENTINEL LYMPH NODE / Unknown 09/15/2022 8:55 AM EDT 09/15/2022 8:55 AM EDT LYMPH NODE SPECIMEN / Unknown 09/15/2022 8:55 AM EDT 09/15/2022 8:55 AM EDT SENTINEL LYMPH NODE / Unknown 09/15/2022 8:55 AM EDT 09/15/2022 8:55 AM EDT Aravind Velazco MD PATHOLOGY/CYTOLOGY O BERTRAM Performing Organization Address [facility] Co de Phone Number [facility] [place] [address] [facility] [place] [address] * Specimen to Pathology (09/15/2022 8:55 AM EDT) AP Specimen 09/15/2022 8:55 AM EDT 09/15/2022 8:55 AM EDT Narrative [facility] - 09/15/2022 8:55 AM EDT Specimen requisition ordered. ??Separate Pathology report to follow Aravind Velazco MD PATHOLOGY/CYTOLOGY O BERTRAM Performing Organization Address [facility] Co de Phone Number [facility] [place] [address] * (ABNORMAL) POCT Glucose (09/15/2022 6:22 AM EDT) Glucose, POC 216(H) 65 - 199 mg/dL [facility] Comment: Supplemental ranges: <140 mg/dL before meals <180 mg/dL all other times of the day Blood 09/15/2022 6:22 AM EDT 09/15/2022 6:22 AM EDT Aravind Velazco MD POINT OF CARE TEST O RDERABLES [facility] [place] [address] documented in this encounter Visit Diagnoses Not [...] 09/15/22 at 0645, Administer over 30 Minutes, Medical Office Clerk to OR Infuse over 30 minutes., Day [...] 09/15/22 at 0645, Administer over 30 Minutes, Medical Office Clerk to OR Infuse over 30 minutes., Day [...] 09/15/22 at 0645, Administer over 30 Minutes, Medical Office Clerk to OR Infuse over 30 minutes., Day of Surgery (Day of Procedure), Indication for (Active or Suspected): Prophylaxis And metroNIDAZOLE (Flagyl) 500 mg in sodium chloride 0.9% 100 mL infusion (COMPLETED)Jump to med 500 mg, Intravenous, ONCE, 1 dose, On Christal 09/15/22 at 0645, Administer over 30 Minutes, Medical Office Clerk to OR Infuse over 30 minutes., Day [...] Routine documented in this encounter Care Teams Distributor Sales Manager Relationship Specialty Start Date End Date Margaret Rondon MD [address] [place] [address] PCP - General Family Medicine 09/13/22 documented as of this encounter
--- OUTSIDE RECORDS SUMMARY | 2024-04-01 17:31 | XMS_ITS | Encounter Summary ---
Author Organization [facility] Address [address] [place] [address] Care Team Providers Care Matrix Worker Name Role Phone Chelsy Aden TORI Primary Care Provider [phone] Encounter Details Date Type Department Care Team (Late st Contact Info) Description 04/09/2021 Lab Requisition [facility] Pathology & Laboratory Medicine - [facility] [address], [place] [id number] Outr Resulting Lab, Provider Social History Tobacco [...] MICROBIOLOGY - GENER AL ORDERABLES Final Result [facility] [address] [place] [address] * COVID-19 TESTING (04/08/2021 9:20 EST) COVID-19 rt-PCR Result Negative Negative 04/10/2021 12:56 EST [facility] Comment: This test has not [...] performed using the kleber SARS-CoV-2 assay ([employer] on the Kleber 6800 System Performing Lab Kleber [address] [facility] Lab 04/10/2021 12:56 EST [facility] Swab 04/08/2021 9:20 EST 04/09/2021 17:13 EST us Provider Outr Resulting Lab MICROBIOLOGY - GENER AL ORDERABLES Final Result [facility] [address] [place] [address] documented in this encounter Visit Diagnoses Not on filedocumented in this encounter Care Teams Matrix Worker Relationship Specialty Start Date End Date Chelsy [place] [address] PCP - General 05/21/21 documented as of this encounter
[2024-04-01 18:50] LABS: ALT 35 U/L (14-59); AST 27 U/L (15-37); Albumin 3.8 g/dL (3.4-5.0); Alkaline Phosphatase 104 U/L (46-116); Anion Gap 0.9 mmol/L (3-11); BUN 24 mg/dL (7-18); Bilirubin, Total 0.93 mg/dL (0.2-1.0); CO2 36.1 mmol/L (21.0-32.0); Calcium 9.6 mg/dL (8.5-10.1); Chloride 102 mmol/L (98-107); Estimated GFR 62.91 (mL/min/1.73m2); Glucose 147 mg/dL (74-106); Potassium 4.3 mmol/L (3.5-5.1); Sodium 139 mmol/L (136-145); TSH (W/Ref FT4) 1.58 uIU/mL (0.36-3.74); Total Protein 7.4 g/dL (6.4-8.2)
== END 2024-04-01 17:27 | disposition home or self-care (01) ==
LOC: NCHCN 17:26
PROVIDERS: PCP Family Medicine; Visit Provider Family Medicine
DX: E03.9 Hypothyroidism, unspecified (principal); I10 Essential (primary) hypertension
CPT/HCPCS: 80053; 84443

== ENCOUNTER 2024-09-30 03:22 | Outpatient (CLI) | payer OTHER, SELFPAY ==
--- NOTE | 2024-09-30 08:56 | DI.MAMMO_ITS ---
Exam(s) MAMMO SCREENING EXAM: MAMMO SCREENING CLINICAL HISTORY: Z12.31 Screening mammogram TECHNIQUE: Mammograms were interpreted according to the usual protocol including computer analysis with CAD system, tomosynthesis and C-view imaging. COMPARISON: 2020 and 2022 FINDINGS: The breasts are composed of scattered fibroglandular densities, Breast Density category B. No suspicious masses or suspicious microcalcifications are seen. No skin thickening or abnormal axillary lymph nodes are seen. There has been no significant change from prior exams. IMPRESSION: BI-RADS Category 1, Negative mammogram Yearly screening mammography is recommended. Breast Density - Category B - There are scattered areas of fibroglandular density. Breast density Category C or D implies that the patient has dense breast tissue. Dense breast tissue can make it harder to find cancer on a mammogram. Dense breast tissue is also associated with an increased risk of breast cancer. This information about the result of the mammogram report was provided to the patient to raise their awareness. Use this report when you speak with the patient about their risks for breast cancer, which includes their family history. At that time, you may recommend additional screening tests (Ultrasound or MRI) as these tests may add significant information. A negative radiographic report should not delay biopsy if a dominant or clinically suspicious mass is present. Up to ten percent of cancers are not identified on mammography. A negative report may reinforce clinical impression. Adenosis and dense breasts may obscure an underlying neoplasm. False positive reports average 6 to 10%. Patient will receive a letter notifying them of these results.
== END 2024-09-30 03:42 ==
PROVIDERS: PCP Family Medicine; Visit Provider Family Medicine
DX: Z12.31 Encounter for screening mammogram for malignant neoplasm of breast (principal); R92.323 Mammographic fibroglandular density, bilateral breasts
CPT/HCPCS: 77063; 77067

== ENCOUNTER 2025-01-15 06:07 | Day surgery (SDC) | payer OTHER, SELFPAY ==
[2025-01-15 06:15] VITALS: BP 104/64; PULSE 72; RESP 16; TEMP 36.5; O2SAT 96
[2025-01-15] MEDS: Cephalexin 500 MG CAP 1000 MG PO (06:39)
--- NOTE | 2025-01-15 07:13 | W.PM.DSUDISC ---
Date of service: 01/15/25 Discharge Plan Disposition Patient Disposition: Home Condition: Good Discharge Details Reason For Visit: R ECTR Attending Provider: Myke Snow Primary Care Provider: Margaret Rondon Home Meds and New Rx's Prescriptions: New acetaminophen 500 mg tablet 1,000 mg PO TID Qty: 90 0RF ibuprofen 600 mg tablet 600 mg PO TID PRN (Reason: pain) Qty: 90 0RF Continued cholecalciferol (vitamin D3) 50 mcg (2,000 unit) capsule 50 mcg PO DAILY fluticasone propionate [Flonase Allergy Relief] 50 mcg/actuation spray,suspension 2 spray intranasal DAILY Qty: 48 4RF Rx Instructions: administer into each nostril montelukast 10 mg tablet 10 mg PO QHS Qty: 90 4RF Ozempic 0.25 mg or 0.5 mg (2 mg/3 mL) pen injector 2 mg subcut QWEEK nystatin-triamcinolone 100,000-0.1 unit/g-% cream 1 applic topical BID Qty: 60 1RF amlodipine 5 mg tablet 5 mg PO DAILY biotin 1 mg capsule 1 mg PO DAILY cyanocobalamin (vitamin B-12) 1,000 mcg capsule 1,000 mcg PO DAILY albuterol sulfate 2.5 mg /3 mL (0.083 %) solution for nebulization 2.5 mg inhalation Q4H PRN albuterol sulfate [ProAir HFA] 90 mcg/actuation HFA aerosol inhaler 2 puff inhalation Q6H PRN levothyroxine 25 mcg Tablet 25 mcg PO DAILY irbesartan 75 mg Tablet 75 mg PO DAILY hydrochlorothiazide 25 mg Tablet 25 mg PO DAILY rosuvastatin 10 mg Tablet 10 mg PO HS metformin 1,000 mg tablet 500 mg PO BID multivitamin Tablet 1 tab PO DAILY Discharge Instructions Stand Alone Forms: Edy Mahmood Tunnel Release, Portal Information Referrals: Myke Snow MD [ [facility] STAFF PHYSICIAN, Orthopaedic Surgical] Activity:: Activity as Tolerated Remove Dressings/Wound Care:: 48 hours Shower/Bathe:: 48 hours Diet:: As Tolerated Discharge Orders Discharge Orders: Discharge Order (Routine); Ordered 01/15/25 Ordered By: Jose R Bruce DS: Diagnosis Discharge Diagnosis (1) Right carpal tunnel syndrome: Status: Acute
[2025-01-15] MEDS: Lidocaine 1% Pres-Free W/EPI 1/200,000 10 ML VIAL (07:34)
[2025-01-15] MEDS: Sodium Bicarbonate 50 MEQ/50 ML VIAL (07:34)
[2025-01-15 07:50] VITALS: BP 104/65; PULSE 66; RESP 16; TEMP 36.4; O2SAT 94
--- NOTE | 2025-01-15 21:39 | ROE_ITS ---
Operative Note Operative Note PRE-OP DIAGNOSIS: Right Carpal Tunnel Syndrome POST-OP DIAGNOSIS: same PROCEDURE: Right Endoscopic Carpal Tunnel Release SURGEON: Myke Snow ANESTHESIA TYPE: Local By Surgeon Refer to Anesthesia Record ESTIMATED BLOOD LOSS: 0 PATHOLOGY: none sent TOURNIQUET TIME: 6 COMPLICATIONS: None Patient was transported to: same day Patient's condition: stable Indications: I have seen Yolis in clinic for symptoms of carpal tunnel syndrome. The numbness, tingling, and pain limited function. Clinical exam findings confirmed the diagnosis of carpal tunnel syndrome. Nonoperative measures such as bracing, time, activity modifications had been tried but disability and pain persisted. I discussed carpal tunnel release with the patient. I reviewed the risks of the procedure to include, but not limited to, bleeding, infection, pain, stiffness, incomplete release, damage to nerves or vessels, persistent numbness, recurrence. Despite these risks, the patient elected to proceed. Findings: There was tightened carpal tunnel. This was dilated and released successfully with the endoscopic with increased space within the tunnel. The antebrachial fascia was released proximally freeing the median nerve at the wrist. Procedure Description: Yolis was greeted in the preoperative holding area where the correct side was identified and marked. The consent was reviewed with the patient and signed. The history and physical was updated. All questions were answered. She was taken back to the operating room. The patient was placed into the supine position on the operating room table with the right arm on an arm board. A nonsterile tourniquet was placed high onto the arm. All bony prominences were well padded. Prophylactic antibiotics in the form of Cephalexin were administered in DSU. The right arm was then prepped with Chloraprep and draped in a standard fashion with stockinette and extremity drape. A timeout to confirm correct identity, side and site, procedure, allergies, anesthesia, and medical concerns was performed. The surgical site was marked in the volar wrist creases in line with the radial border of the fourth ray. This area was anesthetized with approximately 10cc of 1% Lidocaine with Epinephrine, buffered with Sodium Bicarbonate. The limb was then exsanguinated with an Esmarch. The skin was incised with a 15 blade, approximately 1cm. The skin only was cut and the deeper tissue was dissected bluntly with a tenotomy scissor, avoiding passing nerve and venous structures. The fascia was penetrated and opened bluntly. A two-prong skin hook was placed under this proximal fascial edge. A series of hamate finders were used to identify and dilate the carpal tunnel. Synovial elevator was used to free synovial attachments to the underside of the transverse carpal ligament. My thumb was kept in the palm to rianna the distal extent of the carpal tunnel and correctly position the hand. The Microaire endoscope was inserted without difficulty and without resistance. Excellent visualization showed horizontally running fibers of the transverse carpal ligament (TCL). The distal extent of the TCL was visualized and the end of the scope palpated with the thumb. The blade was elevated and withdrawn from distal to proximal. The TCL was split into two flaps. The endoscope was reinserted to confirm complete release and any remnant ligament was incised. The scope was withdrawn and the proximal aspect of the carpal tunnel was grossly inspected and appeared release with the median nerve visible. The antebrachial fascia at the level of the wrist was then freed from the overlying skin and then the underlying median nerve with blunt dissection. This was transected longitudinally for about 3cm proximal to the wrist incision. The wound was then irrigated with easy flow of irrigant distally and proximally. The incision was closed with a single 4-0 Nylon suture. The wound was dressed with Xeroform, Gauze, Kerlix and Jigar. The tourniquet was deflated with the initial dressing and held with some pressure. Blood flow returned easily to all digits with capillary refill less than 2 seconds. The patient tolerated the procedure well and was returned to the Same Day Surgery area in a stable conditi on suffering no known complication. Date of Procedure: 01/15/25
== END 2025-01-15 08:00 | disposition home or self-care (01) ==
PROVIDERS: PCP Family Medicine; Visit Provider Student in an Organized Health Care Education/Training Program
PROC: 01N54ZZ Release Median Nerve, Percutaneous Endoscopic Approach (ICD-10-PCS; CPT 29848; principal; 2025-01-15 07:30)
DX: G56.01 Carpal tunnel syndrome, right upper limb (principal)
CPT/HCPCS: 29848; J2004